=== PATIENT | male | born 1950 | race Caucasian/White ===

== ENCOUNTER 2016-08-22 01:52 | Inpatient (IN) | payer MEDICARE ==
[2016-08-22] VITALS (39 sets, daily range): BP systolic 96–175; BP diastolic 52–98; PULSE 79–114; RESP 5–27; TEMP 97.7–98.5; O2SAT 82–98
[~2016-08-22] VITALS: Ht 167.6 cm; Wt 109.7 kg
[2016-08-22] MEDS ORDERED: SODIUM CHLOR 0.9% 1000 ML INJ 1,000 ML IV SCH ×2 (02:53)
[2016-08-22 02:55] LABS: AUTOMATED NEUTROPHIL # 4.1 TH/MM3 (1.8-7.7); BASOPHIL # 0.1 TH/MM3 (0-0.2); BASOPHIL % 1.4 % (0.0-2.0); EOSINOPHIL # 0.1 TH/MM3 (0-0.4); EOSINOPHIL % 1.8 % (0.0-4.0); HEMATOCRIT 49.2 % (39.0-51.0); HEMO FLAGS DIFF FINAL; LYMPH % 16.8 % (9.0-44.0); MEAN CELL VOLUME 89.3 FL (80.0-100.0); MEAN CORPUSCULAR HEMOGLOBIN 28.6 PG (27.0-34.0); MONO % 9.4 % (0.0-8.0); NEUT % 70.6 % (16.0-70.0); PLATELET COUNT 128 TH/MM3 (150-450); RED BLOOD COUNT 5.51 MIL/MM3 (4.50-5.90); RED CELL DISTRIBUTION WIDTH 15.1 % (11.6-17.2); WHITE BLOOD COUNT 5.9 TH/MM3 (4.0-11.0)
[2016-08-22] MEDS ORDERED: VANCOMYCIN INJ 1,000 MG in SODIUM CHLOR 0.9% 250 ML INJ 250 ML IV ONE (03:00)
[2016-08-22] MEDS ORDERED: SODIUM CHLORIDE 0.9% FLUSH 5 ML FLUSH IVF PRN ×3 (03:00→10:15)
[2016-08-22] MEDS ORDERED: CEFEPIME INJ 2,000 MG in SODIUM CHLORIDE 0.9% INJ 100 ML IV ONE (03:00)
[2016-08-22] MEDS ORDERED: NALOXONE HCL 0.4 MG/ML AMP IV PUSH ONE (03:00)
[2016-08-22 03:16] LABS: BLOOD GAS CARBOXYHEMOGLOBIN 2.6 % (0-4); BLOOD GAS HCO3 36 mmol/L (22-26); BLOOD GAS METHEMOGLOBIN 1.1 % (0-2); BLOOD GAS O2 HGB SATURATION 90 % (90-100); BLOOD GAS OXYGEN CONTENT 19.9 Vol % (12.0-20.0); BLOOD GAS PCO2 90 mmHG (38-42); BLOOD GAS PO2 80 mmHG (61-120); BLOOD GAS TOTAL HGB 15.7 G/DL (12.0-16.0); TEMP CORR TO 98.6
[2016-08-22 03:17] LABS: CRITICAL VALUE YES; DRAW SITE LT RADIAL; LITER FLOW 3.5 L/M; NUMBER OF ARTERIAL PUNCTURES 1; OXYGEN DEVICE NASAL CANNULA; STAT YES; ULNAR PULSE Y
[2016-08-22 03:18] LABS: BLOOD, URINE NEG (NEG); KETONE, URINE NEG (NEG); NITRITE,URINE NEG (NEG)
[2016-08-22 03:35] LABS: GLUCOSE,URINE 1000 OR GREATER mg/dL (NEG)
[2016-08-22 03:36] LABS: AMPHETAMINE, URINE NEG (NEG)
--- NOTE | 2016-08-22 03:37 | RADHPO ---
EXAM DATE/TIME: 08/22/2016 03:27 [facility] COMPARISON: No previous studies available for comparison. INDICATIONS : Fever, Syncope MEDICAL HISTORY : Diabetes mellitus type II. SURGICAL HISTORY : Unknown ENCOUNTER: Initial ACUITY: 1 day PAIN SCORE: Non-responsive. LOCATION: Bilateral chest FINDINGS: A single view of the chest demonstrates the lungs to be symmetrically aerated without evidence of mas s, infiltrate or effusion. There appears to be some pulmonary venous congestion. The heart size is en larged. The bony structures are intact. There is an old fracture involving the left clavicle.. CONCLUSION: 1. Pulmonary venous congestion. 2. Compensated cardiomegaly. Graeme Pacheco MD on August 22, 2016 at 3:34 Board Certified Radiologist. This report was verified electronically.
[2016-08-22 03:38] LABS: BARBITURATES, URINE NEG (NEG)
[2016-08-22 03:41] LABS: COCAINE, URINE NEG (NEG)
[2016-08-22 03:41] LABS: CHLORIDE 101 MEQ/L (98-107); POTASSIUM 3.5 MEQ/L (3.5-5.1); SODIUM (NA) 141 MEQ/L (136-145)
[2016-08-22 03:44] LABS: ANION GAP 2 MEQ/L (5-15); BICARBONATE 37.8 MEQ/L (21.0-32.0)
[2016-08-22 03:45] LABS: BLOOD UREA NITROGEN 9 MG/DL (7-18)
[2016-08-22 03:47] LABS: ALT (GPT) 19 U/L (12-78); AST (GOT) 16 U/L (15-37)
[2016-08-22 03:48] LABS: METHOD OF COLLECTION CLEAN CATCH; URINE COLOR YELLOW (YELLW/STRAW)
[2016-08-22 03:48] LABS: GLOMERULAR FILTRATION RATE 126 ML/MIN (>89)
[2016-08-22 03:49] LABS: TOTAL BILIRUBIN ADULT 0.6 MG/DL (0.2-1.0)
[2016-08-22 03:50] LABS: SQUAMOUS EPITHELIAL CELL URINE 0-5 /hpf (0-5)
[2016-08-22 03:50] LABS: ALKALINE PHOSPHATASE 83 U/L (45-117)
[2016-08-22 03:51] LABS: COMMENT (UR) CULT NOT INDICATED; CULTURE IF INDICATED CULT NOT INDICATED
[2016-08-22] MEDS ORDERED: FUROSEMIDE 40 MG/4 ML VIAL IV PUSH ONE (04:00)
[2016-08-22] MEDS ORDERED: NITROGLYCERIN 2% OINT 1 GM PACKET TOPICAL ONE (04:00)
--- NOTE | 2016-08-22 04:06 | RADHPO ---
EXAM DATE/TIME: 08/22/2016 03:36 [facility] COMPARISON: No previous studies available for comparison. INDICATIONS : Altered mental status. RADIATION DOSE: 45.05 CTDIvol (mGy) MEDICAL HISTORY : None SURGICAL HISTORY : None. ENCOUNTER: Initial ACUITY: 1 day PAIN SCALE: 0/10 LOCATION: cranial TECHNIQUE: Multiple contiguous axial images were obtained of the head. Using automated exposure control and adj ustment of the mA and/or kV according to patient size, radiation dose was kept as low as reasonably a chievable to obtain optimal diagnostic quality images. FINDINGS: CEREBRUM: The ventricles are normal for age. No evidence of midline shift, mass lesion, hemorrhage or acute in farction. No extra-axial fluid collections are seen. POSTERIOR FOSSA: The cerebellum and brainstem are intact. The 4th ventricle is midline. The cerebellopontine angle i s unremarkable. EXTRACRANIAL: The visualized portion of the orbits is intact. SKULL: The calvaria is intact. No evidence of skull fracture. CONCLUSION: Normal examination for a patient of this age. Graeme Pacheco MD on August 22, 2016 at 4:04 Board Certified Radiologist. This report was verified electronically.
[2016-08-22 04:12] LABS: MAGNESIUM 1.4 MG/DL (1.5-2.5)
[2016-08-22] MEDS ORDERED: RESP: ALBUTEROL 2.5 MG/IPRATROPIUM 0.5 MG NEB (SCH) NEB ONE ×2 (04:15→06:45)
[2016-08-22 04:17] LABS: BETA-HYDROXYBUTYRATE 0.08 MMOL/L (0.00-0.39)
[2016-08-22] MEDS ORDERED: methylPREDNISolone SOD SUCC 125 MG/2 ML VIAL IVP ONE (05:15)
[2016-08-22] MEDS: RESP: ALBUTEROL 2.5 MG/IPRATROPIUM 0.5 MG NEB (SCH) INH ×4 (05:17→21:36)
[2016-08-22 05:50] LABS: CREATINE KINASE 54 U/L (39-308)
--- NOTE | 2016-08-22 06:02 | PD ---
HPI Chief Complaint: Altered Mental Status Time Seen by Provider: 02:53 Travel History International Travel<30 days: No Contact w/Intl Traveler<30days: No Traveled to known affect area: No History of Present Illness HPI 65-year-old male presents to the emergency department by EMS transport for evaluation of altered mental status. Patient is not able to relay his own history. According to boxer operator report patient was identified by police to have erratic and reckless driving and pulled the patient over. At that time he was noted to have altered mentation. EMS was notified and patient was transported to the emergency department. Patient was identified to have low O2 saturations of 87% on room air. Patient unable to relay any of his past medical history. Patient presents with photo ID been no medication list. Blood sugar was 137. Patient was afebrile. Patient denies pain. PFSH Past Medical History Narrative Medical Unknown Medical History: Unable to Obtain Diminished Hearing: No Tetanus Vaccination: Unknown Past Surgical History Surgical History: Unable to Obtain Social History Alcohol Use: Yes (OCCASIONAL ) Tobacco Use: No Substance Use: No Allergies-Medications (Allergen,Severity, Reaction): Coded Allergies: No Known Allergies (Unverified , 08/22/16) Reported Meds & Prescriptions Reported Meds & Active Scripts Active Reported Metformin (Metformin HCl) Unknown Strength Tab Unknown Dose PO BIDPC With meals Narrative Medication Unknown Review of Systems ROS Limitations: Clinical Condition, Altered Mental Status, Poor Historian Except as stated in HPI: all other systems reviewed are Neg Physical Exam Narrative GENERAL: Well-developed obese male lethargic; gcs 13 SKIN: Warm and dry. HEAD: Atraumatic. Normocephalic. EYES: Pupils equal and round. Extraocular muscles intact. No scleral icterus. No injection or drainage. ENT: No nasal bleeding or discharge. Mucous membranes pink and moist. Airway is patent. NECK: Trachea midline. No JVD. CARDIOVASCULAR: Increased Regular rate and rhythm. RESPIRATORY: No accessory muscle use. Clear to auscultation. Breath sounds equal bilaterally markedly diminished. GASTROINTESTINAL: Abdomen soft, non-tender, nondistended. Reducible umbilical hernia. Hepatic and splenic margins not palpable. MUSCULOSKELETAL: Extremities without clubbing, cyanosis, or edema. No obvious deformities. NEUROLOGICAL: Lethargic. No obvious cranial nerve deficits. Motor grossly within normal limits. Five out of 5 muscle strength in the arms and legs. Slurred speech. Data Data Last Documented VS Vital Signs Date Time Temp Pulse Resp B/P Pulse Ox O2 Delivery O2 Flow Rate FiO2 08/22/16 05:00 112 24 175/98 98 Nasal Cannula 3 08/22/16 04:00 98.3 Orders Complete Blood Count With Diff (08/22/16 02:25) Comprehensive Metabolic Panel (08/22/16 02:25) Urinalysis - C+S If Indicated (08/22/16 02:25) Lactic Acid Sepsis Protocol (08/22/16 02:25) Chest, Single Ap (08/22/16 02:25) Blood Culture (08/22/16 02:25) Iv Access Insert/Monitor (08/22/16 02:25) Oxygen Administration (08/22/16 02:25) Oximetry (08/22/16 02:25) Blood Glucose (08/22/16 02:25) Electrocardiogram (08/22/16 02:53) Ammonia (08/22/16 02:53) Drug Screen, Random Urine (08/22/16 02:53) Arterial Blood Gas (Abg) (08/22/16 02:53) Ct Brain W/O Iv Contrast(Rout) (08/22/16 02:53) Ecg Monitoring (08/22/16 02:53) Sodium Chloride 0.9% Flush (Ns Flush) (08/22/16 03:00) Sodium Chlor 0.9% 1000 Ml Inj (Ns 1000 M (08/22/16 02:53) Sodium Chlor 0.9% 1000 Ml Inj (Ns 1000 M (08/22/16 02:53) Cefepime Inj (Maxipime Inj) (08/22/16 03:00) Vancomycin Inj (Vancomycin Inj) (08/22/16 03:00) Naloxone Inj (Narcan Inj) (08/22/16 03:00) Alcohol (Ethanol) (08/22/16 02:48) Thyroid Stimulating Hormone (08/22/16 02:48) Furosemide Inj (Lasix Inj) (08/22/16 04:00) Act Partial Throm Time (Ptt) (08/22/16 03:50) Prothrombin Time / Inr (Pt) (08/22/16 03:50) D-Dimer (08/22/16 03:50) Nitroglycerin 2% Oint (Nitroglycerin 2% (08/22/16 04:00) Albuterol-Ipratropium Neb (Duoneb Neb) (08/22/16 04:15) Beta Hydroxybutyrate (Acetone) (08/22/16 03:15) Magnesium (Mg) (08/22/16 03:15) Salicylates (Aspirin) (08/22/16 04:57) Tylenol (Acetaminophen) (08/22/16 04:57) Ckmb (Isoenzyme) Profile (08/22/16 04:57) Troponin I (08/22/16 04:57) Methylprednisolone So Succ Inj (Solumedr (08/22/16 05:15) Albuterol-Ipratropium Neb (Duoneb Neb) (08/22/16 05:15) Arterial Blood Gas (Abg) (08/22/16 ) Admit Order (Ed Use Only) (08/22/16 ) ^ Saline Lock (08/22/16 06:38) Resp Oxygen Cornell C Titrat 1-4 L (08/22/16 ) ^ Notify Dr: Other (08/22/16 06:38) Sodium Chloride 0.9% Flush (Ns Flush) (08/22/16 09:00) Sodium Chloride 0.9% Flush (Ns Flush) (08/22/16 06:45) Labs Laboratory Tests Test 08/22/16 08/22/16 08/22/16 08/22/16 02:48 03:00 03:10 03:15 White Blood Count 5.9 TH/MM3 Red Blood Count 5.51 MIL/MM3 Hemoglobin 15.7 GM/DL Hematocrit 49.2 % Mean Corpuscular Volume 89.3 FL Mean Corpuscular Hemoglobin 28.6 PG Mean Corpuscular Hemoglobin 32.0 % Concent Red Cell Distribution Width 15.1 % Platelet Count 128 TH/MM3 Mean Platelet Volume 8.4 FL Neutrophils (%) (Auto) 70.6 % Lymphocytes (%) (Auto) 16.8 % Monocytes (%) (Auto) 9.4 % Eosinophils (%) (Auto) 1.8 % Basophils (%) (Auto) 1.4 % Neutrophils # (Auto) 4.1 TH/MM3 Lymphocytes # (Auto) 1.0 TH/MM3 Monocytes # (Auto) 0.6 TH/MM3 Eosinophils # (Auto) 0.1 TH/MM3 Basophils # (Auto) 0.1 TH/MM3 CBC Comment DIFF FINAL Differential Comment Urine Collection Type CLEAN CATCH Urine Color YELLOW Urine Turbidity CLEAR Urine pH 6.0 Urine Specific Elliott 1.019 Urine Protein NEG mg/dL Urine Glucose (UA) 1000 OR GREATER mg/dL Urine Ketones NEG mg/dL Urine Occult Blood NEG Urine Nitrite NEG Urine Bilirubin NEG Urine Leukocyte Esterase NEG Urine Squamous Epithelial 0-5 /hpf Cells Microscopic Urinalysis Comment CULT NOT INDICATED Lactic Acid Level 1.7 mmol/L Urine Opiates Screen NEG Urine Barbiturates Screen NEG Urine Amphetamines Screen NEG Urine Benzodiazepines Screen NEG Urine Cocaine Screen NEG Urine Cannabinoids Screen NEG Blood Gas Puncture Site LT RADIAL Blood Gas Patient Temperature 98.6 Blood Gas HCO3 36 mmol/L Blood Gas Base Excess 9.0 mmol/L Blood Gas Oxygen Saturation 90 % Arterial Blood pH 7.23 Arterial Blood Partial 90 mmHG Pressure CO2 Arterial Blood Partial 80 mmHG Pressure O2 Arterial Blood Oxygen Content 19.9 Vol % Arterial Blood 2.6 % Carboxyhemoglobin Arterial Blood Methemoglobin 1.1 % Blood Gas Hemoglobin 15.7 G/DL Oxygen Delivery Device NASAL CANNULA Blood Gas Liter Flow 3.5 L/M Sodium Level 141 MEQ/L Potassium Level 3.5 MEQ/L Chloride Level 101 MEQ/L Carbon Dioxide Level 37.8 MEQ/L Anion Gap 2 MEQ/L Blood Urea Nitrogen 9 MG/DL Creatinine 0.64 MG/DL Estimat Glomerular Filtration 126 ML/MIN Rate Random Glucose 264 MG/DL Calcium Level 8.6 MG/DL Magnesium Level 1.4 MG/DL Total Bilirubin 0.6 MG/DL Aspartate Amino Transf 16 U/L (AST/SGOT) Alanine Aminotransferase 19 U/L (ALT/SGPT) Alkaline Phosphatase 83 U/L Total Protein 7.0 GM/DL Albumin 3.2 GM/DL Thyroid Stimulating Hormone 1.980 uIU/ML 3rd Gen Ethyl Alcohol Level LESS THAN 3 MG/DL B-Hydroxybutyrate 0.08 MMOL/L Test 08/22/16 08/22/16 08/22/16 03:18 03:20 05:50 Total Creatine Kinase 54 U/L Troponin I LESS THAN 0.02 NG/ML Acetaminophen Level LESS THAN 2.0 MCG/ML Ammonia 54 MCMOL/L Salicylates Level LESS THAN 1.7 MG/DL MDM Medical Decision Making Medical Screen Exam Complete: Yes Emergency Medical Condition: Yes Medical Record Reviewed: Yes Interpretation(s) Laboratory Tests Test 08/22/16 08/22/16 08/22/16 08/22/16 02:48 03:00 03:10 03:15 White Blood Count 5.9 TH/MM3 Red Blood Count 5.51 MIL/MM3 Hemoglobin 15.7 GM/DL Hematocrit 49.2 % Mean Corpuscular Volume 89.3 FL Mean Corpuscular Hemoglobin 28.6 PG Mean Corpuscular Hemoglobin 32.0 % Concent Red Cell Distribution Width 15.1 % Platelet Count 128 TH/MM3 Mean Platelet Volume 8.4 FL Neutrophils (%) (Auto) 70.6 % Lymphocytes (%) (Auto) 16.8 % Monocytes (%) (Auto) 9.4 % Eosinophils (%) (Auto) 1.8 % Basophils (%) (Auto) 1.4 % Neutrophils # (Auto) 4.1 TH/MM3 Lymphocytes # (Auto) 1.0 TH/MM3 Monocytes # (Auto) 0.6 TH/MM3 Eosinophils # (Auto) 0.1 TH/MM3 Basophils # (Auto) 0.1 TH/MM3 CBC Comment DIFF FINAL Differential Comment Urine Collection Type CLEAN CATCH Urine Color YELLOW Urine Turbidity CLEAR Urine pH 6.0 Urine Specific Elliott 1.019 Urine Protein NEG mg/dL Urine Glucose (UA) 1000 OR GREATER mg/dL Urine Ketones NEG mg/dL Urine Occult Blood NEG Urine Nitrite NEG Urine Bilirubin NEG Urine Leukocyte Esterase NEG Urine Squamous Epithelial 0-5 /hpf Cells Microscopic Urinalysis Comment CULT NOT INDICATED Lactic Acid Level 1.7 mmol/L Urine Opiates Screen NEG Urine Barbiturates Screen NEG Urine Amphetamines Screen NEG Urine Benzodiazepines Screen NEG Urine Cocaine Screen NEG Urine Cannabinoids Screen NEG Blood Gas Puncture Site LT RADIAL Blood Gas Patient Temperature 98.6 Blood Gas HCO3 36 mmol/L Blood Gas Base Excess 9.0 mmol/L Blood Gas Oxygen Saturation 90 % Arterial Blood pH 7.23 Arterial Blood Partial 90 mmHG Pressure CO2 Arterial Blood Partial 80 mmHG Pressure O2 Arterial Blood Oxygen Content 19.9 Vol % Arterial Blood 2.6 % Carboxyhemoglobin Arterial Blood Methemoglobin 1.1 % Blood Gas Hemoglobin 15.7 G/DL Oxygen Delivery Device NASAL CANNULA Blood Gas Liter Flow 3.5 L/M Sodium Level 141 MEQ/L Potassium Level 3.5 MEQ/L Chloride Level 101 MEQ/L Carbon Dioxide Level 37.8 MEQ/L Anion Gap 2 MEQ/L Blood Urea Nitrogen 9 MG/DL Creatinine 0.64 MG/DL Estimat Glomerular Filtration 126 ML/MIN Rate Random Glucose 264 MG/DL Calcium Level 8.6 MG/DL Magnesium Level 1.4 MG/DL Total Bilirubin 0.6 MG/DL Aspartate Amino Transf 16 U/L (AST/SGOT) Alanine Aminotransferase 19 U/L (ALT/SGPT) Alkaline Phosphatase 83 U/L Total Protein 7.0 GM/DL Albumin 3.2 GM/DL Thyroid Stimulating Hormone 1.980 uIU/ML 3rd Gen Ethyl Alcohol Level LESS THAN 3 MG/DL B-Hydroxybutyrate 0.08 MMOL/L Test 08/22/16 08/22/16 08/22/16 03:18 03:20 05:50 Total Creatine Kinase 54 U/L Troponin I LESS THAN 0.02 NG/ML Acetaminophen Level LESS THAN 2.0 MCG/ML Ammonia 54 MCMOL/L Salicylates Level LESS THAN 1.7 MG/DL Last Impressions Head CT 08/22/16252 Signed Impressions: Service Date/Time: Monday, August 22, 2016 03:36 - CONCLUSION: Normal examination for a patient of this age. Graeme Pacheco MD Chest X-Ray 08/22/16224 Signed Impressions: Service Date/Time: Monday, August 22, 2016 03:27 - CONCLUSION: 1. Pulmonary venous congestion. 2. Compensated cardiomegaly. Graeme Pacheco MD Differential Diagnosis Altered mental status, respiratory distress with hypoxemia, PE, CHF, COPD, metabolic encephalopathy, toxic ingestants, sepsis, seizure, CVA Narrative Course Patient placed on monitor IV access obtained specimens collected and sent for resulting per protocol Patient identified to have persistent decreased O2 saturation on 2 L per minute nasal cannula placed on 4 L nasal cannula ABG obtained updraft treatments 2 administered; diminished breath sounds; Narcan administered Patient sent to CT for imaging Return from CT mentation has improved additional updraft treatment administered Blood cultures and lactic acid collected patient presumptively administered IV antibiotics cefapime and vancomycin Patient now much more awake is able to relay has history of diabetes COPD and hypertension as well as depression. Patient admits to being noncompliant with his medications. Patient is to not knowing what medications he takes except for metformin. Patient admits to taking too much of his antidepressant medication but states he cannot recall the name of this medication. Patient is made a Contreras act due to the fact that he intentionally took too much of his antidepressant repeatedly talks about being depressed and is at risk for harm to himself intentionally or unintentionally. Patient is being admitted to the ICU. Patient's case discussed with on-call chicken fancier in the emergency department and will be admitted to medicine service with consult as needed to chicken fancier this patient showing evidence of improvement of his sensorium and respiratory acidosis. Physician Communication Physician Communication @ [phone] Martinez--[facility] admit to ICU w as needed chicken fancier consult; discussed with Dr Bush admit to ICU aware case discussed with Dr Martinez Diagnosis Primary Impression: Altered mental status Qualified Code: R40.1 - Stupor Additional Impressions: CHF (congestive heart failure) Qualified Code: I50.9 - Congestive heart failure, unspecified congestive heart failure chronicity, unspecified congestive heart failure type COPD (chronic obstructive pulmonary disease) Qualified Code: J44.9 - Chronic obstructive pulmonary disease, unspecified COPD type Respiratory acidosis Hypoxemia Admitting Information Admitting Physician Requests: Admit Melissa Frye MD Aug 22, 2016 06:02
[2016-08-22 06:51] LABS: BLOOD GAS BASE EXCESS 10.1 mmol/L (-2-2); BLOOD GAS CARBOXYHEMOGLOBIN 2.7 % (0-4); BLOOD GAS HCO3 37 mmol/L (22-26); BLOOD GAS METHEMOGLOBIN 0.9 % (0-2); BLOOD GAS O2 HGB SATURATION 90 % (90-100); BLOOD GAS OXYGEN CONTENT 20.5 Vol % (12.0-20.0); BLOOD GAS PCO2 74 mmHG (38-42); BLOOD GAS PO2 72 mmHG (61-120); BLOOD GAS TOTAL HGB 16.2 G/DL (12.0-16.0); TEMP CORR TO 98.6
[2016-08-22 06:52] LABS: CRITICAL VALUE YES; DRAW SITE LT RADIAL; LITER FLOW 4 L/M; NUMBER OF ARTERIAL PUNCTURES 1; OXYGEN DEVICE NASAL CANNULA; STAT YES; ULNAR PULSE Y
[2016-08-22 07:07] LABS: ACETAMINOPHEN LESS THAN 2.0 MCG/ML (10.0-30.0)
--- NOTE | 2016-08-22 07:33 | HHI.PR ---
Subjective Remarks I was notified by Dr. Frye of a patient requiring ICU level close nursing care and monitoring. In brief, this is a 65yM who was pulled over by police for driving erratically. EMS was then called to bring the patient in for altered mental status. He was initially hypercarbic with significant resp acidosis. he became more alert and admitted to taking extra depression medication. repeat abg demonstrates improving respiratory acidosis. I very briefly evaluated the patient and he is awake, slightly confused, protecting his airway, GCS 14. not in any respiratory distress. normal hemodynamics. I have discussed the case with Dr. Frye, and she feels that he is safe for transfer to the ICU with hospitalist services following, and I agree with her assessment. The critical care team will be peripherally aware of the patient and will be happy to see the patient in formal consultation at the request of the medical team. Kirit Martinez MD Aug 22, 2016 07:33
[2016-08-22] MEDS ORDERED: METF500T PO (07:41)
[2016-08-22 08:01] LABS: APTT (PATIENT) 27.4 SEC (24.3-30.1); INTERNATIONAL NORMALIZED RATIO 1.1 RATIO; PROTHROMBIN TIME - PATIENT 11.8 SEC (9.8-11.6)
[2016-08-22] MEDS: SODIUM CHLORIDE 0.9% FLUSH 5 ML FLUSH IVF SCH ×2 (09:00→20:40)
[2016-08-22] MEDS ORDERED: SODIUM CHLORIDE 0.9% FLUSH 5 ML FLUSH FLUSH PRN (10:15)
[2016-08-22] MEDS ORDERED: LORazepam 2 MG/ML VIAL IV PUSH PRN (10:15)
[2016-08-22] MEDS ORDERED: NALOXONE HCL 0.4 MG/ML AMP IV PRN (10:15)
[2016-08-22] MEDS ORDERED: HALOPERIDOL LACTATE 5 MG/ML AMP IM PRN (10:15)
[2016-08-22] MEDS ORDERED: ACETAMINOPHEN 325 MG TAB PO PRN (10:15)
[2016-08-22] MEDS ORDERED: RESP: ALBUTEROL 2.5 MG/3 ML NEB (PRN) INH (10:15)
[2016-08-22] MEDS ORDERED: HALOPERIDOL LACTATE 5 MG/ML AMP IM ONE (10:30)
[2016-08-22] MEDS ORDERED: LORazepam 2 MG/ML VIAL IV PUSH ONE (10:30)
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
[2016-08-22] MEDS: ENOXAPARIN SODIUM 40 MG/0.4 ML SYRINGE SQ SCH (10:40)
[2016-08-22] MEDS: methylPREDNISolone SOD SUCC 125 MG/2 ML VIAL IVP SCH ×3 (10:41→23:53)
[2016-08-22] MEDS: SODIUM CHLOR 0.9% 1000 ML INJ 1,000 ML IV SCH ×2 (10:43→20:48)
[2016-08-22] MEDS ORDERED: AZITHROMYCIN INJ 500 MG in SODIUM CHLOR 0.9% 250 ML INJ 250 ML IV SCH (11:00)
[2016-08-22 15:38] LABS: BLOOD GAS CARBOXYHEMOGLOBIN 2.2 % (0-4); BLOOD GAS HCO3 38 mmol/L (22-26); BLOOD GAS METHEMOGLOBIN 0.7 % (0-2); BLOOD GAS O2 HGB SATURATION 92 % (90-100); BLOOD GAS OXYGEN CONTENT 19.8 Vol % (12.0-20.0); BLOOD GAS PCO2 90 mmHg (38-42); BLOOD GAS PO2 81 mmHg (61-120); BLOOD GAS TOTAL HGB 15.3 G/DL (12.0-16.0)
[2016-08-22 15:39] LABS: CRITICAL VALUE YES; DRAW SITE RT RADIAL; FIO2 35 %; NUMBER OF ARTERIAL PUNCTURES 1; OXYGEN DEVICE BIPAP; STAT NO; ULNAR PULSE PRESENT
[2016-08-22 15:40] LABS: VENT SETTINGS 15 IPAP 5 EPAP
--- NOTE | 2016-08-22 16:40 | EKG ---
Date Performed: 08/22/2016 Time Performed: 03:06:32 PTAGE: 65 years EKG: Sinus tachycardia with sinus arrhythmia with PVC(s) Right bundle branch block Possible ante rior infarct - age undetermined Abnormal ECG NO PREVIOUS TRACING DOCTOR: Priscilla Sánchez Interpretating Date/Time 08/22/2016 16:35:42
[2016-08-22 17:25] LABS: BLOOD GAS BASE EXCESS 10.7 mmol/L (-2-2); BLOOD GAS CARBOXYHEMOGLOBIN 2.3 % (0-4); BLOOD GAS HCO3 37 mmol/L (22-26); BLOOD GAS METHEMOGLOBIN 0.6 % (0-2); BLOOD GAS O2 HGB SATURATION 91 % (90-100); BLOOD GAS OXYGEN CONTENT 19.5 Vol % (12.0-20.0); BLOOD GAS PCO2 74 mmHg (38-42); BLOOD GAS PO2 69 mmHg (61-120); BLOOD GAS TOTAL HGB 15.3 G/DL (12.0-16.0)
[2016-08-22 17:26] LABS: CRITICAL VALUE YES; DRAW SITE RT RADIAL; FIO2 30 %; NUMBER OF ARTERIAL PUNCTURES 1; OXYGEN DEVICE BIPAP; STAT NO; ULNAR PULSE PRESENT; VENT SETTINGS 18/8
[2016-08-22] MEDS ORDERED: DEXTROSE 50% IN WATER 50 ML VIAL(D50) IV PUSH PRN (17:30)
[2016-08-22] MEDS ORDERED: GLUCAGON 1 MG/ML VIAL OTHER PRN (17:30)
[2016-08-22] MEDS ORDERED: CHLORHEXIDINE GLUCONATE 2 % 1 PACK (2 CLOTHS)(extra cloths) TOP PRN (18:30)
[2016-08-22] MEDS ORDERED: BP med (20:39)
[2016-08-22] MEDS ORDERED: POTA10CA PO (20:39)
[2016-08-22] MEDS ORDERED: FURO1TAB62 PO (20:39)
[2016-08-22] MEDS: INSULIN ASPART SUPPLEMENTAL SCALE SQ SCH (20:44)
[2016-08-22] MEDS ORDERED: SODIUM CHLORIDE 0.9% FLUSH 5 ML FLUSH FLUSH SCH (21:00)
[2016-08-22] MEDS ORDERED: SODIUM CHLORIDE 0.9% FLUSH 5 ML FLUSH IVF SCH (21:00)
[2016-08-23] VITALS (36 sets, daily range): BP systolic 110–155; BP diastolic 60–91; PULSE 76–108; RESP 9–34; TEMP 97.7–98.3; O2SAT 90–94
[2016-08-23] MEDS: CHLORHEXIDINE GLUCONATE 2 % 1 PACK (2 CLOTHS)(taper/protocol) TOP SCH (02:54)
[2016-08-23] MEDS: RESP: ALBUTEROL 2.5 MG/IPRATROPIUM 0.5 MG NEB (SCH) INH ×4 (04:20→20:12)
[2016-08-23 05:24] LABS: BLOOD GAS CARBOXYHEMOGLOBIN 2.5 % (0-4); BLOOD GAS HCO3 37 mmol/L (22-26); BLOOD GAS METHEMOGLOBIN 0.5 % (0-2); BLOOD GAS O2 HGB SATURATION 92 % (90-100); BLOOD GAS OXYGEN CONTENT 19.2 Vol % (12.0-20.0); BLOOD GAS PCO2 66 mmHg (38-42); BLOOD GAS PO2 69 mmHg (61-120); BLOOD GAS TOTAL HGB 14.9 G/DL (12.0-16.0); CRITICAL VALUE YES; DRAW SITE RT RADIAL; FIO2 30 %; NUMBER OF ARTERIAL PUNCTURES 1; OXYGEN DEVICE BIPAP; STAT NO; ULNAR PULSE PRESENT
[2016-08-23] MEDS: methylPREDNISolone SOD SUCC 125 MG/2 ML VIAL IVP SCH (05:33)
[2016-08-23 05:36] LABS: CHLORIDE 99 MEQ/L (98-107); POTASSIUM 3.4 MEQ/L (3.5-5.1); SODIUM (NA) 141 MEQ/L (136-145)
[2016-08-23 05:40] LABS: ANION GAP 3 MEQ/L (5-15); BICARBONATE 39.3 MEQ/L (21.0-32.0); BLOOD UREA NITROGEN 17 MG/DL (7-18); MAGNESIUM 1.5 MG/DL (1.5-2.5)
[2016-08-23 05:43] LABS: ALT (GPT) 17 U/L (12-78); AST (GOT) 12 U/L (15-37); GLOMERULAR FILTRATION RATE 144 ML/MIN (>89)
[2016-08-23 05:45] LABS: TOTAL BILIRUBIN ADULT 0.9 MG/DL (0.2-1.0)
[2016-08-23 05:46] LABS: ALKALINE PHOSPHATASE 76 U/L (45-117)
[2016-08-23] MEDS: INSULIN ASPART SUPPLEMENTAL SCALE SQ SCH ×4 (06:57→20:59)
[2016-08-23] MEDS ORDERED: INFLUENZA VIRUS VACCINE (QUADRIVALENT) 0.5 ML SYR IM ONE (10:00)
[2016-08-23] MEDS ORDERED: FUROSEMIDE 20 MG TAB PO SCH (10:00)
[2016-08-23] MEDS ORDERED: ZOLP12.5 PO (11:17)
[2016-08-23] MEDS: metFORMIN HCL 500 MG TAB PO SCH ×2 (11:25→17:36)
[2016-08-23] MEDS: RIFAXIMIN 550 MG TAB PO SCH ×2 (11:25→20:58)
[2016-08-23] MEDS: FUROSEMIDE 40 MG/4 ML VIAL IV PUSH SCH ×2 (11:26→17:35)
[2016-08-23] MEDS: SODIUM CHLORIDE 0.9% FLUSH 5 ML FLUSH IVF SCH ×2 (11:28→20:59)
[2016-08-23] MEDS: ENOXAPARIN SODIUM 40 MG/0.4 ML SYRINGE SQ SCH (11:29)
[2016-08-23] MEDS: POTASSIUM CHLORIDE 10 MEQ CAP PO SCH (12:34)
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
--- NOTE | 2016-08-23 17:10 | HHI.PR ---
Subjective Remarks Patient has been alert and oriented all day. States he took "3 little pink pills " OTC that the pharmacist recommended could help him sleep. Likely benadryl. Patient states he has not taken ambien recently. Denies drinking since april. He states he took his girlfriend to the airport Sunday and then went back to his hotel room to lay down. He states he staying in a hotel room because he is not getting along with his parents. He took the 3 little pain pills and that is the last thing he remembers. Objective Vitals Vital Signs Date Time Temp Pulse Resp B/P Pulse Ox O2 Delivery O2 Flow Rate FiO2 08/23/16 14:02 99 08/23/16 12:23 92 Nasal Cannula 2.00 08/23/16 12:23 86 08/23/16 12:00 98.3 96 17 125/62 92 08/23/16 11:04 108 23 131/60 91 08/23/16 11:00 108 30 151/68 91 08/23/16 10:23 86 08/23/16 10:00 96 26 128/79 93 08/23/16 09:00 86 26 137/76 91 08/23/16 08:28 86 08/23/16 08:05 93 Nasal Cannula 2.00 08/23/16 08:00 97.9 86 16 127/68 91 08/23/16 07:59 91 Nasal Cannula 2.00 08/23/16 07:00 88 21 134/85 92 08/23/16 06:00 82 08/23/16 06:00 80 16 123/76 91 08/23/16 05:00 80 15 120/68 91 08/23/16 04:13 91 30 08/23/16 04:00 80 08/23/16 04:00 97.7 78 17 120/63 92 08/23/16 04:00 91 Bi-Pap 30 08/23/16 03:00 76 18 116/66 92 08/23/16 02:35 91 Bi-Pap 30 08/23/16 02:30 87 Nasal Cannula 3.00 08/23/16 02:00 76 08/23/16 02:00 76 14 113/60 92 08/23/16 01:21 92 30 08/23/16 01:00 76 13 110/65 91 08/23/16 00:00 86 08/23/16 00:00 98.0 86 19 122/72 91 08/23/16 00:00 91 Bi-Pap 30 08/22/16 23:00 80 15 115/64 92 08/22/16 22:00 86 14 136/71 90 08/22/16 22:00 86 08/22/16 21:37 92 30 08/22/16 21:00 80 13 126/68 90 08/22/16 20:30 89 Bi-Pap 30 08/22/16 20:07 97.7 92 27 137/77 92 08/22/16 20:00 91 Nasal Cannula 3.00 08/22/16 20:00 79 08/22/16 19:38 94 30 08/22/16 19:37 82 14 119/76 93 08/22/16 19:07 82 14 100/57 92 08/22/16 19:00 92 Bi-Pap 30 08/22/16 18:37 82 6 96/58 93 08/22/16 18:26 82 08/22/16 18:07 84 6 100/56 93 08/22/16 18:07 84 6 100/56 93 08/22/16 17:42 93 30 08/22/16 17:37 88 11 111/63 95 08/22/16 17:07 98.3 84 26 106/63 93 I/O 08/22/16 08/22/16 08/22/16 08/23/16 08/23/16 08/23/16 07:00 15:00 23:00 07:00 15:00 23:00 Intake Total 1100 ml 250 ml 1630 ml 450 ml 2875 ml Output Total 1850 ml 1200 ml 500 ml 350 ml 2400 ml Balance -750 ml -950 ml 1130 ml 100 ml 475 ml Intake Oral 100 ml 2600 ml IV Total 1100 ml 250 ml 1530 ml 450 ml 275 ml Output Urine Total 1850 ml 1200 ml 500 ml 350 ml 2400 ml Stool Total 0 ml 0 ml Result Diagram: 08/22/16 0248 08/23/16 0515 Objective Remarks GENERAL: Well-nourished, well-developed obese male patient. SKIN: Warm and dry. HEAD: Normocephalic. EYES: No scleral icterus. No injection or drainage. NECK: Supple, trachea midline. No JVD or lymphadenopathy. CARDIOVASCULAR: Regular rate and rhythm without murmurs, gallops, or rubs. RESPIRATORY: Breath sounds equal bilaterally. No accessory muscle use. GASTROINTESTINAL: Abdomen soft, non-tender, nondistended. EXTREMITIES: No cyanosis, or edema. NEUROLOGICAL: Awake, alert, and oriented x 3. Non-focal. A/P Problem List: (1) Acute hypercapnic respiratory failure ICD Code: J96.02 Status: Acute (2) Carbon dioxide narcosis ICD Code: R06.89 Status: Acute (3) Toxic encephalopathy ICD Code: G92 Status: Acute (4) Hypoxemia ICD Code: R09.02 Status: Acute (5) At high risk for suicide ICD Code: Z91.89 Status: Acute (6) Anxiety and depression ICD Code: F41.9 Status: Acute Assessment and Plan -Acute hypercapnic and hypoxemic respiratory failure due to decreased mentation - likely brought about by overdose on Benadryl. Cannot rule out underlying sleep apnea although the patient has not been formally tested for it. He also had some pulmonary edema on chest x-ray. We'll continue with diuresis 40 mg Lasix IV twice a day. We'll continue with BiPAP tonight and repeat an ABG in the morning. I have ordered an echocardiogram as well to evaluate his ejection fraction. Overall he is greatly improved. -Depression and anxiety -apparently he accidentally overdosed on Benadryl. The patient denies any suicidality although he does admit to having a lot of anxiety and being depressed. Appreciate psychiatry input. Await decision on lifting Contreras act. -Diabetes type II. Sugars are running in the 300s. I will DC the Solu-Medrol start Levemir 10 units subcutaneous at bedtime. Resume metformin. -Questionable history of COPD. the patient did smoke for several years more than 30 years ago. No history of COPD. No wheezing on exam. DC Solu-Medrol. -Hypertension. His home medications will need to be reconciled. -DVT prophylaxis with Lovenox. Arleth Askew MD Aug 23, 2016 17:09
[2016-08-23] MEDS: ALPRAZolam 0.5 MG TAB PO SCH ×2 (17:35→21:52)
[2016-08-23] MEDS: MIRTAZAPINE 15 MG TAB PO SCH (20:58)
[2016-08-23] MEDS: NYSTATIN 100,000 UNIT/GM CREAM 15 GM TOPICAL SCH (20:59)
[2016-08-24] VITALS (28 sets, daily range): BP systolic 104–146; BP diastolic 59–78; PULSE 72–108; RESP 13–28; TEMP 96.7–97.9; O2SAT 89–94
[2016-08-24] MEDS: RESP: ALBUTEROL 2.5 MG/IPRATROPIUM 0.5 MG NEB (SCH) INH ×2 (04:54→10:23)
[2016-08-24] MEDS: CHLORHEXIDINE GLUCONATE 2 % 1 PACK (2 CLOTHS)(taper/protocol) TOP SCH ×2 (04:57→19:46)
[2016-08-24 05:20] LABS: POTASSIUM 3.2 MEQ/L (3.5-5.1)
[2016-08-24 05:33] LABS: BICARBONATE 42.1 MEQ/L (21.0-32.0)
[2016-08-24] MEDS: ALPRAZolam 0.5 MG TAB PO SCH (05:38)
[2016-08-24] MEDS: INSULIN ASPART SUPPLEMENTAL SCALE SQ SCH ×4 (05:39→19:56)
[2016-08-24 06:38] LABS: BLOOD GAS BASE EXCESS 17.2 mmol/L (-2-2); BLOOD GAS CARBOXYHEMOGLOBIN 2.1 % (0-4); BLOOD GAS HCO3 44 mmol/L (22-26); BLOOD GAS METHEMOGLOBIN 0.7 % (0-2); BLOOD GAS O2 HGB SATURATION 90 % (90-100); BLOOD GAS OXYGEN CONTENT 19.5 Vol % (12.0-20.0); BLOOD GAS PCO2 84 mmHg (38-42); BLOOD GAS PO2 69 mmHg (61-120); BLOOD GAS TOTAL HGB 15.4 G/DL (12.0-16.0); CRITICAL VALUE YES; DRAW SITE RT RADIAL; LITER FLOW 3 L/M; NUMBER OF ARTERIAL PUNCTURES 1; OXYGEN DEVICE NASAL CANNULA; ULNAR PULSE PRESENT
[2016-08-24 06:39] LABS: STAT NO
[2016-08-24] MEDS: FUROSEMIDE 40 MG/4 ML VIAL IV PUSH SCH ×2 (09:20→16:25)
[2016-08-24] MEDS: TAMSULOSIN HCL 0.4 MG CAP PO SCH (09:21)
[2016-08-24] MEDS: metFORMIN HCL 500 MG TAB PO SCH ×2 (09:21→16:24)
[2016-08-24] MEDS: POTASSIUM CHLORIDE 10 MEQ CAP PO SCH (09:21)
[2016-08-24] MEDS: ENOXAPARIN SODIUM 40 MG/0.4 ML SYRINGE SQ SCH (09:21)
[2016-08-24] MEDS: RIFAXIMIN 550 MG TAB PO SCH ×2 (09:21→19:56)
[2016-08-24] MEDS: SODIUM CHLORIDE 0.9% FLUSH 5 ML FLUSH IVF SCH ×2 (09:24→19:41)
[2016-08-24] MEDS: NYSTATIN 100,000 UNIT/GM CREAM 15 GM TOPICAL SCH ×2 (09:24→19:58)
--- NOTE | 2016-08-24 12:40 | HHI.PR ---
Subjective Remarks Patient seen and evaluated today in follow-up for anxiety and overdose. Contreras act has been lifted. Patient appears to have some hypoxemia related to Xanax. 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 Blood sugar still elevated. Care plan discussed with respiratory therapy Objective Vitals Vital Signs Date Time Temp Pulse Resp B/P Pulse Ox O2 Delivery O2 Flow Rate FiO2 08/24/16 11:57 97.5 08/24/16 10:04 86 08/24/16 09:01 90 13 139/78 93 08/24/16 08:41 93 Nasal Cannula 3.00 08/24/16 08:15 91 Nasal Cannula 3.00 08/24/16 08:01 82 23 111/68 93 08/24/16 08:00 90 08/24/16 07:24 97.6 08/24/16 07:01 88 15 131/72 93 08/24/16 06:01 90 13 114/68 90 08/24/16 06:00 90 08/24/16 05:01 88 22 94 08/24/16 04:01 97.0 86 14 109/64 92 08/24/16 04:00 94 Nasal Cannula 3.00 08/24/16 04:00 85 08/24/16 03:00 90 14 138/66 94 08/24/16 02:00 88 19 121/65 92 08/24/16 01:05 92 Nasal Cannula 3.00 08/24/16 01:00 78 20 104/60 93 08/24/16 00:00 93 Bi-Pap 30 08/24/16 00:00 96.7 75 18 106/60 93 08/24/16 00:00 72 08/23/16 23:10 94 30 08/23/16 22:00 89 08/23/16 21:00 96 21 153/66 92 08/23/16 20:08 92 Nasal Cannula 3.00 08/23/16 20:02 97.9 98 28 138/69 91 08/23/16 20:00 89 Nasal Cannula 2.00 08/23/16 20:00 100 08/23/16 18:18 90 08/23/16 18:04 102 28 149/75 90 08/23/16 18:00 100 31 155/91 92 08/23/16 17:00 96 20 142/66 92 08/23/16 16:15 93 Nasal Cannula 2.00 08/23/16 16:15 90 08/23/16 16:00 97.9 98 31 135/88 90 08/23/16 15:00 98 34 129/71 93 08/23/16 14:02 99 08/23/16 14:00 104 33 131/64 90 08/23/16 13:00 98 9 116/61 91 I/O 08/23/16 08/23/16 08/23/16 08/24/16 08/24/16 08/24/16 07:00 15:00 23:00 07:00 15:00 23:00 Intake Total 450 ml 2875 ml 890 ml 120 ml Output Total 350 ml 2400 ml 2725 ml 500 ml Balance 100 ml 475 ml -1835 ml -380 ml Intake Oral 2600 ml 890 ml 120 ml IV Total 450 ml 275 ml Output Urine Total 350 ml 2400 ml 2725 ml 500 ml Stool Total 0 ml # Bowel Movements 0 0 Result Diagram: 08/22/16 0248 08/24/16 0500 Imaging Last Impressions Head CT 08/22/16 0253 Signed Impressions: Service Date/Time: Monday, August 22, 2016 03:36 - CONCLUSION: Normal examination for a patient of this age. Graeme Pacheco MD Chest X-Ray 08/22/16 022 Signed Impressions: Service Date/Time: Monday, August 22, 2016 03:27 - CONCLUSION: 1. Pulmonary venous congestion. 2. Compensated cardiomegaly. Graeme Pacheco MD Objective Remarks GENERAL: This is a well-nourished, well-developed patient, in no apparent distress. CARDIOVASCULAR: Sinus tachycardia without murmurs, gallops, or rubs. RESPIRATORY: Clear to auscultation. Breath sounds equal bilaterally. No wheezes , rales, or rhonchi. GASTROINTESTINAL: Abdomen soft, non-tender, nondistended. Normal active bowel sounds MUSCULOSKELETAL: Extremities without clubbing, cyanosis, or edema. NEURO: Alert & Oriented x4 to person, place, time, situation. Moves all ext x4 A/P Problem List: (1) Acute hypercapnic respiratory failure ICD Code: J96.02 Status: Acute Plan: Respiratory failure, etiology unclear. Patient with possible copd. Patient nonadherent with BiPAP at night. Plan of care discussed with respiratory therapy We'll repeat his blood gas and follow with pulmonary team Repeat chest x-ray pending? Pulmonary edema, will follow echo (Enlarged heart on my review with vascular congestion) (2) Anxiety and depression ICD Code: F41.9 Status: Acute Plan: Will add Xanax as needed due to respiratory issues. Continue to follow Psychiatric consultation appreciated (3) DM2 (diabetes mellitus, type 2) ICD Code: E11.9 Status: Acute Plan: Patient nonadherent with home metformin, will add Levemir and follow Diabetic diet with sliding scale Assessment and Plan Plan of care to be determined by Hospital course in no improvement patient may need to be intubated Shelley Merlos MD Aug 24, 2016 12:40
--- NOTE | 2016-08-24 14:09 | RADHPO ---
EXAM DATE/TIME: 08/24/2016 13:37 [facility] COMPARISON: CHEST SINGLE AP, August 22, 2016, 3:27. INDICATIONS : Short of breath. MEDICAL HISTORY : Diabetes mellitus type II. SURGICAL HISTORY : None. ENCOUNTER: Subsequent ACUITY: 3 days PAIN SCORE: 0/10 LOCATION: Bilateral chest FINDINGS: PA and lateral views of the chest demonstrate moderate cardiomegaly. The lungs are hypoinflated but g rossly clear. There is mild cephalization of pulmonary vasculature. Osseous structures are unremarkab le. CONCLUSION: Radiographic findings suggestive of congestive heart failure. This appearance is unchanged from prior exam.. Sadie Rodríguez MD on August 24, 2016 at 14:06 Board Certified Radiologist. This report was verified electronically.
[2016-08-24] MEDS: RESP: ALBUTEROL 2.5 MG/IPRATROPIUM 0.5 MG NEB (SCH) NEB ×2 (14:12→20:46)
[2016-08-24 14:19] LABS: BLOOD GAS BASE EXCESS 17.1 mmol/L (-2-2); BLOOD GAS CARBOXYHEMOGLOBIN 2.2 % (0-4); BLOOD GAS HCO3 43 mmol/L (22-26); BLOOD GAS METHEMOGLOBIN 0.8 % (0-2); BLOOD GAS O2 HGB SATURATION 89 % (90-100); BLOOD GAS OXYGEN CONTENT 19.5 Vol % (12.0-20.0); BLOOD GAS PCO2 64 mmHg (38-42); BLOOD GAS PO2 61 mmHg (61-120); BLOOD GAS TOTAL HGB 15.7 G/DL (12.0-16.0)
[2016-08-24 14:20] LABS: CRITICAL VALUE YES; DRAW SITE LT RADIAL; LITER FLOW 3 L/M; NUMBER OF ARTERIAL PUNCTURES 1; OXYGEN DEVICE NASAL CANNULA; STAT NO; ULNAR PULSE PRESENT
[2016-08-24] MEDS: methylPREDNISolone SOD SUCC 40 MG/1 ML VIAL IV PUSH SCH ×2 (15:02→19:58)
[2016-08-24 16:43] LABS: HEMOGLOBIN A1a 1.2 %; HEMOGLOBIN A1b 1.2 %; HEMOGLOBIN Ao 77.6 %; HEMOGLOBIN F 1.6 %; HEMOGLOBIN LA1C 3.1 %; HEMOGLOBIN P3 4.4 %
[2016-08-24] MEDS: ALPRAZolam 0.5 MG TAB PO PRN (19:56)
[2016-08-24] MEDS: INSULIN DETEMIR 100 UNITS/ML VIAL SQ SCH (19:56)
[2016-08-24] MEDS: MIRTAZAPINE 15 MG TAB PO SCH (19:58)
[2016-08-25] VITALS (9 sets, daily range): BP systolic 118–176; BP diastolic 60–94; PULSE 90–113; RESP 14–26; TEMP 97.5–98.4; O2SAT 90–94
[2016-08-25] MEDS: INSULIN ASPART SUPPLEMENTAL SCALE SQ SCH ×4 (05:21→20:22)
[2016-08-25] MEDS: methylPREDNISolone SOD SUCC 40 MG/1 ML VIAL IV PUSH SCH ×3 (05:21→20:21)
[2016-08-25] MEDS: RESP: ALBUTEROL 2.5 MG/IPRATROPIUM 0.5 MG NEB (SCH) NEB ×3 (07:36→19:29)
--- NOTE | 2016-08-25 08:39 | HHI.PR ---
Addendum to Inpatient Note Additional Information Pt of Dr Bautista, will transfer to [facility] dw Carlos Cavazos MD Aug 25, 2016 08:39
[2016-08-25] MEDS: POTASSIUM CHLORIDE 10 MEQ CAP PO SCH (09:00)
[2016-08-25] MEDS: NYSTATIN 100,000 UNIT/GM CREAM 15 GM TOPICAL SCH ×2 (09:00→20:27)
[2016-08-25] MEDS: metFORMIN HCL 500 MG TAB PO SCH ×2 (09:34→17:11)
[2016-08-25] MEDS: ALPRAZolam 0.5 MG TAB PO PRN ×2 (09:34→20:21)
[2016-08-25] MEDS: RIFAXIMIN 550 MG TAB PO SCH ×2 (09:34→20:21)
[2016-08-25] MEDS: TAMSULOSIN HCL 0.4 MG CAP PO SCH (09:34)
[2016-08-25] MEDS: FUROSEMIDE 40 MG/4 ML VIAL IV PUSH SCH ×2 (09:35→17:11)
[2016-08-25] MEDS: SODIUM CHLORIDE 0.9% FLUSH 5 ML FLUSH IVF SCH ×2 (09:35→20:22)
[2016-08-25] MEDS: ENOXAPARIN SODIUM 40 MG/0.4 ML SYRINGE SQ SCH (09:35)
[2016-08-25] MEDS: MAGNESIUM HYDROXIDE SUSP 30 ML CUP PO PRN (10:11)
[2016-08-25] MEDS ORDERED: BISACODYL 10 MG SUPP RECTAL ONE (10:30)
[2016-08-25] MEDS ORDERED: POTASSIUM CL 40 MEQ/30 ML LIQ UDC PO ONE (12:30)
--- NOTE | 2016-08-25 12:39 | HHI.PR ---
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 skin warm, dry Objective Objective Results - Vital Signs Date Time Temp Pulse Resp B/P Pulse Ox O2 Delivery O2 Flow Rate FiO2 08/25/16 08:00 97.6 112 26 176/94 93 08/25/16 08:00 92 Nasal Cannula 4.00 08/25/16 07:36 94 Nasal Cannula 4.00 08/25/16 04:00 97.5 111 21 157/80 90 08/25/16 04:00 90 Nasal Cannula 4.00 08/25/16 00:00 90 Nasal Cannula 4.00 08/25/16 00:00 97.9 109 21 149/83 90 08/24/16 20:47 94 Nasal Cannula 4.00 08/24/16 20:00 97.9 103 21 137/69 90 08/24/16 20:00 90 Nasal Cannula 4.00 08/24/16 16:30 90 Nasal Cannula 3.00 08/24/16 16:26 104 27 117/64 90 08/24/16 16:15 105 08/24/16 15:37 97.5 08/24/16 13:01 108 20 146/73 89 I/O 08/24/16 08/24/16 08/24/16 08/25/16 08/25/16 08/25/16 07:00 15:00 23:00 07:00 15:00 23:00 Intake Total 120 ml 1410 ml 1820 ml 250 ml Output Total 500 ml 1400 ml 3875 ml 1375 ml Balance -380 ml 10 ml -2055 ml -1125 ml Intake Oral 120 ml 1410 ml 1820 ml 250 ml Output Urine Total 500 ml 1400 ml 3875 ml 1375 ml # Bowel Movements 0 1 1 Result Diagram: 08/22/16 0248 08/24/16 0500 Other Results Last Impressions Chest X-Ray 08/24/16 0000 Signed Impressions: Service Date/Time: July 13:37 - CONCLUSION: Radiographic findings suggestive of congestive heart failure. This appearance is unchanged from prior exam.. Sadie Rodríguez MD Head CT 08/22/16 0253 Signed Impressions: Service Date/Time: Monday, August 22, 2016 03:36 - CONCLUSION: Normal examination for a patient of this age. Graeme Pacheco MD Medications and IVs Active Medications Alprazolam (Xanax) 0.5 mg Q8HR PRN PO Last administered on 08/25/16 09:34; Admin Dose 0.5 MG; Start 08/24/16 at 12:30 Bisacodyl (Dulcolax Supp) 10 mg ONCE ONCE RECTAL Last administered on 11:07; Admin Dose 10 MG; Start 08/25/16 at 10:30; Stop 08/25/16 at 10:31; Status DC Insulin Detemir (Levemir Inj) 10 units HS SQ Last administered on 08/24/16 19: 56; Admin Dose 10 UNITS; Start 08/24/16 at 21:00 Methylprednisolone Sodium Succinate (SoluMEDROL INJ) 40 mg Q8HR IV PUSH Last administered on 08/25/16 05:21; Admin Dose 40 MG; Start 08/24/16 at 14:00 Physical Exam Physical Exam PHYSICAL EXAMINATION GENERAL: This is a well-developed, well-nourished male who appears to be in no acute distress. He is alert and awake, []. HEAD: Normocephalic without any lesion or mass noted. Facial features appear symmetric. OROPHARYNGEAL: Oropharynx without erythema or edema. NECK: Supple. No nuchal rigidity or lymphadenopathy. Trachea midline without deviation. CARDIAC: Regular rhythm, regular rate, S1 and S2 are heard. Murmur []; no gallops or rubs. LUNGS: Clear to auscultation bilaterally. [] wheeze, [] rhonchi or [] rale. No use of accessory muscles on inspiration or expiration. ABDOMEN: Soft, nontender, no organomegaly or masses. Bowel sounds are heard in all four quadrants. No rebound. No guarding. EXTREMITIES: [] edema. Pulses equal bilateral. [] cyanosis. NEUROLOGICAL: Patient mood and affect appropriate. No focal deficit SKIN:Warm and moist Objective Remarks A/P Assessment and Plan Possible OD, unknown source (patient denies) Major depression disorder Anxiety CHF Respiratory Acidosis Altered mental status Hypokalemia COPD exacerbation ETOH abuse, history Tachycardia Patient denies any drugs usage that day. Took antihistamines earlier in the day. Patient states off Cont[place]ras Act today. Medications per psy for his depressive disorder Encouraged patient to talk about his problems to friends, family, medical folks to help with his anxiety. Supportive care. Decreased breath sounds. Initial xray showed CHF. Will reeval needs and meds. Recieving IV lasix, active diuresis. Baker in. Will keep baker until diuresis complete. O2 at 2L. Resolving acidosis AMS resolved. patient alert, good history, making sense now. Monitor labs Extra dose 40meq potassium given X 1 BMP , CBC in am for monitoring any acute changes. O2 per NC. 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 Exertional dyspnea with up to BSC. Back to normal after complete. Up in chair. NO SOB noted now. Maintain 02 at 2L for now. No ETOH since April, 3 beers. States he quit drinking last year. Did take some Ambien a few weeks to help him sleep, but none now. HR > 100, average now 110-111. Start Cardizem 30 mg po q6hr. Looks like sinus tach on monitor. Continue to monitor. Labs in am. Possible transfer out of unit tomorrow if HR controlled. Discharge Planning Psy after medical stablization Discussed With: Nurse, Family (patient ), Other (Dr. Huerta. Patient seen on his behalf.) Catherine Saini Aug 25, 2016 12:39
--- NOTE | 2016-08-25 12:49 | RADRPT ---
EXAM DATE/TIME: 08/25/2016 10:30 [facility] COMPARISON: CHEST PA & LAT, August 24, 2016, 13:37. INDICATIONS : Abdomen distention and pain. MEDICAL HISTORY : Diabetes mellitus type II. SURGICAL HISTORY : None. ENCOUNTER: Subsequent ACUITY: 3 days PAIN SCORE: 5/10 LOCATION: Abdomen. FINDINGS: Patchy density is noted in the left lung base suggesting infiltrate or atelectasis. There is a previo us centimeter somewhat square peripheral calcified abnormality in the right upper quadrant questionab le gallstone and there is a tear in small bowel loops disproportionate relative to colon. Small bowel obstruction cannot be excluded however the possibly of a gallstone ileus is not excludable additiona lly. CONCLUSION: Abnormality of a 3 cm peripheral somewhat square calcification right upper quadrant which may represe nt gallstone. Abnormal bowel gas pattern suggesting possibly minimal early small bowel obstruction al though ileus particularly gallstone ileus cannot be excluded. CT scan of the abdomen recommend Chandu Martinez MD on August 25, 2016 at 12:45 Board Certified Radiologist. This report was verified electronically.
[2016-08-25] MEDS ORDERED: DILTIAZEM HCL 30 MG TAB PO SCH (13:00)
--- NOTE | 2016-08-25 14:48 | EC ---
Study Study Date:08/25/2016 STUDY CONCLUSIONS SUMMARY LEFT VENTRICLE: The cavity size was normal. Wall thickness was increased in a pattern of mild LVH. Systolic function was normal. The estimated ejection fraction was 55%. Wall motion was normal; there were no regional wall motion abnormalities. If LV function is below 40, please consider prescribing an ACEI or ARB or document rationale for non-use. PROCEDURE DATA STUDY STATUS: Elective. Procedure: Transthoracic echocardiography. Image quality was good. Scanning was performed from the parasternal, apical, and subcostal acoustic windows. Study completion: The patient tolerated the procedure well. Transthoracic echocardiography. M-mode, complete 2D, complete spectral Doppler, and color Doppler. Patient status: Inpatient. CARDIAC ANATOMY LEFT VENTRICLE: The cavity size was normal. Wall thickness was increased in a pattern of mild LVH. Systolic function was normal. The estimated ejection fraction was 55%. Wall motion was normal; there were no regional wall motion abnormalities. AORTIC VALVE: Trileaflet; normal thickness leaflets. Doppler: Transvalvular velocity was within the normal range. There was no stenosis. No regurgitation. AORTA: Aortic root: The aortic root was normal in size. MITRAL VALVE: Structurally normal valve. Doppler: Transvalvular velocity was within the normal range. There was no evidence for stenosis. No regurgitation. Peak gradient: 2mm Hg (D). LEFT ATRIUM: The atrium was normal in size. RIGHT VENTRICLE: The cavity size was normal. Wall thickness was normal. PULMONIC VALVE: Doppler: Transvalvular velocity was within the normal range. There was no evidence for stenosis. No regurgitation. TRICUSPID VALVE: Structurally normal valve. Doppler: Transvalvular velocity was within the normal range. Trace regurgitation. PULMONARY ARTERY: The main pulmonary artery was normal-sized. Systolic pressure was within the normal range. RIGHT ATRIUM: The atrium was normal in size. PERICARDIUM: There was no pericardial effusion. SYSTEMIC VEINS: Inferior vena cava: The vessel was normal in size. BASIC MEASUREMENTS ADULT Normal Left ventricle LV internal dimension, ED, chordal level, 45.3 mm 43-52 PLAX LV posterior wall thickness, ED 8.09 mm IVS/LVPW ratio, ED *1.52 <1.3 Ventricular septum Septal thickness, ED 12.3 mm Aortic valve Leaflet separation 19 mm 15-26 Left atrium Anterior-posterior dimension 34 mm Right ventricle RV internal dimension, ED, PLAX 24.9 mm 19-38 BASIC MEASUREMENTS ADULT Normal Aortic valve Leaflet separation 19 mm 15-26 Aorta Root diameter, ED 37 mm 20-37 DOPPLER MEASUREMENTS ADULT Normal Main pulmonary artery Pressure, S 14 mm Hg =30 Mitral valve Peak E-wave velocity 77.1 cm/s Peak A-wave velocity 108 cm/s Peak gradient, D 2 mm Hg Peak E/A ratio 0.7 Tricuspid valve Regurgitant peak velocity 95 cm/s Peak RV-RA gradient, S 4 mm Hg Maximal regurgitant velocity 95 cm/s Systemic veins Estimated CVP 10 mm Hg Right ventricle RV pressure, S 14 mm Hg <30 LEGEND: Mean values are shown as u=mean value. Asterisk (*) wilson values outside specified normal range. Prepared and signed by Andree Salazar [id number]
[2016-08-25] MEDS: DILTIAZEM HCL 60 MG TAB PO SCH (17:11)
[2016-08-25] MEDS: MIRTAZAPINE 15 MG TAB PO SCH (20:21)
[2016-08-25] MEDS: INSULIN DETEMIR 100 UNITS/ML VIAL SQ SCH (20:22)
[2016-08-26] VITALS (14 sets, daily range): BP systolic 116–162; BP diastolic 65–82; PULSE 69–98; RESP 10–31; TEMP 97–97.6; O2SAT 88–96
[2016-08-26] MEDS: DILTIAZEM HCL 60 MG TAB PO SCH ×4 (00:37→17:44)
[2016-08-26] MEDS: CHLORHEXIDINE GLUCONATE 2 % 1 PACK (2 CLOTHS)(taper/protocol) TOP SCH (03:38)
[2016-08-26] MEDS: ALPRAZolam 0.5 MG TAB PO PRN ×2 (04:10→12:49)
[2016-08-26] MEDS: methylPREDNISolone SOD SUCC 40 MG/1 ML VIAL IV PUSH SCH ×2 (04:59→20:30)
[2016-08-26] MEDS: INSULIN ASPART SUPPLEMENTAL SCALE SQ SCH ×4 (05:05→20:29)
[2016-08-26 06:56] LABS: HEMATOCRIT 47.8 % (39.0-51.0); MEAN CELL VOLUME 87.9 FL (80.0-100.0); MEAN CORPUSCULAR HEMOGLOBIN 29.2 PG (27.0-34.0); MEAN CORPUSCULAR HGB CONC 33.3 % (32.0-36.0); PLATELET COUNT 221 TH/MM3 (150-450); RED BLOOD COUNT 5.44 MIL/MM3 (4.50-5.90); RED CELL DISTRIBUTION WIDTH 15.1 % (11.6-17.2); REVIEW FLAG FINAL; WHITE BLOOD COUNT 10.1 TH/MM3 (4.0-11.0)
[2016-08-26 07:18] LABS: BICARBONATE 43.4 MEQ/L (21.0-32.0); POTASSIUM 3.3 MEQ/L (3.5-5.1)
[2016-08-26] MEDS: RESP: ALBUTEROL 2.5 MG/IPRATROPIUM 0.5 MG NEB (SCH) NEB ×3 (07:47→19:38)
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
[2016-08-26] MEDS: POTASSIUM CHLORIDE 20 MEQ CONTROLLED RELEASE TAB PO SCH ×2 (09:14→20:29)
[2016-08-26] MEDS: TAMSULOSIN HCL 0.4 MG CAP PO SCH (09:14)
[2016-08-26] MEDS: FUROSEMIDE 40 MG/4 ML VIAL IV PUSH SCH (09:15)
[2016-08-26] MEDS: metFORMIN HCL 500 MG TAB PO SCH ×2 (09:15→17:44)
[2016-08-26] MEDS: NYSTATIN 100,000 UNIT/GM CREAM 15 GM TOPICAL SCH ×2 (09:15→20:30)
[2016-08-26] MEDS: SODIUM CHLORIDE 0.9% FLUSH 5 ML FLUSH IVF SCH ×2 (09:15→20:29)
[2016-08-26] MEDS: RIFAXIMIN 550 MG TAB PO SCH ×2 (09:15→20:29)
--- NOTE | 2016-08-26 09:21 | HHI.PR ---
Subjective Subjective Remarks Patient somnolent, awakes to voice, falls asleep during conversation Knows he is in the hospital, not sure of name, year 2017, provides president's name when asked what brought him to hospital, states "I had a panic attack" no cp no sob no acute changes overnight oxygen at 5L/NC, sats 90% Review of Systems Constitutional Constitutional Remarks 12 point review of systems difficult to complete Vitals/Results Intake & Output 08/25/16 08/25/16 08/26/16 15:00 23:00 07:00 Intake Total 320 ml 480 ml 480 ml Output Total 2500 ml 200 ml 1000 ml Balance -2180 ml 280 ml -520 ml Intake Oral 320 ml 480 ml 480 ml Output Urine Total 2500 ml 200 ml 1000 ml # Bowel Movements 1 0 Vital Signs Vital Signs Date Time Temp Pulse Resp B/P Pulse Ox O2 Delivery O2 Flow Rate FiO2 08/26/16 08:00 97.5 81 20 131/68 95 08/26/16 08:00 80 08/26/16 07:47 92 Nasal Cannula 5.00 08/26/16 07:00 96 Nasal Cannula 5.00 08/26/16 06:00 83 08/26/16 04:00 97.6 96 12 145/82 90 08/26/16 04:00 96 08/26/16 02:00 98 08/26/16 00:00 97.0 89 10 123/66 92 08/26/16 00:00 89 08/25/16 23:00 92 Nasal Cannula 5.00 08/25/16 22:00 96 08/25/16 20:00 90 08/25/16 20:00 97.5 92 26 118/60 92 08/25/16 19:30 93 Nasal Cannula 4.00 08/25/16 16:00 98.4 113 14 141/74 92 08/25/16 15:00 90 Nasal Cannula 4.00 08/25/16 12:00 97.6 110 23 144/72 93 CBC/BMP: 08/26/16 0552 08/26/16 0552 Lab Results Laboratory Tests Test 08/26/16 05:52 White Blood Count 10.1 TH/MM3 Red Blood Count 5.44 MIL/MM3 Hemoglobin 15.9 GM/DL Hematocrit 47.8 % Mean Corpuscular Volume 87.9 FL Mean Corpuscular Hemoglobin 29.2 PG Mean Corpuscular Hemoglobin 33.3 % Concent Red Cell Distribution Width 15.1 % Platelet Count 221 TH/MM3 Mean Platelet Volume 8.6 FL Sodium Level 136 MEQ/L Potassium Level 3.3 MEQ/L Chloride Level 85 MEQ/L Carbon Dioxide Level 43.4 MEQ/L Anion Gap 8 MEQ/L Blood Urea Nitrogen 19 MG/DL Creatinine 0.65 MG/DL Estimat Glomerular Filtration 124 ML/MIN Rate Random Glucose 353 MG/DL Calcium Level 9.3 MG/DL Physical Exam General General Appearance: Well Developed, Sleeping, Obese Eyes Eye Exam: Pupils Equal, Pupils Reactive Ears & Nose Ears & Nose Exam: Nasal Mucosa [place] Throat Throat Exam: Oral Mucosa [place] & Moist Neck Neck Exam: Neck Supple, Trachea Midline Pulmonary Resp Exam: Decreased Bases Cardiology CV Exam: Regular Gastrointestinal/Abdomen GI Exam: Distended, Bowel Sounds Hypoactive GI Remarks Protuberant Genitourinary Exam: Clear Urine Musculoskeletal MS Exam: Joints Intact Integumentary Skin Exam: Warm, Dry Extremeties Extremities Exam: Pedal Pulses Palpable, Trace Edema Extremeties Remarks Left ankle deformity from previous fracture Neurologic Neuro Exam: Speech Clear, Moving All Extremities, No Focal Deficits Neuro Remarks Awakes to voice, somnolent VTE Prophylaxis VTE Prophylaxis Meds: Lovenox Assessment/Plan Problem List: (1) Acute hypercapnic respiratory failure (2) Anxiety and depression (3) DM2 (diabetes mellitus, type 2) (4) Altered mental status (5) Toxic encephalopathy (6) Respiratory acidosis (7) COPD (chronic obstructive pulmonary disease) (8) Tachycardia (9) Depression (10) Overdose Plan: pt. denies Assessment/Plan Respiratory acidosis, now resolving -continue with oxygen to keep sats greater than 92 -Continue with IV steroids Continue with [facility] consultation with Dr. Charlton, his input is appreciated AMS, Possible OD -mental status improving slowly -on Xanax, keep PRN only for anxiety, d/w RN -Patient denies any drugs usage that day. Took antihistamines earlier in the day. -[place] Act lifted -Evaluated per psych Depression -appreciate psyche input -Supportive care. Possible CHF, per initial CXR, received Lasix -baker DCd, voiding okay -Off diuretics -Echo done, EF 55% Prior ETOH abuse-No ETOH since April, 3 beers. States he quit drinking last year. -stable, no withdrawal symptoms Tachycardia -improving, continue Cardizem DM II -Continue with Accu-Cheks before meals and at bedtime -Hemoglobin A1c 10.8, poorly controlled diabetes PT for evaluation and treatment Replace K Somnolent, on Xanax when necessary, discussed with RN and instructed to use only if anxiety present Possible transfer out of ICU this afternoon D/W RN D/W Dr. Pena D/W pt. This patient was seen by myself and Dr. Pena, this note is written on his behalf Problem Qualifiers (1) Altered mental status: Qualified Code: R40.1 - Stupor (2) COPD (chronic obstructive pulmonary disease): Qualified Code: J44.9 - Chronic obstructive pulmonary disease, unspecified COPD type (3) Depression: Qualified Code: F33.41 - Recurrent major depressive disorder, in partial remission (4) Overdose: Qualified Code: T50.904A - Overdose, undetermined intent, initial encounter Erna Maurer Aug 26, 2016 09:21
[2016-08-26] MEDS: ENOXAPARIN SODIUM 40 MG/0.4 ML SYRINGE SQ SCH (11:03)
[2016-08-26] MEDS: ALPRAZolam 0.25 MG TAB PO PRN (20:29)
[2016-08-26] MEDS: INSULIN DETEMIR 100 UNITS/ML VIAL SQ SCH (20:29)
[2016-08-26] MEDS: MIRTAZAPINE 15 MG TAB PO SCH (20:29)
[2016-08-27] VITALS (12 sets, daily range): BP systolic 126–143; BP diastolic 61–76; PULSE 76–96; RESP 10–22; TEMP 97–98; O2SAT 90–94
[2016-08-27] MEDS: DILTIAZEM HCL 60 MG TAB PO SCH ×5 (00:18→23:33)
[2016-08-27] MEDS: CHLORHEXIDINE GLUCONATE 2 % 1 PACK (2 CLOTHS)(taper/protocol) TOP SCH (04:00)
[2016-08-27] MEDS: ALPRAZolam 0.25 MG TAB PO PRN ×3 (05:34→20:49)
[2016-08-27 06:28] LABS: BLOOD GAS BASE EXCESS 16.4 mmol/L (-2-2); BLOOD GAS CARBOXYHEMOGLOBIN 2.2 % (0-4); BLOOD GAS HCO3 43 mmol/L (22-26); BLOOD GAS O2 HGB SATURATION 91 % (90-100); BLOOD GAS PCO2 84 mmHg (38-42); BLOOD GAS PO2 76 mmHg (61-120); BLOOD GAS TOTAL HGB 16.4 G/DL (12.0-16.0); TEMP CORR TO 98.6
[2016-08-27 06:29] LABS: CRITICAL VALUE YES; LITER FLOW 5 L/M; OXYGEN DEVICE NASAL CANNULA
[2016-08-27 06:30] LABS: DRAW SITE RT RADIAL; FIO2 40 %; NUMBER OF ARTERIAL PUNCTURES 1; STAT NO; ULNAR PULSE PRESENT
[2016-08-27] MEDS: INSULIN ASPART SUPPLEMENTAL SCALE SQ SCH ×4 (06:40→20:51)
[2016-08-27 07:11] LABS: HEMATOCRIT 47.1 % (39.0-51.0); MEAN CELL VOLUME 87.9 FL (80.0-100.0); MEAN CORPUSCULAR HEMOGLOBIN 29.4 PG (27.0-34.0); MEAN CORPUSCULAR HGB CONC 33.4 % (32.0-36.0); PLATELET COUNT 210 TH/MM3 (150-450); RED BLOOD COUNT 5.36 MIL/MM3 (4.50-5.90); RED CELL DISTRIBUTION WIDTH 14.5 % (11.6-17.2); REVIEW FLAG FINAL; WHITE BLOOD COUNT 8.8 TH/MM3 (4.0-11.0)
[2016-08-27 07:30] LABS: BICARBONATE 41.5 MEQ/L (21.0-32.0); POTASSIUM 4.9 MEQ/L (3.5-5.1)
[2016-08-27] MEDS: RESP: ALBUTEROL 2.5 MG/IPRATROPIUM 0.5 MG NEB (SCH) NEB ×3 (07:58→20:09)
[2016-08-27] MEDS: TAMSULOSIN HCL 0.4 MG CAP PO SCH (08:44)
[2016-08-27] MEDS: metFORMIN HCL 500 MG TAB PO SCH ×2 (08:44→18:01)
[2016-08-27] MEDS: RIFAXIMIN 550 MG TAB PO SCH ×2 (08:44→20:49)
[2016-08-27] MEDS: NYSTATIN 100,000 UNIT/GM CREAM 15 GM TOPICAL SCH ×2 (08:45→23:08)
[2016-08-27] MEDS: SODIUM CHLORIDE 0.9% FLUSH 5 ML FLUSH IVF SCH ×2 (08:45→20:50)
[2016-08-27] MEDS: methylPREDNISolone SOD SUCC 40 MG/1 ML VIAL IV PUSH SCH (08:45)
[2016-08-27] MEDS: POTASSIUM CHLORIDE 20 MEQ CONTROLLED RELEASE TAB PO SCH ×2 (08:45→20:49)
--- NOTE | 2016-08-27 09:59 | HHI.PR ---
Subjective Subjective Remarks more awake, wants to go home oriented x 3 sats 90-91, on oxygen at 5L/NC abd. distended, had BM yesterday no fever no cp wants to eat, asking RN if he can order pizza want to be discharged today Review of Systems Constitutional Constitutional Remarks 12 point review of systems completed, unreliable Vitals/Results Intake & Output 08/26/16 08/26/16 08/27/16 15:00 23:00 07:00 Intake Total 480 ml 480 ml 240 ml Output Total 1250 ml 1800 ml 900 ml Balance -770 ml -1320 ml -660 ml Intake Oral 480 ml 480 ml 240 ml IV Total 0 ml 0 ml 0 ml Output Urine Total 1250 ml 1800 ml 900 ml # Bowel Movements 0 0 0 Vital Signs Vital Signs Date Time Temp Pulse Resp B/P Pulse Ox O2 Delivery O2 Flow Rate FiO2 08/27/16 08:00 83 08/27/16 08:00 97.0 82 20 126/62 93 08/27/16 07:58 92 Nasal Cannula 5.00 08/27/16 07:00 95 Nasal Cannula 5.00 08/27/16 06:00 83 08/27/16 04:00 76 08/27/16 04:00 97.8 76 10 128/61 92 08/27/16 02:00 77 08/27/16 00:00 82 08/27/16 00:00 98.0 82 19 134/76 90 08/26/16 23:00 93 Nasal Cannula 5.00 08/26/16 22:00 80 08/26/16 20:00 87 08/26/16 20:00 97.3 87 31 123/65 88 08/26/16 19:40 95 Nasal Cannula 5.00 08/26/16 18:00 89 08/26/16 16:00 77 08/26/16 16:00 97.6 79 20 116/73 96 08/26/16 15:00 92 Nasal Cannula 5.00 08/26/16 14:00 79 08/26/16 12:00 92 08/26/16 12:00 97.5 89 18 162/73 95 08/26/16 10:00 69 CBC/BMP: 08/27/16 0531 08/27/16 0531 Lab Results Laboratory Tests Test 08/26/16 08/27/16 08/27/16 10:38 05:31 06:17 Ammonia 20 MCMOL/L White Blood Count 8.8 TH/MM3 Red Blood Count 5.36 MIL/MM3 Hemoglobin 15.7 GM/DL Hematocrit 47.1 % Mean Corpuscular Volume 87.9 FL Mean Corpuscular Hemoglobin 29.4 PG Mean Corpuscular Hemoglobin 33.4 % Concent Red Cell Distribution Width 14.5 % Platelet Count 210 TH/MM3 Mean Platelet Volume 8.7 FL Sodium Level 133 MEQ/L Potassium Level 4.9 MEQ/L Chloride Level 87 MEQ/L Carbon Dioxide Level 41.5 MEQ/L Anion Gap 5 MEQ/L Blood Urea Nitrogen 23 MG/DL Creatinine 0.60 MG/DL Estimat Glomerular Filtration 136 ML/MIN Rate Random Glucose 346 MG/DL Calcium Level 9.5 MG/DL Blood Gas Puncture Site RT RADIAL Blood Gas Patient Temperature 98.6 Blood Gas HCO3 43 mmol/L Blood Gas Base Excess 16.4 mmol/L Blood Gas Oxygen Saturation 91 % Arterial Blood pH 7.33 Arterial Blood Partial 84 mmHg Pressure CO2 Arterial Blood Partial 76 mmHg Pressure O2 Arterial Blood Oxygen Content 21.0 Vol % Arterial Blood 2.2 % Carboxyhemoglobin Arterial Blood Methemoglobin 1.0 % Blood Gas Hemoglobin 16.4 G/DL Oxygen Delivery Device NASAL CANNULA Blood Gas Liter Flow 5 L/M Blood Gas Inspired Oxygen 40 % Physical Exam General General Appearance: Well Developed, No Acute Distress, Obese Eyes Eye Exam: Pupils Equal, Pupils Reactive Ears & Nose Ears & Nose Exam: Nasal Mucosa [place] Throat Throat Exam: Oral Mucosa [place] & Moist Neck Neck Exam: Neck Supple, Trachea Midline Pulmonary Resp Exam: Crackles, Decreased Bases Cardiology CV Exam: Regular Gastrointestinal/Abdomen GI Exam: Bowel Sounds Present, Distended, Bowel Sounds Hypoactive GI Remarks Protuberant Musculoskeletal MS Exam: Joints Intact Integumentary Skin Exam: Warm, Dry Extremeties Extremities Exam: Pedal Pulses Palpable, Trace Edema Extremeties Remarks Left ankle deformity from previous fracture Neurologic Neuro Exam: Alert, Awake, Oriented, Speech Clear, Moving All Extremities, No Focal Deficits Neuro Remarks less somnolent Psychiatric Psych Exam: Appropriate Responses VTE Prophylaxis VTE Prophylaxis Meds: Lovenox Assessment/Plan Problem List: (1) Acute hypercapnic respiratory failure (2) Anxiety and depression (3) DM2 (diabetes mellitus, type 2) (4) Altered mental status (5) Toxic encephalopathy (6) Respiratory acidosis (7) COPD (chronic obstructive pulmonary disease) (8) Tachycardia (9) Depression (10) Overdose Plan: pt. denies Assessment/Plan Respiratory acidosis, compensated. -continue with oxygen to keep sats greater than 92 -wean off IV steroids to PO Continue with [facility] consultation with Dr. Charlton, his input is appreciated -ABGs elevated PCO2 82, ? med induced. AMS, Possible OD-improving -mental status improving slowly -on Xanax, keep PRN only for anxiety, d/w RN -Patient denies any drugs usage that day. Took antihistamines earlier in the day. -Contreras Act lifted -Evaluated per psych Depression -appreciate psyche input -Supportive care. Possible CHF, per initial CXR, received Lasix -baker DCd, voiding okay -Echo done, EF 55% -noted with rales, will give Lasix 20 mg IV x 1, continue with Lasix 20 mg po daily. Prior ETOH abuse-No ETOH since April, 3 beers. States he quit drinking last year. -stable, no withdrawal symptoms Tachycardia-resolved. -continue Cardizem DM II -Continue with Accu-Cheks before meals and at bedtime -Hemoglobin A1c 10.8, poorly controlled diabetes Abd. distended, feels constipated. -Lactulose now PT for evaluation and treatment Ok for tx out of ICU Labs in am Pt. not ready for discharge, poss. tomorrow D/W RN D/W Dr. Pena D/W pt. This patient was seen by myself and Dr. Pena, this note is written on his behalf Problem Qualifiers (1) Altered mental status: Qualified Code: R40.1 - Stupor (2) COPD (chronic obstructive pulmonary disease): Qualified Code: J44.9 - Chronic obstructive pulmonary disease, unspecified COPD type (3) Depression: Qualified Code: F33.41 - Recurrent major depressive disorder, in partial remission (4) Overdose: Qualified Code: T50.904A - Overdose, undetermined intent, initial encounter Erna Maurer Aug 27, 2016 09:59
[2016-08-27] MEDS ORDERED: FUROSEMIDE 20 MG/2 ML VIAL IV PUSH ONE (11:00)
[2016-08-27] MEDS: ENOXAPARIN SODIUM 40 MG/0.4 ML SYRINGE SQ SCH (11:21)
[2016-08-27] MEDS ORDERED: INSULIN HUMAN REGULAR 1,000 UNITS/10 ML VIAL IVP ONE (11:45)
[2016-08-27] MEDS: INSULIN DETEMIR 100 UNITS/ML VIAL SQ SCH ×3 (12:12→20:50)
[2016-08-27] MEDS: LACTULOSE SYRUP 20 GM/30 ML CUP PO PRN (15:21)
[2016-08-27] MEDS: THIAMINE HCL 100 MG TAB PO SCH (20:51)
[2016-08-27] MEDS ORDERED: DIATRIZOATE MEGLUM/DIATRIZOATE SOD 9 ML CUP PO ONE (21:00)
[2016-08-27] MEDS ORDERED: IOHEXOL 350 MG/ML 10 ML VIAL (for RAD DIAG) IV ONE (22:45)
[2016-08-27] MEDS: METFORMIN HOLD POST IV CONTRAST XX SCH (22:50)
[2016-08-27] MEDS: MIRTAZAPINE 15 MG TAB PO SCH (23:05)
[2016-08-27] MEDS: MAGNESIUM HYDROXIDE SUSP 30 ML CUP PO PRN (23:05)
--- NOTE | 2016-08-27 23:10 | RADRPT ---
EXAM DATE/TIME: 08/27/2016 22:41 [facility] COMPARISON: ABDOMEN KUB ONLY, August 25, 2016, 10:30. INDICATIONS : Distention, ileus, and gallstones. IV CONTRAST: 95 cc Omnipaque 350 (iohexol) IV ORAL CONTRAST: No oral contrast ingested. RADIATION DOSE: 23.48 CTDIvol (mGy) MEDICAL HISTORY : Diabetes mellitus type 2. Hernia, umbilical. Chronic obstructive pulmonary disease. SURGICAL HISTORY : None. ENCOUNTER: Initial ACUITY: 1 day PAIN SCALE: 2/10 LOCATION: Bilateral abdomen. TECHNIQUE: Volumetric scanning of the abdomen and pelvis was performed. Using automated exposure control and ad justment of the mA and/or kV according to patient size, radiation dose was kept as low as reasonably achievable to obtain optimal diagnostic quality images. FINDINGS: LOWER LUNGS: Subsegmental consolidative infiltrate left base with air bronchograms. LIVER: There is a faint area of decreased attenuation within the quadrate lobe measuring 2.7 cm.. There is no dilation of the biliary tree. There is a irregular rim calcification which appears to be related to the gallbladder wall involving the fundus the remainder of the gallbladder wall is not calcified.. SPLEEN: Normal size without lesion. PANCREAS: Within normal limits. KIDNEYS: Normal in size and shape. There is no mass, stone or hydronephrosis. There is a exophytic cystlike lesion with smooth non-discernible margins measuring 3.1 cm protruding from the posterior left kidney with mean CT density of 36,000 units suggesting a complicated cyst. ADRENAL GLANDS: Within normal limits. VASCULAR: There is no aortic aneurysm. BOWEL/MESENTERY: Oral contrast passes through proximal one half of the small bowel. There are few distal loops of sma ll bowel which are mildly prominent measuring up to 3.4 cm and is very prominent amount of stool in t he right colon and the transverse colon is markedly distended with gas, measuring up to 8.1 cm. Flui d is seen within the lumen of the left colon. Loops of small and large bowel protrude into a protube rant panniculus; no definite ventral hernia into the panniculus. There is a moderate size fat contai [place]go umbilical hernia containing fat. ABDOMINAL WALL: Within normal limits. RETROPERITONEUM: There is no lymphadenopathy. BLADDER: No wall thickening or mass. REPRODUCTIVE: Within normal limits. INGUINAL: There is no lymphadenopathy or hernia. MUSCULOSKELETAL: Within normal limits for patient age. CONCLUSION: 1. Left lower lobe consolidation. 2. Distention of the colon without definite point of obstruction. There is kinking of the sigmoid co denilson and a protuberant panniculus which could be causing a partial obstruction. 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 The common bile duct is dilated at 12 mm but no calcifi ed stones seen within the common duct. Given these findings, may consider performing hepatic biliary tract scan to evaluate biliary dynamics and for possible obstruction. 4. Focal low density area in the quadrate lobe of the liver cannot be further characterized. Differe ntial considerations include focal fatty change and a poorly defined mass. 5. Exophytic intermediate density smooth margin lesion arising from the posterior left kidney measure s in excess of 3 cm. Differential considerations include a complicated cyst and solid mass. minate 6. Fat-containing protuberant umbilical hernia. Ryan Smith MD on August 27, 2016 at 22:56 Board Certified Radiologist. This report was verified electronically.
[2016-08-28] VITALS (10 sets, daily range): BP systolic 133–154; BP diastolic 64–84; PULSE 84–97; RESP 17–18; TEMP 95.9–97.9; O2SAT 81–98
[2016-08-28] MEDS: LACTULOSE SYRUP 20 GM/30 ML CUP PO PRN ×2 (02:10→11:30)
[2016-08-28] MEDS: DILTIAZEM HCL 60 MG TAB PO SCH ×3 (06:53→16:20)
[2016-08-28] MEDS: INSULIN ASPART SUPPLEMENTAL SCALE SQ SCH ×4 (06:54→21:46)
[2016-08-28] MEDS: RESP: ALBUTEROL 2.5 MG/IPRATROPIUM 0.5 MG NEB (SCH) NEB ×3 (08:03→20:00)
[2016-08-28] MEDS: INSULIN DETEMIR 100 UNITS/ML VIAL SQ SCH ×2 (08:11→21:45)
[2016-08-28] MEDS: SODIUM CHLORIDE 0.9% FLUSH 5 ML FLUSH IVF SCH ×2 (08:12→21:51)
[2016-08-28] MEDS: TAMSULOSIN HCL 0.4 MG CAP PO SCH (08:12)
[2016-08-28] MEDS: RIFAXIMIN 550 MG TAB PO SCH ×2 (08:12→21:44)
[2016-08-28] MEDS: POTASSIUM CHLORIDE 20 MEQ CONTROLLED RELEASE TAB PO SCH ×2 (08:12→21:45)
[2016-08-28] MEDS: THIAMINE HCL 100 MG TAB PO SCH (08:13)
[2016-08-28] MEDS: ALPRAZolam 0.25 MG TAB PO PRN ×2 (08:13→16:20)
[2016-08-28] MEDS: FUROSEMIDE 20 MG TAB PO SCH (08:13)
[2016-08-28] MEDS: NYSTATIN 100,000 UNIT/GM CREAM 15 GM TOPICAL SCH ×2 (08:13→21:52)
[2016-08-28] MEDS ORDERED: predniSONE 20 MG TAB PO SCH (09:00)
[2016-08-28] MEDS: ENOXAPARIN SODIUM 40 MG/0.4 ML SYRINGE SQ SCH (11:29)
--- NOTE | 2016-08-28 11:33 | HHI.PR ---
Subjective Subjective Remarks sitting up in bed mildly sob no cp abd. distended, had soft bm yesterday, small no fever no N/V Review of Systems Constitutional Constitutional Remarks 12 point review of systems completed, neg. except as noted above Vitals/Results Intake & Output 08/27/16 08/27/16 08/28/16 15:00 23:00 07:00 Intake Total 480 ml 240 ml Output Total 2350 ml 1500 ml Balance -1870 ml -1260 ml Intake Oral 480 ml 240 ml IV Total 0 ml 0 ml Output Urine Total 2350 ml 1500 ml # Bowel Movements 0 0 Vital Signs Vital Signs Date Time Temp Pulse Resp B/P Pulse Ox O2 Delivery O2 Flow Rate FiO2 08/28/16 08:10 84 08/28/16 08:10 Nasal Cannula 3.00 Humidified 08/28/16 08:04 96 Nasal Cannula 3.00 08/28/16 08:00 97.3 85 18 154/80 93 08/28/16 07:30 Nasal Cannula 3.00 Humidified 08/28/16 04:00 97.5 84 17 153/80 94 08/28/16 00:00 Nasal Cannula 3.00 Humidified 08/28/16 00:00 97.9 92 18 133/84 94 08/27/16 20:10 94 Nasal Cannula 2.00 08/27/16 20:00 Nasal Cannula 3.00 Humidified 08/27/16 20:00 97.3 93 17 143/72 92 08/27/16 20:00 96 08/27/16 18:00 Nasal Cannula 3.00 08/27/16 16:00 90 08/27/16 16:00 97.7 92 22 131/64 94 08/27/16 15:00 Nasal Cannula 5.00 08/27/16 14:00 92 08/27/16 12:00 97.6 90 22 134/68 94 08/27/16 12:00 90 CBC/BMP: 08/27/16 0531 08/27/16 0531 Physical Exam General General Appearance: Well Developed, No Acute Distress, Obese Eyes Eye Exam: Pupils Equal, Pupils Reactive Ears & Nose Ears & Nose Exam: Nasal Mucosa [place] Throat Throat Exam: Oral Mucosa [place] & Moist Neck Neck Exam: Neck Supple, Trachea Midline Pulmonary Resp Exam: Crackles, Decreased Bases Cardiology CV Exam: Regular Gastrointestinal/Abdomen GI Exam: Bowel Sounds Present, Distended, Bowel Sounds Hypoactive GI Remarks Protuberant Musculoskeletal MS Exam: Joints Intact Integumentary Skin Exam: Warm, Dry Extremeties Extremities Exam: Pedal Pulses Palpable, Trace Edema Extremeties Remarks Left ankle deformity from previous fracture Neurologic Neuro Exam: Alert, Awake, Oriented, Speech Clear, Moving All Extremities, No Focal Deficits Psychiatric Psych Exam: Appropriate Responses VTE Prophylaxis VTE Prophylaxis Meds: Lovenox Assessment/Plan Problem List: (1) Acute hypercapnic respiratory failure (2) Anxiety and depression (3) DM2 (diabetes mellitus, type 2) (4) Altered mental status (5) Toxic encephalopathy (6) Respiratory acidosis (7) COPD (chronic obstructive pulmonary disease) (8) Tachycardia (9) Depression (10) Overdose Plan: pt. denies (11) Abdominal distension Assessment/Plan Respiratory acidosis, compensated. -continue with oxygen to keep sats greater than 92 -continue steroids to PO Continue with [facility] consultation with Dr. Charlton, his input is appreciated -ABGs elevated PCO2 82, ? med induced. AMS, Possible OD-improving -mental status improving slowly -on Xanax, keep PRN only for anxiety, d/w RN -Patient denies any drugs usage that day. Took antihistamines earlier in the day. -Contreras Act lifted -Evaluated per psych Depression -appreciate psyche input -Supportive care. Possible CHF, per initial CXR, received Lasix -baker DCd, voiding okay -Echo done, EF 55% -continue with Lasix 20 mg po daily. Prior ETOH abuse-No ETOH since April, 3 beers. States he quit drinking last year. -stable, no withdrawal symptoms Tachycardia-resolved. -continue Cardizem DM II -Continue with Accu-Cheks before meals and at bedtime -Hemoglobin A1c 10.8, poorly controlled diabetes -Blood glucose elevated, change to medium dose scale. Weaning off steroids also Abd. distended, CT abd done 08/27 poss. obstruction, ileus, stool right colon, exophytic mass left kidney, CBD dilatation, porcelain gallbladder. -continue with bowel regimen -may need HIDA scan, urology, GI input, will d/w attending -Lactulose now -Change to clear liquid diet PT for evaluation and treatment Labs reviewed, elevated CO2 Continue with above tx, not ready for discharge D/W RN D/W Dr. Pena D/W pt. This patient was seen by myself and Dr. Pena, this note is written on his behalf Problem Qualifiers (1) Altered mental status: Qualified Code: R40.1 - Stupor (2) COPD (chronic obstructive pulmonary disease): Qualified Code: J44.9 - Chronic obstructive pulmonary disease, unspecified COPD type (3) Depression: Qualified Code: F33.41 - Recurrent major depressive disorder, in partial remission (4) Overdose: Qualified Code: T50.904A - Overdose, undetermined intent, initial encounter Erna Maurer Aug 28, 2016 11:33
--- NOTE | 2016-08-28 13:33 | HHI.FF ---
Face to Face Verification Diagnosis: (1) Toxic encephalopathy (2) CHF (congestive heart failure) (3) Hypoxemia (4) Carbon dioxide narcosis Physical Therapy Order: Evaluate and Treat Home Health Nursing Order: Medical education Signs/symptoms of disease process Diabetic education Oxygen administration education Nursing assessment with vital signs Instructions: will be on insulin, needs monitoring at home [employer] Order: To Evaluate: Support services Order: To Provide: Community services I have seen patient Pablo Robb on 08/28/16. My clinical findings support the need for the requested home health care services because: Patient has SOB Deconditioned w/ increased weakness I certify that my clinical findings support that this patient is homebound because: Hx COPD- exertion dyspnea/weakness Erna Mauerr Aug 28, 2016 13:33
[2016-08-28] MEDS: MAGNESIUM HYDROXIDE SUSP 30 ML CUP PO PRN (16:20)
--- NOTE | 2016-08-28 19:26 | PD.CONS ---
HPI History of Present Illness This is a 65 year old male who presents with complaints of abdominal bloating and constipation he fact had a bowel movement yesterday but the one prior to that was 3 days ago and it seems that his normal bowel habits are such that he usually has a bowel movement every day with this change has occurred over the past few days he denies any nausea or vomiting he has abdominal discomfort but no pain he has passed some stool and he has passed some gas but it looks like the period of today he's gradually gotten worse and his abdomen is significantly more distended he denies any prior history of such event he does have an umbilical hernia that he's had for such a long time and its never given him any trouble he had a CAT scan of the abdomen that shows liver lesion and poor sleeping gallbladder a renal lesion and a mildly dilated bile duct PFSH Past Medical History As per history of present illness: Type 2 diabetes Hypertension Alcoholism Depression and anxiety Past Surgical History Patient denies history of surgeries Coded Allergies: No Known Allergies (Unverified , 08/22/16) Medications Current Medications IV Flush 2 ml 2 ml UNSCH PRN IVF FLUSH AFTER USING IV ACCESS; Start 08/22/16 at 03:00; Stop 08/22/16 at 06:42; Status DC Sodium Chloride 1,000 ml @ 125 mls/hr Q8H IV Last administered on 08/22/16 03 :52; Start 08/22/16 at 02:53; Stop 08/22/16 at 10:52; Status DC Sodium Chloride 1,000 ml @ 1,000 mls/hr Q1H IV Last administered on 08/22/16 03:52; Start 08/22/16 at 02:53; Stop 08/22/16 at 03:52; Status DC Cefepime HCl 2000 mg/Sodium Chloride 100 ml @ 200 mls/hr ONCE ONCE IV Last administered on 08/22/16 04:04; Start 08/22/16 at 03:00; Stop 08/22/16 at 03:29 ; Status DC Vancomycin HCl/ Sodium Chloride (Vancomycin Inj/ NS 250 ml Inj) 250 ml @ 250 mls/hr ONCE ONCE IV Last administered on 08/22/16 06:21; Start 08/22/16 at 03 :00; Stop 08/22/16 at 03:59; Status DC Naloxone HCl (Narcan Inj) 0.4 mg ONCE ONCE IV PUSH Last administered on 04:09; Start 08/22/16 at 03:00; Stop 08/22/16 at 03:01; Status DC Furosemide (Lasix Inj) 40 mg ONCE ONCE IV PUSH Last administered on 08/22/16 04:15; Start 08/22/16 at 04:00; Stop 08/22/16 at 04:01; Status DC Nitroglycerin (Nitroglycerin 2% Oint) 1 inch ONCE ONCE TOPICAL Last administered on 08/22/16 04:15; Start 08/22/16 at 04:00; Stop 08/22/16 at 04:01 ; Status DC Albuterol/ Ipratropium (Duoneb Neb) 1 ampule ONCE ONCE NEB Last administered on 08/22/16 04:15; Start 08/22/16 at 04:15; Stop 08/22/16 at 04:16; Status DC Methylprednisolone Sodium Succinate (SoluMEDROL INJ) 125 mg ONCE ONCE IVP Last administered on 08/22/16 06:21; Start 08/22/16 at 05:15; Stop 08/22/16 at 05:16; Status DC Albuterol/ Ipratropium (Duoneb Neb) 1 ampule Q15M INH Last administered on 08/22 05:17; Start 08/22/16 at 05:15; Stop 08/22/16 at 05:31; Status DC IV Flush (NS Flush) 2 ml BID IVF Last administered on 08/28/16 08:12; Start at 09:00 IV Flush (NS Flush) 2 ml UNSCH PRN IVF FLUSH AFTER USING IV ACCESS Last administered on 08/22/16 23:53; Start 08/22/16 at 06:45 Albuterol/ Ipratropium (Duoneb Neb) 1 ampule ONCE ONCE NEB Last administered on 08/22/16 07:09; Start 08/22/16 at 06:45; Stop 08/22/16 at 06:46; Status DC Lorazepam (Ativan Inj) 1 mg Q2H PRN IV PUSH severe agitation Last administered on 08/22/16 10:21; Start 08/22/16 at 10:15; Stop 08/22/16 at 19:10; Status DC Haloperidol Lactate (Haldol Inj) 2 mg Q4H PRN IM psychosis; Start 08/22/16 at 10:15 IV Flush (NS Flush) 2 ml BID IVF ; Start 08/22/16 at 21:00; Stop 08/22/16 at 21: 00; Status DC IV Flush (NS Flush) 2 ml UNSCH PRN IVF FLUSH AFTER USING IV ACCESS; Start 08/22 at 10:15; Stop 08/22/16 at 10:59; Status DC Albuterol/ Ipratropium (Duoneb Neb) 1 ampule Q6HR NEB INH Last administered on 08/24/16 10:23; Start 08/22/16 at 16:00; Stop 08/24/16 at 13:11; Status DC Albuterol Sulfate (Albuterol Neb) 2.5 mg Q2HR NEB PRN INH SHORTNESS OF BREATH Last administered on 08/28/16 11:42; Start 08/22/16 at 10:15 Methylprednisolone Sodium Succinate 60 mg 60 mg Q6H IVP Last administered on 05:33; Start 08/22/16 at 11:00; Stop 08/23/16 at 09:30; Status DC Azithromycin 500 mg/Sodium Chloride 250 ml @ 250 mls/hr Q24H IV Last administered on 08/22/16 10:43; Start 08/22/16 at 11:00; Stop 08/23/16 at 09:30 ; Status DC Sodium Chloride (NS 1000 ml Inj) 1,000 ml @ 60 mls/hr [id number] IV Last administered on 08/22/16 20:48; Start 08/22/16 at 10:04; Stop 08/23/16 at 09:31 ; Status DC IV Flush (NS Flush) 2 ml UNSCH PRN FLUSH FLUSH AFTER USING IV ACCESS; Start at 10:15; Stop 08/22/16 at 10:59; Status DC IV Flush (NS Flush) 2 ml BID FLUSH ; Start 08/22/16 at 21:00; Stop 08/22/16 at 21:00; Status DC Acetaminophen (Tylenol) 650 mg Q4H PRN PO TEMP > 100.4; Start 08/22/16 at 10:15 Magnesium Hydroxide (Milk Of Magnesia Liq) 30 ml Q12H PRN PO CONSTIPATION Last administered on 08/28/16 16:20; Start 08/22/16 at 10:15 Enoxaparin Sodium (Lovenox Inj) 40 mg Q24H SQ Last administered on 08/28/16 11 :29; Start 08/22/16 at 11:00 Naloxone HCl (Narcan Inj) 0.4 mg UNSCH PRN IV SEE LABEL COMMENTS; Start at 10:15 Haloperidol Lactate (Haldol Inj) 5 mg ONCE ONCE IM Last administered on 11:08; Start 08/22/16 at 10:30; Stop 08/22/16 at 10:31; Status DC Lorazepam (Ativan Inj) 1 mg ONCE ONCE IV PUSH Last administered on 08/22/16 10:22; Start 08/22/16 at 10:30; Stop 08/22/16 at 10:31; Status DC Dextrose (D50w (Vial) Inj) 25 ml UNSCH PRN IV PUSH HYPOGLYCEMIA-SEE COMMENTS; Start 08/22/16 at 17:30 Glucagon (Glucagon Inj) 1 mg UNSCH PRN OTHER HYPOGLYCEMIA-SEE COMMENTS; Start 08/22/16 at 17:30 Insulin Aspart (NovoLOG SUPPLEMENTAL SCALE) 1 ACHS SLIDING SCALE SQ Last administered on 08/28/16 11:30; Start 08/22/16 at 21:00; Stop 08/28/16 at 11:35 ; Status DC Miscellaneous Information Patient in critical care unit? Ass... [id number] Last administered on 08/22/16 18:15; Start 08/22/16 at 18:15 Chlorhexidine Gluconate (Chlorhexidine 2% Cloth) 3 pack DAILY@04 TOP Last administered on 08/27/16 04:00; Start 08/23/16 at 04:00; Stop 08/27/16 at 04:01 ; Status DC Chlorhexidine Gluconate (Chlorhexidine 2% Cloth) 3 pack UNSCH PRN TOP HYGIENIC CARE; Start 08/22/16 at 18:30; Stop 08/27/16 at 18:15; Status DC Influenza Virus Vaccine (Flu (Quadrivalent) Vaccine Inj) 0.5 ml ONCE ONCE IM Last administered on 08/23/16 11:27; Start 08/23/16 at 10:00; Stop 08/23/16 at 10:01; Status DC Rifaximin (Xifaxan) 550 mg BID PO Last administered on 08/28/16 08:12; Start 08/23/16 at 10:00 Furosemide (Lasix) 20 mg DAILY PO ; Start 08/23/16 at 10:00; Stop 08/23/16 at 10 :00; Status DC Potassium Chloride (KCl) 10 meq DAILY PO Last administered on 08/24/16 09:21; Start 08/23/16 at 11:00; Stop 08/26/16 at 08:07; Status DC Metformin HCl (Glucophage) 500 mg BIDPC PO Last administered on 08/27/16 18:01 ; Start 08/23/16 at 10:00; Status Hold Furosemide (Lasix Inj) 40 mg BID@,18 IV PUSH Last administered on 08/26/16 09:15; Start 08/23/16 at 10:00; Stop 08/26/16 at 09:18; Status DC Mirtazapine (Remeron) 15 mg HS PO Last administered on 08/27/16 23:05; Start 08/23/16 at 21:00 Alprazolam (Xanax) 0.5 mg Q8HR PO Last administered on 08/24/16 05:38; Start 08/23/16 at 16:45; Stop 08/24/16 at 12:26; Status DC Nystatin (Mycostatin Cream) 1 applic Q12HR TOPICAL Last administered on 08:13; Start 08/23/16 at 21:00 Tamsulosin HCl (Flomax) 0.4 mg DAILY PO Last administered on 08/28/16 08:12; Start 08/24/16 at 09:00 Alprazolam (Xanax) 0.5 mg Q8HR PRN PO agitation/anxiety Last administered on 12:49; Start 08/24/16 at 12:30; Stop 08/26/16 at 18:50; Status DC Albuterol/ Ipratropium (Duoneb Neb) 1 ampule Q6HR WHILE AWAKE NEB NEB Last administered on 08/28/16 08:03; Start 08/24/16 at 14:00 Methylprednisolone Sodium Succinate (SoluMEDROL INJ) 40 mg Q8HR IV PUSH Last administered on 08/26/16 04:59; Start 08/24/16 at 14:00; Stop 08/26/16 at 09:18 ; Status DC Insulin Detemir (Levemir Inj) 10 units HS SQ Last administered on 08/27/16 20: 50; Start 08/24/16 at 21:00; Stop 08/28/16 at 17:04; Status DC Bisacodyl (Dulcolax Supp) 10 mg ONCE ONCE RECTAL Last administered on 11:07; Start 08/25/16 at 10:30; Stop 08/25/16 at 10:31; Status DC Potassium Chloride (KCl 40 Meq/30 ml Liq) 40 meq ONCE ONCE PO Last administered on 08/25/16 13:23; Start 08/25/16 at 12:30; Stop 08/25/16 at 12:31 ; Status DC Diltiazem HCl (Cardizem) 30 mg Q6HR PO Last administered on 08/25/16 13:23; Start 08/25/16 at 13:00; Stop 08/25/16 at 16:59; Status DC Diltiazem HCl (Cardizem) 60 mg Q6HR PO Last administered on 08/28/16 16:20; Start 08/25/16 at 18:00 Potassium Chloride (KCl) 40 meq BID PO Last administered on 08/28/16 08:12; Start 08/26/16 at 09:00 Methylprednisolone Sodium Succinate (SoluMEDROL INJ) 40 mg BID IV PUSH Last administered on 08/27/16 08:45; Start 08/26/16 at 21:00; Stop 08/27/16 at 09:57 ; Status DC Alprazolam (Xanax) 0.25 mg Q8HR PRN PO agitation/anxiety Last administered on 16:20; Start 08/26/16 at 19:00 Prednisone (Deltasone) 20 mg DAILY PO Last administered on 08/28/16 08:12; Start 08/28/16 at 09:00; Stop 08/28/16 at 12:56; Status DC Furosemide (Lasix Inj) 20 mg ONCE ONCE IV PUSH Last administered on 08/27/16 11:21; Start 08/27/16 at 11:00; Stop 08/27/16 at 11:01; Status DC Furosemide (Lasix) 20 mg DAILY PO Last administered on 08/28/16 08:13; Start 08/28/16 at 09:00 Lactulose (Lactulose Liq) 30 ml DAILY PRN PO CONSTIPATION Last administered on 08/28/16 11:30; Start 08/27/16 at 11:00 Insulin Human Regular (NovoLIN R INJ) 15 units ONCE ONCE IVP Last administered on 08/27/16 11:45; Start 08/27/16 at 11:45; Stop 08/27/16 at 11:50 ; Status DC Insulin Detemir (Levemir Inj) 10 units BID SQ Last administered on 08/28/16 08 :11; Start 08/27/16 at 11:45 Thiamine HCl (Vitamin B1) 200 mg DAILY PO Last administered on 08/28/16 08:13 ; Start 08/27/16 at 19:30 Diatrizoate Meglum/ Diatrizoate Sod ( Gastroview Liq) 18 ml ONCE ONCE PO Last administered on 08/27/16 20:48; Start 08/27/16 at 21:00; Stop 08/27/16 at 21:01; Status DC Iohexol (Omnipaque 350 Inj) 95 ml STK-MED ONCE IV Last administered on 22:45; Start 08/27/16 at 22:45; Stop 08/27/16 at 22:46; Status DC Miscellaneous Information HOLD METFORMIN FOR... Q24H XX Last administered on 22:50; Start 08/27/16 at 22:50; Stop 08/29/16 at 22:50 Insulin Aspart (NovoLOG SUPPLEMENTAL SCALE) 1 ACHS SLIDING SCALE SQ Last administered on 08/28/16 16:19; Start 08/28/16 at 16:00 Prednisone (Deltasone) 10 mg DAILY PO ; Start 08/29/16 at 09:00 Family History Noncontributory Social History None Review of Systems ROS Review of systems Patient denies any headache dizziness blurry vision, denies any chest pain shortness of breath cough fever chills, Denies any palpitations or fatigue denies any polyuria dysuria hematuria, denies any numbness tingling or weakness, denies any skin rash pruritus or jaundice, denies any easy bruising or bleeding tendency, denies any recent change in mood GI Exam Vitals I&O Vital Signs Date Time Temp Pulse Resp B/P Pulse Ox O2 Delivery O2 Flow Rate FiO2 08/28/16 12:07 95.9 95 18 142/65 92 08/28/16 11:43 81 21 08/28/16 08:10 84 08/28/16 08:10 Nasal Cannula 3.00 Humidified 08/28/16 08:04 96 Nasal Cannula 3.00 08/28/16 08:00 97.3 85 18 154/80 93 08/28/16 07:30 Nasal Cannula 3.00 Humidified 08/28/16 04:00 97.5 84 17 153/80 94 08/28/16 00:00 Nasal Cannula 3.00 Humidified 08/28/16 00:00 97.9 92 18 133/84 94 08/27/16 20:10 94 Nasal Cannula 2.00 08/27/16 20:00 Nasal Cannula 3.00 Humidified 08/27/16 20:00 97.3 93 17 143/72 92 08/27/16 20:00 96 I/O 08/27/16 08/27/16 08/27/16 08/28/16 08/28/16 08/28/16 06:59 14:59 22:59 06:59 14:59 22:59 Intake Total 240 ml 480 ml 240 ml Output Total 900 ml 2350 ml 1500 ml 400 ml Balance -660 ml -1870 ml -1260 ml -400 ml Intake Oral 240 ml 480 ml 240 ml IV Total 0 ml 0 ml 0 ml Output Urine Total 900 ml 2350 ml 1500 ml 400 ml # Bowel Movements 0 0 0 Imaging Last Impressions Abdomen/Pelvis CT 08/27/16 0000 Signed Impressions: Service Date/Time: Saturday, August 27, 2016 22:41 - CONCLUSION: 1. Left lower lobe consolidation. 2. Distention of the colon without definite point of obstruction. There is kinking of the sigmoid colon and a protuberant panniculus which could be causing a partial obstruction. 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 The common bile duct is dilated at 12 mm but no calcified stones seen within the common duct. Given these findings, may consider performing hepatic biliary tract scan to evaluate biliary dynamics and for possible obstruction. 4. Focal low density area in the quadrate lobe of the liver cannot be further characterized. Differential considerations include focal fatty change and a poorly defined mass. 5. Exophytic intermediate density smooth margin lesion arising from the posterior left kidney measures in excess of 3 cm. Differential considerations include a complicated cyst and solid mass. minate 6. Fat-containing protuberant umbilical hernia. Ryan Smith MD Abdomen X-Ray 08/25/16 0000 Signed Impressions: Service Date/Time: Thursday, August 25, 2016 10:30 - CONCLUSION: Abnormality of a 3 cm peripheral somewhat square calcification right upper quadrant which may represent gallstone. Abnormal bowel gas pattern suggesting possibly minimal early small bowel obstruction although ileus particularly gallstone ileus cannot be excluded. CT scan of the abdomen recommend Chandu Martinez MD Chest X-Ray 08/24/16 0000 Signed Impressions: Service Date/Time: July 13:37 - CONCLUSION: Radiographic findings suggestive of congestive heart failure. This appearance is unchanged from prior exam.. Sadie Rodríguez MD Head CT 08/22/16 0253 Signed Impressions: Service Date/Time: Monday, August 22, 2016 03:36 - CONCLUSION: Normal examination for a patient of this age. Graeme Pacheco MD Laboratory Laboratory Tests Test 08/27/16 08/27/16 05:31 06:17 White Blood Count 8.8 TH/MM3 Red Blood Count 5.36 MIL/MM3 Hemoglobin 15.7 GM/DL Hematocrit 47.1 % Mean Corpuscular Volume 87.9 FL Mean Corpuscular Hemoglobin 29.4 PG Mean Corpuscular Hemoglobin 33.4 % Concent Red Cell Distribution Width 14.5 % Platelet Count 210 TH/MM3 Mean Platelet Volume 8.7 FL Sodium Level 133 MEQ/L Potassium Level 4.9 MEQ/L Chloride Level 87 MEQ/L Carbon Dioxide Level 41.5 MEQ/L Anion Gap 5 MEQ/L Blood Urea Nitrogen 23 MG/DL Creatinine 0.60 MG/DL Estimat Glomerular Filtration 136 ML/MIN Rate Random Glucose 346 MG/DL Calcium Level 9.5 MG/DL Blood Gas Puncture Site RT RADIAL Blood Gas Patient Temperature 98.6 Blood Gas HCO3 43 mmol/L Blood Gas Base Excess 16.4 mmol/L Blood Gas Oxygen Saturation 91 % Arterial Blood pH 7.33 Arterial Blood Partial 84 mmHg Pressure CO2 Arterial Blood Partial 76 mmHg Pressure O2 Arterial Blood Oxygen Content 21.0 Vol % Arterial Blood 2.2 % Carboxyhemoglobin Arterial Blood Methemoglobin 1.0 % Blood Gas Hemoglobin 16.4 G/DL Oxygen Delivery Device NASAL CANNULA Blood Gas Liter Flow 5 L/M Blood Gas Inspired Oxygen 40 % Physical Examination HEENT: Pupils round and reactive to light; normocephalic; atraumatic; no jaundice. Throat is clear. NECK: Neck is supple, no JVD, no lymphadenopathy. CHEST: Chest is clear to auscultation and percussion. CARDIAC: Regular rate and rhythm with no murmur gallop or rubs. ABDOMEN: Soft, significantly distended and tympanic slightly tender; no hepatosplenomegaly; bowel sounds hypoactive. EXTREMITIES: No clubbing, cyanosis, or edema. SKIN: Normal; no rash; no jaundice. PARLIAMENTARY COUNSEL: No focal deficits; alert and oriented times three. Assessment and Plan Plan Abdominal distention and constipation Abnormal CT showing liver lesion ports laying gallbladder and dilated bile duct and kidney lesion Case discussed with radiology our best approach to most of the abnormalities noted on CT would be to pursue an a contrasted MRI study I will perform a flexible sigmoidoscopy for possibility of sigmoid volvulus to decompress this will be done now We'll monitor labs and vital signs Further recommendations shall depend on the findings Burke Quick MD Aug 28, 2016 19:26
--- NOTE | 2016-08-28 19:28 | PD.PROCEDR ---
GI Procedure REFERRING PHYSICIAN Linda PROCEDURE PERFORMED Flexible sigmoidoscopy INDICATION FOR PROCEDURE Abdominal distention possible volvulus PROCEDURE: The procedure, risks and benefits were discussed with Mr. Robb and informed consent was obtained. Anesthesia sedated him with Diprivan. He was placed in the left lateral decubitus position. Flexible Sigmoidoscopy: The Pentax videoscope was introduced through the rectum and advanced to the descending colon. Retroflexion was performed in the rectum. Colonic prep was poor FINDINGS: Poor examination due to poor prep but no significantly dilated colon this was suctioned and the abdomen remained significantly distended indicating that this most likely is small bowel rather than large bowel ESTIMATED BLOOD LOSS: None SPECIMENS REMOVED: None COMPLICATIONS: None IMPRESSION: Probable small bowel obstruction PLAN: NG tube placed and this is difficult to low intermittent suction Surgical consult Dr. Sandoval notified Burke Quick MD Aug 28, 2016 19:28
--- NOTE | 2016-08-28 21:09 | PD.CONS ---
[facility] Service General surgery Consult Requested By Dr. Quick Reason for Consult Bowel obstruction Primary Care Physician No Primary Care Physician History of Present Illness This is a 65-year-old male admitted to the hospital on August 22 with confusion and noted to have significant hypercapnia on blood gas. A couple of days ago he began to develop abdominal distention. A CT scan done of the abdomen and pelvis was performed yesterday revealing significant distention of the colon with no obvious cause of obstruction and a fat-containing umbilical hernia. He also had a porcelain gallbladder, questionable mass in the liver, exophytic kidney mass, dilated common bile duct. The patient states that he has had an umbilical hernia for a long time. He does not have pain or discomfort from that. Due to findings on CT scan the patient underwent partial colonoscopy today by Dr. Figueroa in. There was no volvulus in the colon was not significantly distended. Dr. Quick called regarding the consult and notified me of the findings. An NG tube was placed however the patient removed it. A rectal tube was attempted but did not give any improvement and was removed. The patient has never had any abdominal operations. He currently feels distended but denies abdominal pain. He has not had prolonged constipation. The patient takes care of his elderly parents and relates significant stress secondarily. Review of Systems Constitutional: DENIES: Fever, Chills Eyes: DENIES: Eye inflammation, Eye pain Respiratory: DENIES: Cough, Shortness of breath Cardiovascular: DENIES: Chest pain, Palpitations Musculoskeletal: DENIES: Muscle aches, Stiffness Integumentary: DENIES: Pruritus, Rash Past Family Social History Past Medical History Hypertension Diabetes History of alcohol abusehe quit drinking about one year ago Depression and anxiety Umbilical hernia Past Surgical History None Reported Medications Reported Meds & Active Scripts Active Reported Zolpidem ER (Zolpidem Tartrate) 12.5 Mg Tab 12.5 Mg PO HS PRN [BP med] Lasix (Furosemide) 20 Mg Tab 20 Mg PO DAILY Potassium Chloride ER (Potassium Chloride) 10 Meq Cap 10 Meq PO DAILY Metformin (Metformin HCl) Unknown Strength Tab Unknown Dose PO BIDPC With meals Allergies: Coded Allergies: No Known Allergies (Unverified , 08/22/16) Active Ordered Medications Current Medications Medications (Trade) Dose Ordered Sig/Omega Route Start Time Stop Time Status Last Admin (NS Flush) 2 ml BID IVF 08/22/16 09:00 08/28/16 08:12 (NS Flush) 2 ml UNSCH PRN IVF 08/22/16 06:45 08/22/16 23:53 (Haldol Inj) 2 mg Q4H PRN IM 08/22/16 10:15 (Tylenol) 650 mg Q4H PRN PO 08/22/16 10:15 (Milk Of Magnesia Liq) 30 ml Q12H PRN PO 08/22/16 10:15 08/28/16 16:20 (Lovenox Inj) 40 mg Q24H SQ 08/22/16 11:00 08/28/16 11:29 (Narcan Inj) 0.4 mg UNSCH PRN IV 08/22/16 10:15 (D50w (Vial) Inj) 25 ml UNSCH PRN IV PUSH 08/22/16 17:30 (Glucagon Inj) 1 mg UNSCH PRN OTHER 08/22/16 17:30 Miscellaneous Information Patient in critical care unit? Ass... Q361D XX 08/22/16 18:15 08/22/16 18:15 (Xifaxan) 550 mg BID PO 08/23/16 10:00 08/28/16 08:12 (Glucophage) 500 mg BIDPC PO 08/23/16 10:00 Hold 08/27/16 18:01 (Remeron) 15 mg HS PO 08/23/16 21:00 08/27/16 23:05 (Mycostatin Cream) 1 applic Q12HR TOPICAL 08/23/16 21:00 08/28/16 08:13 (Flomax) 0.4 mg DAILY PO 08/24/16 09:00 08/28/16 08:12 (Cardizem) 60 mg Q6HR PO 08/25/16 18:00 08/28/16 16:20 (KCl) 40 meq BID PO 08/26/16 09:00 08/28/16 08:12 (Xanax) 0.25 mg Q8HR PRN PO 08/26/16 19:00 08/28/16 16:20 (Lasix) 20 mg DAILY PO 08/28/16 09:00 08/28/16 08:13 (Lactulose Liq) 30 ml DAILY PRN PO 08/27/16 11:00 08/28/16 11:30 (Levemir Inj) 10 units BID SQ 08/27/16 11:45 08/28/16 08:11 (Vitamin B1) 200 mg DAILY PO 08/27/16 19:30 08/28/16 08:13 Miscellaneous Information HOLD METFORMIN FOR... Q24H XX 08/27/16 22:50 08/29/16 22:50 08/27/16 22:50 (Deltasone) 10 mg DAILY PO 08/29/16 09:00 Family History Noncontributory Social History I don't think he smokes. History of alcohol abuse but he says he hasn't drank in about one year except for a Halloween. He has significant emotional stress at home with taking care of 2 elderly parents. He does not sleep much. He was seen by psychiatry during this admission. Physical Exam Vital Signs Vital Signs Date Time Temp Pulse Resp B/P Pulse Ox O2 Delivery O2 Flow Rate FiO2 08/28/16 16:08 96.2 97 18 144/80 90 08/28/16 12:07 95.9 95 18 142/65 92 08/28/16 11:43 81 21 08/28/16 08:10 84 08/28/16 08:10 Nasal Cannula 3.00 Humidified 08/28/16 08:04 96 Nasal Cannula 3.00 08/28/16 08:00 97.3 85 18 154/80 93 08/28/16 07:30 Nasal Cannula 3.00 Humidified 08/28/16 04:00 97.5 84 17 153/80 94 08/28/16 00:00 Nasal Cannula 3.00 Humidified 08/28/16 00:00 97.9 92 18 133/84 94 Physical Exam GENERAL: Awake and alert. No acute distress. Cooperative. HEAD: Normocephalic. Atraumatic. EYES: Pupils equal round and reactive to light bilaterally. No scleral icterus. ENT: Moist oral mucosa. CHEST: Lungs clear to auscultation bilaterally with no wheezing or rhonchi. No respiratory distress. CARDIOVASCULAR: Regular rate and rhythm. ABDOMEN: Round. Distended with some tympany in the upper abdomen. Nontender and soft. Umbilical hernia with skin thinning and an approximately 3 cm fascial defect. It is mostly reducible. Result Diagram: 08/27/1631 08/27/1631 Imaging Last Impressions Abdomen/Pelvis CT 08/27/16 0000 Signed Impressions: Service Date/Time: Saturday, August 27, 2016 22:41 - CONCLUSION: 1. Left lower lobe consolidation. 2. Distention of the colon without definite point of obstruction. There is kinking of the sigmoid colon and a protuberant panniculus which could be causing a partial obstruction. 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 The common bile duct is dilated at 12 mm but no calcified stones seen within the common duct. Given these findings, may consider performing hepatic biliary tract scan to evaluate biliary dynamics and for possible obstruction. 4. Focal low density area in the quadrate lobe of the liver cannot be further characterized. Differential considerations include focal fatty change and a poorly defined mass. 5. Exophytic intermediate density smooth margin lesion arising from the posterior left kidney measures in excess of 3 cm. Differential considerations include a complicated cyst and solid mass. minate 6. Fat-containing protuberant umbilical hernia. Ryan Smith MD Abdomen X-Ray 08/25/16 0000 Signed Impressions: Service Date/Time: Thursday, August 25, 2016 10:30 - CONCLUSION: Abnormality of a 3 cm peripheral somewhat square calcification right upper quadrant which may represent gallstone. Abnormal bowel gas pattern suggesting possibly minimal early small bowel obstruction although ileus particularly gallstone ileus cannot be excluded. CT scan of the abdomen recommend Chandu Martinez MD Chest X-Ray 08/24/16 0000 Signed Impressions: Service Date/Time: July 13:37 - CONCLUSION: Radiographic findings suggestive of congestive heart failure. This appearance is unchanged from prior exam.. Sadie Rodríguez MD Head CT 08/22/16 0253 Signed Impressions: Service Date/Time: Monday, August 22, 2016 03:36 - CONCLUSION: Normal examination for a patient of this age. Graeme Pacheco MD Assessment and Plan Assessment and Plan 65-year-old male with small or large bowel obstruction versus pseudoobstruction , umbilical hernia. He also has multiple findings on CT abdomen and pelvis including porcelain gallbladder, questionable liver abnormality, exophytic kidney mass, dilated common bile duct. The patient was evaluated by partial colonoscopy and did not have a distal colonic obstruction or volvulus. However, on CT his small bowel did not appear to be significantly dilated. I would recommend continued conservative management. I'll repeat abdominal films in the morning. Depending on the results I may strongly recommend he try the NG tube again. The patient may require an operation if he does not have improvement with nonoperative measures. I agree that he would benefit from an MRI when this acute problem resolves to evaluate the liver and biliary system as well as the kidney. Discussed Condition With Sharan Grimes MD Aug 28, 2016 21:09
[2016-08-28] MEDS: MIRTAZAPINE 15 MG TAB PO SCH (21:45)
[2016-08-28] MEDS: METFORMIN HOLD POST IV CONTRAST XX SCH (22:50)
[2016-08-29] VITALS (10 sets, daily range): BP systolic 102–131; BP diastolic 50–74; PULSE 75–97; RESP 18–20; TEMP 97–98.4; O2SAT 85–95
[2016-08-29] MEDS: ALPRAZolam 0.25 MG TAB PO PRN ×3 (00:53→16:28)
[2016-08-29] MEDS: DILTIAZEM HCL 60 MG TAB PO SCH ×4 (00:53→16:28)
[2016-08-29] MEDS: INSULIN ASPART SUPPLEMENTAL SCALE SQ SCH ×4 (06:38→20:57)
[2016-08-29 07:01] LABS: AUTOMATED NEUTROPHIL # 8.1 TH/MM3 (1.8-7.7); BASOPHIL % 0.1 % (0.0-2.0); EOSINOPHIL # 0.2 TH/MM3 (0-0.4); EOSINOPHIL % 1.4 % (0.0-4.0); HEMATOCRIT 50.5 % (39.0-51.0); HEMO FLAGS DIFF FINAL; LYMPH % 13.8 % (9.0-44.0); LYMPHOCYTE # 1.5 TH/MM3 (1.0-4.8); MEAN CELL VOLUME 87.7 FL (80.0-100.0); MEAN CORPUSCULAR HGB CONC 33.1 % (32.0-36.0); MONO % 9.1 % (0.0-8.0); NEUT % 75.6 % (16.0-70.0); PLATELET COUNT 243 TH/MM3 (150-450); RED BLOOD COUNT 5.76 MIL/MM3 (4.50-5.90); RED CELL DISTRIBUTION WIDTH 14.8 % (11.6-17.2); WHITE BLOOD COUNT 10.7 TH/MM3 (4.0-11.0)
[2016-08-29 07:30] LABS: BICARBONATE 43.7 MEQ/L (21.0-32.0); POTASSIUM 3.4 MEQ/L (3.5-5.1)
[2016-08-29] MEDS: RESP: ALBUTEROL 2.5 MG/IPRATROPIUM 0.5 MG NEB (SCH) NEB ×3 (07:50→19:25)
[2016-08-29] MEDS: RIFAXIMIN 550 MG TAB PO SCH ×2 (08:19→20:57)
[2016-08-29] MEDS: predniSONE 10 MG TAB PO SCH (08:19)
[2016-08-29] MEDS: THIAMINE HCL 100 MG TAB PO SCH (08:19)
[2016-08-29] MEDS: POTASSIUM CHLORIDE 20 MEQ CONTROLLED RELEASE TAB PO SCH ×2 (08:19→20:58)
[2016-08-29] MEDS: SODIUM CHLORIDE 0.9% FLUSH 5 ML FLUSH IVF SCH ×2 (08:20→20:56)
[2016-08-29] MEDS: TAMSULOSIN HCL 0.4 MG CAP PO SCH (08:20)
[2016-08-29] MEDS: NYSTATIN 100,000 UNIT/GM CREAM 15 GM TOPICAL SCH ×2 (08:20→20:58)
[2016-08-29] MEDS: FUROSEMIDE 20 MG TAB PO SCH (08:29)
[2016-08-29] MEDS: INSULIN DETEMIR 100 UNITS/ML VIAL SQ SCH ×2 (08:30→20:57)
[2016-08-29 09:27] LABS: BLOOD GAS BASE EXCESS 16.2 mmol/L (-2-2); BLOOD GAS CARBOXYHEMOGLOBIN 2.2 % (0-4); BLOOD GAS HCO3 43 mmol/L (22-26); BLOOD GAS METHEMOGLOBIN 0.8 % (0-2); BLOOD GAS O2 HGB SATURATION 89 % (90-100); BLOOD GAS OXYGEN CONTENT 21.4 Vol % (12.0-20.0); BLOOD GAS PCO2 87 mmHg (38-42); BLOOD GAS PO2 70 mmHg (61-120); BLOOD GAS TOTAL HGB 17.1 G/DL (12.0-16.0); TEMP CORR TO 98.6
[2016-08-29 09:28] LABS: CRITICAL VALUE YES; DRAW SITE LT RADIAL; LITER FLOW 2 L/M; NUMBER OF ARTERIAL PUNCTURES 1; OXYGEN DEVICE NASAL CANNULA; STAT NO; ULNAR PULSE PRESENT
--- NOTE | 2016-08-29 10:06 | RADRPT ---
EXAM DATE/TIME: 08/29/2016 09:44 [facility] COMPARISON: ABDOMEN KUB ONLY, August 25, 2016, 10:30. INDICATIONS : Ileus. MEDICAL HISTORY : Diabetes mellitus type 2. Hernia, umbilical. Chronic obstructive pulmonary disease. SURGICAL HISTORY : None. ENCOUNTER: Subsequent ACUITY: 1 week PAIN SCORE: 5/10 LOCATION: All Quadrants. FINDINGS: Supine view of the abdomen was performed. The abdominal bowel gas pattern is normal. No abnormal ma sses, calcifications, or organomegaly is seen. The osseous structures are unremarkable. CONCLUSION: Normal examination. Continued diffuse distention of the colon with air. Yrn Vora MD on August 29, 2016 at 10:04 Board Certified Radiologist. This report was verified electronically.
[2016-08-29] MEDS: ENOXAPARIN SODIUM 40 MG/0.4 ML SYRINGE SQ SCH (11:34)
--- NOTE | 2016-08-29 12:15 | HHI.PR ---
Subjective Subjective Notes He is impatient to eat. He denies pain. He feels that all he needed was an enema. However, KUB this am shows significant colonic dilation. Objective Vitals/I&O Vital Signs Date Time Temp Pulse Resp B/P Pulse Ox O2 Delivery O2 Flow Rate FiO2 08/29/16 08:00 97.5 77 20 131/61 92 08/29/16 08:00 Nasal Cannula 4.00 Humidified 08/28/16 11:43 21 Labs Laboratory Tests Test 08/29/16 08/29/16 06:11 09:20 White Blood Count 10.7 Red Blood Count 5.76 Hemoglobin 16.7 Hematocrit 50.5 Mean Corpuscular Volume 87.7 Mean Corpuscular Hemoglobin 29.0 Mean Corpuscular Hemoglobin 33.1 Concent Red Cell Distribution Width 14.8 Platelet Count 243 Mean Platelet Volume 8.1 Neutrophils (%) (Auto) 75.6 Lymphocytes (%) (Auto) 13.8 Monocytes (%) (Auto) 9.1 Eosinophils (%) (Auto) 1.4 Basophils (%) (Auto) 0.1 Neutrophils # (Auto) 8.1 Lymphocytes # (Auto) 1.5 Monocytes # (Auto) 1.0 Eosinophils # (Auto) 0.2 Basophils # (Auto) 0.0 CBC Comment DIFF FINAL Differential Comment Sodium Level 137 Potassium Level 3.4 Chloride Level 89 Carbon Dioxide Level 43.7 Anion Gap 4 Blood Urea Nitrogen 16 Creatinine 0.60 Estimat Glomerular Filtration 136 Rate Random Glucose 213 Calcium Level 8.6 Blood Gas Puncture Site LT RADIAL Blood Gas Patient Temperature 98.6 Blood Gas HCO3 43 Blood Gas Base Excess 16.2 Blood Gas Oxygen Saturation 89 Arterial Blood pH 7.31 Arterial Blood Partial 87 Pressure CO2 Arterial Blood Partial 70 Pressure O2 Arterial Blood Oxygen Content 21.4 Arterial Blood 2.2 Carboxyhemoglobin Arterial Blood Methemoglobin 0.8 Blood Gas Hemoglobin 17.1 Oxygen Delivery Device NASAL CANNULA Blood Gas Liter Flow 2 Radiology Last Impressions Abdomen/Pelvis CT 08/27/16 0000 Signed Impressions: Service Date/Time: Saturday, August 27, 2016 22:41 - CONCLUSION: 1. Left lower lobe consolidation. 2. Distention of the colon without definite point of obstruction. There is kinking of the sigmoid colon and a protuberant panniculus which could be causing a partial obstruction. 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 The common bile duct is dilated at 12 mm but no calcified stones seen within the common duct. Given these findings, may consider performing hepatic biliary tract scan to evaluate biliary dynamics and for possible obstruction. 4. Focal low density area in the quadrate lobe of the liver cannot be further characterized. Differential considerations include focal fatty change and a poorly defined mass. 5. Exophytic intermediate density smooth margin lesion arising from the posterior left kidney measures in excess of 3 cm. Differential considerations include a complicated cyst and solid mass. minate 6. Fat-containing protuberant umbilical hernia. Ryan Smith MD Abdomen X-Ray 08/25/16 0000 Signed Impressions: Service Date/Time: Thursday, August 25, 2016 10:30 - CONCLUSION: Abnormality of a 3 cm peripheral somewhat square calcification right upper quadrant which may represent gallstone. Abnormal bowel gas pattern suggesting possibly minimal early small bowel obstruction although ileus particularly gallstone ileus cannot be excluded. CT scan of the abdomen recommend Chandu Martinez MD Chest X-Ray 08/24/16 0000 Signed Impressions: Service Date/Time: July 13:37 - CONCLUSION: Radiographic findings suggestive of congestive heart failure. This appearance is unchanged from prior exam.. Sadie Rodríguez MD Head CT 08/22/16 0253 Signed Impressions: Service Date/Time: Monday, August 22, 2016 03:36 - CONCLUSION: Normal examination for a patient of this age. Graeme Pacheco MD Narrative Exam NAD, sitting in bed with clothes on Abd: round, distended, soft, nontender. A/P Assessment and Plan 65 yo M with colonic obstruction v pseudoobstruction. I do not recommend operative intervention at this time. I spoke with Dr. Quick who will order a GG enema and depending on results plan decompressive colonoscopy with rectal tube placement. I tried to emphasize to the patient the seriousness of this situation as his colon is severely dilated and even at risk of ischemia without proper treatment. Sharan Sandoval MD Aug 29, 2016 12:15
[2016-08-29] MEDS ORDERED: DIATRIZOATE MEGLUM/DIATRIZOATE SOD 120 ML BTL (for RAD DIAG) RECTAL ONE (14:43)
--- NOTE | 2016-08-29 14:48 | RADRPT ---
EXAM DATE/TIME: 08/29/2016 13:32 [facility] COMPARISON: No previous studies available for comparison. INDICATIONS : Abdominal distention, constipation x2 days FLUORO TIME: 3.5 minutes IMAGE COUNT: 15 CONTRAST: 1. Gastroview MEDICAL HISTORY : None. SURGICAL HISTORY : None. ENCOUNTER: Initial ACUITY: 1 week PAIN SCORE: 0/10 LOCATION: Bilateral abdomen FINDINGS: Preliminary film is unremarkable. Under fluoroscopic guidance a Gastrografin enema was performed with free flow of contrast to the ceca l tip. The sigmoid colon and descending colon are normal in caliber. The transverse colon is dilated as is t he ascending colon. There was some residual stool in the right colon CONCLUSION: Unremarkable Gastrografin enema extensive air in the descending and transverse colons. Small amount o f air throughout the small bowel without dilation. Yrn Vora MD on August 29, 2016 at 14:46 Board Certified Radiologist. This report was verified electronically.
--- NOTE | 2016-08-29 14:52 | HHI.PR ---
Subjective History of Present Illness Up in chair Hungry Wants to eat and is not willing to wait too much longer No headache No chest pain Mild exertional dyspnea Hospital Day: 7 Review of Systems Constitutional Constitutional: Weakness Constitutional Remarks 10 point ROS done. Positives include weakness, distended abdomen, hypoactive bowel sounds, tympanic abdomen, exertional dyspnea. Other systems unremarkable or negative Pulmonary Respiratory: Shortness of Breath Pulmonary Remarks Exertional GI/Abdomen GI/Abdomen Remarks Tympany, hypoactive bowel sounds, distention Psychiatric Psychiatric: Agitation (mild over current condition) Vitals/Results Intake & Output 08/28/16 08/28/16 08/29/16 15:00 23:00 07:00 Intake Total 480 ml 120 ml 720 ml Output Total 1100 ml 300 ml 950 ml Balance -620 ml -180 ml -230 ml Intake Oral 480 ml 120 ml 720 ml Output Urine Total 1100 ml 300 ml 950 ml # Bowel Movements 2 1 1 Vital Signs Vital Signs Date Time Temp Pulse Resp B/P Pulse Ox O2 Delivery O2 Flow Rate FiO2 08/29/16 12:30 85 21 08/29/16 12:00 97.0 89 18 103/50 94 08/29/16 08:00 75 08/29/16 08:00 97.5 77 20 131/61 92 08/29/16 08:00 Nasal Cannula 4.00 Humidified 08/29/16 07:52 93 Nasal Cannula 4.00 08/29/16 04:38 98.4 77 18 123/56 93 08/29/16 00:25 97.6 85 18 131/69 94 08/28/16 22:00 92 08/28/16 20:07 97.1 91 18 147/64 98 08/28/16 20:00 Nasal Cannula 3.00 Humidified 08/28/16 16:08 96.2 97 18 144/80 90 CBC/BMP: 08/29/16 0611 08/29/16 0611 Lab Results Laboratory Tests Test 08/29/16 08/29/16 06:11 09:20 White Blood Count 10.7 TH/MM3 Red Blood Count 5.76 MIL/MM3 Hemoglobin 16.7 GM/DL Hematocrit 50.5 % Mean Corpuscular Volume 87.7 FL Mean Corpuscular Hemoglobin 29.0 PG Mean Corpuscular Hemoglobin 33.1 % Concent Red Cell Distribution Width 14.8 % Platelet Count 243 TH/MM3 Mean Platelet Volume 8.1 FL Neutrophils (%) (Auto) 75.6 % Lymphocytes (%) (Auto) 13.8 % Monocytes (%) (Auto) 9.1 % Eosinophils (%) (Auto) 1.4 % Basophils (%) (Auto) 0.1 % Neutrophils # (Auto) 8.1 TH/MM3 Lymphocytes # (Auto) 1.5 TH/MM3 Monocytes # (Auto) 1.0 TH/MM3 Eosinophils # (Auto) 0.2 TH/MM3 Basophils # (Auto) 0.0 TH/MM3 CBC Comment DIFF FINAL Differential Comment Sodium Level 137 MEQ/L Potassium Level 3.4 MEQ/L Chloride Level 89 MEQ/L Carbon Dioxide Level 43.7 MEQ/L Anion Gap 4 MEQ/L Blood Urea Nitrogen 16 MG/DL Creatinine 0.60 MG/DL Estimat Glomerular Filtration 136 ML/MIN Rate Random Glucose 213 MG/DL Calcium Level 8.6 MG/DL Blood Gas Puncture Site LT RADIAL Blood Gas Patient Temperature 98.6 Blood Gas HCO3 43 mmol/L Blood Gas Base Excess 16.2 mmol/L Blood Gas Oxygen Saturation 89 % Arterial Blood pH 7.31 Arterial Blood Partial 87 mmHg Pressure CO2 Arterial Blood Partial 70 mmHg Pressure O2 Arterial Blood Oxygen Content 21.4 Vol % Arterial Blood 2.2 % Carboxyhemoglobin Arterial Blood Methemoglobin 0.8 % Blood Gas Hemoglobin 17.1 G/DL Oxygen Delivery Device NASAL CANNULA Blood Gas Liter Flow 2 L/M Imaging Remarks Last Impressions Abdomen X-Ray 08/29/16 0600 Signed Impressions: Service Date/Time: Monday, August 29, 2016 09:44 - CONCLUSION: Normal examination. Continued diffuse distention of the colon with air. Yrn Vora MD Abdomen/Pelvis CT 08/27/16 0000 Signed Impressions: Service Date/Time: Saturday, August 27, 2016 22:41 - CONCLUSION: 1. Left lower lobe consolidation. 2. Distention of the colon without definite point of obstruction. There is kinking of the sigmoid colon and a protuberant panniculus which could be causing a partial obstruction. 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 The common bile duct is dilated at 12 mm but no calcified stones seen within the common duct. Given these findings, may consider performing hepatic biliary tract scan to evaluate biliary dynamics and for possible obstruction. 4. Focal low density area in the quadrate lobe of the liver cannot be further characterized. Differential considerations include focal fatty change and a poorly defined mass. 5. Exophytic intermediate density smooth margin lesion arising from the posterior left kidney measures in excess of 3 cm. Differential considerations include a complicated cyst and solid mass. minate 6. Fat-containing protuberant umbilical hernia. Ryan Smith MD Chest X-Ray 08/24/16 0000 Signed Impressions: Service Date/Time: July 13:37 - CONCLUSION: Radiographic findings suggestive of congestive heart failure. This appearance is unchanged from prior exam.. Sadie Rodríguez MD Head CT 08/22/16 0253 Signed Impressions: Service Date/Time: Monday, August 22, 2016 03:36 - CONCLUSION: Normal examination for a patient of this age. Graeme Pacheco MD Current Medications Active Medications Diatrizoate Meglum/ Diatrizoate Sod ( Gastroview Liq) 120 ml STK-MED ONCE RECTAL; Start 08/29/16 at 14:43; Stop 08/29/16 at 14:44; Status DC Prednisone (Deltasone) 10 mg DAILY PO Last administered on 08/29/16t 08:19; Admin Dose 10 MG; Start 08/29/16 at 09:00 Physical Exam General General Appearance: Well Developed, No Acute Distress, Obese Eyes Eye Exam: Pupils Equal, Pupils Reactive Ears & Nose Ears & Nose Exam: Nasal Mucosa Clemmons Throat Throat Exam: Oral Mucosa [place] & Moist Neck Neck Exam: Neck Supple, Trachea Midline Pulmonary Resp Exam: Crackles, Decreased Bases Cardiology CV Exam: Regular Gastrointestinal/Abdomen GI Exam: Bowel Sounds Present, Distended, Bowel Sounds Hypoactive Musculoskeletal MS Exam: Joints Intact Integumentary Skin Exam: Warm, Dry Extremeties Extremities Exam: Pedal Pulses Palpable, Trace Edema Neurologic Neuro Exam: Alert, Awake, Oriented, Speech Clear, Moving All Extremities, No Focal Deficits Psychiatric Psych Exam: Appropriate Responses VTE Prophylaxis VTE Prophylaxis Meds: Lovenox Assessment/Plan Problem List: (1) Acute hypercapnic respiratory failure (2) Anxiety and depression (3) DM2 (diabetes mellitus, type 2) (4) Altered mental status (5) Toxic encephalopathy (6) Respiratory acidosis (7) COPD (chronic obstructive pulmonary disease) (8) Tachycardia (9) Depression (10) Overdose Plan: pt. denies (11) Abdominal distension Assessment/Plan Respiratory acidosis, compensated. -continue with oxygen to keep sats greater than 92 -continue steroids to PO Continue with DuoNeb's as needed Pulmonary consultation with Dr. Charlton, his input is appreciated AMS, Possible OD-improving -mental status improving slowly -on Xanax, keep PRN only for anxiety, d/w RN -Patient denies any drugs usage that day. Took antihistamines earlier in the day. -[place] Act lifted -Evaluated per psych Depression -appreciate psyche input -Supportive care. Reiterated to patient he is medical needs. Possible CHF, per initial CXR, received Lasix -Echo done, EF 55% -continue with Lasix 20 mg po daily. With medical management Prior ETOH abuse-No ETOH since April, 3 beers. States he quit drinking last year. -stable, no withdrawal symptoms Tachycardia-resolved. -continue Cardizem DM II -Continue with Accu-Cheks before meals and at bedtime -Hemoglobin A1c 10.8, poorly controlled diabetes -Blood glucose elevated, change to medium dose scale. Weaning off steroids also Abd. distended, CT abd done 08/27 poss. obstruction, ileus, stool right colon, exophytic mass left kidney, CBD dilatation, porcelain gallbladder. -continue with bowel regimen Nothing by mouth for now Surgical consult noted and appreciate. No surgery planned at this time. May need colonoscopy with rectal tube placement for decompression of abdomen/ stomach. Explained to patient the need for this to be resolved. PT for evaluation and treatment Labs reviewed Continue with above tx, not ready for discharge yet. Explained to patient Encouraged incentive spirometry, for his low air volumes. D/W Dr. Pena D/W pt. This patient was seen by myself and Dr. Pena, this note is written on his behalf Problem Qualifiers (1) Altered mental status: Qualified Code: R40.1 - Stupor (2) COPD (chronic obstructive pulmonary disease): Qualified Code: J44.9 - Chronic obstructive pulmonary disease, unspecified COPD type (3) Depression: Qualified Code: F33.41 - Recurrent major depressive disorder, in partial remission (4) Overdose: Qualified Code: T50.904A - Overdose, undetermined intent, initial encounter Catherine Saini Aug 29, 2016 14:52
--- NOTE | 2016-08-29 15:08 | HHI.GIFU ---
Subjective Remarks Up in chair. States he is not having any nausea/vomiting/abdominal pain and is starving and wants something to eat as soon as possible. + MISHA (Teetee Pemberton) Objective Vitals I&O Vital Signs Date Time Temp Pulse Resp B/P Pulse Ox O2 Delivery O2 Flow Rate FiO2 08/29/16 12:30 85 21 08/29/16 12:00 97.0 89 18 103/50 94 08/29/16 08:00 75 08/29/16 08:00 97.5 77 20 131/61 92 08/29/16 08:00 Nasal Cannula 4.00 Humidified 08/29/16 07:52 93 Nasal Cannula 4.00 08/29/16 04:38 98.4 77 18 123/56 93 08/29/16 00:25 97.6 85 18 131/69 94 08/28/16 22:00 92 08/28/16 20:07 97.1 91 18 147/64 98 08/28/16 20:00 Nasal Cannula 3.00 Humidified 08/28/16 16:08 96.2 97 18 144/80 90 I/O 08/28/16 08/28/16 08/28/16 08/29/16 08/29/16 08/29/16 07:00 15:00 23:00 07:00 15:00 23:00 Intake Total 480 ml 120 ml 720 ml Output Total 1100 ml 300 ml 950 ml Balance -620 ml -180 ml -230 ml Intake Oral 480 ml 120 ml 720 ml Output Urine Total 1100 ml 300 ml 950 ml # Bowel Movements 2 1 1 Laboratory Laboratory Tests Test 08/29/16 08/29/16 06:11 09:20 White Blood Count 10.7 Red Blood Count 5.76 Hemoglobin 16.7 Hematocrit 50.5 Mean Corpuscular Volume 87.7 Mean Corpuscular Hemoglobin 29.0 Mean Corpuscular Hemoglobin 33.1 Concent Red Cell Distribution Width 14.8 Platelet Count 243 Mean Platelet Volume 8.1 Neutrophils (%) (Auto) 75.6 Lymphocytes (%) (Auto) 13.8 Monocytes (%) (Auto) 9.1 Eosinophils (%) (Auto) 1.4 Basophils (%) (Auto) 0.1 Neutrophils # (Auto) 8.1 Lymphocytes # (Auto) 1.5 Monocytes # (Auto) 1.0 Eosinophils # (Auto) 0.2 Basophils # (Auto) 0.0 CBC Comment DIFF FINAL Differential Comment Sodium Level 137 Potassium Level 3.4 Chloride Level 89 Carbon Dioxide Level 43.7 Anion Gap 4 Blood Urea Nitrogen 16 Creatinine 0.60 Estimat Glomerular Filtration 136 Rate Random Glucose 213 Calcium Level 8.6 Blood Gas Puncture Site LT RADIAL Blood Gas Patient Temperature 98.6 Blood Gas HCO3 43 Blood Gas Base Excess 16.2 Blood Gas Oxygen Saturation 89 Arterial Blood pH 7.31 Arterial Blood Partial 87 Pressure CO2 Arterial Blood Partial 70 Pressure O2 Arterial Blood Oxygen Content 21.4 Arterial Blood 2.2 Carboxyhemoglobin Arterial Blood Methemoglobin 0.8 Blood Gas Hemoglobin 17.1 Oxygen Delivery Device NASAL CANNULA Blood Gas Liter Flow 2 Imaging Last Impressions Abdomen X-Ray 08/29/16 0600 Signed Impressions: Service Date/Time: Monday, August 29, 2016 09:44 - CONCLUSION: Normal examination. Continued diffuse distention of the colon with air. Yrn Vora MD Enema w/Water Soluble 08/29/16 0000 Signed Impressions: Service Date/Time: Monday, August 29, 2016 13:32 - CONCLUSION: Unremarkable Gastrografin enema extensive air in the descending and transverse colons. Small amount of air throughout the small bowel without dilation. Yrn Vora MD Abdomen/Pelvis CT 08/27/16 0000 Signed Impressions: Service Date/Time: Saturday, August 27, 2016 22:41 - CONCLUSION: 1. Left lower lobe consolidation. 2. Distention of the colon without definite point of obstruction. There is kinking of the sigmoid colon and a protuberant panniculus which could be causing a partial obstruction. 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 The common bile duct is dilated at 12 mm but no calcified stones seen within the common duct. Given these findings, may consider performing hepatic biliary tract scan to evaluate biliary dynamics and for possible obstruction. 4. Focal low density area in the quadrate lobe of the liver cannot be further characterized. Differential considerations include focal fatty change and a poorly defined mass. 5. Exophytic intermediate density smooth margin lesion arising from the posterior left kidney measures in excess of 3 cm. Differential considerations include a complicated cyst and solid mass. minate 6. Fat-containing protuberant umbilical hernia. Ryan Smith MD Chest X-Ray 08/24/16 0000 Signed Impressions: Service Date/Time: July 13:37 - CONCLUSION: Radiographic findings suggestive of congestive heart failure. This appearance is unchanged from prior exam.. Sadie Rodríguez MD Head CT 08/22/16 0253 Signed Impressions: Service Date/Time: Monday, August 22, 2016 03:36 - CONCLUSION: Normal examination for a patient of this age. Graeme Pacheco MD Physical Exam HEENT: Normocephalic; atraumatic; no jaundice. CHEST: CTA CARDIAC: RRR ABDOMEN: Semifirm, distended, nontender; bowel sounds are present in all four quadrants. EXTREMITIES: BLE edema. SKIN: Normal; no rash; no jaundice. 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 (Teetee Pemberton) Assessment and Plan Plan ASSESSMENT: - Abdominal distention and constipation. Abdomen/Pelvis CT (08/27/16)----> 1. Left lower lobe consolidation. 2. Distention of the colon without definite point of obstruction. There is kinking of the sigmoid colon and a protuberant panniculus which could be causing a partial obstruction. 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 The common bile duct is dilated at 12 mm but no calcified stones seen within the common duct. Given these findings, may consider performing hepatic biliary tract scan to evaluate biliary dynamics and for possible obstruction. 4. Focal low density area in the quadrate lobe of the liver cannot be further characterized. Differential considerations include focal fatty change and a poorly defined mass. 5. Exophytic intermediate density smooth margin lesion arising from the posterior left kidney measures in excess of 3 cm. Differential considerations include a complicated cyst and solid mass. minate 6. Fat-containing protuberant umbilical hernia. S/P Flexilbe Sigmoidoscopy (08/29/16)---> Poor examination due to poor prep but no significantly dilated colon this was suctioned and the abdomen remained significantly distended indicating that this most likely is small bowel rather than large bowel. GS consulted. S/P Abdomen X-Ray (08/29/16)----> Normal examination. Continued diffuse distention of the colon with air. S/P Gastrografin enema (08/29/16)-- --> Unremarkable Gastrografin enema extensive air in the descending and transverse colons. Small amount of air throughout the small bowel without dilation. GS following, Pt is quite distended although not having n/v/pain and is very impatient to eat and demanding his diet be ordered as soon as possible. Will keep npo until d/w Dr. Quick PLAN: - NPO - Monitor labs - Further recommendations to follow after seen and evaluated by Dr. Quick ( Teetee Pemberton) Physician Comments Patient seen and examined Agree with above Continue with current supportive care Monitor labs Case discussed with Dr. Pena We'll recommend placing flexiseal and start clear liquid diet We'll obtain a KUB in the morning if he continues to be distended we'll pursue a sigmoidoscopy with possible decompression tube placement (Burke Quick MD) Teetee Pemberton Aug 29, 2016 15:07 Burke Quick MD Aug 29, 2016 22:43
--- NOTE | 2016-08-29 16:31 | PD.CONS ---
HPI Service Urology Consult Requested By Primary Care Physician No Primary Care Physician Diagnosis: (1) Acute hypercapnic respiratory failure ICD Code: J96.02 (2) Anxiety and depression ICD Code: F41.9 (3) DM2 (diabetes mellitus, type 2) ICD Code: E11.9 (4) Altered mental status ICD Code: R41.82 (5) Toxic encephalopathy ICD Code: G92 (6) Respiratory acidosis ICD Code: E87.2 (7) COPD (chronic obstructive pulmonary disease) ICD Code: J44.9 (8) Tachycardia ICD Code: R00.0 (9) Depression ICD Code: F32.9 (10) Overdose ICD Code: T50.901A (11) Abdominal distension ICD Code: R14.0 Past Family Social History Allergies: Coded Allergies: No Known Allergies (Unverified , 08/22/16) Physical Exam Vital Signs Vital Signs Date Time Temp Pulse Resp B/P Pulse Ox O2 Delivery O2 Flow Rate FiO2 08/29/16 12:30 85 21 08/29/16 12:00 97.0 89 18 103/50 94 08/29/16 08:00 75 08/29/16 08:00 97.5 77 20 131/61 92 08/29/16 08:00 Nasal Cannula 4.00 Humidified 08/29/16 07:52 93 Nasal Cannula 4.00 08/29/16 04:38 98.4 77 18 123/56 93 08/29/16 00:25 97.6 85 18 131/69 94 08/28/16 22:00 92 08/28/16 20:07 97.1 91 18 147/64 98 08/28/16 20:00 Nasal Cannula 3.00 Humidified Physical Exam GENERAL: This is a well-nourished, well-developed patient, in no apparent distress. SKIN: No rashes, ecchymoses or lesions. Cool and dry. HEAD: Atraumatic. Normocephalic. No temporal or scalp tenderness. EYES: Pupils equal round and reactive. Extraocular motions intact. No scleral icterus. No injection or drainage. ENT: Nose without bleeding, purulent drainage or septal hematoma. Throat without erythema, tonsillar hypertrophy or exudate. Uvula midline. Airway patent. NECK: Trachea midline. No JVD or lymphadenopathy. Supple, nontender, no meningeal signs. CARDIOVASCULAR: Regular rate and rhythm without murmurs, gallops, or rubs. RESPIRATORY: Clear to auscultation. Breath sounds equal bilaterally. No wheezes , rales, or rhonchi. GASTROINTESTINAL: Abdomen soft, non-tender, nondistended. No hepato-splenomegaly , or palpable masses. No guarding. MUSCULOSKELETAL: Extremities without clubbing, cyanosis, or edema. No joint tenderness, effusion, or edema noted. No calf tenderness. Negative Homans sign bilaterally. NEUROLOGICAL: Awake and alert. Cranial nerves II through XII intact. Motor and sensory grossly within normal limits. Five out of 5 muscle strength in all muscle groups. Normal speech. Laboratory Laboratory Tests Test 08/29/16 08/29/16 06:11 09:20 White Blood Count 10.7 Red Blood Count 5.76 Hemoglobin 16.7 Hematocrit 50.5 Mean Corpuscular Volume 87.7 Mean Corpuscular Hemoglobin 29.0 Mean Corpuscular Hemoglobin 33.1 Concent Red Cell Distribution Width 14.8 Platelet Count 243 Mean Platelet Volume 8.1 Neutrophils (%) (Auto) 75.6 Lymphocytes (%) (Auto) 13.8 Monocytes (%) (Auto) 9.1 Eosinophils (%) (Auto) 1.4 Basophils (%) (Auto) 0.1 Neutrophils # (Auto) 8.1 Lymphocytes # (Auto) 1.5 Monocytes # (Auto) 1.0 Eosinophils # (Auto) 0.2 Basophils # (Auto) 0.0 CBC Comment DIFF FINAL Differential Comment Sodium Level 137 Potassium Level 3.4 Chloride Level 89 Carbon Dioxide Level 43.7 Anion Gap 4 Blood Urea Nitrogen 16 Creatinine 0.60 Estimat Glomerular Filtration 136 Rate Random Glucose 213 Calcium Level 8.6 Blood Gas Puncture Site LT RADIAL Blood Gas Patient Temperature 98.6 Blood Gas HCO3 43 Blood Gas Base Excess 16.2 Blood Gas Oxygen Saturation 89 Arterial Blood pH 7.31 Arterial Blood Partial 87 Pressure CO2 Arterial Blood Partial 70 Pressure O2 Arterial Blood Oxygen Content 21.4 Arterial Blood 2.2 Carboxyhemoglobin Arterial Blood Methemoglobin 0.8 Blood Gas Hemoglobin 17.1 Oxygen Delivery Device NASAL CANNULA Blood Gas Liter Flow 2 Result Diagram: 08/29/1661008/29/16610 Assessment and Plan Assessment and Plan Renal U/S to further evaluate left renal mass Problem Qualifiers (1) Altered mental status: Qualified Code: R40.1 - Stupor (2) COPD (chronic obstructive pulmonary disease): Qualified Code: J44.9 - Chronic obstructive pulmonary disease, unspecified COPD type (3) Depression: Qualified Code: F33.41 - Recurrent major depressive disorder, in partial remission (4) Overdose: Qualified Code: T50.904A - Overdose, undetermined intent, initial encounter Jarad Montana MD Aug 29, 2016 16:19
--- NOTE | 2016-08-29 17:13 | MB ---
cc: JARAD TATE MD DATE OF CONSULTATION: 08/29/2016 REASON FOR CONSULTATION: A 3 cm left renal mass. HISTORY OF PRESENT ILLNESS: The patient is a 65-year-old male with history of diabetes who was admitted to the hospital on August 22, with altered mental status and confusion as he was pulled over by the theater set production designer for driving erratically. Several days ago he began to develop severe abdominal distension and nausea. CT scan of the abdomen and pelvis was then performed which due to the abdominal distension, he was found to have an incidental 3 cm left, possibly solid exophytic renal mass. Urology was consulted for this finding. The patient denies any problems urinating in the past. He denies any hematuria, dysuria, and has gained some weight recently. Denies any history of kidney stones or any family history of prostate cancer. Denies fever, chills, nausea or vomiting. He states he is passing flatus at this time. PAST MEDICAL HISTORY: Significant for: 1. Hypertension. 2. Diabetes. 3. History of alcohol abuse. 4. Umbilical hernia. 5. Depression. 6. Anxiety. 7. Left renal mass. PAST SURGICAL HISTORY: 1. Circumcision. HOME MEDICATIONS: 1. Lasix 20 milligrams p.o. daily 2. Potassium 10 milliequivalents p.o. daily 3. Metformin 500 milligrams p.o. b.i.d. ALLERGIES: NO KNOWN DRUG ALLERGIES. SOCIAL HISTORY: Denies tobacco, history of alcohol abuse. Denies illicit drug use. He lives at home taking care of his two elderly parents. FAMILY HISTORY: Negative for ureterolithiasis. Negative for genitourinary malignancies. PHYSICAL EXAMINATION: Vital signs: His temperature 97, pulse 89, respiratory rate 18, blood pressure 103/57, 94% on room air. GENERAL: Alert, oriented x3, in no apparent distress. Pleasant and cooperative gentleman who appears his stated age. Head is normocephalic, atraumatic. Eyes: No scleral icterus. Extraocular muscles intact. Neck is supple. Trachea is midline. No JVD. Lungs: Clear to auscultation bilaterally, no rales, rhonchi or wheezing. Heart: Regular rate and rhythm. No murmurs or gallops. Abdomen: Soft, distended, tympanic, nontender. No peritoneal signs. He has no CVA tenderness bilaterally. Genitalia: Penis is circumcised. Testes are bilaterally, normal size and consistency. Rectal: Not indicated at this time. Extremities: Nontender, no clubbing, cyanosis or edema. Psych: He appears agitated. Musculoskeletal: Full range of motion, all four extremities. Skin: No ulcers or rashes. LABORATORY DATA: White count 10.71, hemoglobin 16.7, hematocrit 50.5, platelet count 243. Chemistry 137, potassium 3.4, chloride 89, bicarb 43, creatinine 0.6, BUN 16, glucose 213. His urine just had significant glucose. IMAGING STUDIES: CT of the abdomen and pelvis without contrast, images were reviewed. On radiologist's report he has a 3 cm posterior exophytic mass of the left kidney, possible complex in nature versus solid mass. ASSESSMENT: The patient is a 65 year-old male admitted with altered mental status and confusion, with total abdominal distension, who then subsequently was found to have a 3 cm solid renal mass. PLAN: Will go ahead and obtain a renal ultrasound to further characterize that mass. Depending on the results he may require percutaneous biopsy and if amenable, possibly cryoablation. Will follow up the results of the renal ultrasound. Thank you for the consultation. Please call if any questions. Jarad Tate MD EMF/CLAUDY /4:35 PM /4:46 PM
--- NOTE | 2016-08-29 20:17 | RADRPT ---
EXAM DATE/TIME: 08/29/2016 17:39 [facility] COMPARISON: CT ABDOMEN & PELVIS W CONTRAST, August 27, 2016, 22:41. INDICATIONS : Renal mass seen on CT scan. MEDICAL HISTORY : Chronic obstructive pulmonary disease. Hernia, umbilical. Diabetes. Depression. Anxiety. Measles. D ysuria. SURGICAL HISTORY : Left ankle surgery. ENCOUNTER: Initial ACUITY: 3 days PAIN SCORE: 0/10 LOCATION: Bilateral flank MEASUREMENTS: RIGHT KIDNEY: 13.2 x 6.3 x 6.9 cm LEFT KIDNEY: 13.2 x 5.8 x 5.9 cm FINDINGS: RIGHT KIDNEY: Renal cortex is normal in thickness and echotexture. No hydronephrosis, stone, or mass. LEFT KIDNEY: Renal cortex is normal in thickness and echotexture. No hydronephrosis, stone, or solid mass. There is a 2.7 cm exophytic cyst at the upper pole. BLADDER: Within normal limits given the degree of distension. OTHER: The liver is echogenic. CONCLUSION: 1. Left renal cyst. 2. Fatty infiltration of the liver. Abhinav Chambers MD on August 29, 2016 at 20:13 Board Certified Radiologist. This report was verified electronically.
[2016-08-29] MEDS: MIRTAZAPINE 15 MG TAB PO SCH (20:57)
[2016-08-30] VITALS (9 sets, daily range): BP systolic 107–127; BP diastolic 56–92; PULSE 75–88; RESP 16–26; TEMP 96.8–97.9; O2SAT 90–98
[2016-08-30] MEDS: ALPRAZolam 0.25 MG TAB PO PRN ×3 (00:46→17:32)
[2016-08-30] MEDS: DILTIAZEM HCL 60 MG TAB PO SCH ×4 (00:46→16:21)
[2016-08-30] MEDS: INSULIN ASPART SUPPLEMENTAL SCALE SQ SCH ×4 (06:05→21:55)
[2016-08-30] MEDS: RESP: ALBUTEROL 2.5 MG/IPRATROPIUM 0.5 MG NEB (SCH) NEB ×2 (08:13→12:02)
[2016-08-30] MEDS: RIFAXIMIN 550 MG TAB PO SCH ×2 (09:32→22:21)
[2016-08-30] MEDS: POTASSIUM CHLORIDE 20 MEQ CONTROLLED RELEASE TAB PO SCH ×4 (09:33→22:22)
[2016-08-30] MEDS: TAMSULOSIN HCL 0.4 MG CAP PO SCH (09:33)
[2016-08-30] MEDS: THIAMINE HCL 100 MG TAB PO SCH (09:33)
[2016-08-30] MEDS: predniSONE 10 MG TAB PO SCH (09:33)
[2016-08-30] MEDS: FUROSEMIDE 20 MG TAB PO SCH (09:33)
[2016-08-30] MEDS: metFORMIN HCL 500 MG TAB PO SCH ×2 (09:33→16:21)
--- NOTE | 2016-08-30 09:33 | RADRPT ---
EXAM DATE/TIME: 08/30/2016 08:58 [facility] COMPARISON: ABDOMEN KUB ONLY, August 29, 2016, 9:44. INDICATIONS : Abdominal distention. MEDICAL HISTORY : None. SURGICAL HISTORY : None. ENCOUNTER: Subsequent ACUITY: 4 - 6 days PAIN SCORE: 7/10 LOCATION: Bilateral abdomen FINDINGS: There is some residual contrast in the colon related to Gastrografin enema performed yesterday. There is continued distention of large bowel with colon measuring up to about 12 cm in diameter in the tra nsverse colon. There is also some gaseous distention of small bowel. No free air identified. CONCLUSION: 1. Ileus persists, similar in appearance to August 29. There is residual contrast in large bowel fro m recent Gastrografin enema. Chuckie Altamirano MD on August 30, 2016 at 9:26 Board Certified Radiologist. This report was verified electronically.
[2016-08-30] MEDS: NYSTATIN 100,000 UNIT/GM CREAM 15 GM TOPICAL SCH ×2 (09:34→22:24)
[2016-08-30] MEDS: INSULIN DETEMIR 100 UNITS/ML VIAL SQ SCH ×2 (09:34→22:22)
[2016-08-30] MEDS: SODIUM CHLORIDE 0.9% FLUSH 5 ML FLUSH IVF SCH ×2 (09:34→21:55)
[2016-08-30] MEDS ORDERED: IOHEXOL 350 MG/ML 10 ML VIAL (for RAD DIAG) IV ONE (10:33)
--- NOTE | 2016-08-30 10:56 | RADRPT ---
EXAM DATE/TIME: 08/30/2016 10:19 [facility] COMPARISON: CT ABDOMEN & PELVIS W CONTRAST, August 27, 2016, 22:41. INDICATIONS : Dyspnea and hypoxemia IV CONTRAST: 65 cc Omnipaque 350 (iohexol) IV RADIATION DOSE: 9.42 CTDIvol (mGy) MEDICAL HISTORY : Diabetes mellitus type 1. SURGICAL HISTORY : None. ENCOUNTER: Initial ACUITY: 1 day PAIN SCALE: 0/10 LOCATION: chest TECHNIQUE: Volumetric scanning of the chest was performed. Using automated exposure control and adjustment of t he mA and/or kV according to patient size, radiation dose was kept as low as reasonably achievable to obtain optimal diagnostic quality images. FINDINGS: There is a small left-sided pleural effusion. There is bibasilar atelectasis, left greater than right . There are no significant pulmonary fibrotic changes or emphysematous changes identified on CT. Hear t size is enlarged. There is no pericardial effusion. No adenopathy. Moderate coronary calcifications . No acute findings in the upper abdomen. Fatty liver. Exophytic lesion left kidney unchanged from rece nt CT. CONCLUSION: 1. Basilar atelectasis and small left effusion similar to recent abdomen CT findings. No significant fibrotic or emphysematous changes. 2. Cardiomegaly. Moderate coronary calcifications. Chuckie Altamirano MD on August 30, 2016 at 10:37 Board Certified Radiologist. This report was verified electronically.
[2016-08-30] MEDS: ENOXAPARIN SODIUM 40 MG/0.4 ML SYRINGE SQ SCH (11:22)
--- NOTE | 2016-08-30 11:28 | HHI.PR ---
Subjective History of Present Illness Up in chair Hungry Wants to eat and is not willing to wait too much longer No headache No chest pain Mild exertional dyspnea Hospital Day: 7 Review of Systems Constitutional Constitutional: Weakness Constitutional Remarks 10 point ROS done. Positives include weakness, distended abdomen, hypoactive bowel sounds, tympanic abdomen, exertional dyspnea. Other systems unremarkable or negative Pulmonary Respiratory: Shortness of Breath Pulmonary Remarks Exertional GI/Abdomen GI/Abdomen Remarks Tympany, hypoactive bowel sounds, distention Psychiatric Psychiatric: Agitation (mild over current condition) Vitals/Results Intake & Output 08/29/16 08/29/16 08/30/16 15:00 23:00 07:00 Intake Total 1050 ml 480 ml Output Total 600 ml 350 ml 350 ml Balance -600 ml 700 ml 130 ml Intake Oral 1050 ml 480 ml Output Urine Total 600 ml 350 ml 350 ml # Bowel Movements 1 8 0 Vital Signs Vital Signs Date Time Temp Pulse Resp B/P Pulse Ox O2 Delivery O2 Flow Rate FiO2 08/30/16 08:15 92 Nasal Cannula 4.00 08/30/16 08:00 96.8 80 16 124/92 98 08/30/16 04:40 97.6 80 18 115/63 91 08/30/16 04:01 75 08/29/16 23:49 97.2 79 18 102/58 91 08/29/16 21:22 98.2 86 18 118/60 95 08/29/16 19:30 Nasal Cannula 4.00 Humidified 08/29/16 19:25 92 Nasal Cannula 4.00 08/29/16 16:00 97.3 97 18 116/74 92 08/29/16 12:30 85 21 08/29/16 12:00 97.0 89 18 103/50 94 CBC/BMP: 08/29/16 0611 08/29/16 2252 Lab Results Laboratory Tests Test 08/29/16 22:52 Creatinine 0.68 MG/DL Estimat Glomerular Filtration 117 ML/MIN Rate Physical Exam General General Appearance: Well Developed, No Acute Distress, Obese Eyes Eye Exam: Pupils Equal, Pupils Reactive Ears & Nose Ears & Nose Exam: Nasal Mucosa [place] Throat Throat Exam: Oral Mucosa [place] & Moist Neck Neck Exam: Neck Supple, Trachea Midline Pulmonary Resp Exam: Crackles, Decreased Bases Cardiology CV Exam: Regular Gastrointestinal/Abdomen GI Exam: Bowel Sounds Present, Distended, Bowel Sounds Hypoactive Musculoskeletal MS Exam: Joints Intact Integumentary Skin Exam: Warm, Dry Extremeties Extremities Exam: Pedal Pulses Palpable, Trace Edema Neurologic Neuro Exam: Alert, Awake, Oriented, Speech Clear, Moving All Extremities, No Focal Deficits Psychiatric Psych Exam: Appropriate Responses VTE Prophylaxis VTE Prophylaxis Meds: Lovenox Assessment/Plan Problem List: (1) Acute hypercapnic respiratory failure (2) Anxiety and depression (3) DM2 (diabetes mellitus, type 2) (4) Altered mental status (5) Toxic encephalopathy (6) Respiratory acidosis (7) COPD (chronic obstructive pulmonary disease) (8) Tachycardia (9) Depression (10) Overdose Plan: pt. denies (11) Abdominal distension Assessment/Plan Respiratory acidosis, compensated. -continue with oxygen to keep sats greater than 92 -continue steroids to PO Continue with DuoNeb's as needed Pulmonary consultation with Dr. Charlton, his input is appreciated AMS, Possible OD-improving -mental status improving slowly -on Xanax, keep PRN only for anxiety, d/w RN -Patient denies any drugs usage that day. Took antihistamines earlier in the day. -[place] Act lifted -Evaluated per psych Depression -appreciate psyche input -Supportive care. Reiterated to patient he is medical needs. Possible CHF, per initial CXR, received Lasix -Echo done, EF 55% -continue with Lasix 20 mg po daily. With medical management Prior ETOH abuse-No ETOH since April, 3 beers. States he quit drinking last year. -stable, no withdrawal symptoms Tachycardia-resolved. -continue Cardizem DM II -Continue with Accu-Cheks before meals and at bedtime -Hemoglobin A1c 10.8, poorly controlled diabetes -Blood glucose elevated, change to medium dose scale. Weaning off steroids also Abd. distended, CT abd done 08/27 poss. obstruction, ileus, stool right colon, exophytic mass left kidney, CBD dilatation, porcelain gallbladder. -continue with bowel regimen Nothing by mouth for now Surgical consult noted and appreciate. No surgery planned at this time. May need colonoscopy with rectal tube placement for decompression of abdomen/ stomach. Explained to patient the need for this to be resolved. CT scan today. We'll eval when he returns PT for evaluation and treatment Labs reviewed Continue with above tx, not ready for discharge yet. Explained to patient Encouraged incentive spirometry, for his low air volumes. D/W Dr. Pena D/W pt. This patient was seen by myself and Dr. Pena, this note is written on his behalf Problem Qualifiers (1) Altered mental status: Qualified Code: R40.1 - Stupor (2) COPD (chronic obstructive pulmonary disease): Qualified Code: J44.9 - Chronic obstructive pulmonary disease, unspecified COPD type (3) Depression: Qualified Code: F33.41 - Recurrent major depressive disorder, in partial remission (4) Overdose: Qualified Code: T50.904A - Overdose, undetermined intent, initial encounter Catherine Saini Aug 30, 2016 11:28
[2016-08-30] MEDS ORDERED: RESP: ALBUTEROL 2.5 MG/3 ML NEB (PRN) INH (16:00)
--- NOTE | 2016-08-30 17:27 | MB ---
cc: MARGE BIRD MD DATE OF CONSULTATION: 08/30/2016 REASON FOR CONSULTATION: Hypercarbic respiratory failure, obstructive or central sleep apnea, suspect HISTORY OF PRESENT ILLNESS Mr. Robb is a 65-year-old male who was admitted with altered mental status, severe hypercarbia, requiring intubation, mechanical ventilation. The patient has been weaned off ventilatory support, is actually alert, however, his PCO2 remains in the 80s, is partially compensated. The patient does not know if he snores or not. He is tired during the daytime, however, his home schedule is quite erratic where he takes care of his two elderly parents. No known history of thyroid disease. He denies history of drop attacks, hallucinations or sleep paralysis. He does not remember history to suggest an underlying parasomnia. PAST MEDICAL HISTORY: 1. Hypertension. 2. Diabetes mellitus. 3. Mood disorder, namely anxiety and depression. MEDICATIONS: At present include: 1. Metformin. 2. Lasix. 3. Potassium. PAST SURGICAL HISTORY: No previous surgeries. ALLERGIES: None known to medication. SOCIAL HISTORY: He does not smoke. He used to drink in the past, not at present. He does not use drugs. He lives with the parents whom he takes care of. FAMILY HISTORY: Noncontributory. REVIEW OF SYSTEMS: 12-point review of systems as per HPI and past history otherwise negative. ALLERGIES None known to medication. PHYSICAL EXAMINATION: The patient is alert, sitting in bed with a temperature of 97, pulse 80, respiratory rate 16, blood pressure 124/90. Oxygen saturation is 92% on 3 to 4 liters oxygen, nasal cannula. HEENT: Exam unremarkable. Eyes without icterus. Neck: Without adenopathy. Thyroid enlargement. Central trachea. Chest: Without dullness to percussion, clear to auscultation. Cardiac: PMI distant. S1-S2 audible. No murmur or rub. Abdomen: Lax bowel, audible bowel sounds. Extremities: No clubbing, cyanosis or edema. LABORATORY DATA CT scan of the chest on August 30, with atelectatic change and small left effusion, no identifiable emphysematous change noted. Moderate coronary artery calcification noted. Sodium on August 29 is 137, potassium 3.4, BUN 4, creatinine 0.6. BUN 16, creatinine 0.6, white count 10,000, hemoglobin 16, hematocrit 50. Platelets 243,000. ABG upon presentation pH 736, pCO2 66, pO2 of 69, last ABG August 29, pH 7.31, pCO2 87, pO2 of 70 on 2 liters oxygen nasal cannula. IMPRESSION Respiratory failure essentially hypercarbic, partially compensated. Sleep disorder, obstructive or central sleep apnea, suspect. Diabetes mellitus. Hypertension. PLAN: The patient has well compensated respiratory acidosis, central sleep apnea, namely obesity, hypoventilation to be suspect. Obstructive sleep apnea may be present as well. He will need polysomnographic evaluation to confirm same. He is quite alert with his significant hypercarbia. It is indeed chronic in nature which is seen upon presentation. His pulmonary function was undertaken without evidence of airway obstruction. Will attempt to obtain BiPAP machine to give the patient upon discharge until documentation is available. Although he tells me he does not live in one place and he moves around right now, and it will be very difficult for him to get any sizeable equipment. Will ask Resource Conservation Manager to help out and see what we can do for this gentleman. Thyroid function will be checked as well. I do thank you for asking me to partake in Mr. Robb' care. Marge Bird MD WWW/CLAUDY /4:25 PM /5:06 PM
--- NOTE | 2016-08-30 18:42 | HHI.PR ---
Subjective Subjective Notes Denies pain. Has been having liquid BMs after GG enema yesterday. He reportedly threatened to leave AMA so was placed on regular diet. Objective Vitals/I&O Vital Signs Date Time Temp Pulse Resp B/P Pulse Ox O2 Delivery O2 Flow Rate FiO2 08/30/16 16:35 97.6 88 22 127/85 08/30/16 09:40 Simple Mask 3.00 08/30/16 08:15 92 08/29/16 12:30 21 Labs Laboratory Tests Test 08/29/16 22:52 Creatinine 0.68 Estimat Glomerular Filtration 117 Rate Radiology Last Impressions Abdomen/Pelvis CT 08/27/16 0000 Signed Impressions: Service Date/Time: Saturday, August 27, 2016 22:41 - CONCLUSION: 1. Left lower lobe consolidation. 2. Distention of the colon without definite point of obstruction. There is kinking of the sigmoid colon and a protuberant panniculus which could be causing a partial obstruction. 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 The common bile duct is dilated at 12 mm but no calcified stones seen within the common duct. Given these findings, may consider performing hepatic biliary tract scan to evaluate biliary dynamics and for possible obstruction. 4. Focal low density area in the quadrate lobe of the liver cannot be further characterized. Differential considerations include focal fatty change and a poorly defined mass. 5. Exophytic intermediate density smooth margin lesion arising from the posterior left kidney measures in excess of 3 cm. Differential considerations include a complicated cyst and solid mass. minate 6. Fat-containing protuberant umbilical hernia. Ryan Smith MD Abdomen X-Ray 08/25/16 0000 Signed Impressions: Service Date/Time: Thursday, August 25, 2016 10:30 - CONCLUSION: Abnormality of a 3 cm peripheral somewhat square calcification right upper quadrant which may represent gallstone. Abnormal bowel gas pattern suggesting possibly minimal early small bowel obstruction although ileus particularly gallstone ileus cannot be excluded. CT scan of the abdomen recommend Chandu Martinez MD Chest X-Ray 08/24/16 0000 Signed Impressions: Service Date/Time: July 13:37 - CONCLUSION: Radiographic findings suggestive of congestive heart failure. This appearance is unchanged from prior exam.. Sadie Rodríguez MD Head CT 08/22/16 0253 Signed Impressions: Service Date/Time: Monday, August 22, 2016 03:36 - CONCLUSION: Normal examination for a patient of this age. Graeme Pacheco MD Narrative Exam NAD, sitting in bed with clothes on Abd: round, distended, soft, nontender. Umbilical hernia partially reducible A/P Assessment and Plan 65 yo M with colonic obstruction v pseudoobstruction. GG enema and KUB show persistent colonic dilatation, unknown etiology. He is nontender and with no other worrisome signs. Continue medical treatment, possible scope per Dr. Quick. Sharan Sandoval MD Aug 30, 2016 18:42
--- NOTE | 2016-08-30 22:18 | HHI.GIFU ---
Subjective Remarks Patient feeling much better now that he is able to eat he states that he is always been this big and this tense he is passing gas and has had diarrhea Objective Vitals I&O Vital Signs Date Time Temp Pulse Resp B/P Pulse Ox O2 Delivery O2 Flow Rate FiO2 08/30/16 20:24 97.9 88 26 126/65 90 08/30/16 20:00 97.9 88 26 126/65 90 08/30/16 16:35 97.6 88 22 127/85 93 08/30/16 12:00 97.9 85 20 107/56 95 08/30/16 09:40 Simple Mask 3.00 08/30/16 08:15 92 Nasal Cannula 4.00 08/30/16 08:00 96.8 80 16 124/92 98 08/30/16 04:40 97.6 80 18 115/63 91 08/30/16 04:01 75 08/29/16 23:49 97.2 79 18 102/58 91 I/O 08/29/16 08/29/16 08/29/16 08/30/16 08/30/16 08/30/16 07:00 15:00 23:00 07:00 15:00 23:00 Intake Total 720 ml 1050 ml 480 ml 1260 ml Output Total 950 ml 600 ml 350 ml 350 ml 325 ml Balance -230 ml -600 ml 700 ml 130 ml 935 ml Intake Oral 720 ml 1050 ml 480 ml 1260 ml Output Urine Total 950 ml 600 ml 350 ml 350 ml 325 ml # Voids 5 # Bowel Movements 1 1 8 0 6 Laboratory Laboratory Tests Test 08/29/16 22:52 Creatinine 0.68 Estimat Glomerular Filtration 117 Rate Imaging Last Impressions Abdomen X-Ray 08/30/16 0600 Signed Impressions: Service Date/Time: Tuesday, August 30, 2016 08:58 - CONCLUSION: 1. Ileus persists, similar in appearance to August 29. There is residual contrast in large bowel from recent Gastrografin enema. Chuckie Altamirano MD Chest CT 08/30/16 0000 Signed Impressions: Service Date/Time: Tuesday, August 30, 2016 10:19 - CONCLUSION: 1. Basilar atelectasis and small left effusion similar to recent abdomen CT findings. No significant fibrotic or emphysematous changes. 2. Cardiomegaly. Moderate coronary calcifications. Chuckie Altamirano MD Renal Ultrasound 08/29/16 0000 Signed Impressions: Service Date/Time: Monday, August 29, 2016 17:39 - CONCLUSION: 1. Left renal cyst. 2. Fatty infiltration of the liver. Abhinav Chambers MD Enema w/Water Soluble 08/29/16 0000 Signed Impressions: Service Date/Time: Monday, August 29, 2016 13:32 - CONCLUSION: Unremarkable Gastrografin enema extensive air in the descending and transverse colons. Small amount of air throughout the small bowel without dilation. Yrn Vora MD Abdomen/Pelvis CT 08/27/16 0000 Signed Impressions: Service Date/Time: Saturday, August 27, 2016 22:41 - CONCLUSION: 1. Left lower lobe consolidation. 2. Distention of the colon without definite point of obstruction. There is kinking of the sigmoid colon and a protuberant panniculus which could be causing a partial obstruction. 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 The common bile duct is dilated at 12 mm but no calcified stones seen within the common duct. Given these findings, may consider performing hepatic biliary tract scan to evaluate biliary dynamics and for possible obstruction. 4. Focal low density area in the quadrate lobe of the liver cannot be further characterized. Differential considerations include focal fatty change and a poorly defined mass. 5. Exophytic intermediate density smooth margin lesion arising from the posterior left kidney measures in excess of 3 cm. Differential considerations include a complicated cyst and solid mass. minate 6. Fat-containing protuberant umbilical hernia. Ryan Smith MD Chest X-Ray 08/24/16 0000 Signed Impressions: Service Date/Time: July 13:37 - CONCLUSION: Radiographic findings suggestive of congestive heart failure. This appearance is unchanged from prior exam.. Sadie Rodríguez MD Head CT 08/22/16 0253 Signed Impressions: Service Date/Time: Monday, August 22, 2016 03:36 - CONCLUSION: Normal examination for a patient of this age. Graeme Pacheco MD Physical Exam HEENT: Normocephalic; atraumatic; no jaundice. CHEST: CTA CARDIAC: RRR ABDOMEN: Semifirm, distended, nontender; bowel sounds are present in all four quadrants. EXTREMITIES: BLE edema. SKIN: Normal; no rash; no jaundice. SUPERVISOR PAPER TESTING: No focal deficits; alert and oriented times three. Assessment and Plan Plan ASSESSMENT: - Abdominal distention and constipation. Abdomen/Pelvis CT (08/27/16)----> 1. Left lower lobe consolidation. 2. Distention of the colon without definite point of obstruction. There is kinking of the sigmoid colon and a protuberant panniculus which could be causing a partial obstruction. 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 The common bile duct is dilated at 12 mm but no calcified stones seen within the common duct. Given these findings, may consider performing hepatic biliary tract scan to evaluate biliary dynamics and for possible obstruction. 4. Focal low density area in the quadrate lobe of the liver cannot be further characterized. Differential considerations include focal fatty change and a poorly defined mass. 5. Exophytic intermediate density smooth margin lesion arising from the posterior left kidney measures in excess of 3 cm. Differential considerations include a complicated cyst and solid mass. minate 6. Fat-containing protuberant umbilical hernia. S/P Flexilbe Sigmoidoscopy (08/29/16)---> Poor examination due to poor prep but no significantly dilated colon this was suctioned and the abdomen remained significantly distended indicating that this most likely is small bowel rather than large bowel. GS consulted. S/P Abdomen X-Ray (08/29/16)----> Normal examination. Continued diffuse distention of the colon with air. S/P Gastrografin enema (08/29/16)-- --> Unremarkable Gastrografin enema extensive air in the descending and transverse colons. Small amount of air throughout the small bowel without dilation. GS following, Pt is quite distended although not having n/v/pain and is very impatient to eat and demanding his diet be ordered as soon as possible. Will keep npo until d/w Dr. Quick PLAN: -Apparently this is the patient's baseline and no further actions from a GI perspective -Advance diet -We will sign off Burke Quick MD Aug 30, 2016 22:18
[2016-08-30] MEDS: MIRTAZAPINE 15 MG TAB PO SCH (22:22)
[2016-08-31] VITALS (9 sets, daily range): BP systolic 119–138; BP diastolic 58–68; PULSE 86–100; RESP 20–22; TEMP 97–98.1; O2SAT 90–96
[2016-08-31] MEDS: DILTIAZEM HCL 60 MG TAB PO SCH ×4 (01:13→16:38)
[2016-08-31] MEDS: INSULIN ASPART SUPPLEMENTAL SCALE SQ SCH ×4 (06:29→20:25)
[2016-08-31 07:11] LABS: BICARBONATE 39.3 MEQ/L (21.0-32.0); POTASSIUM 3.8 MEQ/L (3.5-5.1)
[2016-08-31] MEDS: metFORMIN HCL 500 MG TAB PO SCH ×2 (08:43→16:38)
[2016-08-31] MEDS: TAMSULOSIN HCL 0.4 MG CAP PO SCH (08:43)
[2016-08-31] MEDS: NYSTATIN 100,000 UNIT/GM CREAM 15 GM TOPICAL SCH ×2 (08:43→20:25)
[2016-08-31] MEDS: POTASSIUM CHLORIDE 20 MEQ CONTROLLED RELEASE TAB PO SCH ×4 (08:43→20:25)
[2016-08-31] MEDS: FUROSEMIDE 20 MG TAB PO SCH (08:43)
[2016-08-31] MEDS: RIFAXIMIN 550 MG TAB PO SCH ×2 (08:43→20:24)
[2016-08-31] MEDS: THIAMINE HCL 100 MG TAB PO SCH (08:43)
[2016-08-31] MEDS: SODIUM CHLORIDE 0.9% FLUSH 5 ML FLUSH IVF SCH ×2 (08:44→20:26)
[2016-08-31] MEDS: INSULIN DETEMIR 100 UNITS/ML VIAL SQ SCH ×2 (08:44→20:25)
--- NOTE | 2016-08-31 09:28 | RSPPFT ---
DATE OF PROCEDURE COMMENTS: VOLUMES DYNAMIC: IMPRESSION:
--- NOTE | 2016-08-31 11:15 | HHI.PR ---
Subjective Hospital Day: 7 Subjective Remarks Sitting up in chair Shortness of breath improved On oxygen at 3 L nasal cannula Was on oxygen at one point, requesting a portable tank Indicates he's had a large amount of bowel movement Minimal abdominal discomfort, left upper quadrant Indicates abdomen has always been this distended Anxious to go home No fever Review of Systems Constitutional Constitutional: Weakness Constitutional Remarks 12 point review of systems completed, neg. except as noted above Pulmonary Respiratory: Shortness of Breath Psychiatric Psychiatric: Agitation (mild over current condition) Vitals/Results Intake & Output 08/30/16 08/30/16 08/31/16 15:00 23:00 07:00 Intake Total 1260 ml 480 ml 480 ml Output Total 325 ml 900 ml 600 ml Balance 935 ml -420 ml -120 ml Intake Oral 1260 ml 480 ml 480 ml Output Urine Total 325 ml 900 ml 600 ml # Voids 5 # Bowel Movements 6 3 0 Vital Signs Vital Signs Date Time Temp Pulse Resp B/P Pulse Ox O2 Delivery O2 Flow Rate FiO2 08/31/16 08:00 98.1 87 20 124/58 95 08/31/16 04:00 97.5 86 20 131/67 95 08/31/16 00:00 97.6 100 22 130/68 94 08/30/16 20:29 92 Nasal Cannula 4.00 08/30/16 20:24 97.9 88 26 126/65 90 08/30/16 20:00 Nasal Cannula 3.00 Humidified 08/30/16 20:00 97.9 88 26 126/65 90 08/30/16 20:00 88 08/30/16 16:35 97.6 88 22 127/85 93 08/30/16 12:00 97.9 85 20 107/56 95 CBC/BMP: 08/29/16 0611 08/31/16 0559 Lab Results Laboratory Tests Test 08/31/16 05:59 Sodium Level 136 MEQ/L Potassium Level 3.8 MEQ/L Chloride Level 92 MEQ/L Carbon Dioxide Level 39.3 MEQ/L Anion Gap 5 MEQ/L Blood Urea Nitrogen 11 MG/DL Creatinine 0.79 MG/DL Estimat Glomerular Filtration 99 ML/MIN Rate Random Glucose 360 MG/DL Calcium Level 8.7 MG/DL Physical Exam General General Appearance: Well Developed, No Acute Distress, Obese Eyes Eye Exam: Pupils Equal, Pupils Reactive Ears & Nose Ears & Nose Exam: Nasal Mucosa Hughson Throat Throat Exam: Oral Mucosa Hughson & Moist Neck Neck Exam: Neck Supple, Trachea Midline Pulmonary Resp Exam: Crackles, Decreased Bases Resp Remarks Faint bibasilar Rales Cardiology CV Exam: Regular Gastrointestinal/Abdomen GI Exam: Bowel Sounds Present, Distended, Bowel Sounds Hypoactive GI Remarks Protuberant Musculoskeletal MS Exam: Joints Intact Integumentary Skin Exam: Warm, Dry Extremeties Extremities Exam: Pedal Pulses Palpable, Trace Edema Extremeties Remarks Left ankle deformity from previous fracture Neurologic Neuro Exam: Alert, Awake, Oriented, Speech Clear, Moving All Extremities, No Focal Deficits Psychiatric Psych Exam: Appropriate Responses VTE Prophylaxis VTE Prophylaxis Meds: Lovenox Assessment/Plan Problem List: (1) Acute hypercapnic respiratory failure (2) Anxiety and depression (3) DM2 (diabetes mellitus, type 2) (4) Altered mental status (5) Toxic encephalopathy (6) Respiratory acidosis (7) COPD (chronic obstructive pulmonary disease) (8) Tachycardia (9) Depression (10) Overdose Plan: pt. denies (11) Abdominal distension Assessment/Plan Respiratory acidosis, compensated. -continue with oxygen to keep sats greater than 92 -continue steroids to PO Continue with DuoNeb's as needed Pulmonary consultation with Dr. Charlton, his input is appreciated -CPAP at night -Remains on oxygen at 3 L, will consult case management for home oxygen Walk test ordered AMS, Possible OD-improving -mental status improving slowly -on Xanax, keep PRN only for anxiety, d/w RN -Patient denies any drugs usage that day. Took antihistamines earlier in the day. -[place] Act lifted -Evaluated per psych Depression -appreciate psyche input -Supportive care. Reiterated to patient he is medical needs. Possible CHF, per initial CXR, received Lasix-improving -Echo done, EF 55% -continue with Lasix 20 mg po daily. Prior ETOH abuse-No ETOH since April, 3 beers. States he quit drinking last year. -stable, no withdrawal symptoms Tachycardia-resolved. -continue Cardizem DM II -Continue with Accu-Cheks before meals and at bedtime -Hemoglobin A1c 10.8, poorly controlled diabetes -Blood glucose elevated, change to medium dose scale. Off steroids -inc. Levemir Abd. distended, CT abd done 08/27 poss. obstruction, ileus, stool right colon, exophytic mass left kidney, CBD dilatation, porcelain gallbladder. -continue with bowel regimen -Continue with diet -Surgical consult noted and appreciate. No surgery planned at this time -Appreciate GI input, adv. diet, signed off. No further recommendations -S/P Flexilbe Sigmoidoscopy (08/29/16)---> Poor examination due to poor prep but no significantly dilated colon this was suctioned and the abdomen remained significantly distended indicating that this most likely is small bowel rather than large bowel. -S/P Gastrografin enema (08/29/16)----> Unremarkable Gastrografin enema extensive air in the descending and transverse colons. Small amount of air throughout the small bowel without dilation. Left renal mass per CT -Appreciate urology input, renal ultrasound ordered Renal ultrasound results noted, left renal cyst noted -No further workup, recommended to follow-up with urology as outpatient PT for evaluation and treatment Case management consult, will need home health care with PT and oxygen Possible discharge tomorrow when arrangements made Patient anxious to go home, discussed need to make appropriate arrangements and obtain clearance from pulmonology Patient may need CPAP at night for home D/W Dr. Pena D/W pt. D/W RN This patient was seen by myself and Dr. ePna, this note is written on his behalf Problem Qualifiers (1) Altered mental status: Qualified Code: R40.1 - Stupor (2) COPD (chronic obstructive pulmonary disease): Qualified Code: J44.9 - Chronic obstructive pulmonary disease, unspecified COPD type (3) Depression: Qualified Code: F33.41 - Recurrent major depressive disorder, in partial remission (4) Overdose: Qualified Code: T50.904A - Overdose, undetermined intent, initial encounter Erna Maurer Aug 31, 2016 11:15
[2016-08-31] MEDS ORDERED: FURO20TA PO (11:26)
[2016-08-31] MEDS ORDERED: TAMS5CAP PO (11:26)
[2016-08-31] MEDS ORDERED: NOVORP2 SQ (11:26)
[2016-08-31] MEDS ORDERED: CARD120C4 PO (11:26)
--- NOTE | 2016-08-31 11:26 | HHI.DCPOC ---
Discharge Care Plan Diagnosis: (1) Toxic encephalopathy (2) Hypoxemia (3) Carbon dioxide narcosis (4) Anxiety and depression (5) At high risk for suicide (6) Acute hypercapnic respiratory failure (7) Major depression in partial remission (8) DM2 (diabetes mellitus, type 2) (9) COPD (chronic obstructive pulmonary disease) (10) Respiratory acidosis (11) Depression (12) Tachycardia (13) Altered mental status (14) Overdose (15) CHF (congestive heart failure) (16) Abdominal distension Your Health Problems Are: Anxiety Chest Pain Shortness of Breath Goals to Promote Your Health * To prevent worsening of your condition and complications * To maintain your health at the optimal level Directions to Meet Your Goals Take your medications as prescribed Follow your dietary instruction Follow activity as directed Keep your appointments as scheduled Take your immunizations and boosters as scheduled If your symptoms worsen call your PCP, if no PCP go to Urgent Care Center or Emergency Room Smoking is Dangerous to Your Health. Avoid second hand smoke Call the 24-hour hour crisis hotline for domestic abuse at Erna Maurer Aug 31, 2016 11:26
[2016-08-31] MEDS: ENOXAPARIN SODIUM 40 MG/0.4 ML SYRINGE SQ SCH (11:37)
[2016-08-31] MEDS ORDERED: OXYGENTANK NAS.CANULA (13:32)
[2016-08-31] MEDS: ALPRAZolam 0.25 MG TAB PO PRN ×2 (14:03→21:59)
[2016-08-31] MEDS: MIRTAZAPINE 15 MG TAB PO SCH (20:25)
[2016-09-01] VITALS (8 sets, daily range): BP systolic 116–138; BP diastolic 57–74; PULSE 77–96; RESP 18–24; TEMP 97.2–97.8; O2SAT 92–96
[2016-09-01] MEDS: DILTIAZEM HCL 60 MG TAB PO SCH ×5 (00:15→23:38)
[2016-09-01] MEDS: INSULIN ASPART SUPPLEMENTAL SCALE SQ SCH ×4 (06:01→22:24)
[2016-09-01] MEDS: ALPRAZolam 0.25 MG TAB PO PRN ×3 (06:01→22:20)
[2016-09-01 07:22] LABS: BICARBONATE 40.5 MEQ/L (21.0-32.0)
[2016-09-01 07:25] LABS: POTASSIUM 4.6 MEQ/L (3.5-5.1)
[2016-09-01] MEDS: RIFAXIMIN 550 MG TAB PO SCH ×2 (07:57→22:21)
[2016-09-01] MEDS: POTASSIUM CHLORIDE 20 MEQ CONTROLLED RELEASE TAB PO SCH (07:57)
[2016-09-01] MEDS: metFORMIN HCL 500 MG TAB PO SCH ×2 (07:57→17:49)
[2016-09-01] MEDS: TAMSULOSIN HCL 0.4 MG CAP PO SCH (07:57)
[2016-09-01] MEDS: THIAMINE HCL 100 MG TAB PO SCH (07:58)
[2016-09-01] MEDS: INSULIN DETEMIR 100 UNITS/ML VIAL SQ SCH ×2 (07:58→21:00)
[2016-09-01] MEDS: FUROSEMIDE 20 MG TAB PO SCH (07:58)
[2016-09-01] MEDS: NYSTATIN 100,000 UNIT/GM CREAM 15 GM TOPICAL SCH ×2 (08:00→21:00)
[2016-09-01] MEDS: SODIUM CHLORIDE 0.9% FLUSH 5 ML FLUSH IVF SCH ×2 (08:02→21:00)
--- NOTE | 2016-09-01 10:43 | HHI.PR ---
Subjective Hospital Day: 7 Subjective Remarks Sitting up in chair Shortness of breath improved On oxygen at 3 L nasal cannula refusing CPAP at home eating okay noted with increase left leg swelling, more edematous Review of Systems Constitutional Constitutional: Weakness Constitutional Remarks 12 point review of systems completed, neg. except as noted above Pulmonary Respiratory: Shortness of Breath Psychiatric Psychiatric: Agitation (mild over current condition) Vitals/Results Intake & Output 08/31/16 08/31/16 09/01/16 15:00 23:00 07:00 Intake Total 840 ml 650 ml 240 ml Output Total 2375 ml 350 ml 1400 ml Balance -1535 ml 300 ml -1160 ml Intake Oral 840 ml 650 ml 240 ml Output Urine Total 2375 ml 350 ml 1400 ml # Bowel Movements 0 1 0 Vital Signs Vital Signs Date Time Temp Pulse Resp B/P Pulse Ox O2 Delivery O2 Flow Rate FiO2 09/01/16 08:00 97.8 77 24 123/57 96 09/01/16 04:00 97.2 92 20 138/74 92 09/01/16 00:00 97.2 87 18 131/63 96 08/31/16 20:53 96 3.00 08/31/16 20:03 Nasal Cannula 3.00 08/31/16 19:59 90 08/31/16 19:42 97.0 92 22 138/63 95 08/31/16 16:00 97.5 93 20 119/67 90 08/31/16 12:52 3.00 08/31/16 12:00 97.3 94 20 130/63 94 08/31/16 11:41 94 Nasal Cannula 4.00 CBC/BMP: 08/29/16 0611 09/01/16 0557 Lab Results Laboratory Tests Test 09/01/16 05:57 Sodium Level 136 MEQ/L Potassium Level 4.6 MEQ/L Chloride Level 93 MEQ/L Carbon Dioxide Level 40.5 MEQ/L Anion Gap 3 MEQ/L Blood Urea Nitrogen 11 MG/DL Creatinine 0.70 MG/DL Estimat Glomerular Filtration 114 ML/MIN Rate Random Glucose 293 MG/DL Calcium Level 8.9 MG/DL Physical Exam General General Appearance: Well Developed, No Acute Distress, Obese Eyes Eye Exam: Pupils Equal, Pupils Reactive Ears & Nose Ears & Nose Exam: Nasal Mucosa [place] Throat Throat Exam: Oral Mucosa [place] & Moist Neck Neck Exam: Neck Supple, Trachea Midline Pulmonary Resp Exam: Decreased Bases, Diminished Breath Sounds Cardiology CV Exam: Regular Gastrointestinal/Abdomen GI Exam: Bowel Sounds Present, Distended, Bowel Sounds Hypoactive GI Remarks Protuberant Musculoskeletal MS Exam: Joints Intact Integumentary Skin Exam: Warm, Dry Extremeties Extremities Exam: Pedal Pulses Palpable, Moderate Edema Extremeties Remarks Left ankle deformity from previous fracture increase left leg edema, erythematous mid calk, non tender Neurologic Neuro Exam: Alert, Awake, Oriented, Speech Clear, Moving All Extremities, No Focal Deficits Psychiatric Psych Exam: Appropriate Responses VTE Prophylaxis VTE Prophylaxis Meds: Lovenox Assessment/Plan Problem List: (1) Acute hypercapnic respiratory failure (2) Anxiety and depression (3) DM2 (diabetes mellitus, type 2) (4) Altered mental status (5) Toxic encephalopathy (6) Respiratory acidosis (7) COPD (chronic obstructive pulmonary disease) (8) Tachycardia (9) Depression (10) Overdose Plan: pt. denies (11) Abdominal distension Assessment/Plan Respiratory acidosis, compensated. -continue with oxygen to keep sats greater than 92 -continue steroids to PO Continue with DuoNeb's as needed Pulmonary consultation with Dr. Charlton, his input is appreciated -CPAP at night -Remains on oxygen at 3 L, will consult case management for home oxygen Walk test results noted, needs oxygen AMS, Possible OD-improving -mental status improving slowly -on Xanax, keep PRN only for anxiety, d/w RN -Patient denies any drugs usage that day. Took antihistamines earlier in the day. -[place] Act lifted -Evaluated per psych Depression -appreciate psyche input -Supportive care. Reiterated to patient he is medical needs. Possible CHF, per initial CXR, received Lasix-improving -Echo done, EF 55% -continue with Lasix 20 mg po daily. Prior ETOH abuse-No ETOH since April, 3 beers. States he quit drinking last year. -stable, no withdrawal symptoms Tachycardia-resolved. -continue Cardizem DM II -Continue with Accu-Cheks before meals and at bedtime -Hemoglobin A1c 10.8, poorly controlled diabetes -Blood glucose elevated, change to medium dose scale. Off steroids -continue Levemir Abd. distended, CT abd done 08/27 poss. obstruction, ileus, stool right colon, exophytic mass left kidney, CBD dilatation, porcelain gallbladder. -continue with bowel regimen -Continue with diet -Surgical consult noted and appreciate. No surgery planned at this time -Appreciate GI input, adv. diet, signed off. No further recommendations -S/P Flexilbe Sigmoidoscopy (08/29/16)---> Poor examination due to poor prep but no significantly dilated colon this was suctioned and the abdomen remained significantly distended indicating that this most likely is small bowel rather than large bowel. -S/P Gastrografin enema (08/29/16)----> Unremarkable Gastrografin enema extensive air in the descending and transverse colons. Small amount of air throughout the small bowel without dilation. Left renal mass per CT -Appreciate urology input, renal ultrasound ordered Renal ultrasound results noted, left renal cyst noted -No further workup, recommended to follow-up with urology as outpatient LLE swelling R/O DVT -Bilat leg US PT for evaluation and treatment Case management consult, will need home health care with PT and oxygen-pt. has not chosen [facility] inter com installer consulted, input appreciated Pharmacy also discussed with pt. insulin Patient anxious to go home, discussed need to make appropriate arrangements and obtain clearance from pulmonology will f/u US legs poss. dc later today or tomorrow D/W Dr. Pena D/W pt. D/W RN This patient was seen by myself and Dr. Pena, this note is written on his behalf Problem Qualifiers (1) Altered mental status: Qualified Code: R40.1 - Stupor (2) COPD (chronic obstructive pulmonary disease): Qualified Code: J44.9 - Chronic obstructive pulmonary disease, unspecified COPD type (3) Depression: Qualified Code: F33.41 - Recurrent major depressive disorder, in partial remission (4) Overdose: Qualified Code: T50.904A - Overdose, undetermined intent, initial encounter Erna Maurer Sep 01, 2016 10:43
[2016-09-01] MEDS: ENOXAPARIN SODIUM 40 MG/0.4 ML SYRINGE SQ SCH (11:50)
[2016-09-01] MEDS ORDERED: INSU1MIS (12:28)
[2016-09-01] MEDS ORDERED: ALCO1PAD (12:28)
[2016-09-01] MEDS ORDERED: BLOOD GLUCOSE T1 TES (12:28)
[2016-09-01] MEDS ORDERED: BLOOD GLUCOSE M1 KIT (12:28)
[2016-09-01] MEDS ORDERED: LANCETS1 MI1 (12:28)
--- NOTE | 2016-09-01 19:27 | RADRPT ---
EXAM DATE/TIME: 09/01/2016 18:15 [place] COMPARISON: No previous studies available for comparison. INDICATIONS : Embolism. MEDICAL HISTORY : Chronic obstructive pulmonary disease. Sleep apnea. Umbilical hernia. Diabetes. SURGICAL HISTORY : Left ankle surgery. ENCOUNTER: Initial ACUITY: 1 day PAIN SCORE: 0/10 LOCATION: Bilateral legs. TECHNIQUE: Venous ultrasound of the left and right leg was performed from the inguinal ligament to the proximal calf. Real-time, color Doppler and spectral tracing, compression and augmentation techniques were us ed. FINDINGS: RIGHT LEG: There is normal compressibility of the deep venous system from the inguinal region to the proximal ca lf. No echogenic clot is seen in the lumen of the common femoral, femoral, popliteal, and posterior tibial veins. There is a normal response of the venous system to proximal and distal augmentation an d respiration. LEFT LEG: There is normal compressibility of the deep venous system from the inguinal region to the proximal ca lf. No echogenic clot is seen in the lumen of the common femoral, femoral, popliteal, and posterior tibial veins. There is a normal response of the venous system to proximal and distal augmentation an d respiration. CONCLUSION: Normal examination. Rosaline Mcgregor MD on September 01, 2016 at 19:26 Board Certified Radiologist. This report was verified electronically.
[2016-09-01] MEDS: MIRTAZAPINE 15 MG TAB PO SCH (22:21)
[2016-09-02] VITALS (8 sets, daily range): BP systolic 109–129; BP diastolic 58–67; PULSE 86–104; RESP 20–22; TEMP 97.4–98.2; O2SAT 90–96
[2016-09-02] MEDS: INSULIN ASPART SUPPLEMENTAL SCALE SQ SCH ×4 (06:21→21:30)
[2016-09-02] MEDS: DILTIAZEM HCL 60 MG TAB PO SCH ×4 (06:21→23:29)
[2016-09-02 07:53] LABS: BICARBONATE 37.9 MEQ/L (21.0-32.0)
[2016-09-02 08:10] LABS: POTASSIUM 4.5 MEQ/L (3.5-5.1)
[2016-09-02] MEDS: SODIUM CHLORIDE 0.9% FLUSH 5 ML FLUSH IVF SCH ×2 (08:18→21:00)
[2016-09-02] MEDS: INSULIN DETEMIR 100 UNITS/ML VIAL SQ SCH ×2 (08:18→21:30)
[2016-09-02] MEDS: THIAMINE HCL 100 MG TAB PO SCH (08:19)
[2016-09-02] MEDS: metFORMIN HCL 500 MG TAB PO SCH ×2 (08:19→17:16)
[2016-09-02] MEDS: RIFAXIMIN 550 MG TAB PO SCH ×2 (08:19→21:30)
[2016-09-02] MEDS: TAMSULOSIN HCL 0.4 MG CAP PO SCH (08:19)
[2016-09-02] MEDS: FUROSEMIDE 20 MG TAB PO SCH (08:19)
[2016-09-02] MEDS: POTASSIUM CHLORIDE 20 MEQ CONTROLLED RELEASE TAB PO SCH (08:19)
[2016-09-02] MEDS: NYSTATIN 100,000 UNIT/GM CREAM 15 GM TOPICAL SCH ×2 (09:00→21:00)
--- NOTE | 2016-09-02 11:17 | HHI.PR ---
Subjective History of Present Illness Up in chair Hungry and eating every meal. No headache No chest pain Mild exertional dyspnea Abdomen large taut, no acute changes Hospital Day: 11 Review of Systems Constitutional Constitutional: Weakness Constitutional Remarks 10 point ROS done. Positives include weakness improving, distended abdomen, hypoactive bowel sounds, tympanic abdomen, exertional dyspnea. Other systems unremarkable or negative Pulmonary Respiratory: Shortness of Breath (only with exertion.) Pulmonary Remarks Exertional GI/Abdomen GI/Abdomen Remarks Tympany, hypoactive bowel sounds, distention Psychiatric Psychiatric: Agitation (mild over current condition, resolving now the patient gets to eat) Vitals/Results Intake & Output 09/01/16 09/01/16 09/02/16 15:00 23:00 07:00 Intake Total 840 ml 240 ml 591 ml Output Total 600 ml 1900 ml Balance 840 ml -360 ml -1309 ml Intake Oral 840 ml 240 ml 591 ml Output Urine Total 600 ml 1900 ml # Voids 10 # Bowel Movements 2 1 0 Vital Signs Vital Signs Date Time Temp Pulse Resp B/P Pulse Ox O2 Delivery O2 Flow Rate FiO2 09/02/16 08:33 Nasal Cannula 3.00 Simple Mask 09/02/16 08:02 98.2 91 22 128/60 94 09/02/16 07:19 94 09/02/16 04:00 98.1 86 22 118/58 96 09/02/16 00:00 97.8 101 20 120/67 92 09/01/16 20:34 Nasal Cannula 3.00 09/01/16 20:00 97.8 96 18 126/65 92 09/01/16 16:00 97.6 96 20 116/67 96 09/01/16 12:00 97.6 90 20 133/68 95 CBC/BMP: 08/29/16 0611 09/02/16 0651 Lab Results Laboratory Tests Test 09/02/16 06:51 Sodium Level 135 MEQ/L Potassium Level 4.5 MEQ/L Chloride Level 94 MEQ/L Carbon Dioxide Level 37.9 MEQ/L Anion Gap 3 MEQ/L Blood Urea Nitrogen 10 MG/DL Creatinine 0.64 MG/DL Estimat Glomerular Filtration 126 ML/MIN Rate Random Glucose 280 MG/DL Calcium Level 9.0 MG/DL Imaging Remarks Last Impressions Lower Extremity Ultrasound 09/01/16 0000 Signed Impressions: Service Date/Time: Thursday, September 01, 2016 18:15 - CONCLUSION: Normal examination. K. Johnathan Mcgregor MD Abdomen X-Ray 08/30/16 0600 Signed Impressions: Service Date/Time: Tuesday, August 30, 2016 08:58 - CONCLUSION: 1. Ileus persists, similar in appearance to August 29. There is residual contrast in large bowel from recent Gastrografin enema. Chuckie Altamirano MD Chest CT 08/30/16 0000 Signed Impressions: Service Date/Time: Tuesday, August 30, 2016 10:19 - CONCLUSION: 1. Basilar atelectasis and small left effusion similar to recent abdomen CT findings. No significant fibrotic or emphysematous changes. 2. Cardiomegaly. Moderate coronary calcifications. Chuckie Altamirano MD Renal Ultrasound 08/29/16 0000 Signed Impressions: Service Date/Time: Monday, August 29, 2016 17:39 - CONCLUSION: 1. Left renal cyst. 2. Fatty infiltration of the liver. Abhinav Chambers MD Enema w/Water Soluble 08/29/16 0000 Signed Impressions: Service Date/Time: Monday, August 29, 2016 13:32 - CONCLUSION: Unremarkable Gastrografin enema extensive air in the descending and transverse colons. Small amount of air throughout the small bowel without dilation. Yrn Vora MD Abdomen/Pelvis CT 08/27/16 0000 Signed Impressions: Service Date/Time: Saturday, August 27, 2016 22:41 - CONCLUSION: 1. Left lower lobe consolidation. 2. Distention of the colon without definite point of obstruction. There is kinking of the sigmoid colon and a protuberant panniculus which could be causing a partial obstruction. 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 The common bile duct is dilated at 12 mm but no calcified stones seen within the common duct. Given these findings, may consider performing hepatic biliary tract scan to evaluate biliary dynamics and for possible obstruction. 4. Focal low density area in the quadrate lobe of the liver cannot be further characterized. Differential considerations include focal fatty change and a poorly defined mass. 5. Exophytic intermediate density smooth margin lesion arising from the posterior left kidney measures in excess of 3 cm. Differential considerations include a complicated cyst and solid mass. minate 6. Fat-containing protuberant umbilical hernia. Ryan Smith MD Chest X-Ray 08/24/16 0000 Signed Impressions: Service Date/Time: July 13:37 - CONCLUSION: Radiographic findings suggestive of congestive heart failure. This appearance is unchanged from prior exam.. Sadie Rodríguez MD Head CT 08/22/16 0253 Signed Impressions: Service Date/Time: Monday, August 22, 2016 03:36 - CONCLUSION: Normal examination for a patient of this age. Graeme Pacheco MD Current Medications Active Medications Potassium Chloride (KCl) 20 meq DAILY PO Last administered on 09/02/16t 08:19; Admin Dose 20 MEQ; Start 09/02/16 at 09:00 Physical Exam General General Appearance: Well Developed, No Acute Distress, Obese Eyes Eye Exam: Pupils Equal, Pupils Reactive Ears & Nose Ears & Nose Exam: Nasal Mucosa [place] Throat Throat Exam: Oral Mucosa [place] & Moist Neck Neck Exam: Neck Supple, Trachea Midline Pulmonary Resp Exam: Decreased Bases, Diminished Breath Sounds, Poor Inspiratory Effort Resp Remarks Low volumes Cardiology CV Exam: Regular Gastrointestinal/Abdomen GI Exam: Bowel Sounds Present, Distended, Bowel Sounds Hypoactive Musculoskeletal MS Exam: Joints Intact Integumentary Skin Exam: Warm, Dry Extremeties Extremities Exam: Pedal Pulses Palpable, Moderate Edema Extremeties Remarks Left lower extremity 3+ edema, right lower extremity 2+ edema, chronic unchanged Neurologic Neuro Exam: Alert, Awake, Oriented, Speech Clear, Moving All Extremities, No Focal Deficits Psychiatric Psych Exam: Appropriate Responses VTE Prophylaxis VTE Prophylaxis Meds: Lovenox Assessment/Plan Problem List: (1) Acute hypercapnic respiratory failure (2) Anxiety and depression (3) DM2 (diabetes mellitus, type 2) (4) Altered mental status (5) Toxic encephalopathy (6) Respiratory acidosis (7) COPD (chronic obstructive pulmonary disease) (8) Tachycardia (9) Depression (10) Overdose Plan: pt. denies (11) Abdominal distension Assessment/Plan Respiratory acidosis, compensated. -continue with oxygen to keep sats greater than 92, wants to see if he qualifies for CPAP or BiPAP at home -continue steroids to PO Continue with DuoNeb's as needed Pulmonary consultation with Dr. Charlton, his input is appreciated -CPAP at night -Remains on oxygen at 3 L, will consult case management for home oxygen Walk test results noted, needs oxygen , possible CPAP at home AMS, resolved -on Xanax, keep PRN only for anxiety, d/w RN Depression -appreciate psyche input -Supportive care. Reiterated to patient he is medical needs. Possible CHF, per initial CXR, received Lasix-improving -Echo done, EF 55% -continue with Lasix 20 mg po daily. Prior ETOH abuse-No ETOH since April, 3 beers. States he quit drinking last year. -stable, no withdrawal symptoms Tachycardia-resolved. -continue Cardizem DM II -Continue with Accu-Cheks before meals and at bedtime -Hemoglobin A1c 10.8, poorly controlled diabetes -Blood glucose elevated, change to medium dose scale. Off steroids -continue Levemir , working with diabetic team so he can take sliding scale insulin at home. Tolerating well and seems motivated Abd. distended, CT abd done 08/27 poss. obstruction, ileus, stool right colon, exophytic mass left kidney, CBD dilatation, porcelain gallbladder. -continue with bowel regimen -Continue with diet, attempting to eat slow, no nausea no vomiting. Tolerating food well -Surgical consult noted and appreciate. No surgery planned at this time -Appreciate GI input, adv. diet, signed off. No further recommendations -S/P Flexilbe Sigmoidoscopy (08/29/16)---> Poor examination due to poor prep but no significantly dilated colon this was suctioned and the abdomen remained significantly distended indicating that this most likely is small bowel rather than large bowel. -S/P Gastrografin enema (08/29/16)----> Unremarkable Gastrografin enema extensive air in the descending and transverse colons. Small amount of air throughout the small bowel without dilation. Left renal mass per CT -Appreciate urology input, renal ultrasound ordered Renal ultrasound results noted, left renal cyst noted -No further workup, recommended to follow-up with urology as outpatient LLE swelling R/O DVT -Bilat leg US, negative for DVT PT for evaluation and treatment Case management consult, will need home health care with PT and oxygen-pt. has not chosen [facility] software educator consulted, input appreciated Pharmacy also discussed with pt. insulin Patient anxious to go home, discussed need to make appropriate arrangements and obtain clearance from pulmonology will f/u US legs, negative poss. dc later today or tomorrow . We will discuss with Dr. Pena. We'll also need to establish with PCP. Looking at Dr. Debra Harris for follow-up after discharge. D/W Dr. Pena D/W pt. D/W RN This patient was seen by myself and Dr. Pena, this note is written on his behalf Problem Qualifiers (1) Altered mental status: Qualified Code: R40.1 - Stupor (2) COPD (chronic obstructive pulmonary disease): Qualified Code: J44.9 - Chronic obstructive pulmonary disease, unspecified COPD type (3) Depression: Qualified Code: F33.41 - Recurrent major depressive disorder, in partial remission (4) Overdose: Qualified Code: T50.904A - Overdose, undetermined intent, initial encounter Catherine Saini Sep 02, 2016 11:17
[2016-09-02] MEDS: ENOXAPARIN SODIUM 40 MG/0.4 ML SYRINGE SQ SCH (11:46)
[2016-09-02] MEDS: ALPRAZolam 0.25 MG TAB PO PRN ×2 (14:10→22:09)
[2016-09-02] MEDS: MIRTAZAPINE 15 MG TAB PO SCH (21:30)
[2016-09-03 01:01] VITALS: BP 119/58; PULSE 91; RESP 20; TEMP 97.8; O2SAT 95
[2016-09-03 04:47] VITALS: BP 114/55; PULSE 90; RESP 20; TEMP 98.6; O2SAT 92
[2016-09-03] MEDS: DILTIAZEM HCL 60 MG TAB PO SCH ×4 (06:00→23:35)
[2016-09-03] MEDS: ALPRAZolam 0.25 MG TAB PO PRN ×3 (06:01→21:08)
[2016-09-03] MEDS: INSULIN ASPART SUPPLEMENTAL SCALE SQ SCH ×4 (06:01→21:09)
[2016-09-03] MEDS: FUROSEMIDE 20 MG TAB PO SCH (07:52)
[2016-09-03] MEDS: TAMSULOSIN HCL 0.4 MG CAP PO SCH (07:52)
[2016-09-03] MEDS: INSULIN DETEMIR 100 UNITS/ML VIAL SQ SCH ×2 (07:52→21:09)
[2016-09-03] MEDS: metFORMIN HCL 500 MG TAB PO SCH ×2 (07:52→17:19)
[2016-09-03] MEDS: SODIUM CHLORIDE 0.9% FLUSH 5 ML FLUSH IVF SCH ×2 (07:53→21:00)
[2016-09-03] MEDS: POTASSIUM CHLORIDE 20 MEQ CONTROLLED RELEASE TAB PO SCH (07:53)
[2016-09-03] MEDS: RIFAXIMIN 550 MG TAB PO SCH ×2 (07:53→21:08)
[2016-09-03] MEDS: THIAMINE HCL 100 MG TAB PO SCH (07:53)
[2016-09-03 08:00] VITALS: BP 121/58; PULSE 94; RESP 36; TEMP 97.9; O2SAT 95
[2016-09-03] MEDS: NYSTATIN 100,000 UNIT/GM CREAM 15 GM TOPICAL SCH ×2 (08:03→21:00)
--- NOTE | 2016-09-03 11:36 | HHI.PR ---
Subjective History of Present Illness Up in chair Hungry and eating every meal. No headache No chest pain Mild exertional dyspnea Abdomen large taut, tympanic ,no acute changes Alert oriented Hospital Day: 12 Review of Systems Constitutional Constitutional: Weakness Constitutional Remarks 10 point ROS done. Positives include weakness improving, distended abdomen, hypoactive bowel sounds, tympanic abdomen, exertional dyspnea. Other systems unremarkable or negative Pulmonary Respiratory: Shortness of Breath (only with exertion.) Pulmonary Remarks Exertional GI/Abdomen GI/Abdomen Remarks Tympany, hypoactive bowel sounds, distention Musculoskeletal MS Remarks 2+ lower leg edema. After greater than right Psychiatric Psychiatric: Agitation (mild over current condition, resolving now the patient gets to eat) Vitals/Results Intake & Output 09/02/16 09/02/16 09/03/16 15:00 23:00 07:00 Intake Total 840 ml 900 ml 800 ml Output Total 1400 ml 1200 ml 2000 ml Balance -560 ml -300 ml -1200 ml Intake Oral 840 ml 900 ml 800 ml Output Urine Total 1400 ml 1200 ml 2000 ml # Bowel Movements 1 2 1 Vital Signs Vital Signs Date Time Temp Pulse Resp B/P Pulse Ox O2 Delivery O2 Flow Rate FiO2 09/03/16 08:00 97.9 94 36 121/58 95 09/03/16 08:00 Nasal Cannula 3.00 Humidified 09/03/16 04:47 98.6 90 20 114/55 92 09/03/16 01:01 97.8 91 20 119/58 95 09/02/16 21:00 Nasal Cannula 3.00 09/02/16 20:00 97.7 93 20 119/61 94 09/02/16 19:54 Nasal Cannula 3.00 09/02/16 16:02 97.4 102 20 129/66 93 09/02/16 12:04 88 09/02/16 12:02 97.8 104 22 109/60 90 CBC/BMP: 09/02/16 0651 Imaging Remarks Last Impressions Lower Extremity Ultrasound 09/01/16 0000 Signed Impressions: Service Date/Time: Thursday, September 01, 2016 18:15 - CONCLUSION: Normal examination. Rosaline Mcgregor MD Abdomen X-Ray 08/30/16 0600 Signed Impressions: Service Date/Time: Tuesday, August 30, 2016 08:58 - CONCLUSION: 1. Ileus persists, similar in appearance to August 29. There is residual contrast in large bowel from recent Gastrografin enema. Chuckie Altamirano MD Chest CT 08/30/16 Signed Impressions: Service Date/Time: Tuesday, August 30, 2016 10:19 - CONCLUSION: 1. Basilar atelectasis and small left effusion similar to recent abdomen CT findings. No significant fibrotic or emphysematous changes. 2. Cardiomegaly. Moderate coronary calcifications. Chuckie Altamirano MD Renal Ultrasound 08/29/16 Signed Impressions: Service Date/Time: Monday, August 29, 2016 17:39 - CONCLUSION: 1. Left renal cyst. 2. Fatty infiltration of the liver. Abhinav Chambers MD Enema w/Water Soluble 08/29/16 Signed Impressions: Service Date/Time: Monday, August 29, 2016 13:32 - CONCLUSION: Unremarkable Gastrografin enema extensive air in the descending and transverse colons. Small amount of air throughout the small bowel without dilation. Yrn Vora MD Abdomen/Pelvis CT 08/27/16 Signed Impressions: Service Date/Time: Saturday, August 27, 2016 22:41 - CONCLUSION: 1. Left lower lobe consolidation. 2. Distention of the colon without definite point of obstruction. There is kinking of the sigmoid colon and a protuberant panniculus which could be causing a partial obstruction. 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 The common bile duct is dilated at 12 mm but no calcified stones seen within the common duct. Given these findings, may consider performing hepatic biliary tract scan to evaluate biliary dynamics and for possible obstruction. 4. Focal low density area in the quadrate lobe of the liver cannot be further characterized. Differential considerations include focal fatty change and a poorly defined mass. 5. Exophytic intermediate density smooth margin lesion arising from the posterior left kidney measures in excess of 3 cm. Differential considerations include a complicated cyst and solid mass. minate 6. Fat-containing protuberant umbilical hernia. Ryan Smith MD Chest X-Ray 08/24/16 Signed Impressions: Service Date/Time: July 13:37 - CONCLUSION: Radiographic findings suggestive of congestive heart failure. This appearance is unchanged from prior exam.. Sadie Rodríguez MD Head CT 08/22/16 0253 Signed Impressions: Service Date/Time: Monday, August 22, 2016 03:36 - CONCLUSION: Normal examination for a patient of this age. Graeme Pacheco MD Physical Exam General General Appearance: Well Developed, No Acute Distress, Obese Eyes Eye Exam: Pupils Equal, Pupils Reactive Ears & Nose Ears & Nose Exam: Nasal Mucosa [place] Throat Throat Exam: Oral Mucosa [place] & Moist Neck Neck Exam: Neck Supple, Trachea Midline Pulmonary Resp Exam: Decreased Bases, Diminished Breath Sounds, Poor Inspiratory Effort Resp Remarks Low volumes, right decreased more than left Cardiology CV Exam: Regular CV Remarks Sinus rhythm in the 90s Gastrointestinal/Abdomen GI Exam: Bowel Sounds Present, Distended, Bowel Sounds Hypoactive GI Remarks Abdomen tympanic taut, no acute changes. Able to eat solid food. Without nausea and vomiting Musculoskeletal MS Exam: Joints Intact Integumentary Skin Exam: Warm, Dry Extremeties Extremities Exam: Pedal Pulses Palpable, Moderate Edema Extremeties Remarks Left lower extremity 3+ edema, right lower extremity 2+ edema, chronic unchanged Neurologic Neuro Exam: Alert, Awake, Oriented, Speech Clear, Moving All Extremities, No Focal Deficits Psychiatric Psych Exam: Appropriate Responses VTE Prophylaxis VTE Prophylaxis Meds: Lovenox Assessment/Plan Problem List: (1) Acute hypercapnic respiratory failure (2) Anxiety and depression (3) DM2 (diabetes mellitus, type 2) (4) Altered mental status (5) Toxic encephalopathy (6) Respiratory acidosis (7) COPD (chronic obstructive pulmonary disease) (8) Tachycardia (9) Depression (10) Overdose Plan: pt. denies (11) Abdominal distension Assessment/Plan Continue with DuoNeb's as needed Pulmonary consultation with Dr. Charlton, his input is appreciated -CPAP at night. Cannot home set up. AMS, resolved -on Xanax, keep PRN only for anxiety, d/w film sound coordinator rate in the 90s sinus rhythm -continue Cardizem DM II, will go home with insulin for sliding scales, dictation on counting carbs done -Continue with diet, attempting to eat slow, no nausea no vomiting. Tolerating food well -Surgical consult noted and appreciate. No surgery planned at this time. Abd. distended, unchanged. Patient states chronic, able to eat solid food. Monitor any nausea or vomiting -Appreciate GI input, adv. diet, signed off. No further recommendation. Left renal mass per CT -Appreciate urology input, renal ultrasound ordered Renal ultrasound results noted, left renal cyst noted -No further workup, recommended to follow-up with urology as outpatient Encouraged to elevate lower legs as much as possible especially while sitting Discharge planning, home when CPAP set up, oxygen Needs to establish with PCP. Looking at Dr. Debra Harris for follow-up after discharge. Acute problem list resolving or resolved. We'll do some follow-up as outpatient D/W Dr. Pena D/W pt. D/W RN This patient was seen by myself and Dr. Pena, this note is written on his behalf Problem Qualifiers (1) Altered mental status: Qualified Code: R40.1 - Stupor (2) COPD (chronic obstructive pulmonary disease): Qualified Code: J44.9 - Chronic obstructive pulmonary disease, unspecified COPD type (3) Depression: Qualified Code: F33.41 - Recurrent major depressive disorder, in partial remission (4) Overdose: Qualified Code: T50.904A - Overdose, undetermined intent, initial encounter Catherine Saini Sep 03, 2016 11:36
[2016-09-03 12:00] VITALS: BP 131/60; PULSE 101; RESP 36; TEMP 97.7; O2SAT 95
[2016-09-03] MEDS: ENOXAPARIN SODIUM 40 MG/0.4 ML SYRINGE SQ SCH (13:03)
[2016-09-03 16:00] VITALS: BP 129/58; PULSE 97; RESP 20; TEMP 97.7; O2SAT 94
[2016-09-03 20:16] VITALS: BP 129/62; PULSE 93; RESP 20; TEMP 97.4; O2SAT 95
[2016-09-03] MEDS: MIRTAZAPINE 15 MG TAB PO SCH (21:09)
[2016-09-04] VITALS (8 sets, daily range): BP systolic 129–155; BP diastolic 62–72; PULSE 83–96; RESP 20–30; TEMP 97.2–97.9; O2SAT 93–97
[2016-09-04] MEDS: DILTIAZEM HCL 60 MG TAB PO SCH ×3 (05:15→18:16)
[2016-09-04] MEDS: ALPRAZolam 0.25 MG TAB PO PRN ×3 (05:15→21:29)
[2016-09-04] MEDS: INSULIN ASPART SUPPLEMENTAL SCALE SQ SCH ×4 (06:17→21:29)
[2016-09-04] MEDS: INSULIN DETEMIR 100 UNITS/ML VIAL SQ SCH ×2 (09:00→21:30)
[2016-09-04] MEDS: NYSTATIN 100,000 UNIT/GM CREAM 15 GM TOPICAL SCH ×2 (09:00→21:32)
[2016-09-04] MEDS: POTASSIUM CHLORIDE 20 MEQ CONTROLLED RELEASE TAB PO SCH (09:34)
[2016-09-04] MEDS: FUROSEMIDE 20 MG TAB PO SCH (09:34)
[2016-09-04] MEDS: RIFAXIMIN 550 MG TAB PO SCH ×2 (09:34→21:29)
[2016-09-04] MEDS: TAMSULOSIN HCL 0.4 MG CAP PO SCH (09:34)
[2016-09-04] MEDS: THIAMINE HCL 100 MG TAB PO SCH (09:34)
[2016-09-04] MEDS: metFORMIN HCL 500 MG TAB PO SCH ×2 (09:34→18:16)
[2016-09-04] MEDS: SODIUM CHLORIDE 0.9% FLUSH 5 ML FLUSH IVF SCH ×2 (09:36→21:30)
--- NOTE | 2016-09-04 10:58 | HHI.PR ---
Subjective Hospital Day: 12 Subjective Remarks Sitting up in chair Shortness of breath improved On oxygen at 3 L nasal cannula refusing CPAP at home eating okay noted with increase left leg swelling, more edematous Review of Systems Constitutional Constitutional: Weakness Constitutional Remarks 12 point review of systems completed, neg. except as noted above Pulmonary Respiratory: Shortness of Breath (only with exertion.) Psychiatric Psychiatric: Agitation (mild over current condition, resolving now the patient gets to eat) Vitals/Results Intake & Output 09/03/16 09/03/16 09/04/16 15:00 23:00 07:00 Intake Total 720 ml 600 ml Output Total 1450 ml 500 ml 1100 ml Balance -730 ml 100 ml -1100 ml Intake Oral 720 ml 600 ml Output Urine Total 1450 ml 500 ml 1100 ml # Bowel Movements 0 Vital Signs Vital Signs Date Time Temp Pulse Resp B/P Pulse Ox O2 Delivery O2 Flow Rate FiO2 09/04/16 08:00 97.3 90 24 134/63 95 09/04/16 06:26 94 Nasal Cannula 4.00 09/04/16 04:43 97.3 96 20 131/62 93 09/04/16 00:13 97.6 96 20 155/72 93 09/03/16 21:00 Nasal Cannula 3.00 21 Humidified 09/03/16 20:16 97.4 93 20 129/62 95 09/03/16 16:00 97.7 97 20 129/58 94 09/03/16 12:00 97.7 101 36 131/60 95 CBC/BMP: 09/02/16 0651 Physical Exam General General Appearance: Well Developed, No Acute Distress, Obese Eyes Eye Exam: Pupils Equal, Pupils Reactive Ears & Nose Ears & Nose Exam: Nasal Mucosa [place] Throat Throat Exam: Oral Mucosa [place] & Moist Neck Neck Exam: Neck Supple, Trachea Midline Pulmonary Resp Exam: Decreased Bases, Diminished Breath Sounds, Poor Inspiratory Effort Cardiology CV Exam: Regular Gastrointestinal/Abdomen GI Exam: Bowel Sounds Present, Distended, Bowel Sounds Hypoactive GI Remarks Protuberant Musculoskeletal MS Exam: Joints Intact Integumentary Skin Exam: Warm, Dry Extremeties Extremities Exam: Pedal Pulses Palpable, Moderate Edema Extremeties Remarks Left ankle deformity from previous fracture increase left leg edema, erythematous mid calk, non tender Neurologic Neuro Exam: Alert, Awake, Oriented, Speech Clear, Moving All Extremities, No Focal Deficits Psychiatric Psych Exam: Appropriate Responses VTE Prophylaxis VTE Prophylaxis Meds: Lovenox Assessment/Plan Problem List: (1) Acute hypercapnic respiratory failure (2) Anxiety and depression (3) DM2 (diabetes mellitus, type 2) (4) Altered mental status (5) Toxic encephalopathy (6) Respiratory acidosis (7) COPD (chronic obstructive pulmonary disease) (8) Tachycardia (9) Depression (10) Overdose Plan: pt. denies (11) Abdominal distension Assessment/Plan Respiratory acidosis, compensated. -continue with oxygen to keep sats greater than 92 -continue steroids to PO Continue with DuoNeb's as needed Pulmonary consultation with Dr. Charlton, his input is appreciated -CPAP at night Walk test results noted, needs oxygen -Remains on oxygen at 3 L, cm to arrange oxygen AMS, Possible OD-improving -mental status improving slowly -on Xanax, keep PRN only for anxiety, d/w RN -Patient denies any drugs usage that day. Took antihistamines earlier in the day. -[place] Act lifted -Evaluated per psych Depression -appreciate psyche input -Supportive care. Reiterated to patient he is medical needs. Possible CHF, per initial CXR, received Lasix-improving -Echo done, EF 55% -continue with Lasix 20 mg po daily. Prior ETOH abuse-No ETOH since April, 3 beers. States he quit drinking last year. -stable, no withdrawal symptoms Tachycardia-resolved. -continue Cardizem DM II -Continue with Accu-Cheks before meals and at bedtime -Hemoglobin A1c 10.8, poorly controlled diabetes -Blood glucose elevated, change to medium dose scale. Off steroids -continue Levemir Abd. distended, CT abd done 08/27 poss. obstruction, ileus, stool right colon, exophytic mass left kidney, CBD dilatation, porcelain gallbladder. -continue with bowel regimen -Continue with diet -Surgical consult noted and appreciate. No surgery planned at this time -Appreciate GI input, adv. diet, signed off. No further recommendations -S/P Flexilbe Sigmoidoscopy (08/29/16)---> Poor examination due to poor prep but no significantly dilated colon this was suctioned and the abdomen remained significantly distended indicating that this most likely is small bowel rather than large bowel. -S/P Gastrografin enema (08/29/16)----> Unremarkable Gastrografin enema extensive air in the descending and transverse colons. Small amount of air throughout the small bowel without dilation. Left renal mass per CT -Appreciate urology input, renal ultrasound ordered Renal ultrasound results noted, left renal cyst noted -No further workup, recommended to follow-up with urology as outpatient LLE swelling R/O DVT -Bilat leg US negative -elevate legs -continue Lasix -TEDS to be applied today PT for evaluation and treatment CM to see today and set up HHC, oxygen, PT assistant health educator consulted, input appreciated Pharmacy also discussed with pt. insulin Hopefully dc today with HHC if arrangements are made Needs to f/u pulmonology, PCP D/W Dr. Larkin D/W pt. D/W RN D/W CM This patient was seen by myself and Dr. Larkin, this note is written on his behalf Problem Qualifiers (1) Altered mental status: Qualified Code: R40.1 - Stupor (2) COPD (chronic obstructive pulmonary disease): Qualified Code: J44.9 - Chronic obstructive pulmonary disease, unspecified COPD type (3) Depression: Qualified Code: F33.41 - Recurrent major depressive disorder, in partial remission (4) Overdose: Qualified Code: T50.904A - Overdose, undetermined intent, initial encounter Erna Maurer Sep 04, 2016 10:58
[2016-09-04] MEDS: ENOXAPARIN SODIUM 40 MG/0.4 ML SYRINGE SQ SCH (12:46)
[2016-09-04] MEDS: MIRTAZAPINE 15 MG TAB PO SCH (21:29)
[2016-09-05] VITALS (8 sets, daily range): BP systolic 111–139; BP diastolic 58–64; PULSE 79–96; RESP 18–36; TEMP 97.6–97.9; O2SAT 70–96
[2016-09-05] MEDS: DILTIAZEM HCL 60 MG TAB PO SCH ×3 (02:35→13:41)
[2016-09-05] MEDS: INSULIN ASPART SUPPLEMENTAL SCALE SQ SCH ×2 (05:38→13:41)
[2016-09-05] MEDS: ALPRAZolam 0.25 MG TAB PO PRN ×2 (05:39→13:41)
[2016-09-05] MEDS: INSULIN DETEMIR 100 UNITS/ML VIAL SQ SCH (09:00)
[2016-09-05] MEDS: NYSTATIN 100,000 UNIT/GM CREAM 15 GM TOPICAL SCH (09:00)
[2016-09-05] MEDS: THIAMINE HCL 100 MG TAB PO SCH (09:42)
[2016-09-05] MEDS: SODIUM CHLORIDE 0.9% FLUSH 5 ML FLUSH IVF SCH (09:42)
[2016-09-05] MEDS: TAMSULOSIN HCL 0.4 MG CAP PO SCH (09:43)
[2016-09-05] MEDS: POTASSIUM CHLORIDE 20 MEQ CONTROLLED RELEASE TAB PO SCH (09:43)
[2016-09-05] MEDS: RIFAXIMIN 550 MG TAB PO SCH (09:43)
[2016-09-05] MEDS: metFORMIN HCL 500 MG TAB PO SCH (09:43)
[2016-09-05] MEDS: FUROSEMIDE 20 MG TAB PO SCH (09:43)
--- NOTE | 2016-09-05 11:04 | HHI.PR ---
Subjective Hospital Day: 12 Subjective Remarks Sitting up in chair Shortness of breath improved On oxygen at 3 L nasal cannula refusing CPAP at night eating okay leg swelling present, did not have TEDS placed pt. anxious to go home (Erna Maurer) Review of Systems Constitutional Constitutional: Weakness Constitutional Remarks 12 point review of systems completed, neg. except as noted above (Erna Maurer) Pulmonary Respiratory: Shortness of Breath (only with exertion.) (Erna Maurer) Psychiatric Psychiatric: Agitation (mild over current condition, resolving now the patient gets to eat) (Erna Maurre) Vitals/Results Intake & Output 09/04/16 09/04/16 09/05/16 15:00 23:00 07:00 Intake Total 720 ml 0 ml 1982 ml Output Total 350 ml Balance 720 ml 0 ml 1632 ml Intake Oral 720 ml 1982 ml IV Total 0 ml 0 ml Output Urine Total 350 ml # Bowel Movements 2 2 Vital Signs Vital Signs Date Time Temp Pulse Resp B/P Pulse Ox O2 Delivery O2 Flow Rate FiO2 09/05/16 08:00 97.6 79 18 129/63 94 09/05/16 04:00 97.9 95 36 135/64 70 09/05/16 00:30 28 09/05/16 00:00 97.7 87 32 111/58 95 09/04/16 20:00 97.9 91 28 132/68 95 09/04/16 20:00 Nasal Cannula 3.00 Humidified 09/04/16 16:00 97.2 92 20 129/68 96 09/04/16 16:00 Nasal Cannula 3.00 21 09/04/16 12:54 97 Nasal Cannula 4.00 09/04/16 12:00 97.9 94 30 133/65 96 (Erna Maurer) CBC/BMP: 09/02/16 0651 Physical Exam General General Appearance: Well Developed, No Acute Distress, Obese (Erna Maurer) Eyes Eye Exam: Pupils Equal, Pupils Reactive (Erna Maurer) Ears & Nose Ears & Nose Exam: Nasal Mucosa [place] (Erna Maurer) Throat Throat Exam: Oral Mucosa [place] & Moist (Erna Maurer) Neck Neck Exam: Neck Supple, Trachea Midline (Erna Maurer G. HABITAT BIOLOGIST) Pulmonary Resp Exam: Decreased Bases, Diminished Breath Sounds, Poor Inspiratory Effort ( Erna Maurer G. HABITAT BIOLOGIST) Cardiology CV Exam: Regular (Erna Maurer G. HABITAT BIOLOGIST) Gastrointestinal/Abdomen GI Exam: Bowel Sounds Present, Distended, Bowel Sounds Hypoactive GI Remarks Protuberant umbilical hernia (Erna Maurer G. HABITAT BIOLOGIST) Musculoskeletal MS Exam: Joints Intact (Erna Maurer. HABITAT BIOLOGIST) Integumentary Skin Exam: Warm, Dry (Erna Maurer G. HABITAT BIOLOGIST) Extremeties Extremities Exam: Pedal Pulses Palpable, Moderate Edema Extremeties Remarks Left ankle deformity from previous fracture increase left leg edema, erythematous mid calk, non tender (Erna Maurer G. HABITAT BIOLOGIST) Neurologic Neuro Exam: Alert, Awake, Oriented, Speech Clear, Moving All Extremities, No Focal Deficits (ErastoErna G. HABITAT BIOLOGIST) Psychiatric Psych Exam: Appropriate Responses (ErastoErna G. HABITAT BIOLOGIST) VTE Prophylaxis VTE Prophylaxis Meds: Lovenox (ErastoErna G. HABITAT BIOLOGIST) Assessment/Plan Problem List: (1) Acute hypercapnic respiratory failure (2) Anxiety and depression (3) DM2 (diabetes mellitus, type 2) (4) Altered mental status (5) Toxic encephalopathy (6) Respiratory acidosis (7) COPD (chronic obstructive pulmonary disease) (8) Tachycardia (9) Depression (10) Overdose Plan: pt. denies (11) Abdominal distension Assessment/Plan Respiratory acidosis, compensated. -continue with oxygen to keep sats greater than 92 -off steroids now Continue with DuoNeb's as needed Pulmonary consultation with Dr. Charlton, his input is appreciated -CPAP at night-pt. refused to use Walk test done, needs oxygen -Home health care are arranging oxygen -Discussed with patient the need to follow-up with Dr. charlton as outpatient, needs a sleep study for CPAP. Recommended that he lose weight as well. AMS, Possible OD-improving -mental status improving slowly -on Xanax, keep PRN only for anxiety -Patient denies any drugs usage that day. Took antihistamines earlier in the day. -[place] Act lifted -Evaluated per psych Depression -appreciate psyche input -Supportive care. Possible CHF, per initial CXR, received Lasix-improving -Echo done, EF 55% -continue with Lasix 20 mg po daily. Prior ETOH abuse-No ETOH since April, 3 beers. States he quit drinking last year. -stable, no withdrawal symptoms Tachycardia-resolved. -continue Cardizem DM II -Continue with Accu-Cheks before meals and at bedtime -Hemoglobin A1c 10.8, poorly controlled diabetes -Blood glucose elevated, change to medium dose scale. Off steroids -continue Levemir -Needs to lose weight and control blood glucose. cathode washer gave education. Abd. distended, CT abd done 08/27 poss. obstruction, ileus, stool right colon, exophytic mass left kidney, CBD dilatation, porcelain gallbladder. -continue with bowel regimen -Continue with diet -Surgical consult noted and appreciate. No surgery planned at this time -Appreciate GI input, adv. diet, signed off. No further recommendations -S/P Flexilbe Sigmoidoscopy (08/29/16)---> Poor examination due to poor prep but no significantly dilated colon this was suctioned and the abdomen remained significantly distended indicating that this most likely is small bowel rather than large bowel. -S/P Gastrografin enema (08/29/16)----> Unremarkable Gastrografin enema extensive air in the descending and transverse colons. Small amount of air throughout the small bowel without dilation. Left renal mass per CT -Appreciate urology input, renal ultrasound ordered Renal ultrasound results noted, left renal cyst noted -No further workup, recommended to follow-up with urology as outpatient LLE swelling R/O DVT -Bilat leg US negative -elevate legs -continue Lasix -TEDS to be applied today, d/w RN PT CM working on [facility], oxygen authorization pending Plan to discharge today F/U PCP, Dr. Charlton in 10 days Discussed need for compliance, avoid sedative agents Diet-diabetic Activity-as tolerated D/W Dr. Larkin D/W pt. D/W RN D/W CM This patient was seen by myself and Dr. Larkin, this note is written on his behalf (Erna Maurer) Assessment/Plan Patient seen and examined as above [id number] time spent with patient Labs and medications reviewed Plan of care discussed with HABITAT BIOLOGIST Discussed with patient Plan for discharge today if arrangements made (Rica Larkin MD) Problem Qualifiers (1) DM2 (diabetes mellitus, type 2): (2) Altered mental status: Qualified Code: R40.1 - Stupor (3) COPD (chronic obstructive pulmonary disease): Qualified Code: J44.9 - Chronic obstructive pulmonary disease, unspecified COPD type (4) Depression: Qualified Code: F33.41 - Recurrent major depressive disorder, in partial remission (5) Overdose: Qualified Code: T50.904A - Overdose, undetermined intent, initial encounter Erna Maurer Sep 05, 2016 11:04 Rica Larkin MD Sep 05, 2016 13:27
[2016-09-05] MEDS ORDERED: ALPR.25 PO (13:29)
[2016-09-05] MEDS: ENOXAPARIN SODIUM 40 MG/0.4 ML SYRINGE SQ SCH (13:41)
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
[2016-10-23] MEDS ORDERED: HUMALOG SQ (19:36)
[2016-10-23] MEDS ORDERED: DOCU100C PO (20:12)
[2016-10-23] MEDS ORDERED: BUDE0.5S NEB (20:12)
[2016-10-23] MEDS ORDERED: DILT60TA PO (20:12)
[2016-10-23] MEDS ORDERED: ACET250T3 PO (20:12)
[2016-10-23] MEDS ORDERED: LEXA10TA PO (20:25)
[2016-10-23] MEDS ORDERED: FLUO20CA4 PO (20:25)
[2016-10-23] MEDS ORDERED: FAMO20TA2 PO (20:25)
[2016-10-23] MEDS ORDERED: IPRASOL INH (20:25)
[2016-10-23] MEDS ORDERED: POTA-245 PO (20:28)
[2016-10-23] MEDS ORDERED: LANTUS2P SQ (20:55)
[2016-10-23] MEDS ORDERED: LIDO5DIS35 TOPICAL (21:01)
[2016-10-23] MEDS ORDERED: MIRA33504 PO (21:01)
[2016-10-23] MEDS ORDERED: PRED10PA PO (21:04)
[2016-10-23] MEDS ORDERED: MUCI600T PO (21:04)
[2016-10-23] MEDS ORDERED: SENN1TAB17 PO (21:07)
[2016-10-23] MEDS ORDERED: TAMS0.4C4 PO (21:11)
[2016-10-23] MEDS ORDERED: THIA100T PO (21:14)
[2016-10-23] MEDS ORDERED: THERM PO (21:14)
[2016-10-23] MEDS ORDERED: TRAZ50TA12 PO (21:16)
--- NOTE | 2016-11-01 08:21 | RSPPFT ---
DATE OF PROCEDURE: 08/31/16 COMMENTS: VOLUMES DYNAMIC: FVC and FEV1 severely reduced. FLOWS: FEV1% mildly reduced; FEF 25-75 severely reduced. IMPRESSION: This may represent a severe combined obstructive and restrictive ventilatory defect but clearly there is a very significant decreased in dynamic lung volumes at 20% to 25%. There is no improvement post-bronchodilator. Full lung functions would be necessary to further evaluate. Clinical correlation is required.
[2016-11-06] MEDS ORDERED: TERA1CAP3 PO (09:52)
[2016-11-06] MEDS ORDERED: IPRASOL INH (09:52)
[2016-11-06] MEDS ORDERED: BUDE0.5S NEB (09:52)
[2016-11-06] MEDS ORDERED: LEVEMIR SQ ×2 (09:52)
[2016-11-06] MEDS ORDERED: THERM PO (09:52)
[2016-11-06] MEDS ORDERED: POTA-245 PO (09:52)
[2016-11-06] MEDS ORDERED: FAMO20TA2 PO (09:52)
[2016-11-06] MEDS ORDERED: DOCU100C PO (09:52)
[2016-11-06] MEDS ORDERED: TAMS5CAP PO (09:52)
[2016-11-06] MEDS ORDERED: Artificial Tears Opth Soln EACH EYE (09:52)
[2016-11-06] MEDS ORDERED: MIRA33504 PO (09:52)
[2016-11-06] MEDS ORDERED: PRED5TAB PO (09:52)
[2016-11-06] MEDS ORDERED: DILT60TA PO (09:52)
[2016-11-06] MEDS ORDERED: BENZ1LOZ5 BUCCAL (09:52)
[2016-11-06] MEDS ORDERED: FLUO20CA4 PO (09:52)
[2016-11-06] MEDS ORDERED: TRAZ50TA12 PO (09:52)
[2016-11-06] MEDS ORDERED: THIA100T PO (09:52)
[2016-11-06] MEDS ORDERED: ACET250T3 PO (09:52)
[2016-11-06] MEDS ORDERED: AMBI10TA PO (09:52)
[2016-11-06] MEDS ORDERED: LEXA10TA PO (09:52)
== END 2016-09-05 17:46 | disposition home health service (06) | DRG 917 ==
LOC: PHEFT 01:52 → PHEDA 06:40 → PHICU 14:05 → HIME 08-24 19:25 → N04B 08-27 15:37
PROVIDERS: ADMIT Specialist; ATTEND Specialist
PROC: 5A09457 Assistance with Respiratory Ventilation, 24-96 Consecutive Hours, Continuous Positive Airway Pressure (ICD-10-PCS; principal; 2016-08-22)
PROC: 0DJD8ZZ Inspection of Lower Intestinal Tract, Via Natural or Artificial Opening Endoscopic (ICD-10-PCS; 2016-08-28)
DX: T45.0X1A Poisoning by antiallergic and antiemetic drugs, accidental (unintentional), initial encounter (principal); G92 Toxic encephalopathy; J96.21 Acute and chronic respiratory failure with hypoxia; K56.60 Unspecified intestinal obstruction; J96.22 Acute and chronic respiratory failure with hypercapnia; E87.2 Acidosis; E66.2 Morbid (severe) obesity with alveolar hypoventilation; T50.904A Poisoning by unspecified drugs, medicaments and biological substances, undetermined, initial encounter; I10 Essential (primary) hypertension; K42.9 Umbilical hernia without obstruction or gangrene; F32.4 Major depressive disorder, single episode, in partial remission; K76.9 Liver disease, unspecified; N28.89 Other specified disorders of kidney and ureter; K82.8 Other specified diseases of gallbladder; E11.65 Type 2 diabetes mellitus with hyperglycemia; I50.9 Heart failure, unspecified; F10.21 Alcohol dependence, in remission; J44.9 Chronic obstructive pulmonary disease, unspecified; E87.6 Hypokalemia; M79.89 Other specified soft tissue disorders; R00.0 Tachycardia, unspecified; Z68.39 Body mass index [BMI] 39.0-39.9, adult; Z23 Encounter for immunization; Z91.14 Patient's other noncompliance with medication regimen; Z79.84 Long term (current) use of oral hypoglycemic drugs
CPT/HCPCS: 36600; 51702; 70450; 71010; 71020; 71260; 74000; 74177; 74270; 76775; 80048; 80053; 80307; 80320; 80329; 81001; 82010; 82140; 82550; 82565; 82805; 82948; 83036; 83605; 83735; 83880; 84443; 84484; 85025; 85027; 85379; 85610; 85730; 87040; 87641; 90471; 90686; 93005; 93306; 93970; 94002; 94003; 94060; 94150; 94620; 94640; 94664; 96361; 96365; 96367; 96375; G0008; G0480; G0481; J0456; J0692; J1630; J1650; J1815; J1940; J2060; J2310; J2920; J2930; J3370; J7030; J7050; J7512; J7613; Q2038; Q9963; Q9967

== ENCOUNTER 2016-09-11 16:14 | Inpatient (IN) | payer MEDICARE ==
[2016-09-11] VITALS (8 sets, daily range): BP systolic 120–160; BP diastolic 68–91; PULSE 79–102; RESP 14–28; TEMP 97.7; O2SAT 82–97
[~2016-09-11] VITALS: Ht 167.6 cm; Wt 99.0 kg
[~2016-09-11 16:14] MED LIST: ALCO1PAD; ALPR.25 PO; BLOOD GLUCOSE M1 KIT; BLOOD GLUCOSE T1 TES; CARD120C4 PO; FURO20TA PO; INSU1MIS; LANCETS1 MI1; METF500T PO; NOVORP2 SQ; OXYGENTANK NAS.CANULA; POTA10CA PO; TAMS5CAP PO
[2016-09-11] MEDS ORDERED: VANCOMYCIN INJ 1,000 MG in SODIUM CHLOR 0.9% 250 ML INJ 250 ML IV STA (16:50)
[2016-09-11] MEDS ORDERED: PIPERACIL-TAZO 4.5 GM PREMIX 100 ML IV STA (16:50)
[2016-09-11] MEDS ORDERED: methylPREDNISolone SOD SUCC 125 MG/2 ML VIAL IVP ONE (17:00)
[2016-09-11] MEDS ORDERED: SODIUM CHLORIDE 0.9% FLUSH 5 ML FLUSH IVF PRN (17:00)
[2016-09-11] MEDS: RESP: ALBUTEROL 2.5 MG/IPRATROPIUM 0.5 MG NEB (SCH) INH ×3 (17:32→21:49)
--- NOTE | 2016-09-11 17:41 | RADRPT ---
EXAM DATE/TIME: 09/11/2016 17:04 [place] COMPARISON: No previous studies available for comparison. INDICATIONS : Thrombosis MEDICAL HISTORY : Chronic obstructive pulmonary disease. Dyspnea. Umbilical hernia. Diabetes. Depression. Anxiety. Glasses. SURGICAL HISTORY : Left greater saphenous vein taken out to repair ankle. ENCOUNTER: Initial ACUITY: 3 weeks PAIN SCORE: 5/10 LOCATION: Left leg TECHNIQUE: Venous ultrasound of the leg was performed from the inguinal ligament to the proximal calf. Real-leny e, color Doppler and spectral tracing, compression and augmentation techniques were used. FINDINGS: Study was suboptimal due to the patient's body habitus and mild motion artifact. There is normal compressibility of the deep venous system from the inguinal region to the proximal ca lf. No echogenic clot is seen in the lumen of the common femoral, femoral, popliteal, and posterior tibial veins. There is a normal response of the venous system to proximal and distal augmentation an d respiration. CONCLUSION: No evidence of deep venous thrombosis. Konstantin Bridges MD on September 11, 2016 at 17:38 Board Certified Radiologist. This report was verified electronically.
[2016-09-11 17:52] LABS: BLOOD, URINE NEG (NEG); COMMENT (UR) CATH-CULT NOT IND; CULTURE IF INDICATED CATH CULTURE NOT IND; GLUCOSE,URINE 1000 mg/dL (NEG); KETONE, URINE 80 mg/dL (NEG); NITRITE,URINE NEG (NEG); PH, URINE 5.5 (5.0-8.5); URINE COLOR LIGHT-YELLOW (YELLW/STRAW)
--- NOTE | 2016-09-11 17:58 | PD ---
HPI Chief Complaint: Respiratory Distress Time Seen by Provider: 16:46 Travel History International Travel<30 days: No Contact w/Intl Traveler<30days: No Traveled to known affect area: No History of Present Illness HPI Patient is a morbidly obese 65-year-old male with history of COPD, CHF, venous stasis who presents the emergency department with complaint of shortness of breath and leg swelling. Patient is a poor historian. He's had several weeks of progressive dyspnea, lower extremity edema left greater than right. Associated left lower extremity redness, swelling, warmth. Patient has chronic left lower 70 swelling from a previous orthopedic injury. He notes that it has been more swollen than his baseline. He denies any known history of DVT, PE. The redness has now began to extend up into the thigh. He denies any known fevers or chills. His shortness of breath is worse with exertion, no chest pain. Slight nonproductive cough. He does not weigh himself regularly and therefore does not know whether he's gained any weight. He however has not been taking his diuretics. PFSH Past Medical History Anxiety: Yes (panic attacks) Depression: Yes Cancer: No Cardiovascular Problems: Yes COPD: Yes Diabetes: Yes Patient Takes Glucophage: Yes Diminished Hearing: No Gastrointestinal Disorders: Yes (umbilical hernia) Genitourinary: Yes (was going to have his prostate checked) Musculoskeletal: Yes Neurologic: No Psychiatric: Yes Reproductive: No Respiratory: Yes Sleep Apnea: Yes Tetanus Vaccination: > 5 Years Influenza Vaccination: Yes Past Surgical History Other Surgery: Yes Social History Alcohol Use: No (PT STATES QUIET LAST YEAR) Tobacco Use: No Substance Use: Yes ("pot, but not in a long time") Allergies-Medications (Allergen,Severity, Reaction): Coded Allergies: No Known Allergies (Unverified , 09/11/16) Reported Meds & Prescriptions Reported Meds & Active Scripts Active Xanax (Alprazolam) 0.25 Mg Tab 0.25 Mg PO Q8HR PRN Novolin R Inj (Insulin Human Regular) 1,000 Unit/10 Ml Vial 1-9 Units SQ ACHS Max dose at bedtime:( )units; sugars less than 70,(0) units; sugars 150-199,(1)unit; sugars 200-249,(3)units; sugars 250-299,(5) units; sugars 300-349,(7)units; sugars greater than 349,(9)units Cardizem CD 24 HR (Diltiazem CD 24 HR) 120 Mg Caper 120 Mg PO DAILY Furosemide 20 Mg Tab 20 Mg PO DAILY Flomax (Tamsulosin HCl) 0.4 Mg Cap 0.4 Mg PO DAILY Reported Potassium Chloride ER (Potassium Chloride) 10 Meq Cap 10 Meq PO DAILY Metformin (Metformin HCl) Unknown Strength Tab Unknown Dose PO BIDPC With meals Review of Systems ROS Limitations: Poor Historian Except as stated in HPI: all other systems reviewed are Neg Physical Exam Exam Limitations: Poor Historian Narrative GENERAL: Obese male in moderate respiratory distress SKIN: Warm and dry. HEAD: Normocephalic. EYES: No scleral icterus. No injection or drainage. ENT: Mucous membranes pink and moist. NECK: Supple CARDIOVASCULAR: Regular rate and rhythm. No murmur appreciated. RESPIRATORY: Moderate respiratory distress with tachypnea and hypoxia. Decreased throughout GASTROINTESTINAL: Abdomen soft, non-tender, nondistended. Obese. Easily reducible. No hernia MUSCULOSKELETAL: Bilateral lower extremities with edema, left greater than right. Left 3+, right 2+. Chronic venous stasis changes. Left lower extremity is erythematous and extends up into the thigh. Minimal induration, warmth. No open lesions. Distal sensation, pulses intact. NEUROLOGICAL: Awake and alert. Normal speech. PSYCHIATRIC: Appropriate mood and affect; insight and judgment normal. Data Data Last Documented VS Vital Signs Date Time Temp Pulse Resp B/P Pulse Ox O2 Delivery O2 Flow Rate FiO2 09/11/16 18:30 93 45 09/11/16 17:00 Nasal Cannula 6.00 09/11/16 16:50 86 28 09/11/16 16:44 97.7 138/71 Orders Complete Blood Count With Diff (09/11/16 16:50) Basic Metabolic Panel (Bmp) (09/11/16 16:50) B-Type Natriuretic Peptide (09/11/16 16:50) Act Partial Throm Time (Ptt) (09/11/16 16:50) Prothrombin Time / Inr (Pt) (09/11/16 16:50) Troponin I (09/11/16 16:50) Arterial Blood Gas (Abg) (09/11/16 16:50) Iv Access Insert/Monitor (09/11/16 16:50) Electrocardiogram (09/11/16 16:50) Ecg Monitoring (09/11/16 16:50) Oximetry (09/11/16 16:50) Oxygen Administration (09/11/16 16:50) Chest, Single Ap (09/11/16 16:50) Sodium Chloride 0.9% Flush (Ns Flush) (09/11/16 17:00) Methylprednisolone So Succ Inj (Solumedr (09/11/16 17:00) Albuterol-Ipratropium Neb (Duoneb Neb) (09/11/16 17:00) Beta Hydroxybutyrate (Acetone) (09/11/16 16:50) Lactic Acid Sepsis Protocol (09/11/16 16:50) Urinalysis - C+S If Indicated (09/11/16 16:50) Blood Culture (09/11/16 16:50) Piperacil-Tazo 4.5 Gm Premix (Zosyn 4.5 (09/11/16 16:50) Vancomycin Inj (Vancomycin Inj) (09/11/16 16:50) Us Leg Venous Doppler (09/11/16 ) Resp Bipap / Cpap Non Invas Vt (09/11/16 17:58) Labs Laboratory Tests Test 09/11/16 09/11/16 09/11/16 17:04 17:05 17:38 Urine Color LIGHT-YELLOW Urine Turbidity CLEAR Urine pH 5.5 Urine Specific [place] 1.035 Urine Protein NEG mg/dL Urine Glucose (UA) 1000 mg/dL Urine Ketones 80 mg/dL Urine Occult Blood NEG Urine Nitrite NEG Urine Bilirubin NEG Urine Urobilinogen LESS THAN 2.0 MG/DL Urine Leukocyte Esterase NEG Urine RBC LESS THAN 1 /hpf Urine WBC 1 /hpf Microscopic Urinalysis Comment CATH-CULT NOT IND White Blood Count 10.2 TH/MM3 Red Blood Count 4.84 MIL/MM3 Hemoglobin 14.1 GM/DL Hematocrit 42.4 % Mean Corpuscular Volume 87.6 FL Mean Corpuscular Hemoglobin 29.2 PG Mean Corpuscular Hemoglobin 33.3 % Concent Red Cell Distribution Width 15.1 % Platelet Count 183 TH/MM3 Mean Platelet Volume 8.3 FL Neutrophils (%) (Auto) 85.0 % Lymphocytes (%) (Auto) 8.9 % Monocytes (%) (Auto) 4.7 % Eosinophils (%) (Auto) 1.2 % Basophils (%) (Auto) 0.2 % Neutrophils # (Auto) 8.7 TH/MM3 Lymphocytes # (Auto) 0.9 TH/MM3 Monocytes # (Auto) 0.5 TH/MM3 Eosinophils # (Auto) 0.1 TH/MM3 Basophils # (Auto) 0.0 TH/MM3 CBC Comment DIFF FINAL Differential Comment Prothrombin Time 11.0 SEC Prothromb Time International 1.0 RATIO Ratio Activated Partial 25.5 SEC Thromboplast Time Sodium Level 136 MEQ/L Potassium Level 4.3 MEQ/L Chloride Level 91 MEQ/L Carbon Dioxide Level 40.9 MEQ/L Anion Gap 4 MEQ/L Blood Urea Nitrogen 8 MG/DL Creatinine 0.62 MG/DL Estimat Glomerular Filtration 131 ML/MIN Rate Random Glucose 359 MG/DL Lactic Acid Level 1.1 mmol/L Calcium Level 8.8 MG/DL Troponin I LESS THAN 0.02 NG/ML B-Hydroxybutyrate 0.90 MMOL/L Blood Gas Puncture Site RT RADIAL Blood Gas Patient Temperature 98.6 Blood Gas HCO3 40 mmol/L Blood Gas Base Excess 11.6 mmol/L Blood Gas Oxygen Saturation 83 % Arterial Blood pH 7.21 Arterial Blood Partial 102 mmHg Pressure CO2 Arterial Blood Partial 62 mmHG Pressure O2 Arterial Blood Oxygen Content 17.1 Vol % Arterial Blood 2.9 % Carboxyhemoglobin Arterial Blood Methemoglobin 2.2 % Blood Gas Hemoglobin 14.7 G/DL Oxygen Delivery Device NASAL CANNULA Blood Gas Liter Flow 6 L/M [facility] Medical Decision Making Medical Screen Exam Complete: Yes Emergency Medical Condition: Yes Medical Record Reviewed: Yes Differential Diagnosis 65-year-old male with history of COPD, CHF, venous stasis here with 2 weeks of increasing shortness of breath, dyspnea on exertion, slight cough and several days of increasing left lower extremity redness, swelling, warmth. Differential includes COPD exacerbation, bronchitis, pneumonia, CHF exacerbation , volume overload, hypoxic versus hypercapnic respiratory failure, venous stasis , DVT, cellulitis. Narrative Course Patient placed on monitor, IV established and blood obtained. He was placed on supplemental oxygen for hypoxia. Twelve-lead EKG shows sinus rhythm, right bundle branch block. No notable ST abnormalities. Patient was given 125 mg Solu-Medrol, DuoNeb 3 in empirically covered with vancomycin and Zosyn. Duplex ultrasound of the left lower extremity was obtained and negative for DVT. Portable chest x-ray was obtained that by my read shows significant cardiomegaly, left adis-diaphragmatic elevation but no acute abnormalities. CBC , BMP, BNP, coags, troponin, ABG, beta hydroxybutyrate, lactic acid, urinalysis , blood cultures obtained and notable for hypercapnic respiratory failure with pH 7.214, PCO2 100, PO2 61.9, bicarbonate 39.5 consistent with respiratory acidosis. Patient was placed on BiPAP therapy. Glucose 359, beta hydroxybutyrate 0.90. Given his hypercapnia, CO2 narcosis Will admit to flatcar whacker for potential for intubation. Critical Care Narrative Aggregate critical care time was 55 minutes. Time to perform other separately billable procedures was not included in the critical care time. My time did not include minutes spent treating any other patients simultaneously or on activities that did not directly contribute to the patient's treatment. The services I provided to this patient were to treat and/or prevent clinically significant deterioration that could result in: Cardiopulmonary decompensation, , disability I provided critical care services requiring my management, as noted below: Chart data review, documentation time, medication orders and management, vital sign assessments/reviewing monitor data, ordering and reviewing lab tests, ordering and interpreting/reviewing x-rays and diagnostic studies, care of the patient and discussion of the patient with the admitting physicians. Diagnosis Primary Impression: Acute hypercapnic respiratory failure Additional Impressions: Respiratory distress Hypoxemia Obesity hypoventilation syndrome Cellulitis of left lower extremity Hyperglycemia Carbon dioxide narcosis Admitting Information Admitting Physician Requests: it Ayde Bagley MD Sep 11, 2016 17:58
[2016-09-11 18:00] LABS: AUTOMATED NEUTROPHIL # 8.7 TH/MM3 (1.8-7.7); BASOPHIL % 0.2 % (0.0-2.0); EOSINOPHIL # 0.1 TH/MM3 (0-0.4); EOSINOPHIL % 1.2 % (0.0-4.0); HEMATOCRIT 42.4 % (39.0-51.0); HEMO FLAGS DIFF FINAL; LYMPH % 8.9 % (9.0-44.0); LYMPHOCYTE # 0.9 TH/MM3 (1.0-4.8); MEAN CELL VOLUME 87.6 FL (80.0-100.0); MEAN CORPUSCULAR HEMOGLOBIN 29.2 PG (27.0-34.0); MEAN CORPUSCULAR HGB CONC 33.3 % (32.0-36.0); MONO % 4.7 % (0.0-8.0); PLATELET COUNT 183 TH/MM3 (150-450); RED BLOOD COUNT 4.84 MIL/MM3 (4.50-5.90); RED CELL DISTRIBUTION WIDTH 15.1 % (11.6-17.2); WHITE BLOOD COUNT 10.2 TH/MM3 (4.0-11.0)
[2016-09-11 18:02] LABS: BLOOD GAS BASE EXCESS 11.6 mmol/L (-2-2); BLOOD GAS CARBOXYHEMOGLOBIN 2.9 % (0-4); BLOOD GAS HCO3 40 mmol/L (22-26); BLOOD GAS METHEMOGLOBIN 2.2 % (0-2); BLOOD GAS O2 HGB SATURATION 83 % (90-100); BLOOD GAS OXYGEN CONTENT 17.1 Vol % (12.0-20.0); BLOOD GAS PCO2 102 mmHg (38-42); BLOOD GAS PO2 62 mmHG (61-120); BLOOD GAS TOTAL HGB 14.7 G/DL (12.0-16.0); CRITICAL VALUE YES; TEMP CORR TO 98.6
[2016-09-11 18:03] LABS: DRAW SITE RT RADIAL; LITER FLOW 6 L/M; NUMBER OF ARTERIAL PUNCTURES 1; OXYGEN DEVICE NASAL CANNULA; STAT YES; ULNAR PULSE PRESENT
--- NOTE | 2016-09-11 18:03 | RADRPT ---
EXAM DATE/TIME: 09/11/2016 17:39 [place] COMPARISON: CT THORAX W CONTRAST, August 30, 2016, 10:19. CHEST SINGLE AP, August 22, 2016, 3:27. INDICATIONS : Shortness of breath. MEDICAL HISTORY : None. SURGICAL HISTORY : None. ENCOUNTER: Initial ACUITY: 1 day PAIN SCORE: Non-responsive. LOCATION: Bilateral chest FINDINGS: A single AP erect portable view of the chest was obtained and again demonstrates mild blunting of the left lateral costophrenic angle. The heart size remains mildly prominent with no perihilar edema. Pa tchy opacity remains at the left lung base. The bony thorax is intact. There are overlying electrocar diogram leads and oxygen tubing. CONCLUSION: Patchy opacity remains in the left lung base with blunting of the costophrenic angle. Konstantin Bridges MD on September 11, 2016 at 17:54 Board Certified Radiologist. This report was verified electronically. \ ? C of 1 RADIOLOGY CONSULTATION REPORT Ordering MD: LEROY VIRK M.D. MR#: [id number] : 52 Copy To: Loc: [facility] Age: 65 Bed: HANGJACK September 11, 2016 17:39 XR CHEST, SINGLE AP [facility] DEPARTMENT OF RADIOLOGY [address] [place] * [address] [place] [address] * RADIOLOGY CONSULTATION REPORT Ordering MD: LEROY VIRK M.D. MR#: [id number] : 52 Copy To: Loc: [facility] Age: 65 Bed: MAURICIOJACK FOSTER September 11, 2016 17:39 XR CHEST, SINGLE AP
[2016-09-11 18:09] LABS: APTT (PATIENT) 25.5 SEC (24.3-30.1)
[2016-09-11 18:23] LABS: ANION GAP 4 MEQ/L (5-15); BICARBONATE 40.9 MEQ/L (21.0-32.0); BLOOD UREA NITROGEN 8 MG/DL (7-18); CHLORIDE 91 MEQ/L (98-107); GLOMERULAR FILTRATION RATE 131 ML/MIN (>89); POTASSIUM 4.3 MEQ/L (3.5-5.1); SODIUM (NA) 136 MEQ/L (136-145)
[2016-09-11] MEDS ORDERED: Vancomycin Consult Pharmacy 1 EA OTHER SCH (20:00)
[2016-09-11] MEDS ORDERED: MAGNESIUM OXIDE 400 MG TAB PO PRN (20:00)
[2016-09-11] MEDS ORDERED: MISCELLANEOUS NURSING INFORMATION XX SCH (20:00)
[2016-09-11] MEDS ORDERED: ONDANSETRON HCL 4 MG/2 ML VIAL IV PRN (20:00)
[2016-09-11] MEDS ORDERED: MAGNESIUM SULFATE INJ 4 GM in SODIUM CHLORIDE 0.9% INJ 92 ML IV PRN (20:00)
[2016-09-11] MEDS ORDERED: SODIUM CHLOR 0.9% 1000 ML INJ 1,000 ML IV SCH (20:00)
[2016-09-11] MEDS ORDERED: ACETAMINOPHEN 325 MG TAB PO PRN (20:00)
[2016-09-11] MEDS ORDERED: CHLORHEXIDINE GLUCONATE 2 % 1 PACK (2 CLOTHS) TOP PRN (20:00)
[2016-09-11] MEDS ORDERED: MAGNESIUM SULFATE INJ 2 GM in SODIUM CHLORIDE 0.9% INJ 96 ML IV PRN (20:00)
[2016-09-11] MEDS ORDERED: DEXTROSE 50% IN WATER 50 ML VIAL(D50) IV PUSH PRN (20:00)
[2016-09-11] MEDS ORDERED: POTASSIUM PHOSPHATE MONOBASIC 500 MG TAB PO/TUBE PRN (20:00)
[2016-09-11] MEDS ORDERED: POTASSIUM CHLOR 40 MEQ PREMIX 100 ML IV PRN ×2 (20:00)
[2016-09-11] MEDS ORDERED: SODIUM PHOSPHATE INJ 30 MMOL in SODIUM CHLOR 0.9% 250 ML INJ 240 ML IV PRN (20:00)
[2016-09-11] MEDS ORDERED: POTASSIUM PHOSPHATE MONOBASIC 500 MG TAB PO PRN (20:00)
[2016-09-11] MEDS ORDERED: POTASSIUM CL 40 MEQ/30 ML LIQ UDC PO/TUBE PRN (20:00)
--- NOTE | 2016-09-11 20:10 | HHI.HP ---
[facility] Service Critical Care Medicine Primary Care Physician Non-Staff Admission Diagnosis co2 narcosis, acute hypercanpenic resp failure Diagnosis: Chief Complaint: shortness of breath Travel History International Travel<30 Days: No Contact w/Intl Traveler <30 Da: No Traveled to Known Affected Are: No History of Present Illness This is a morbidly obese 61-year-old male with a history of obesity hypoventilation syndrome, COPD, CHF, severe venous stasis, and recent lower extremity cellulitis who presented with worsening shortness of breath. He was recently admitted to the [facility] emergency department and then ICU with similar symptoms for which she was placed on BiPAP for a few days. In this emergency department he was noted to have a PCO2 of 102. He was placed on BiPAP initially, although his mentation continued to worsen and despite BiPAP his PCO2 increased to 112. The patient is a very poor historian on top of the fact that he is very somnolent and unable to provide additional information. Critical-care medicine is consulted to evaluate and manage his acute hypercarbic and hypoxic respiratory failure. On my evaluation, the patient cannot participate in a history at all. He is unarousable. Review of Systems ROS Limitations: Clinical Condition, Altered Mental Status Past Family Social History Allergies: Coded Allergies: No Known Allergies (Unverified , 09/11/16) Past Medical History Unobtainable secondary to patient's clinical condition. Per chart review: Anxiety Panic attacks Depression COPD Diabetes Umbilical hernia Sleep apnea Past Surgical History Unobtainable secondary to patient's clinical condition. Reported Medications Unobtainable secondary to the patient's clinical condition. Per chart review: Xanax (Alprazolam) 0.25 Mg Tab 0.25 Mg PO Q8HR PRN Novolin R Inj (Insulin Human Regular) 1,000 Unit/10 Ml Vial 1-9 Units SQ ACHS Max dose at bedtime:( )units; sugars less than 70,(0) units; sugars 150-199,(1)unit; sugars 200-249,(3)units; sugars 250-299,(5) units; sugars 300-349,(7)units; sugars greater than 349,(9)units Cardizem CD 24 HR (Diltiazem CD 24 HR) 120 Mg Caper 120 Mg PO DAILY Furosemide 20 Mg Tab 20 Mg PO DAILY Flomax (Tamsulosin HCl) 0.4 Mg Cap 0.4 Mg PO DAILY Potassium Chloride ER (Potassium Chloride) 10 Meq Cap 10 Meq PO DAILY Metformin (Metformin HCl) Unknown Strength Tab Unknown Dose PO BIDPC Active Ordered Medications See MAR Family History Unobtainable secondary to patient's clinical condition. Is unlikely that this is contributory to his acute illness Social History Unobtainable secondary to patient's clinical condition. Per chart review: Quit drinking alcohol year ago, denies tobacco, remote history of marijuana use. Physical Exam Vital Signs Vital Signs Date Time Temp Pulse Resp B/P Pulse Ox O2 Delivery O2 Flow Rate FiO2 09/11/16 19:30 80 14 142/75 95 BiPAP 60 09/11/16 18:30 93 45 09/11/16 17:00 94 Nasal Cannula 6.00 09/11/16 16:50 96 Non-Rebreather 09/11/16 16:50 86 28 96 Non-Rebreather 09/11/16 16:50 28 96 Non-Rebreather 09/11/16 16:44 97.7 89 28 138/71 82 Physical Exam GENERAL: Morbidly obese male, lying in bed, critically ill, BiPAP place HEENT: Normocephalic. Atraumatic. Pupils equal, round, reactive, conjugate. Mucous membranes are dry. NECK: Obese neck. Trachea is midline. BiPAP in place. Unable to assess JVD secondary to obesity CHEST: Equal chest rise. Markedly decreased bilateral breath sounds with almost no air entry bilaterally. CARDIOVASCULAR: Normal rate, regular rhythm. No appreciable murmurs. ABDOMEN: Obese, soft, nontender, nondistended. No guarding. MUSCULOSKELETAL: Bilateral lower extremity with significant venous stasis changes. 3+ lower extremity pitting edema. Right lower extremity with evidence of prior graft. NEUROLOGICAL: RASS -3. Obtunded. Will arouse to sternal rub. Does not follow commands. Laboratory Laboratory Tests Test 09/11/16 09/11/16 09/11/16 17:04 17:05 17:38 Urine Color LIGHT-YELLOW Urine Turbidity CLEAR Urine pH 5.5 Urine Specific [place] 1.035 Urine Protein NEG Urine Glucose (UA) 1000 Urine Ketones 80 Urine Occult Blood NEG Urine Nitrite NEG Urine Bilirubin NEG Urine Urobilinogen LESS THAN 2.0 Urine Leukocyte Esterase NEG Urine RBC LESS THAN 1 Urine WBC 1 Microscopic Urinalysis Comment CATH-CULT NOT IND White Blood Count 10.2 Red Blood Count 4.84 Hemoglobin 14.1 Hematocrit 42.4 Mean Corpuscular Volume 87.6 Mean Corpuscular Hemoglobin 29.2 Mean Corpuscular Hemoglobin 33.3 Concent Red Cell Distribution Width 15.1 Platelet Count 183 Mean Platelet Volume 8.3 Neutrophils (%) (Auto) 85.0 Lymphocytes (%) (Auto) 8.9 Monocytes (%) (Auto) 4.7 Eosinophils (%) (Auto) 1.2 Basophils (%) (Auto) 0.2 Neutrophils # (Auto) 8.7 Lymphocytes # (Auto) 0.9 Monocytes # (Auto) 0.5 Eosinophils # (Auto) 0.1 Basophils # (Auto) 0.0 CBC Comment DIFF FINAL Differential Comment Prothrombin Time 11.0 Prothromb Time International 1.0 Ratio Activated Partial 25.5 Thromboplast Time Sodium Level 136 Potassium Level 4.3 Chloride Level 91 Carbon Dioxide Level 40.9 Anion Gap 4 Blood Urea Nitrogen 8 Creatinine 0.62 Estimat Glomerular Filtration 131 Rate Random Glucose 359 Lactic Acid Level 1.1 Calcium Level 8.8 Troponin I LESS THAN 0.02 B-Type Natriuretic Peptide 61 B-Hydroxybutyrate 0.90 Blood Gas Puncture Site RT RADIAL Blood Gas Patient Temperature 98.6 Blood Gas HCO3 40 Blood Gas Base Excess 11.6 Blood Gas Oxygen Saturation 83 Arterial Blood pH 7.21 Arterial Blood Partial 102 Pressure CO2 Arterial Blood Partial 62 Pressure O2 Arterial Blood Oxygen Content 17.1 Arterial Blood 2.9 Carboxyhemoglobin Arterial Blood Methemoglobin 2.2 Blood Gas Hemoglobin 14.7 Oxygen Delivery Device NASAL CANNULA Blood Gas Liter Flow 6 Date/Time Procedure Status Source Growth 09/11/16 17:10 Aerobic Blood Culture Received Blood Peripheral Pending 09/11/16 17:10 Anaerobic Blood Culture Received Blood Peripheral Pending Result Diagram: 09/11/16 1705 09/11/16 1705 Assessment and Plan Assessment and Plan Assessment: This is a 65-year-old male with history of obesity hypoventilation syndrome and COPD with recent admission for hypercarbic respiratory failure who presents again with hypercarbic respiratory failure as well as lower extremity cellulitis. He is clearly failed noninvasive ventilation as his PCO2 has again risen despite BiPAP. We will proceed with intubation and mechanical ventilation. We will cover him empirically with antibiotics for his cellulitis. He remains very critically ill this time. Plan by systems: Neurologic: Metabolic encephalopathy Likely secondary to hypercapnia Propofol as needed for RASS goal -2 Respiratory: Acute hypoxic and hypercarbic respiratory failure Obesity hypoventilation syndrome COPD exacerbation Proceed with intubation. Please see procedure note for details Low tidal volume Ventilation targeting 6 cc/kg ideal body weight Increased expiratory time to allow for adequate expiration Wean FiO2 for goal SPO2 greater than 88% Does not meet SBT criteria due to hypoxia and hypercarbia Methylprednisolone 60 mrem IV every 12 DuoNeb's every 4 every 2 when necessary Vent bundle Head of bed at 30 Cardiovascular: Continue telemetry Renal: Payne placed for accurate I's and O's in this critically ill patient -- Strict I/Os FEN/GI: Morbid obesity Nothing by mouth Place orogastric tube ICU electrolyte protocol Daily BMP Bowel regimen with senna and Colace Heme/ID: Lower extremity cellulitis Does not be transfusion triggers at this time Vancomycin with pharmacy dosing Zosyn Follow-up blood, sputum, urine cultures Daily CBC Endocrine: Hyperglycemia of critical illness -- SSI, medium scale, every 6 hours Prophylaxis: GI Prophylaxis Protonix 40 mg IV every 12 hours DVT Prophylaxis -- SCDs Lovenox 40 mg subcutaneous every 24 Lines: Peripheral IVs Payne May require central venous access. We'll reevaluate Dispo: Admit to the ICU. He remains critically ill This patient remains critically ill with one or more organ systems which are or may become a threat to life. I have spent in excess of 85 minutes discontinuously in the care and management of this patient. This time is exclusive of procedures, and includes, but is not limited to, evaluation of the patient, review of the medical record, discussions with family, consultants, nursing staff, or respiratory therapy, and documentation in the medical record. Code Status Full Code Kirit Martinez MD Sep 11, 2016 20:10
[2016-09-11] MEDS ORDERED: ETOMIDATE 20 MG/10 ML VIAL ONE (20:21)
[2016-09-11] MEDS ORDERED: PROPOFOL 1000 MG/100 ML INJ 100 ML ONE (20:21)
[2016-09-11] MEDS ORDERED: SUCCINYLCHOLINE CHLORIDE 200 MG/10 ML VIAL ONE (20:26)
[2016-09-11] MEDS: SODIUM CHLORIDE 0.9% FLUSH 5 ML FLUSH IV FLUSH SCH (21:00)
[2016-09-11] MEDS: DOCUSATE SODIUM 50 MG/SENNA 8.6 MG TAB PO SCH (21:00)
[2016-09-11] MEDS: methylPREDNISolone SOD SUCC 125 MG/2 ML VIAL IV PUSH SCH (22:02)
[2016-09-11] MEDS: INSULIN NovoLIN REGULAR SUPPLEMENTAL SCALE SQ SCH (22:02)
[2016-09-11] MEDS: ENOXAPARIN SODIUM 40 MG/0.4 ML SYRINGE SQ SCH (22:03)
--- NOTE | 2016-09-11 22:14 | RADRPT ---
EXAM DATE/TIME: 09/11/2016 21:39 [place] COMPARISON: CHEST SINGLE AP, September 11, 2016, 17:39. INDICATIONS : Post procedure. MEDICAL HISTORY : None. SURGICAL HISTORY : None. ENCOUNTER: Initial ACUITY: 1 day PAIN SCORE: Non-responsive. LOCATION: Bilateral chest FINDINGS: The patient is intubated with the tip of the ET tube 3 cm from the daniel. An NG tube is in place with the tip directed into the stomach. The heart size is enlarged. There is some minim al increased density identified at the bases. The mid and upper lungs are relatively clear. CONCLUSION: 1. ET tube and NG tube in good position. 2. Minimal areas of increased density identified at the bases likely representing areas of atelectasi s or consolidation. These are unchanged from the prior exam. Abhinav Chambers MD on September 11, 2016 at 22:05 Board Certified Radiologist. This report was verified electronically.
[2016-09-11 22:18] LABS: BLOOD GAS BASE EXCESS 10.8 mmol/L (-2-2); BLOOD GAS CARBOXYHEMOGLOBIN 2.7 % (0-4); BLOOD GAS HCO3 39 mmol/L (22-26); BLOOD GAS METHEMOGLOBIN 2.1 % (0-2); BLOOD GAS O2 HGB SATURATION 88 % (90-100); BLOOD GAS PCO2 112 mmHg (38-42); BLOOD GAS PO2 77 mmHG (61-120); BLOOD GAS TOTAL HGB 15.3 G/DL (12.0-16.0); CRITICAL VALUE YES; DRAW SITE LT RADIAL; NUMBER OF ARTERIAL PUNCTURES 1; OXYGEN DEVICE BIPAP; STAT YES; TEMP CORR TO 98.6; ULNAR PULSE PRESENT; VENT SETTINGS IPAP=16 EPAP=5
[2016-09-11] MEDS: PIPERACIL-TAZO 4.5 GM PREMIX 100 ML IV SCH (22:43)
[2016-09-11 23:13] LABS: BLOOD GAS BASE EXCESS 10.2 mmol/L (-2-2); BLOOD GAS CARBOXYHEMOGLOBIN 2.9 % (0-4); BLOOD GAS HCO3 35 mmol/L (22-26); BLOOD GAS METHEMOGLOBIN 2.1 % (0-2); BLOOD GAS O2 HGB SATURATION 90 % (90-100); BLOOD GAS OXYGEN CONTENT 18.2 Vol % (12.0-20.0); BLOOD GAS PCO2 60 mmHg (38-42); BLOOD GAS PO2 69 mmHG (61-120); BLOOD GAS TOTAL HGB 14.4 G/DL (12.0-16.0); TEMP CORR TO 98.6
[2016-09-11 23:14] LABS: CRITICAL VALUE YES; FIO2 60 %; OXYGEN DEVICE VENTILATOR
[2016-09-11 23:15] LABS: DRAW SITE LT RADIAL; NUMBER OF ARTERIAL PUNCTURES 1; STAT NO; ULNAR PULSE PRESENT
[2016-09-12] VITALS (21 sets, daily range): BP systolic 106–157; BP diastolic 56–84; PULSE 62–84; RESP 16–25; TEMP 97–98.7; O2SAT 90–100
[2016-09-12] MEDS: INSULIN NovoLIN REGULAR SUPPLEMENTAL SCALE SQ SCH ×6 (00:01→20:00)
[2016-09-12] MEDS: VANCOMYCIN INJ 1,150 MG in SODIUM CHLOR 0.9% 250 ML INJ 250 ML IV SCH ×2 (00:24→07:50)
[2016-09-12] MEDS: RESP: ALBUTEROL 2.5 MG/IPRATROPIUM 0.5 MG NEB (SCH) INH ×7 (00:27→23:21)
--- NOTE | 2016-09-12 00:59 | PD.PROCEDR ---
Procedure Note Procedure I performed this procedure on 09/11/2016 Endotracheal Intubation Diagnosis: COPD exacerbation Indications: Acute hypercarbic and hypoxic respiratory failure, failing noninvasive ventilation Consent: Consent is deemed emergent or medically necessary Anesthesia:, Etomidate 10 mg IV, succinylcholine 160 mg IV Description of the Procedure: The patient was positioned in the sniffing position. Pre-oxygenation was performed using a 100% BiPAP 18/8. Anesthesia was induced via rapid sequence. A Sofi #4 was used for laryngoscopy and a Grade II B view was obtained with BURP maneuver. A 8.0 cuffed endotracheal tube was inserted atraumatically through the vocal cords. Confirmation of correct endotracheal tube placement was made by equal and bilateral breath sounds and colorimetric CO2 detection. The endotracheal tube was secured at 24 cm at the teeth. There were no immediate complications noted. The patient remained hemodynamically stable throughout the procedure. A chest x-ray has been ordered. I personally performed the procedure. Kirit Martinez MD Sep 12, 2016 00:59
[2016-09-12] MEDS ORDERED: SUCCINYLCHOLINE CHLORIDE 200 MG/10 ML VIAL IV PUSH ONE (01:00)
[2016-09-12] MEDS: PROPOFOL 1000 MG/100 ML INJ 100 ML IV SCH ×6 (01:00→21:48)
[2016-09-12] MEDS ORDERED: ETOMIDATE 20 MG/10 ML VIAL IV PUSH ONE (01:00)
[2016-09-12] MEDS: CHLORHEXIDINE GLUCONATE 2 % 1 PACK (2 CLOTHS) TOP SCH (04:00)
[2016-09-12 04:49] LABS: HEMATOCRIT 40.3 % (39.0-51.0); MEAN CELL VOLUME 85.9 FL (80.0-100.0); MEAN CORPUSCULAR HEMOGLOBIN 29.4 PG (27.0-34.0); MEAN CORPUSCULAR HGB CONC 34.2 % (32.0-36.0); PLATELET COUNT 189 TH/MM3 (150-450); RED BLOOD COUNT 4.69 MIL/MM3 (4.50-5.90); REVIEW FLAG FINAL; WHITE BLOOD COUNT 9.2 TH/MM3 (4.0-11.0)
--- NOTE | 2016-09-12 05:19 | RADRPT ---
EXAM DATE/TIME: 09/12/2016 03:55 [place] COMPARISON: CHEST SINGLE AP, September 11, 2016, 21:39. INDICATIONS : Shortness of breath. MEDICAL HISTORY : None. SURGICAL HISTORY : None. ENCOUNTER: Subsequent ACUITY: 2 days PAIN SCORE: Non-responsive. LOCATION: Bilateral chest FINDINGS: There are findings of congestive heart failure with interstitial and alveolar opacity bilaterally. Mo derate size bilateral pleural effusions are identified. There is left lower lobe atelectasis versus p neumonia. CONCLUSION: 1. Cardiomegaly and findings of congestive heart failure. The findings have worsened when compared wi th the prior examination. Chace Akins MD on September 12, 2016 at 5:17 Board Certified Radiologist. This report was verified electronically.
[2016-09-12 05:25] LABS: BICARBONATE 36.4 MEQ/L (21.0-32.0); POTASSIUM 3.4 MEQ/L (3.5-5.1)
[2016-09-12 05:49] LABS: BLOOD GAS BASE EXCESS 10.7 mmol/L (-2-2); BLOOD GAS CARBOXYHEMOGLOBIN 2.2 % (0-4); BLOOD GAS HCO3 34 mmol/L (22-26); BLOOD GAS METHEMOGLOBIN 1.2 % (0-2); BLOOD GAS O2 HGB SATURATION 91 % (90-100); BLOOD GAS OXYGEN CONTENT 17.8 Vol % (12.0-20.0); BLOOD GAS PCO2 41 mmHg (38-42); BLOOD GAS PO2 61 mmHg (61-120); BLOOD GAS TOTAL HGB 13.9 G/DL (12.0-16.0); TEMP CORR TO 98.6
[2016-09-12] MEDS: PIPERACIL-TAZO 4.5 GM PREMIX 100 ML IV SCH ×4 (05:49→21:48)
[2016-09-12 05:50] LABS: CRITICAL VALUE YES; DRAW SITE RT RADIAL; FIO2 60 %; NUMBER OF ARTERIAL PUNCTURES 1; OXYGEN DEVICE VENTILATOR; STAT YES; ULNAR PULSE PRESENT
[2016-09-12] MEDS: PANTOPRAZOLE SODIUM 40 MG VIAL IV SCH (07:50)
[2016-09-12] MEDS: CHLORHEXIDINE 0.12% (ORAL KIT) 15 ML CUP MT SCH ×2 (07:50→21:50)
[2016-09-12] MEDS: methylPREDNISolone SOD SUCC 125 MG/2 ML VIAL IV PUSH SCH (07:50)
[2016-09-12] MEDS: SODIUM CHLORIDE 0.9% FLUSH 5 ML FLUSH IV FLUSH SCH ×2 (07:51→21:50)
[2016-09-12] MEDS: POTASSIUM CL 40 MEQ/30 ML LIQ UDC PO/TUBE PRN (08:06)
[2016-09-12] MEDS: DOCUSATE SODIUM 50 MG/SENNA 8.6 MG TAB PO SCH ×2 (08:06→21:48)
--- NOTE | 2016-09-12 08:26 | HHI.CCPN ---
Subjective Remarks/Hospital Course This is a morbidly obese 61-year-old male with a history of obesity hypoventilation syndrome, COPD, CHF, severe venous stasis, and recent lower extremity cellulitis who presented with worsening shortness of breath. He was recently admitted to the [facility] emergency department and then ICU with similar symptoms for which she was placed on BiPAP for a few days. In this emergency department he was noted to have a PCO2 of 102. He was placed on BiPAP initially, although his mentation continued to worsen and despite BiPAP his PCO2 increased to 112. The patient is a very poor historian on top of the fact that he is very somnolent and unable to provide additional information. Critical-care medicine is consulted to evaluate and manage his acute hypercarbic and hypoxic respiratory failure. On my evaluation, the patient cannot participate in a history at all. He is unarousable. 09/12 Patient is sedated with Diprivan and intubated. Afebrile. On PRVC/AC RR 14 , TV 450, PEEP:8, IT:0.9, FIO2 60%. Objective Vital Signs Date Time Temp Pulse Resp B/P Pulse Ox O2 Delivery O2 Flow Rate FiO2 09/12/16 07:29 93 60 09/12/16 07:29 Ventilator 09/12/16 06:00 62 09/12/16 04:00 97.3 25 157/84 09/11/16 17:00 6.00 Intake and Output 09/11/16 09/11/16 09/12/16 08:00 16:00 00:00 Output Total 1500 ml Balance -1500 ml Result Diagram: 09/12/16 0442 09/12/16 0442 Other Results Laboratory Tests Test 09/11/16 09/11/16 09/11/16 09/11/16 17:04 17:05 17:38 20:10 Urine Color LIGHT-YELLOW Urine Turbidity CLEAR Urine pH 5.5 Urine Specific [place] 1.035 Urine Protein NEG mg/dL Urine Glucose (UA) 1000 mg/dL Urine Ketones 80 mg/dL Urine Occult Blood NEG Urine Nitrite NEG Urine Bilirubin NEG Urine Urobilinogen LESS THAN 2.0 MG/DL Urine Leukocyte Esterase NEG Urine RBC LESS THAN 1 /hpf Urine WBC 1 /hpf Microscopic Urinalysis Comment CATH-CULT NOT IND White Blood Count 10.2 TH/MM3 Red Blood Count 4.84 MIL/MM3 Hemoglobin 14.1 GM/DL Hematocrit 42.4 % Mean Corpuscular Volume 87.6 FL Mean Corpuscular Hemoglobin 29.2 PG Mean Corpuscular Hemoglobin 33.3 % Concent Red Cell Distribution Width 15.1 % Platelet Count 183 TH/MM3 Mean Platelet Volume 8.3 FL Neutrophils (%) (Auto) 85.0 % Lymphocytes (%) (Auto) 8.9 % Monocytes (%) (Auto) 4.7 % Eosinophils (%) (Auto) 1.2 % Basophils (%) (Auto) 0.2 % Neutrophils # (Auto) 8.7 TH/MM3 Lymphocytes # (Auto) 0.9 TH/MM3 Monocytes # (Auto) 0.5 TH/MM3 Eosinophils # (Auto) 0.1 TH/MM3 Basophils # (Auto) 0.0 TH/MM3 CBC Comment DIFF FINAL Differential Comment Prothrombin Time 11.0 SEC Prothromb Time International 1.0 RATIO Ratio Activated Partial 25.5 SEC Thromboplast Time Sodium Level 136 MEQ/L Potassium Level 4.3 MEQ/L Chloride Level 91 MEQ/L Carbon Dioxide Level 40.9 MEQ/L Anion Gap 4 MEQ/L Blood Urea Nitrogen 8 MG/DL Creatinine 0.62 MG/DL Estimat Glomerular Filtration 131 ML/MIN Rate Random Glucose 359 MG/DL Lactic Acid Level 1.1 mmol/L Calcium Level 8.8 MG/DL Troponin I LESS THAN 0.02 NG/ML B-Type Natriuretic Peptide 61 PG/ML B-Hydroxybutyrate 0.90 MMOL/L Blood Gas Puncture Site RT RADIAL LT RADIAL Blood Gas Patient Temperature 98.6 98.6 Blood Gas HCO3 40 mmol/L 39 mmol/L Blood Gas Base Excess 11.6 mmol/L 10.8 mmol/L Blood Gas Oxygen Saturation 83 % 88 % Arterial Blood pH 7.21 7.17 Arterial Blood Partial 102 mmHg 112 mmHg Pressure CO2 Arterial Blood Partial 62 mmHG 77 mmHG Pressure O2 Arterial Blood Oxygen Content 17.1 Vol % 19.0 Vol % Arterial Blood 2.9 % 2.7 % Carboxyhemoglobin Arterial Blood Methemoglobin 2.2 % 2.1 % Blood Gas Hemoglobin 14.7 G/DL 15.3 G/DL Oxygen Delivery Device NASAL CANNULA BIPAP Blood Gas Liter Flow 6 L/M Blood Gas Ventilator Setting IPAP=16 EPAP=5 Test 09/11/16 09/12/16 09/12/16 09/12/16 22:50 01:45 04:42 05:37 Blood Gas Puncture Site LT RADIAL RT RADIAL Blood Gas Patient Temperature 98.6 98.6 Blood Gas HCO3 35 mmol/L 34 mmol/L Blood Gas Base Excess 10.2 mmol/L 10.7 mmol/L Blood Gas Oxygen Saturation 90 % 91 % Arterial Blood pH 7.39 7.54 Arterial Blood Partial 60 mmHg 41 mmHg Pressure CO2 Arterial Blood Partial 69 mmHG 61 mmHg Pressure O2 Arterial Blood Oxygen Content 18.2 Vol % 17.8 Vol % Arterial Blood 2.9 % 2.2 % Carboxyhemoglobin Arterial Blood Methemoglobin 2.1 % 1.2 % Blood Gas Hemoglobin 14.4 G/DL 13.9 G/DL Oxygen Delivery Device VENTILATOR VENTILATOR Blood Gas Ventilator Setting SEE COMMENT Blood Gas Inspired Oxygen 60 % 60 % Nasal Screen MRSA (PCR) NEGATIVE White Blood Count 9.2 TH/MM3 Red Blood Count 4.69 MIL/MM3 Hemoglobin 13.8 GM/DL Hematocrit 40.3 % Mean Corpuscular Volume 85.9 FL Mean Corpuscular Hemoglobin 29.4 PG Mean Corpuscular Hemoglobin 34.2 % Concent Red Cell Distribution Width 15.0 % Platelet Count 189 TH/MM3 Mean Platelet Volume 8.3 FL Sodium Level 138 MEQ/L Potassium Level 3.4 MEQ/L Chloride Level 93 MEQ/L Carbon Dioxide Level 36.4 MEQ/L Anion Gap 9 MEQ/L Blood Urea Nitrogen 11 MG/DL Creatinine 0.67 MG/DL Estimat Glomerular Filtration 119 ML/MIN Rate Random Glucose 329 MG/DL Calcium Level 9.0 MG/DL Imaging Last Impressions Chest X-Ray 09/12/16 0600 Signed Impressions: Service Date/Time: Monday, September 12, 2016 03:55 - CONCLUSION: 1. Cardiomegaly and findings of congestive heart failure. The findings have worsened when compared with the prior examination. Chace Akins MD Lower Extremity Ultrasound 09/11/16 0000 Signed Impressions: Service Date/Time: Sunday, September 11, 2016 17:04 - CONCLUSION: No evidence of deep venous thrombosis. Konstantin Bridges MD Objective Remarks GENERAL: 65yo critically ill sedated and intubated SKIN: Warm and dry. HEAD: Normocephalic. EYES: No scleral icterus. No injection or drainage. NECK: Supple, trachea midline. No JVD or lymphadenopathy. CARDIOVASCULAR: Regular rate and rhythm without murmurs, gallops, or rubs. RESPIRATORY: Breath sounds equal bilaterally. No accessory muscle use. GASTROINTESTINAL: Abdomen soft, non-tender, nondistended. MUSCULOSKELETAL: Bilateral lower extremity with significant venous stasis changes. 3+ lower extremity pitting edema. Right lower extremity with evidence of prior graft. Neuro: Sedated and intubated A/P Assessment and Plan 1)Acute hypercapneic and hypoxic resp failure 2)Metabolic encephalopathy 3)Obesity hypoventilation syndrome 4)COPD exacerbation 5)Morbid obesity 6)Lower extremity cellulitis 7)Hyperglycemia of critical illness 8)HTN Neuro: On Diprivan infusion for sedation. Daily sedation vacation when appropriate, Pulm: On PRVC/AC RR 14, TV 450< IT:0.9, PEEP:8, FIO2 60% Continue with vent support keep sat >92% Bronchodilators, ICU vent bundle. Decrease Solumederol 40mg Q12 CV: Place on Cardizem 60mg QID, monitor HR and BP keep MAP>65mmHg Echo from 08/25 showed EF 55%, no RWMA : Monitor renal function, I/O's, electrolytes replacement per protocol. Diurese with Bumex 1mg x1, d/c IVF GI: Start TF-Glucerna 1.5 with goal rate 45 ml/hr ID: Continue with abx ( Vanco, Zosyn) montiro for signs of infections ( Fever, WBC) follow up on cxs Heme: Monitor CBC Endo SSI (High scale )add Levemir 7 U Q12 for glycemic control Prophylaxis: GI Prophylaxis Protonix 40 mg IV daily DVT Prophylaxis -- SCDs Lovenox 40 mg subcutaneous daily -Doppler US LE negative for DVT CCT 30 mins Arcelia Joyner MD Sep 12, 2016 08:26
[2016-09-12] MEDS ORDERED: BUMETANIDE INJ 1 MG/4 ML VIAL IV PUSH ONE (08:30)
--- NOTE | 2016-09-12 09:20 | EKG ---
Date Performed: 09/11/2016 Time Performed: 17:29:34 PTAGE: 65 years EKG: Sinus rhythm BORDERLINE LEFT AXIS DEVIATION RIGHT BUNDLE BRANCH BLOCK ABNORMAL ECG PREVIOUS TRACING : 08/22/2016 03.06 Compared to prior tracing no significant change DOCTOR: Jaycob Carrasco Interpretating Date/Time 09/12/2016 09:18:54
[2016-09-12] MEDS: DILTIAZEM HCL 60 MG TAB PO SCH ×4 (09:43→21:00)
[2016-09-12] MEDS: INSULIN DETEMIR 100 UNITS/ML VIAL SQ SCH ×2 (12:32→21:53)
[2016-09-12] MEDS: POTASSIUM CHLOR 20 MEQ PREMIX 100 ML IV PRN ×2 (15:46→18:06)
[2016-09-12] MEDS: VANCOMYCIN INJ 1,750 MG in SODIUM CHLORID 0.9% 500 ML INJ 500 ML IV SCH (17:17)
[2016-09-12] MEDS: methylPREDNISolone SOD SUCC 40 MG/1 ML VIAL IV PUSH SCH (21:49)
[2016-09-12] MEDS: ENOXAPARIN SODIUM 40 MG/0.4 ML SYRINGE SQ SCH (21:49)
[2016-09-13] VITALS (19 sets, daily range): BP systolic 105–141; BP diastolic 59–76; PULSE 58–76; RESP 20–24; TEMP 97.9–98.9; O2SAT 90–98
[2016-09-13] MEDS: PROPOFOL 1000 MG/100 ML INJ 100 ML IV SCH ×8 (00:54→23:34)
[2016-09-13] MEDS: RESP: ALBUTEROL 2.5 MG/IPRATROPIUM 0.5 MG NEB (SCH) INH ×5 (03:43→19:59)
[2016-09-13] MEDS: CHLORHEXIDINE GLUCONATE 2 % 1 PACK (2 CLOTHS) TOP SCH ×2 (04:00→20:11)
[2016-09-13] MEDS: INSULIN NovoLIN REGULAR SUPPLEMENTAL SCALE SQ SCH ×5 (04:00→16:00)
[2016-09-13] MEDS: PIPERACIL-TAZO 4.5 GM PREMIX 100 ML IV SCH ×4 (04:30→21:03)
[2016-09-13] MEDS ORDERED: PHARMACY ORDERED LAB XX ONE (05:45)
[2016-09-13] MEDS: VANCOMYCIN INJ 1,750 MG in SODIUM CHLORID 0.9% 500 ML INJ 500 ML IV SCH (05:47)
[2016-09-13 06:11] LABS: AUTOMATED NEUTROPHIL # 11.3 TH/MM3 (1.8-7.7); BASOPHIL % 0.1 % (0.0-2.0); HEMATOCRIT 39.4 % (39.0-51.0); HEMO FLAGS DIFF FINAL; LYMPH % 7.2 % (9.0-44.0); LYMPHOCYTE # 0.9 TH/MM3 (1.0-4.8); MEAN CELL VOLUME 87.9 FL (80.0-100.0); MEAN CORPUSCULAR HEMOGLOBIN 28.8 PG (27.0-34.0); MEAN CORPUSCULAR HGB CONC 32.8 % (32.0-36.0); MONO % 4.9 % (0.0-8.0); NEUT % 87.8 % (16.0-70.0); PLATELET COUNT 176 TH/MM3 (150-450); RED BLOOD COUNT 4.48 MIL/MM3 (4.50-5.90); RED CELL DISTRIBUTION WIDTH 15.2 % (11.6-17.2); WHITE BLOOD COUNT 12.8 TH/MM3 (4.0-11.0)
[2016-09-13 06:34] LABS: BICARBONATE 34.3 MEQ/L (21.0-32.0); POTASSIUM 3.4 MEQ/L (3.5-5.1)
[2016-09-13] MEDS: methylPREDNISolone SOD SUCC 40 MG/1 ML VIAL IV PUSH SCH (08:22)
[2016-09-13] MEDS: CHLORHEXIDINE 0.12% (ORAL KIT) 15 ML CUP MT SCH ×2 (08:22→20:00)
[2016-09-13] MEDS: SODIUM CHLORIDE 0.9% FLUSH 5 ML FLUSH IV FLUSH SCH ×2 (08:23→20:04)
[2016-09-13] MEDS: INSULIN DETEMIR 100 UNITS/ML VIAL SQ SCH (08:23)
[2016-09-13] MEDS: PANTOPRAZOLE SODIUM 40 MG VIAL IV SCH (08:23)
[2016-09-13] MEDS: DILTIAZEM HCL 60 MG TAB PO SCH ×4 (08:23→20:04)
[2016-09-13] MEDS: DOCUSATE SODIUM 50 MG/SENNA 8.6 MG TAB PO SCH ×2 (08:23→20:03)
[2016-09-13] MEDS: POTASSIUM CL 40 MEQ/30 ML LIQ UDC PO/TUBE PRN (08:24)
--- NOTE | 2016-09-13 09:15 | HHI.CCPN ---
Subjective Remarks/Hospital Course This is a morbidly obese 61-year-old male with a history of obesity hypoventilation syndrome, COPD, CHF, severe venous stasis, and recent lower extremity cellulitis who presented with worsening shortness of breath. He was recently admitted to the [facility] emergency department and then ICU with similar symptoms for which she was placed on BiPAP for a few days. In this emergency department he was noted to have a PCO2 of 102. He was placed on BiPAP initially, although his mentation continued to worsen and despite BiPAP his PCO2 increased to 112. The patient is a very poor historian on top of the fact that he is very somnolent and unable to provide additional information. Critical-care medicine is consulted to evaluate and manage his acute hypercarbic and hypoxic respiratory failure. On my evaluation, the patient cannot participate in a history at all. He is unarousable. 09/12 Patient is sedated with Diprivan and intubated. Afebrile. On PRVC/AC RR 14 , TV 450, PEEP:8, IT:0.9, FIO2 60%. 09/13 Patient remains sedated and intubated, On PRVC/AC RR 14, TV 450, IT:0.9, PEEP:10, FIO2 70%, Afebrile. Objective Vital Signs Date Time Temp Pulse Resp B/P Pulse Ox O2 Delivery O2 Flow Rate FiO2 09/13/16 08:00 70 09/13/16 08:00 98.4 61 20 108/59 91 09/12/16 07:29 Ventilator 09/11/16 17:00 6.00 Intake and Output 09/12/16 09/12/16 09/13/16 08:00 16:00 00:00 Intake Total 446 ml 774 ml 1402 ml Output Total 1300 ml 850 ml 450.0 ml Balance -854 ml -76 ml 952.0 ml Result Diagram: 09/13/16 0524 09/13/1624 Other Results Laboratory Tests Test 09/12/16 09/13/16 14:31 05:24 Potassium Level 3.2 MEQ/L 3.4 MEQ/L White Blood Count 12.8 TH/MM3 Red Blood Count 4.48 MIL/MM3 Hemoglobin 12.9 GM/DL Hematocrit 39.4 % Mean Corpuscular Volume 87.9 FL Mean Corpuscular Hemoglobin 28.8 PG Mean Corpuscular Hemoglobin 32.8 % Concent Red Cell Distribution Width 15.2 % Platelet Count 176 TH/MM3 Mean Platelet Volume 8.6 FL Neutrophils (%) (Auto) 87.8 % Lymphocytes (%) (Auto) 7.2 % Monocytes (%) (Auto) 4.9 % Eosinophils (%) (Auto) 0.0 % Basophils (%) (Auto) 0.1 % Neutrophils # (Auto) 11.3 TH/MM3 Lymphocytes # (Auto) 0.9 TH/MM3 Monocytes # (Auto) 0.6 TH/MM3 Eosinophils # (Auto) 0.0 TH/MM3 Basophils # (Auto) 0.0 TH/MM3 CBC Comment DIFF FINAL Differential Comment Sodium Level 137 MEQ/L Chloride Level 95 MEQ/L Carbon Dioxide Level 34.3 MEQ/L Anion Gap 8 MEQ/L Blood Urea Nitrogen 18 MG/DL Creatinine 0.75 MG/DL Estimat Glomerular Filtration 105 ML/MIN Rate Random Glucose 312 MG/DL Calcium Level 8.9 MG/DL Imaging Last Impressions Chest X-Ray 09/12/16 0600 Signed Impressions: Service Date/Time: Monday, September 12, 2016 03:55 - CONCLUSION: 1. Cardiomegaly and findings of congestive heart failure. The findings have worsened when compared with the prior examination. Chace Akins MD Lower Extremity Ultrasound 09/11/16 0000 Signed Impressions: Service Date/Time: Sunday, September 11, 2016 17:04 - CONCLUSION: No evidence of deep venous thrombosis. Konstantin Bridges MD Objective Remarks GENERAL: 65yo critically ill sedated and intubated SKIN: Warm and dry. HEAD: Normocephalic. EYES: No scleral icterus. No injection or drainage. NECK: Supple, trachea midline. No JVD or lymphadenopathy. CARDIOVASCULAR: Regular rate and rhythm without murmurs, gallops, or rubs. RESPIRATORY: Breath sounds equal bilaterally. No accessory muscle use. GASTROINTESTINAL: Abdomen soft, non-tender, nondistended. MUSCULOSKELETAL: Bilateral lower extremity with significant venous stasis changes. 3+ lower extremity pitting edema. Right lower extremity with evidence of prior graft. Neuro: Sedated and intubated A/P Assessment and Plan 1)Acute hypercapneic and hypoxic resp failure 2)Metabolic encephalopathy 3)Obesity hypoventilation syndrome 4)COPD exacerbation 5)Morbid obesity 6)Lower extremity cellulitis 7)Hyperglycemia of critical illness 8)HTN Neuro: On Diprivan infusion for sedation. Daily sedation vacation when appropriate, Pulm: On PRVC/AC RR 14, TV 450< IT:0.9, PEEP:10, FIO2 70%, Decrease FIO2 60% Continue with vent support keep sat >92% Bronchodilators, ICU vent bundle. Decrease Solumederol 40mg daily CV: On Cardizem 60mg QID, monitor HR and BP keep MAP>65mmHg Echo from 08/25 showed EF 55%, no RWMA : Monitor renal function, I/O's, electrolytes replacement per protocol. Diurese with Bumex 1mg x1, will need K replacement today GI:On TF-Glucerna 1.5@ 45 ml/hr, Protonix 40mg daily for GI prophylaxis ID: Continue with abx ( Vanco, Zosyn) monitor for signs of infections ( Fever, WBC) 09/11 BC: NGTD. Check sputum cx, strep pneumonia and Legionella urinary Ag Heme: Monitor CBC Endo SSI (High scale ) increase Levemir 10U Q12 for glycemic control Prophylaxis: GI Prophylaxis Protonix 40 mg IV daily DVT Prophylaxis -- SCDs Lovenox 40 mg subcutaneous daily -Doppler US LE negative for DVT CCT 30 mins Arcelia Joyner MD Sep 13, 2016 09:15
[2016-09-13 09:51] LABS: VANCOMYCIN TROUGH 9.5 MCG/ML (5.0-10.0)
--- NOTE | 2016-09-13 09:54 | RADRPT ---
EXAM DATE/TIME: 09/13/2016 09:22 [facility] COMPARISON: CHEST SINGLE AP, September 12, 2016, 3:55. INDICATIONS : Short of breath. MEDICAL HISTORY : None. SURGICAL HISTORY : None. ENCOUNTER: Subsequent ACUITY: 3 days PAIN SCORE: Non-responsive. LOCATION: Bilateral chest FINDINGS: A single AP erect view of the chest was obtained and again demonstrates the endotracheal tube in plac e with the tip approximately 3 cm above the daniel. The nasogastric tube remains in place and is seen coursing into the stomach. Heart size remains enlarged. Abnormal opacity remains at both lung bases with obscuration of the hemidiaphragms and blunting of the costophrenic angles left greater than righ t. Overlying electrocardiogram leads and oxygen tubing remain. CONCLUSION: Stable appearance with findings most characteristic of congestive heart failure. Konstantin Bridges MD on September 13, 2016 at 9:51 Board Certified Radiologist. This report was verified electronically.
[2016-09-13] MEDS ORDERED: BUMETANIDE INJ 1 MG/4 ML VIAL IV PUSH ONE (10:00)
[2016-09-13] MEDS ORDERED: IOHEXOL 350 MG/ML 10 ML VIAL (for RAD DIAG) IV ONE (12:41)
--- NOTE | 2016-09-13 12:55 | RADRPT ---
EXAM DATE/TIME: 09/13/2016 12:25 [facility] COMPARISON: CT THORAX W CONTRAST, August 30, 2016, 10:19. INDICATIONS : Worsening short of breath. Evaluate for pulmonary embolism. IV CONTRAST: 85 cc Omnipaque 350 (iohexol) IV RADIATION DOSE: 23.16 CTDIvol (mGy) MEDICAL HISTORY : Cardiovascular disease. Congestive heart failure. Diabetes mellitus type 2. SURGICAL HISTORY : None. ENCOUNTER: Initial ACUITY: 1 day PAIN SCALE: Non-responsive LOCATION: chest TECHNIQUE: Volumetric scanning of the chest was performed using a pulmonary embolism protocol MIP images were re constructed. Using automated exposure control and adjustment of the mA and/or kV according to patien t size, radiation dose was kept as low as reasonably achievable to obtain optimal diagnostic quality images. FINDINGS: PULMONARY ARTERIES: No filling defects are seen in the pulmonary arteries through the segmental level. LUNGS: There is no pneumothorax . Bibasilar consolidation is noted with air bronchograms. No concerning pulm onary nodule is visualized. PLEURAE: There are small bilateral pleural effusions. MEDIASTINUM: There is good visualization of the great vessels of the middle mediastinum. No evidence of mediastin al or hilar adenopathy/mass. The heart size is moderately enlarged with no pericardial effusion. Aramis nary artery calcifications are present. MUSCULOSKELETAL: Within normal limits for patient age. MISCELLANEOUS: The visualized upper abdominal organs demonstrate no acute abnormality. An endotracheal tube and naso gastric tube are present. CONCLUSION: 1. No evidence of pulmonary embolism. 2. Bilateral pleural effusions and consolidation in both lung bases. 3. Moderate cardiomegaly. Konstantin Bridges MD on September 13, 2016 at 12:51 Board Certified Radiologist. This report was verified electronically.
[2016-09-13] MEDS: VANCOMYCIN INJ 2,000 MG in SODIUM CHLORID 0.9% 500 ML INJ 500 ML IV SCH (16:20)
[2016-09-13] MEDS ORDERED: DEXTROSE 50% IN WATER 50 ML VIAL(D50) IV PUSH PRN (17:30)
[2016-09-13] MEDS ORDERED: MISC INFORMATION XX ONE (17:30)
[2016-09-13] MEDS ORDERED: INSULIN REGULAR (IV INFUSION) 100 UNITS in SODIUM CHLORIDE 0.9% INJ 99 ML IV SCH (18:00)
[2016-09-13] MEDS: ENOXAPARIN SODIUM 40 MG/0.4 ML SYRINGE SQ SCH (20:03)
[2016-09-13] MEDS ORDERED: INSULIN DETEMIR 100 UNITS/ML VIAL SQ SCH (21:00)
[2016-09-14] VITALS (22 sets, daily range): BP systolic 101–128; BP diastolic 55–74; PULSE 57–75; RESP 19–25; TEMP 97.5–98.8; O2SAT 92–99
[2016-09-14] MEDS: RESP: ALBUTEROL 2.5 MG/IPRATROPIUM 0.5 MG NEB (SCH) INH ×7 (00:38→23:59)
[2016-09-14] MEDS: PROPOFOL 1000 MG/100 ML INJ 100 ML IV SCH ×8 (01:28→21:18)
[2016-09-14] MEDS: PIPERACIL-TAZO 4.5 GM PREMIX 100 ML IV SCH ×4 (03:00→21:22)
[2016-09-14] MEDS: VANCOMYCIN INJ 2,000 MG in SODIUM CHLORID 0.9% 500 ML INJ 500 ML IV SCH ×2 (03:01→17:53)
--- NOTE | 2016-09-14 04:44 | RADRPT ---
EXAM DATE/TIME: 09/14/2016 03:14 [facility] COMPARISON: CHEST SINGLE AP, September 13, 2016, 9:22. INDICATIONS : Shortness of breath MEDICAL HISTORY : None. SURGICAL HISTORY : None. ENCOUNTER: Subsequent ACUITY: 4 - 6 days PAIN SCORE: Non-responsive. LOCATION: Bilateral chest FINDINGS: The cardiac silhouette is enlarged in transverse diameter. There is bilateral lower lobe atelectasis versus pneumonia left greater than right. Small bilateral pleural effusions are identified. Support lines and tubes are in satisfactory position. CONCLUSION: 1. Cardiomegaly 2. Bilateral lower lobe atelectasis versus pneumonia. Bilateral effusions There has been no significa nt change when compared to the prior exam. Chace Akins MD on September 14, 2016 at 4:41 Board Certified Radiologist. This report was verified electronically.
[2016-09-14 05:03] LABS: MEAN CELL VOLUME 89.1 FL (80.0-100.0); MEAN CORPUSCULAR HEMOGLOBIN 29.5 PG (27.0-34.0); MEAN CORPUSCULAR HGB CONC 33.1 % (32.0-36.0); PLATELET COUNT 164 TH/MM3 (150-450); RED BLOOD COUNT 4.49 MIL/MM3 (4.50-5.90); RED CELL DISTRIBUTION WIDTH 15.4 % (11.6-17.2); REVIEW FLAG FINAL; WHITE BLOOD COUNT 10.5 TH/MM3 (4.0-11.0)
[2016-09-14 05:40] LABS: BICARBONATE 35.4 MEQ/L (21.0-32.0); POTASSIUM 3.8 MEQ/L (3.5-5.1)
[2016-09-14] MEDS: DILTIAZEM HCL 60 MG TAB PO SCH ×4 (08:16→21:19)
[2016-09-14] MEDS: SODIUM CHLORIDE 0.9% FLUSH 5 ML FLUSH IV FLUSH SCH ×2 (08:16→21:22)
[2016-09-14] MEDS: DOCUSATE SODIUM 50 MG/SENNA 8.6 MG TAB PO SCH ×2 (08:16→21:19)
[2016-09-14] MEDS: CHLORHEXIDINE 0.12% (ORAL KIT) 15 ML CUP MT SCH ×2 (08:16→21:22)
[2016-09-14] MEDS: PANTOPRAZOLE SODIUM 40 MG VIAL IV SCH (08:16)
[2016-09-14] MEDS ORDERED: methylPREDNISolone SOD SUCC 40 MG/1 ML VIAL IV PUSH SCH (09:00)
[2016-09-14] MEDS: MIDAZOLAM 100 MG/NS 100 ML DRIP Premix IV SCH ×2 (09:25→21:19)
[2016-09-14] MEDS ORDERED: BUMETANIDE INJ 1 MG/4 ML VIAL IV PUSH ONE (09:30)
--- NOTE | 2016-09-14 09:36 | HHI.CCPN ---
Subjective Remarks/Hospital Course This is a morbidly obese 61-year-old male with a history of obesity hypoventilation syndrome, COPD, CHF, severe venous stasis, and recent lower extremity cellulitis who presented with worsening shortness of breath. He was recently admitted to the [facility] emergency department and then ICU with similar symptoms for which she was placed on BiPAP for a few days. In this emergency department he was noted to have a PCO2 of 102. He was placed on BiPAP initially, although his mentation continued to worsen and despite BiPAP his PCO2 increased to 112. The patient is a very poor historian on top of the fact that he is very somnolent and unable to provide additional information. Critical-care medicine is consulted to evaluate and manage his acute hypercarbic and hypoxic respiratory failure. Dr. Martinez intubated and placed on mechanical ventilation 09/12 Patient is sedated with Diprivan and intubated. Afebrile. On PRVC/AC RR 14 , TV 450, PEEP:8, IT:0.9, FIO2 60%. 09/13 Patient remains sedated and intubated, On PRVC/AC RR 14, TV 450, IT:0.9, PEEP:10, FIO2 70%, Afebrile. 09/14: Patient is wide awake on propofol. FiO2 at 80%, PEEP at 10. I have changed to PSV mode for patient comfort. Start Bumex infusion for CHF/fluid overload. Increase Solu-Medrol to 40 every 8 Objective Vital Signs Date Time Temp Pulse Resp B/P Pulse Ox O2 Delivery O2 Flow Rate FiO2 09/14/16 06:00 62 09/14/16 04:22 99 80 09/14/16 04:00 97.7 21 128/74 09/12/16 07:29 Ventilator 09/11/16 17:00 6.00 Intake and Output 09/13/16 09/13/16 09/14/16 08:00 16:00 00:00 Intake Total 650 ml 1623 ml 1210 ml Output Total 350.0 ml 1875 ml 500 ml Balance 300.0 ml -252 ml 710 ml Result Diagram: 09/14/16 0438 09/14/16 0438 Other Results Microbiology Date/Time Procedure Status Source Growth 09/13/16 10:20 Legionella Antigen - Final Complete Urine Catheterized Urine PRESUMPTIVE NEGATIVE FOR LEGIONELLA P... 2/15/17 10:20 Streptococcus pneumoniae Antigen (M - Final Complete Urine Catheterized Urine PRESUMPTIVE NEGATIVE FOR STREPTOCOCCU... Imaging Last Impressions Chest X-Ray 09/12/16 0600 Signed Impressions: Service Date/Time: Monday, September 12, 2016 03:55 - CONCLUSION: 1. Cardiomegaly and findings of congestive heart failure. The findings have worsened when compared with the prior examination. Chace Akins MD Lower Extremity Ultrasound 09/11/16 0000 Signed Impressions: Service Date/Time: Sunday, September 11, 2016 17:04 - CONCLUSION: No evidence of deep venous thrombosis. Konstantin Bridges MD Objective Remarks GENERAL: 65yo critically ill sedated and intubated. Next obesity follows commands SKIN: Warm and dry. HEAD: Normocephalic. EYES: No scleral icterus. No injection or drainage. NECK: Supple, trachea midline. No JVD or lymphadenopathy. CARDIOVASCULAR: Regular rate and rhythm without murmurs, gallops, or rubs. RESPIRATORY: Breath sounds equal bilaterally. PRVC mode. At entry diminished at the bases GASTROINTESTINAL: Abdomen soft obese, non-tender, nondistended. MUSCULOSKELETAL: Bilateral lower extremity with significant venous stasis changes. 2+ lower extremity pitting edema. Right lower extremity with evidence of prior graft. Neuro: Sedated and intubated. Wakes up easily follows commands. No focal deficits A/P Assessment and Plan ASSESSMENT Acute hypercapnic and hypoxic respiratory failure CHF exacerbation/fluid overload COPD exacerbation Probable bibasilar pneumonia Metabolic encephalopathy Obesity hypoventilation syndrome Morbid obesity Lower extremity cellulitis Hyperglycemia of critical illness HTN Neuro: On Diprivan infusion for sedation, add versed. Daily sedation vacation when appropriate, Pulm: On PRVC/AC RR 14, TV 450< IT:0.9, PEEP:10, FIO2 80%, Decrease FIO2 60% Change to PSV 13/07 for patient comfort. Start spontaneous breathing trials once FiO2 less than 50% Continue with vent support keep sat >90% Bronchodilators, ICU vent bundle. Solumederol 40mg q8 CV: On Cardizem 60mg QID, monitor HR and BP keep MAP>65mmHg Echo from 08/25 showed EF 55%, no RWMA Bumex 2 mg IVP x 1 and 0.5 mg per hour : Monitor renal function, I/O's, electrolytes replacement per protocol. Bumex 2 mg IVP x 1 and 0.5 mg per hour GI:On TF-Glucerna 1.5@ 45 ml/hr, Protonix 40mg daily for GI prophylaxis ID: Continue with abx ( Vanco, Zosyn) monitor for signs of infections ( Fever, WBC). DC Vanc if negative for gram positives in 24 hours 09/11 BC: NGTD. s/u Sputum cx, strep pneumonia and Legionella urinary Ag Heme: Monitor CBC Endo SSI (High scale ) Levemir 10U Q12 for glycemic control Prophylaxis: GI Prophylaxis Protonix 40 mg IV daily DVT Prophylaxis -- SCDs Lovenox 40 mg subcutaneous daily - Doppler US LE negative for DVT CCT 40 mins Sharon La MD Sep 14, 2016 09:36
[2016-09-14] MEDS: POTASSIUM CL 40 MEQ/30 ML LIQ UDC PO SCH (09:56)
[2016-09-14] MEDS ORDERED: chlordiazePOXIDE 25 MG CAP PO ONE (10:00)
--- NOTE | 2016-09-14 10:24 | RADRPT ---
EXAM DATE/TIME: 09/14/2016 09:39 [facility] COMPARISON: CHEST SINGLE AP, September 14, 2016, 3:14. INDICATIONS : Respiratory distress. MEDICAL HISTORY : Cardiovascular disease. Congestive heart failure. Diabetes mellitus type 2. SURGICAL HISTORY : None. ENCOUNTER: Subsequent ACUITY: 3 days PAIN SCORE: Non-responsive. LOCATION: Bilateral chest FINDINGS: A single view of the chest demonstrates endotracheal tube in satisfactory position. Nasogastric tube enters stomach. Bilateral mostly basilar pleural effusions present no basilar lung consolidation. No pneumothorax. CONCLUSION: 1. Endotracheal tube and nasogastric tube in satisfactory position. Basilar airspace disease and pleu ral effusions not significantly changed since September 14. Chuckie Altamirano MD on September 14, 2016 at 10:14 Board Certified Radiologist. This report was verified electronically.
[2016-09-14] MEDS ORDERED: BUMETANIDE INJ 100 ML IV SCH (11:30)
[2016-09-14] MEDS ORDERED: DEXTROSE 50% IN WATER 50 ML VIAL(D50) IV PUSH PRN (11:45)
[2016-09-14] MEDS ORDERED: MISC INFORMATION XX ONE (11:45)
[2016-09-14 11:56] LABS: BLOOD GAS BASE EXCESS 11.3 mmol/L (-2-2); BLOOD GAS CARBOXYHEMOGLOBIN 1.5 % (0-4); BLOOD GAS HCO3 36 mmol/L (22-26); BLOOD GAS METHEMOGLOBIN 1.1 % (0-2); BLOOD GAS O2 HGB SATURATION 92 % (90-100); BLOOD GAS OXYGEN CONTENT 17.7 Vol % (12.0-20.0); BLOOD GAS PCO2 54 mmHg (38-42); BLOOD GAS PO2 76 mmHg (61-120); BLOOD GAS TOTAL HGB 13.7 G/DL (12.0-16.0); CRITICAL VALUE YES; OXYGEN DEVICE VENTILATOR; TEMP CORR TO 98.6
[2016-09-14 11:57] LABS: DRAW SITE RT RADIAL; FIO2 90 %; NUMBER OF ARTERIAL PUNCTURES 1; STAT NO; VENT SETTINGS SEE COMMENTS
[2016-09-14] MEDS: INSULIN REGULAR 100 UNITS/100 ML NS ALGORITHM 2 IV SCH ×2 (15:47)
[2016-09-14] MEDS: methylPREDNISolone SOD SUCC 40 MG/1 ML VIAL IV PUSH SCH (16:33)
[2016-09-14] MEDS: ENOXAPARIN SODIUM 40 MG/0.4 ML SYRINGE SQ SCH (21:22)
[2016-09-15] VITALS (18 sets, daily range): BP systolic 105–134; BP diastolic 61–77; PULSE 51–72; RESP 13–23; TEMP 97.4–98.4; O2SAT 89–96
[2016-09-15] MEDS: PROPOFOL 1000 MG/100 ML INJ 100 ML IV SCH ×10 (00:20→23:41)
[2016-09-15] MEDS: INSULIN REGULAR 100 UNITS/100 ML NS ALGORITHM 2 IV SCH ×4 (02:11→17:56)
[2016-09-15] MEDS: methylPREDNISolone SOD SUCC 40 MG/1 ML VIAL IV PUSH SCH ×3 (02:12→17:48)
[2016-09-15] MEDS: RESP: ALBUTEROL 2.5 MG/IPRATROPIUM 0.5 MG NEB (SCH) INH ×6 (03:21→23:33)
[2016-09-15] MEDS: CHLORHEXIDINE GLUCONATE 2 % 1 PACK (2 CLOTHS) TOP SCH (04:00)
[2016-09-15] MEDS: PIPERACIL-TAZO 4.5 GM PREMIX 100 ML IV SCH ×4 (04:25→23:00)
[2016-09-15] MEDS ORDERED: PHARMACY ORDERED LAB XX ONE (04:45)
[2016-09-15] MEDS: VANCOMYCIN INJ 2,000 MG in SODIUM CHLORID 0.9% 500 ML INJ 500 ML IV SCH ×2 (06:07→17:47)
[2016-09-15 07:22] LABS: AUTOMATED NEUTROPHIL # 8.3 TH/MM3 (1.8-7.7); BASOPHIL % 0.2 % (0.0-2.0); EOSINOPHIL % 0.1 % (0.0-4.0); HEMATOCRIT 42.9 % (39.0-51.0); HEMO FLAGS DIFF FINAL; LYMPH % 6.4 % (9.0-44.0); LYMPHOCYTE # 0.6 TH/MM3 (1.0-4.8); MEAN CELL VOLUME 88.4 FL (80.0-100.0); MEAN CORPUSCULAR HEMOGLOBIN 29.2 PG (27.0-34.0); MONO % 6.9 % (0.0-8.0); NEUT % 86.4 % (16.0-70.0); PLATELET COUNT 163 TH/MM3 (150-450); RED BLOOD COUNT 4.85 MIL/MM3 (4.50-5.90); RED CELL DISTRIBUTION WIDTH 15.1 % (11.6-17.2); WHITE BLOOD COUNT 9.6 TH/MM3 (4.0-11.0)
[2016-09-15] MEDS: PANTOPRAZOLE SODIUM 40 MG VIAL IV SCH (07:55)
[2016-09-15] MEDS: DOCUSATE SODIUM 50 MG/SENNA 8.6 MG TAB PO SCH ×2 (07:55→20:46)
[2016-09-15] MEDS: DILTIAZEM HCL 60 MG TAB PO SCH ×4 (07:56→20:46)
[2016-09-15] MEDS: POTASSIUM CL 40 MEQ/30 ML LIQ UDC PO SCH (07:56)
[2016-09-15 07:59] LABS: ALKALINE PHOSPHATASE 81 U/L (45-117); ALT (GPT) 15 U/L (12-78); ANION GAP 10 MEQ/L (5-15); AST (GOT) 5 U/L (15-37); BICARBONATE 40.9 MEQ/L (21.0-32.0); BLOOD UREA NITROGEN 18 MG/DL (7-18); CHLORIDE 86 MEQ/L (98-107); GLOMERULAR FILTRATION RATE 88 ML/MIN (>89); MAGNESIUM 2.1 MG/DL (1.5-2.5); SODIUM (NA) 137 MEQ/L (136-145); TOTAL BILIRUBIN ADULT 0.7 MG/DL (0.2-1.0)
[2016-09-15 08:08] LABS: POTASSIUM 2.8 MEQ/L (3.5-5.1)
[2016-09-15] MEDS: POTASSIUM CHLOR 20 MEQ PREMIX 100 ML IV PRN ×4 (08:10→20:46)
[2016-09-15] MEDS: CHLORHEXIDINE 0.12% (ORAL KIT) 15 ML CUP MT SCH ×2 (08:13→20:45)
[2016-09-15] MEDS: SODIUM CHLORIDE 0.9% FLUSH 5 ML FLUSH IV FLUSH SCH ×2 (08:39→20:46)
[2016-09-15] MEDS: POTASSIUM CHLOR 20 MEQ PREMIX 100 ML IV SCH ×2 (10:10→17:46)
[2016-09-15] MEDS ORDERED: POTASSIUM CL 40 MEQ/30 ML LIQ UDC PO SCH (12:30)
[2016-09-15 12:31] LABS: BLOOD GAS BASE EXCESS 15.6 mmol/L (-2-2); BLOOD GAS CARBOXYHEMOGLOBIN 1.5 % (0-4); BLOOD GAS HCO3 40 mmol/L (22-26); BLOOD GAS METHEMOGLOBIN 1.2 % (0-2); BLOOD GAS O2 HGB SATURATION 92 % (90-100); BLOOD GAS OXYGEN CONTENT 19.5 Vol % (12.0-20.0); BLOOD GAS PCO2 54 mmHg (38-42); BLOOD GAS PO2 74 mmHg (61-120); CRITICAL VALUE YES; DRAW SITE RT RADIAL; FIO2 55 %; NUMBER OF ARTERIAL PUNCTURES 1; OXYGEN DEVICE VENTILATOR; STAT YES; TEMP CORR TO 98.6; VENT SETTINGS SEE COMMENTS
--- NOTE | 2016-09-15 13:43 | RADRPT ---
EXAM DATE/TIME: 09/15/2016 12:39 [facility] COMPARISON: CT PULMONARY ANGIOGRAM, September 13, 2016, 12:25. CHEST SINGLE AP, September 14, 2016, 9:39. INDICATIONS : Short of breath. MEDICAL HISTORY : None. SURGICAL HISTORY : None. ENCOUNTER: Initial ACUITY: 3 days PAIN SCORE: Non-responsive. LOCATION: Bilateral chest FINDINGS: The nasogastric tube is in good position. There is an endotracheal tube in good position. There are s mall bilateral effusions. There is interstitial prominence. Exam would suggest congestive failure. Th e bony structures are grossly intact. CONCLUSION: 1. Cardiomegaly with bilateral effusions and consolidative changes at the lung bases. Exam would sugg est congestive failure. 2. Support equipment in good position. Fab Cabrera MD on September 15, 2016 at 13:30 Board Certified Radiologist. This report was verified electronically.
--- NOTE | 2016-09-15 13:51 | HHI.CCPN ---
Subjective Remarks/Hospital Course This is a morbidly obese 61-year-old male with a history of obesity hypoventilation syndrome, COPD, CHF, severe venous stasis, and recent lower extremity cellulitis who presented with worsening shortness of breath. He was recently admitted to the [facility] emergency department and then ICU with similar symptoms for which she was placed on BiPAP for a few days. In this emergency department he was noted to have a PCO2 of 102. He was placed on BiPAP initially, although his mentation continued to worsen and despite BiPAP his PCO2 increased to 112. The patient is a very poor historian on top of the fact that he is very somnolent and unable to provide additional information. Critical-care medicine is consulted to evaluate and manage his acute hypercarbic and hypoxic respiratory failure. Dr. Martinez intubated and placed on mechanical ventilation 09/12 Patient is sedated with Diprivan and intubated. Afebrile. On PRVC/AC RR 14 , TV 450, PEEP:8, IT:0.9, FIO2 60%. 09/13 Patient remains sedated and intubated, On PRVC/AC RR 14, TV 450, IT:0.9, PEEP:10, FIO2 70%, Afebrile. 09/14: Patient is wide awake on propofol. FiO2 at 80%, PEEP at 10. I have changed to PSV mode for patient comfort. Start Bumex infusion for CHF/fluid overload. Increase Solu-Medrol to 40 every 8 09/15: Remains hypoxemic, I have weaned FiO2 to 55%, PEEP remains at 14. Patient remains heavily sedated. Chest x-ray continues to show bibasilar infiltrates and effusion. Urine output excellent on Bumex drip more than 10 L in 24 hours Objective Vital Signs Date Time Temp Pulse Resp B/P Pulse Ox O2 Delivery O2 Flow Rate FiO2 09/15/16 13:39 55 09/15/16 12:00 97.4 62 19 120/69 94 09/12/16 07:29 Ventilator 09/11/16 17:00 6.00 Intake and Output 09/14/16 09/14/16 09/15/16 08:00 16:00 00:00 Intake Total 1313 ml 1412 ml 1414 ml Output Total 525 ml 4450 ml 2950 ml Balance 788 ml -3038 ml -1536 ml Result Diagram: 09/15/16 0550 09/15/16 0550 Other Results Microbiology Date/Time Procedure Status Source Growth 09/13/16 09:05 Gram Stain - Final Complete Sputum Endotracheal 09/13/16 09:05 Sputum Culture - Final Complete Sputum Endotracheal NO GROWTH IN 48 HOURS. 09/13/16 10:20 Legionella Antigen - Final Complete Urine Catheterized Urine PRESUMPTIVE NEGATIVE FOR LEGIONELLA P... 09/13/16 10:20 Streptococcus pneumoniae Antigen (M - Final Complete Urine Catheterized Urine PRESUMPTIVE NEGATIVE FOR STREPTOCOCCU... Laboratory Tests Test 09/15/16 12:21 Blood Gas Puncture Site RT RADIAL Blood Gas Patient Temperature 98.6 Blood Gas HCO3 40 mmol/L (22-26) Blood Gas Base Excess 15.6 mmol/L (-2-2) Blood Gas Oxygen Saturation 92 % (90-100) Arterial Blood pH 7.49 (7.380-7.420) Arterial Blood Partial 54 mmHg (38-42) Pressure CO2 Arterial Blood Partial 74 mmHg Pressure O2 (61-120) Arterial Blood Oxygen Content 19.5 Vol % (12.0-20.0) Arterial Blood 1.5 % (0-4) Carboxyhemoglobin Arterial Blood Methemoglobin 1.2 % (0-2) Blood Gas Hemoglobin 15.0 G/DL (12.0-16.0) Oxygen Delivery Device VENTILATOR Blood Gas Ventilator Setting SEE COMMENTS Blood Gas Inspired Oxygen 55 % Imaging Last Impressions Chest X-Ray 09/12/16 0600 Signed Impressions: Service Date/Time: Monday, September 12, 2016 03:55 - CONCLUSION: 1. Cardiomegaly and findings of congestive heart failure. The findings have worsened when compared with the prior examination. Chace Akins MD Lower Extremity Ultrasound 09/11/16 0000 Signed Impressions: Service Date/Time: Sunday, September 11, 2016 17:04 - CONCLUSION: No evidence of deep venous thrombosis. Konstantin Bridges MD Objective Remarks GENERAL: 65yo critically ill sedated and intubated. SKIN: Warm and dry. HEAD: Normocephalic. EYES: No scleral icterus. No injection or drainage. ENT: Orotracheally intubated NECK: Supple, trachea midline. No JVD or lymphadenopathy. CARDIOVASCULAR: Regular rate and rhythm without murmurs, gallops, or rubs. RESPIRATORY: Breath sounds equal bilaterally. PRVC mode. At entry diminished at the bases GASTROINTESTINAL: Abdomen soft obese, non-tender, nondistended. MUSCULOSKELETAL: Bilateral lower extremity with significant venous stasis changes. 1+ lower extremity pitting edema. Right lower extremity with evidence of prior graft. NEURO: Sedated and intubated. No focal deficits Urinary Catheter: Yes Assessment to: Continue A/P Assessment and Plan ASSESSMENT Acute hypercapnic and hypoxic respiratory failure CHF exacerbation/fluid overload COPD exacerbation Bibasilar pneumonia Metabolic encephalopathy Lower extremity cellulitis Sepsis Hyperglycemia of critical illness HTN Obesity hypoventilation syndrome Morbid obesity Neuro: On Diprivan versed infusion for sedation. Daily sedation vacation when appropriate, Pulm: On PRVC/AC RR 14, TV 450< IT:0.9, PEEP:14, FIO2 55% Start spontaneous breathing trials once FiO2 less than 50% , PEEP <8 Continue with vent support keep sat >90% Bronchodilators, ICU vent bundle. Solumederol 40mg q8 CV: On Cardizem 60mg QID, monitor HR and BP keep MAP>65mmHg Echo from 08/25 showed EF 55%, no RWMA Bumex 2 mg IVP x 1 and 0.5 mg per hour-Change to Bumex 1 mg IV BID 09/15 Diamox 500 mg IV daily for 3 days 09/15 : Monitor renal function, I/O's, electrolytes replacement per protocol. Bumex/Diamox as above GI:On TF-Glucerna 1.5@ 45 ml/hr, Protonix 40mg daily for GI prophylaxis. No BM add Mag citrate x1 and scheduled lactulose ID: Continue with abx ( Vanco, Zosyn) monitor for signs of infections ( Fever, WBC). DC Vanc today 09/15 09/11 BC: NGTD. s/u Sputum cx, strep pneumonia and Legionella urinary Ag Heme: Monitor CBC Endo SSI (High scale ) Levemir 20U Q12 for glycemic control Prophylaxis: GI Prophylaxis Protonix 40 mg IV daily DVT Prophylaxis -- SCDs Lovenox 40 mg subcutaneous daily - Doppler US LE negative for DVT CCT 40 mins Sharon La MD Sep 15, 2016 13:51
[2016-09-15] MEDS: LACTULOSE SYRUP 20 GM/30 ML CUP PO SCH (14:00)
[2016-09-15] MEDS ORDERED: MAGNESIUM CITRATE SOLN 300 ML BTL PO ONE (14:00)
[2016-09-15 16:12] LABS: MAGNESIUM 2.2 MG/DL (1.5-2.5); POTASSIUM 3.2 MEQ/L (3.5-5.1)
[2016-09-15] MEDS: BUMETANIDE INJ 1 MG/4 ML VIAL IV PUSH SCH (17:54)
[2016-09-15] MEDS: INSULIN DETEMIR 100 UNITS/ML VIAL SQ SCH (20:46)
[2016-09-15] MEDS: ENOXAPARIN SODIUM 40 MG/0.4 ML SYRINGE SQ SCH (20:46)
[2016-09-15] MEDS: MIDAZOLAM 100 MG/NS 100 ML DRIP Premix IV SCH (21:00)
[2016-09-16] VITALS (19 sets, daily range): BP systolic 97–120; BP diastolic 57–71; PULSE 51–71; RESP 20–24; TEMP 97.5–99.4; O2SAT 92–96
[2016-09-16] MEDS: LACTULOSE SYRUP 20 GM/30 ML CUP PO SCH ×3 (02:58→22:09)
[2016-09-16] MEDS: CHLORHEXIDINE GLUCONATE 2 % 1 PACK (2 CLOTHS) TOP SCH (02:59)
[2016-09-16] MEDS: PROPOFOL 1000 MG/100 ML INJ 100 ML IV SCH ×7 (02:59→20:51)
[2016-09-16] MEDS: methylPREDNISolone SOD SUCC 40 MG/1 ML VIAL IV PUSH SCH ×3 (02:59→17:48)
[2016-09-16] MEDS: RESP: ALBUTEROL 2.5 MG/IPRATROPIUM 0.5 MG NEB (SCH) INH ×5 (03:19→19:37)
--- NOTE | 2016-09-16 04:17 | RADRPT ---
EXAM DATE/TIME: 09/16/2016 03:00 [facility] COMPARISON: CHEST SINGLE AP, September 15, 2016, 12:39. INDICATIONS : Shortness of breath, possible pulmonary disease. MEDICAL HISTORY : None. SURGICAL HISTORY : None. ENCOUNTER: Subsequent ACUITY: 4 - 6 days PAIN SCORE: Non-responsive. LOCATION: Bilateral chest FINDINGS: The cardiac silhouette is enlarged in transverse diameter. Moderate size bilateral pleural effusions are identified. There is bilateral lower lobe atelectasis versus pneumonia. Support lines and tubes a re in satisfactory position. CONCLUSION: 1. Bilateral lower lobe atelectasis versus pneumonia. Bilateral effusions There has been no significa nt change when compared to the prior exam. Chace Akins MD on September 16, 2016 at 4:15 Board Certified Radiologist. This report was verified electronically.
[2016-09-16] MEDS: PIPERACIL-TAZO 4.5 GM PREMIX 100 ML IV SCH ×4 (04:27→20:52)
[2016-09-16] MEDS: VANCOMYCIN INJ 2,000 MG in SODIUM CHLORID 0.9% 500 ML INJ 500 ML IV SCH ×2 (05:17→17:48)
[2016-09-16] MEDS: INSULIN REGULAR 100 UNITS/100 ML NS ALGORITHM 2 IV SCH ×4 (05:17→20:12)
[2016-09-16 07:36] LABS: AUTOMATED NEUTROPHIL # 7.9 TH/MM3 (1.8-7.7); BASOPHIL % 0.3 % (0.0-2.0); HEMATOCRIT 41.7 % (39.0-51.0); HEMO FLAGS DIFF FINAL; LYMPHOCYTE # 0.3 TH/MM3 (1.0-4.8); MEAN CELL VOLUME 88.2 FL (80.0-100.0); MEAN CORPUSCULAR HGB CONC 32.9 % (32.0-36.0); MONO % 4.5 % (0.0-8.0); NEUT % 92.2 % (16.0-70.0); PLATELET COUNT 170 TH/MM3 (150-450); RED BLOOD COUNT 4.73 MIL/MM3 (4.50-5.90); RED CELL DISTRIBUTION WIDTH 15.2 % (11.6-17.2); WHITE BLOOD COUNT 8.6 TH/MM3 (4.0-11.0)
[2016-09-16] MEDS: CHLORHEXIDINE 0.12% (ORAL KIT) 15 ML CUP MT SCH ×2 (08:08→20:51)
[2016-09-16] MEDS: PANTOPRAZOLE SODIUM 40 MG VIAL IV SCH (08:09)
[2016-09-16] MEDS: BUMETANIDE INJ 1 MG/4 ML VIAL IV PUSH SCH ×2 (08:10→17:48)
[2016-09-16] MEDS: POTASSIUM CL 40 MEQ/30 ML LIQ UDC PO SCH (08:11)
[2016-09-16] MEDS: DOCUSATE SODIUM 50 MG/SENNA 8.6 MG TAB PO SCH ×2 (08:11→20:42)
[2016-09-16] MEDS: INSULIN DETEMIR 100 UNITS/ML VIAL SQ SCH ×2 (08:11→20:43)
[2016-09-16] MEDS: DILTIAZEM HCL 60 MG TAB PO SCH ×4 (08:11→20:43)
[2016-09-16 08:16] LABS: ALKALINE PHOSPHATASE 70 U/L (45-117); ALT (GPT) 13 U/L (12-78); ANION GAP 10 MEQ/L (5-15); AST (GOT) 10 U/L (15-37); BICARBONATE 30.8 MEQ/L (21.0-32.0); BLOOD UREA NITROGEN 27 MG/DL (7-18); CHLORIDE 96 MEQ/L (98-107); GLOMERULAR FILTRATION RATE 93 ML/MIN (>89); POTASSIUM 3.3 MEQ/L (3.5-5.1); SODIUM (NA) 137 MEQ/L (136-145); TOTAL BILIRUBIN ADULT 0.5 MG/DL (0.2-1.0)
[2016-09-16] MEDS: SODIUM CHLORIDE 0.9% FLUSH 5 ML FLUSH IV FLUSH SCH ×2 (09:00→20:52)
[2016-09-16] MEDS: POTASSIUM CL 40 MEQ/30 ML LIQ UDC PO/TUBE PRN (10:22)
--- NOTE | 2016-09-16 15:20 | HHI.CCPN ---
Subjective Remarks/Hospital Course This is a morbidly obese 61-year-old male with a history of obesity hypoventilation syndrome, COPD, CHF, severe venous stasis, and recent lower extremity cellulitis who presented with worsening shortness of breath. He was recently admitted to the [facility] emergency department and then ICU with similar symptoms for which she was placed on BiPAP for a few days. In this emergency department he was noted to have a PCO2 of 102. He was placed on BiPAP initially, although his mentation continued to worsen and despite BiPAP his PCO2 increased to 112. The patient is a very poor historian on top of the fact that he is very somnolent and unable to provide additional information. Critical-care medicine is consulted to evaluate and manage his acute hypercarbic and hypoxic respiratory failure. Dr. Martinez intubated and placed on mechanical ventilation 09/12 Patient is sedated with Diprivan and intubated. Afebrile. On PRVC/AC RR 14 , TV 450, PEEP:8, IT:0.9, FIO2 60%. 09/13 Patient remains sedated and intubated, On PRVC/AC RR 14, TV 450, IT:0.9, PEEP:10, FIO2 70%, Afebrile. 09/14: Patient is wide awake on propofol. FiO2 at 80%, PEEP at 10. I have changed to PSV mode for patient comfort. Start Bumex infusion for CHF/fluid overload. Increase Solu-Medrol to 40 every 8 09/15: Remains hypoxemic, I have weaned FiO2 to 55%, PEEP remains at 14. Patient remains heavily sedated. Chest x-ray continues to show bibasilar infiltrates and effusion. Urine output excellent on Bumex drip more than 10 L in 24 hours 09/16: Afebrile. Intubated and sedated, FiO2 remains at 55%. Earlier today tube feed residuals 200 cc noted, with resolution this afternoon. Objective Vital Signs Date Time Temp Pulse Resp B/P Pulse Ox O2 Delivery O2 Flow Rate FiO2 09/16/16 14:00 60 09/16/16 12:14 93 55 09/16/16 12:00 97.7 20 111/65 09/12/16 07:29 Ventilator Intake and Output 09/15/16 09/15/16 09/16/16 08:00 16:00 00:00 Intake Total 1009 ml 2001 ml 1243 ml Output Total 3150 ml 2750 ml 2500 ml Balance -2141 ml -749 ml -1257 ml Result Diagram: 09/16/16 0548 09/16/16 0548 Imaging Last Impressions Chest X-Ray 09/16/16 0600 Signed Impressions: Service Date/Time: Friday, September 16, 2016 03:00 - CONCLUSION: 1. Bilateral lower lobe atelectasis versus pneumonia. Bilateral effusions There has been no significant change when compared to the prior exam. Chace Akins MD CT Angiography 09/13/16 0000 Signed Impressions: Service Date/Time: Tuesday, September 13, 2016 12:25 - CONCLUSION: 1. No evidence of pulmonary embolism. 2. Bilateral pleural effusions and consolidation in both lung bases. 3. Moderate cardiomegaly. Konstantin Bridges MD Lower Extremity Ultrasound 09/11/16 0000 Signed Impressions: Service Date/Time: Sunday, September 11, 2016 17:04 - CONCLUSION: No evidence of deep venous thrombosis. Konstantin Bridges MD Last Impressions Chest X-Ray 09/12/16 06 Signed Impressions: Service Date/Time: Monday, September 12, 2016 03:55 - CONCLUSION: 1. Cardiomegaly and findings of congestive heart failure. The findings have worsened when compared with the prior examination. Chace Akins MD Lower Extremity Ultrasound 09/11/16 0000 Signed Impressions: Service Date/Time: Sunday, September 11, 2016 17:04 - CONCLUSION: No evidence of deep venous thrombosis. Konstantin Bridges MD Objective Remarks GENERAL: 65yo critically ill sedated and intubated. SKIN: Warm and dry. HEAD: Normocephalic. EYES: No scleral icterus. No injection or drainage. ENT: Orotracheally intubated NECK: Supple, trachea midline. No JVD or lymphadenopathy. CARDIOVASCULAR: Regular rate and rhythm without murmurs, gallops, or rubs. RESPIRATORY: Breath sounds equal bilaterally. PRVC mode. No wheezing, diminished in the bases. GASTROINTESTINAL: Abdomen soft obese, non-tender, nondistended. MUSCULOSKELETAL: Bilateral lower extremity with significant venous stasis changes. 1+ lower extremity pitting edema. Right lower extremity with evidence of prior graft. NEURO: Sedated and intubated. No focal deficits Urinary Catheter: Yes Payne insert reason: ICU Pt Getting Diuretics A/P Assessment and Plan ASSESSMENT Acute hypercapnic and hypoxic respiratory failure CHF exacerbation/fluid overload COPD exacerbation Bibasilar pneumonia Metabolic encephalopathy Lower extremity cellulitis Sepsis Hyperglycemia of critical illness HTN Obesity hypoventilation syndrome Morbid obesity Neuro: On Diprivan versed infusion for sedation. Daily sedation vacation when appropriate, Pulm: On PRVC/AC RR 14, TV 450< IT:0.9, PEEP:14, FIO2 55% Start spontaneous breathing trials once FiO2 less than 50% , PEEP <8 Continue with vent support keep sat >90% Bronchodilators, ICU vent bundle. Continue Solumederol 40mg q8 CV: On Cardizem 60mg QID, monitor HR and BP keep MAP>65mmHg Echo from 08/25 showed EF 55%, no RWMA Bumex 2 mg IVP x 1 and 0.5 mg per hour-Change to Bumex 1 mg IV BID 09/15 Diamox 500 mg IV daily for 3 days 09/15 : Monitor renal function, I/O's, electrolytes replacement per protocol. Bumex/Diamox as above GI:On TF-Glucerna 1.5@ 45 ml/hr, Protonix 40mg daily for GI prophylaxis. No BM will add Mag citrate x1 and scheduled lactulose ID: Continue with abx ( Vanco, Zosyn) monitor for signs of infections ( Fever, WBC). DC Vanc today 09/15 09/11 BC: NGTD. s/u Sputum cx, strep pneumonia and Legionella urinary Ag Heme: Monitor CBC Endo SSI (High scale ) Levemir 20U Q12 for glycemic control Prophylaxis: GI Prophylaxis Protonix 40 mg IV daily DVT Prophylaxis -- SCDs Lovenox 40 mg subcutaneous daily - Doppler US LE negative for DVT This patient remains critically ill with one or more organ systems which are or may become a threat to life. I have spent in excess of 31 minutes discontinuously in the care and management of this patient. This time is exclusive of procedures, and includes, but is not limited to, evaluation of the patient, review of the medical record, discussions with family, consultants, nursing staff, or respiratory therapy, and documentation in the medical record. Physician eJsi Burger MD Sep 16, 2016 15:20
[2016-09-16] MEDS: MIDAZOLAM 100 MG/NS 100 ML DRIP Premix IV SCH (15:36)
[2016-09-16 16:06] LABS: BLOOD GAS BASE EXCESS 1.1 mmol/L (-2-2); BLOOD GAS CARBOXYHEMOGLOBIN 1.3 % (0-4); BLOOD GAS HCO3 26 mmol/L (22-26); BLOOD GAS METHEMOGLOBIN 1.2 % (0-2); BLOOD GAS O2 HGB SATURATION 93 % (90-100); BLOOD GAS PCO2 48 mmHg (38-42); BLOOD GAS PO2 91 mmHg (61-120); BLOOD GAS TOTAL HGB 14.4 G/DL (12.0-16.0); TEMP CORR TO 98.6
[2016-09-16 16:07] LABS: CRITICAL VALUE NO; OXYGEN DEVICE VENTILATOR
[2016-09-16 16:08] LABS: DRAW SITE RT RADIAL; FIO2 558 %; NUMBER OF ARTERIAL PUNCTURES 1; STAT NO; ULNAR PULSE PRESENT
[2016-09-16] MEDS: ENOXAPARIN SODIUM 40 MG/0.4 ML SYRINGE SQ SCH (20:52)
[2016-09-17] VITALS (19 sets, daily range): BP systolic 108–114; BP diastolic 58–62; PULSE 56–94; RESP 15–25; TEMP 97.6–98.9; O2SAT 91–94
[2016-09-17] MEDS: methylPREDNISolone SOD SUCC 40 MG/1 ML VIAL IV PUSH SCH ×3 (00:20→17:51)
[2016-09-17] MEDS: PROPOFOL 1000 MG/100 ML INJ 100 ML IV SCH ×9 (00:20→23:01)
[2016-09-17] MEDS: MIDAZOLAM 100 MG/NS 100 ML DRIP Premix IV SCH ×3 (00:26→23:01)
[2016-09-17] MEDS: CHLORHEXIDINE GLUCONATE 2 % 1 PACK (2 CLOTHS) TOP SCH (03:10)
[2016-09-17] MEDS: VANCOMYCIN INJ 2,000 MG in SODIUM CHLORID 0.9% 500 ML INJ 500 ML IV SCH ×2 (03:11→19:24)
[2016-09-17] MEDS: RESP: ALBUTEROL 2.5 MG/IPRATROPIUM 0.5 MG NEB (SCH) INH ×7 (03:34→23:23)
[2016-09-17] MEDS: PIPERACIL-TAZO 4.5 GM PREMIX 100 ML IV SCH ×4 (04:35→23:02)
[2016-09-17 05:37] LABS: BLOOD GAS BASE EXCESS 2.4 mmol/L (-2-2); BLOOD GAS CARBOXYHEMOGLOBIN 1.4 % (0-4); BLOOD GAS HCO3 27 mmol/L (22-26); BLOOD GAS METHEMOGLOBIN 1.1 % (0-2); BLOOD GAS O2 HGB SATURATION 90 % (90-100); BLOOD GAS OXYGEN CONTENT 18.4 Vol % (12.0-20.0); BLOOD GAS PCO2 49 mmHg (38-42); BLOOD GAS PO2 72 mmHg (61-120); BLOOD GAS TOTAL HGB 14.5 G/DL (12.0-16.0); CRITICAL VALUE NO; OXYGEN DEVICE VENTILATOR; TEMP CORR TO 98.6
[2016-09-17 05:38] LABS: DRAW SITE RT RADIAL; FIO2 55 %; NUMBER OF ARTERIAL PUNCTURES 1; STAT NO; ULNAR PULSE PRESENT; VENT SETTINGS PRVC/AC
[2016-09-17 07:38] LABS: HEMATOCRIT 41.5 % (39.0-51.0); MEAN CELL VOLUME 87.7 FL (80.0-100.0); MEAN CORPUSCULAR HEMOGLOBIN 29.7 PG (27.0-34.0); MEAN CORPUSCULAR HGB CONC 33.9 % (32.0-36.0); PLATELET COUNT 134 TH/MM3 (150-450); RED BLOOD COUNT 4.74 MIL/MM3 (4.50-5.90); RED CELL DISTRIBUTION WIDTH 15.1 % (11.6-17.2); REVIEW FLAG FINAL
[2016-09-17 08:21] LABS: BICARBONATE 27.9 MEQ/L (21.0-32.0); MAGNESIUM 2.5 MG/DL (1.5-2.5); POTASSIUM 3.8 MEQ/L (3.5-5.1)
[2016-09-17] MEDS: PANTOPRAZOLE SODIUM 40 MG VIAL IV SCH (08:24)
[2016-09-17] MEDS: CHLORHEXIDINE 0.12% (ORAL KIT) 15 ML CUP MT SCH ×2 (08:24→20:34)
[2016-09-17] MEDS: BUMETANIDE INJ 1 MG/4 ML VIAL IV PUSH SCH ×2 (08:25→17:52)
[2016-09-17] MEDS: DILTIAZEM HCL 60 MG TAB PO SCH ×5 (08:25→20:37)
[2016-09-17] MEDS: POTASSIUM CL 40 MEQ/30 ML LIQ UDC PO SCH (08:26)
[2016-09-17] MEDS: INSULIN DETEMIR 100 UNITS/ML VIAL SQ SCH ×2 (08:26→20:43)
[2016-09-17] MEDS: DOCUSATE SODIUM 50 MG/SENNA 8.6 MG TAB PO SCH ×2 (08:26→20:33)
[2016-09-17] MEDS: SODIUM CHLORIDE 0.9% FLUSH 5 ML FLUSH IV FLUSH SCH ×2 (09:00→20:33)
[2016-09-17] MEDS: INSULIN REGULAR 100 UNITS/100 ML NS ALGORITHM 2 IV SCH ×2 (11:20)
[2016-09-17] MEDS: LACTULOSE SYRUP 20 GM/30 ML CUP PO SCH (14:29)
--- NOTE | 2016-09-17 17:21 | HHI.CCPN ---
Subjective Remarks/Hospital Course This is a morbidly obese 61-year-old male with a history of obesity hypoventilation syndrome, COPD, CHF, severe venous stasis, and recent lower extremity cellulitis who presented with worsening shortness of breath. He was recently admitted to the [facility] emergency department and then ICU with similar symptoms for which she was placed on BiPAP for a few days. In this emergency department he was noted to have a PCO2 of 102. He was placed on BiPAP initially, although his mentation continued to worsen and despite BiPAP his PCO2 increased to 112. The patient is a very poor historian on top of the fact that he is very somnolent and unable to provide additional information. Critical-care medicine is consulted to evaluate and manage his acute hypercarbic and hypoxic respiratory failure. Dr. Martinez intubated and placed on mechanical ventilation 09/12 Patient is sedated with Diprivan and intubated. Afebrile. On PRVC/AC RR 14 , TV 450, PEEP:8, IT:0.9, FIO2 60%. 09/13 Patient remains sedated and intubated, On PRVC/AC RR 14, TV 450, IT:0.9, PEEP:10, FIO2 70%, Afebrile. 09/14: Patient is wide awake on propofol. FiO2 at 80%, PEEP at 10. I have changed to PSV mode for patient comfort. Start Bumex infusion for CHF/fluid overload. Increase Solu-Medrol to 40 every 8 09/15: Remains hypoxemic, I have weaned FiO2 to 55%, PEEP remains at 14. Patient remains heavily sedated. Chest x-ray continues to show bibasilar infiltrates and effusion. Urine output excellent on Bumex drip more than 10 L in 24 hours 09/16: Afebrile. Intubated and sedated, FiO2 remains at 55%. Earlier today tube feed residuals 200 cc noted, with resolution this afternoon. 09/17: The patient required an increase in FiO2 this morning to 60%, attempting to wean. Vancomycin was discontinued, he continues on Zosyn. Patient continues to have blood glucoses in the mid to high 200s despite being on insulin drip and Levemir at 20 units twice a day. Levemir increased. Objective Vital Signs Date Time Temp Pulse Resp B/P Pulse Ox O2 Delivery O2 Flow Rate FiO2 09/17/16 14:25 93 60 09/17/16 14:00 58 09/17/16 12:00 98.1 15 111/59 Intake and Output 09/16/16 09/16/16 09/17/16 08:00 16:00 00:00 Intake Total 1431 ml 1560 ml 1312 ml Output Total 150 ml 1200 ml 975 ml Balance 1281 ml 360 ml 337 ml Result Diagram: 09/17/16 0540 09/17/16 0540 Other Results Laboratory Tests Test 09/17/16 05:26 Blood Gas Puncture Site RT RADIAL Blood Gas Patient Temperature 98.6 Blood Gas HCO3 27 mmol/L (22-26) Blood Gas Base Excess 2.4 mmol/L (-2-2) Blood Gas Oxygen Saturation 90 % (90-100) Arterial Blood pH 7.37 (7.380-7.420) Arterial Blood Partial 49 mmHg (38-42) Pressure CO2 Arterial Blood Partial 72 mmHg Pressure O2 (61-120) Arterial Blood Oxygen Content 18.4 Vol % (12.0-20.0) Arterial Blood 1.4 % (0-4) Carboxyhemoglobin Arterial Blood Methemoglobin 1.1 % (0-2) Blood Gas Hemoglobin 14.5 G/DL (12.0-16.0) Oxygen Delivery Device VENTILATOR Blood Gas Ventilator Setting PRVC/AC Blood Gas Inspired Oxygen 55 % Imaging Last Impressions Chest X-Ray 09/16/16 0600 Signed Impressions: Service Date/Time: Friday, September 16, 2016 03:00 - CONCLUSION: 1. Bilateral lower lobe atelectasis versus pneumonia. Bilateral effusions There has been no significant change when compared to the prior exam. Chace Akins MD CT Angiography 09/13/16 0000 Signed Impressions: Service Date/Time: Tuesday, September 13, 2016 12:25 - CONCLUSION: 1. No evidence of pulmonary embolism. 2. Bilateral pleural effusions and consolidation in both lung bases. 3. Moderate cardiomegaly. Konstantin Bridges MD Lower Extremity Ultrasound 09/11/16 0000 Signed Impressions: Service Date/Time: Sunday, September 11, 2016 17:04 - CONCLUSION: No evidence of deep venous thrombosis. Konstantin Bridges MD Last Impressions Chest X-Ray 09/12/16 0600 Signed Impressions: Service Date/Time: Monday, September 12, 2016 03:55 - CONCLUSION: 1. Cardiomegaly and findings of congestive heart failure. The findings have worsened when compared with the prior examination. Chace Akins MD Lower Extremity Ultrasound 09/11/16 0000 Signed Impressions: Service Date/Time: Sunday, September 11, 2016 17:04 - CONCLUSION: No evidence of deep venous thrombosis. Konstantin Bridges MD Objective Remarks GENERAL: 65yo critically ill sedated and intubated. SKIN: Warm and dry. HEAD: Normocephalic. EYES: No scleral icterus. No injection or drainage. ENT: Orotracheally intubated NECK: Supple, trachea midline. No JVD or lymphadenopathy. CARDIOVASCULAR: Regular rate and rhythm without murmurs, gallops, or rubs. RESPIRATORY: Breath sounds equal bilaterally. PRVC mode. No wheezing, diminished in the bases. GASTROINTESTINAL: Abdomen soft obese, non-tender, nondistended. MUSCULOSKELETAL: Bilateral lower extremity with significant venous stasis changes. 1+ lower extremity pitting edema. Right lower extremity with evidence of prior graft. NEURO: Sedated and intubated. No focal deficits Urinary Catheter: Yes Payne insert reason: Measure Accurate Output A/P Assessment and Plan ASSESSMENT Acute hypercapnic and hypoxic respiratory failure CHF exacerbation/fluid overload COPD exacerbation Bibasilar pneumonia Metabolic encephalopathy Lower extremity cellulitis Sepsis Hyperglycemia of critical illness HTN Obesity hypoventilation syndrome Morbid obesity Neuro: On Diprivan versed infusion for sedation. Daily sedation vacation when appropriate GCS 11 T, patient following commands today Pulm: On PRVC/AC RR 14, TV 450< IT:0.9, PEEP:14, FIO2 55% Start spontaneous breathing trials once FiO2 less than 50% , PEEP <8 Continue with vent support keep sat >90% Bronchodilators, ICU vent bundle. Continue Solumederol 40mg q8 CV: On Cardizem 60mg QID, monitor HR and BP keep MAP>65mmHg Echo from 08/25 showed EF 55%, no RWMA Bumex 2 mg IVP x 1 and 0.5 mg per hour-Changed to Bumex 1 mg IV BID 09/15 Diamox 500 mg IV daily for 3 days 09/15 : Monitor renal function, I/O's, electrolytes replacement per protocol. Bumex/Diamox as above GI:On TF-Glucerna 1.5@ 45 ml/hr, Protonix 40mg daily for GI prophylaxis. No BM will add Mag citrate x1 and scheduled lactulose. Last BM 09/16 ID: Continue with abx ( Vanco, Zosyn) monitor for signs of infections ( Fever, WBC). Vancomycin discontinued 09/11 BC: NGTD. s/u Sputum cx, strep pneumonia and Legionella urinary Ag Heme: Monitor CBC Endo SSI (High scale ) Levemir 22 U Q12 for glycemic control Prophylaxis: GI Prophylaxis Protonix 40 mg IV daily DVT Prophylaxis -- SCDs Lovenox 40 mg subcutaneous daily - Doppler US LE negative for DVT -Noted area medial saphenous left lower extremity, raised darkened area, normal capillary refill, no induration noted Dispo: Discussed with SOLAR PANEL INSTALLER at bedside This patient remains critically ill with one or more organ systems which are or may become a threat to life. I have spent in excess of 30 minutes discontinuously in the care and management of this patient. This time is exclusive of procedures, and includes, but is not limited to, evaluation of the patient, review of the medical record, discussions with family, consultants, nursing staff, or respiratory therapy, and documentation in the medical record. Physician Jesi Burger MD Sep 17, 2016 17:20
[2016-09-17] MEDS: ENOXAPARIN SODIUM 40 MG/0.4 ML SYRINGE SQ SCH (20:32)
[2016-09-18] VITALS (19 sets, daily range): BP systolic 110–143; BP diastolic 63–82; PULSE 54–66; RESP 15–24; TEMP 97.7–98.2; O2SAT 90–95
[2016-09-18] MEDS: RESP: ALBUTEROL 2.5 MG/IPRATROPIUM 0.5 MG NEB (PRN) INH (00:41)
[2016-09-18] MEDS: methylPREDNISolone SOD SUCC 40 MG/1 ML VIAL IV PUSH SCH ×4 (01:03→23:15)
[2016-09-18] MEDS: LACTULOSE SYRUP 20 GM/30 ML CUP PO SCH ×3 (01:21→17:44)
[2016-09-18] MEDS: INSULIN REGULAR 100 UNITS/100 ML NS ALGORITHM 2 IV SCH ×4 (01:22→14:33)
[2016-09-18] MEDS: PROPOFOL 1000 MG/100 ML INJ 100 ML IV SCH ×7 (02:02→23:14)
[2016-09-18] MEDS: RESP: ALBUTEROL 2.5 MG/IPRATROPIUM 0.5 MG NEB (SCH) INH ×6 (03:22→23:58)
[2016-09-18] MEDS: CHLORHEXIDINE GLUCONATE 2 % 1 PACK (2 CLOTHS) TOP SCH (04:00)
[2016-09-18] MEDS: PIPERACIL-TAZO 4.5 GM PREMIX 100 ML IV SCH ×4 (04:24→23:15)
[2016-09-18] MEDS: VANCOMYCIN INJ 2,000 MG in SODIUM CHLORID 0.9% 500 ML INJ 500 ML IV SCH ×2 (04:25→16:24)
--- NOTE | 2016-09-18 05:06 | RADRPT ---
EXAM DATE/TIME: 09/18/2016 03:41 [place] COMPARISON: CHEST SINGLE AP, September 16, 2016, 3:00. INDICATIONS : Shortness of breath, possible pulmonary disease. MEDICAL HISTORY : None. SURGICAL HISTORY : None. ENCOUNTER: Subsequent ACUITY: 1 week PAIN SCORE: Non-responsive. LOCATION: Bilateral chest FINDINGS: ET tube and NG tube are well placed. The heart size is normal. There is increased density at the base s bilaterally. CONCLUSION: Bibasilar areas of consolidation or atelectasis. Some degree of effusion cannot be excluded. Abhinav Chambers MD on September 18, 2016 at 5:04 Board Certified Radiologist. This report was verified electronically.
[2016-09-18 05:52] LABS: HEMATOCRIT 41.1 % (39.0-51.0); MEAN CELL VOLUME 87.5 FL (80.0-100.0); MEAN CORPUSCULAR HEMOGLOBIN 29.7 PG (27.0-34.0); MEAN CORPUSCULAR HGB CONC 33.9 % (32.0-36.0); PLATELET COUNT 135 TH/MM3 (150-450); RED BLOOD COUNT 4.69 MIL/MM3 (4.50-5.90); REVIEW FLAG FINAL; WHITE BLOOD COUNT 7.7 TH/MM3 (4.0-11.0)
[2016-09-18 06:07] LABS: BLOOD GAS BASE EXCESS 3.4 mmol/L (-2-2); BLOOD GAS CARBOXYHEMOGLOBIN 1.3 % (0-4); BLOOD GAS HCO3 28 mmol/L (22-26); BLOOD GAS METHEMOGLOBIN 1.2 % (0-2); BLOOD GAS O2 HGB SATURATION 94 % (90-100); BLOOD GAS OXYGEN CONTENT 19.1 Vol % (12.0-20.0); BLOOD GAS PCO2 51 mmHg (38-42); BLOOD GAS PO2 97 mmHg (61-120); BLOOD GAS TOTAL HGB 14.3 G/DL (12.0-16.0); TEMP CORR TO 98.6
[2016-09-18 06:08] LABS: CRITICAL VALUE YES; DRAW SITE RT RADIAL; FIO2 100 %; NUMBER OF ARTERIAL PUNCTURES 1; OXYGEN DEVICE VENTILATOR; STAT NO; ULNAR PULSE PRESENT; VENT SETTINGS PRVC/AC
[2016-09-18 06:13] LABS: BICARBONATE 29.6 MEQ/L (21.0-32.0); MAGNESIUM 2.6 MG/DL (1.5-2.5); POTASSIUM 3.4 MEQ/L (3.5-5.1)
[2016-09-18] MEDS: POTASSIUM CHLOR 20 MEQ PREMIX 100 ML IV PRN ×2 (06:31→09:59)
[2016-09-18] MEDS: CHLORHEXIDINE 0.12% (ORAL KIT) 15 ML CUP MT SCH ×2 (08:20→21:36)
[2016-09-18] MEDS: PANTOPRAZOLE SODIUM 40 MG VIAL IV SCH (08:20)
[2016-09-18] MEDS: DOCUSATE SODIUM 50 MG/SENNA 8.6 MG TAB PO SCH ×2 (08:21→21:00)
[2016-09-18] MEDS: POTASSIUM CL 40 MEQ/30 ML LIQ UDC PO SCH (08:21)
[2016-09-18] MEDS: SODIUM CHLORIDE 0.9% FLUSH 5 ML FLUSH IV FLUSH SCH ×2 (08:21→21:00)
[2016-09-18] MEDS: DILTIAZEM HCL 60 MG TAB PO SCH ×4 (08:21→21:36)
[2016-09-18] MEDS: BUMETANIDE INJ 1 MG/4 ML VIAL IV PUSH SCH (08:22)
[2016-09-18] MEDS: MIDAZOLAM 100 MG/NS 100 ML DRIP Premix IV SCH ×2 (08:22→18:22)
[2016-09-18] MEDS: INSULIN DETEMIR 100 UNITS/ML VIAL SQ SCH ×2 (08:22→21:37)
[2016-09-18] MEDS ORDERED: MINERAL OIL LIQUID 30 ML CUP PO ONE (11:15)
[2016-09-18] MEDS ORDERED: POLYETHYLENE GLYCOL 17 GM PKG PO ONE (11:15)
--- NOTE | 2016-09-18 11:26 | HHI.CCPN ---
Subjective Remarks/Hospital Course This is a morbidly obese 65-year-old male with a history of obesity hypoventilation syndrome, COPD, CHF, severe venous stasis, and recent lower extremity cellulitis who presented with worsening shortness of breath. He was recently admitted to the [facility] emergency department and then ICU with similar symptoms for which she was placed on BiPAP for a few days. In this emergency department he was noted to have a PCO2 of 102. He was placed on BiPAP initially, although his mentation continued to worsen and despite BiPAP his PCO2 increased to 112. The patient is a very poor historian on top of the fact that he is very somnolent and unable to provide additional information. Critical-care medicine is consulted to evaluate and manage his acute hypercarbic and hypoxic respiratory failure. Dr. Martinez intubated and placed on mechanical ventilation 09/12 Patient is sedated with Diprivan and intubated. Afebrile. On PRVC/AC RR 14 , TV 450, PEEP:8, IT:0.9, FIO2 60%. 09/13 Patient remains sedated and intubated, On PRVC/AC RR 14, TV 450, IT:0.9, PEEP:10, FIO2 70%, Afebrile. 09/14: Patient is wide awake on propofol. FiO2 at 80%, PEEP at 10. I have changed to PSV mode for patient comfort. Start Bumex infusion for CHF/fluid overload. Increase Solu-Medrol to 40 every 8 09/15: Remains hypoxemic, I have weaned FiO2 to 55%, PEEP remains at 14. Patient remains heavily sedated. Chest x-ray continues to show bibasilar infiltrates and effusion. Urine output excellent on Bumex drip more than 10 L in 24 hours 09/16: Afebrile. Intubated and sedated, FiO2 remains at 55%. Earlier today tube feed residuals 200 cc noted, with resolution this afternoon. 09/17: The patient required an increase in FiO2 this morning to 60%, attempting to wean. Vancomycin was discontinued, he continues on Zosyn. Patient continues to have blood glucoses in the mid to high 200s despite being on insulin drip and Levemir at 20 units twice a day. Levemir increased. Subjective 09/18: Increasing saturations noted. PEEP increased to 15. FiO2 down to 75%. Chest x-ray reveals small bilateral pleural effusions. Negative CTA chest last admission. Sedated with Versed and propofol drips. One small bowel movement yesterday. Objective Vital Signs Date Time Temp Pulse Resp B/P Pulse Ox O2 Delivery O2 Flow Rate FiO2 09/18/16 10:00 60 09/18/16 08:00 98.1 24 110/67 95 09/18/16 08:00 90 Intake and Output 09/17/16 09/17/16 09/18/16 08:00 16:00 00:00 Intake Total 1176 ml 1409 ml 1240 ml Output Total 550 ml 1725 ml 1200.0 ml Balance 626 ml -316 ml 40.0 ml Result Diagram: 09/18/16 0514 09/18/16 0514 Imaging Last Impressions Chest X-Ray 09/18/16 0600 Signed Impressions: Service Date/Time: Sunday, September 18, 2016 03:41 - CONCLUSION: Bibasilar areas of consolidation or atelectasis. Some degree of effusion cannot be excluded. Abhinav Chambers MD CT Angiography 09/13/16 0000 Signed Impressions: Service Date/Time: Tuesday, September 13, 2016 12:25 - CONCLUSION: 1. No evidence of pulmonary embolism. 2. Bilateral pleural effusions and consolidation in both lung bases. 3. Moderate cardiomegaly. Konstantin Bridges MD Lower Extremity Ultrasound 09/11/16 0000 Signed Impressions: Service Date/Time: Sunday, September 11, 2016 17:04 - CONCLUSION: No evidence of deep venous thrombosis. Konstantin Bridges MD Objective Remarks GENERAL: 65yo male, critically ill sedated and intubated. SKIN: Warm and dry. No rash HEAD: Normocephalic. EYES: No scleral icterus. No injection or drainage. ENT: Orotracheally intubated NECK: Supple, trachea midline. No JVD or lymphadenopathy. CARDIOVASCULAR: Regular rate and rhythm S1, S2. No S4. Without murmurs, gallops, or clicks or rubs. RESPIRATORY: Breath sounds equal bilaterally. PRVC mode. No wheezing, diminished in the bases. GASTROINTESTINAL: Abdomen soft obese, non-tender, distended and protuberant MUSCULOSKELETAL: Bilateral lower extremity with significant venous stasis changes. Early no peripheral pitting edema. Right lower extremity with evidence of prior graft. NEURO: Sedated and intubated. No focal deficits A/P Assessment and Plan Neuro/Psych: Acute encephalopathy - possible CO2 narcosis Metabolic encephalopathy Chronic benzodiazepine use On Diprivan at 45 mcg/kg/m and versed infusion at 8 mg an hour for sedation while intubated. Goal of RASS -2 Daily sedation vacation when appropriate On Xanax 0.25 mg every 8 hours as needed at home for anxiety. This is currently on hold Pulm: Acute hypoxemic respiratory failure COPD exacerbation Bibasilar pneumonia Obesity hypoventilation syndrome On PRVC/AC RR 15, TV 550< IT:1.5, PEEP:15, FIO2 75% Start spontaneous breathing trials once FiO2 less than 50% , PEEP <8 Continue with vent support keep sat >92% Bronchodilators every 4 hours, ICU vent bundle. Continue methylprednisone 40mg q8 Chest x-ray today reveals small bilateral pleural effusions. CV: Hypertension Dyslipidemia On Cardizem 60mg QID, monitor HR and BP keep MAP>65mmHg Echo from 08/25 showed EF 55%, no RWMA On diltiazem 120 mg daily Lasix 20 mg daily at home. /renal: BPH History of left renal cyst Monitor renal function, I/O's, electrolytes replacement per protocol. Bumex/Diamox as been discontinued On Flomax 0.4 mg by mouth daily for BPH GI Constipation Morbid obesity On TF-Glucerna 1.5@ 45 ml/hr-> switched to vital high protein goal 60 cc an hour Protonix 40mg daily for GI prophylaxis. [place]-Colace twice a day/MiraLAX daily lactulose 4 times a day for bowel regimen. Mineral oil 1 today ID: Continue with abx ( Vanco, Zosyn) monitor for signs of infections ( Fever, WBC) . Added Zithromax 09/11 BC: NGTD. s/u Sputum cx, strep pneumonia and Legionella urinary Ag Check sputum/influenza today Heme: Thrombocytopenia Monitor CBC. Monitor trends Endo Diabetes mellitus Hyperglycemia of critical illness Insulin drip algorithm 3 at 6 units an hour, Levemir 30 U Q12 for glycemic control On metformin unknown dosage insulin scale insulin unknown dosage at home for diabetes. Prophylaxis: GI Prophylaxis Protonix 40 mg IV daily DVT Prophylaxis -- SCDs Lovenox 40 mg subcutaneous daily - Doppler US LE negative for DVT Critical Care: The total critical care time was 55 minutes. Time to perform other separately billable procedures was not included in the critical care time. Marcel Marte MD Sep 18, 2016 11:26
[2016-09-18] MEDS: AZITHROMYCIN INJ 500 MG in SODIUM CHLOR 0.9% 250 ML INJ 250 ML IV SCH (12:08)
[2016-09-18 13:09] LABS: BLOOD GAS CARBOXYHEMOGLOBIN 1.3 % (0-4); BLOOD GAS HCO3 28 mmol/L (22-26); BLOOD GAS METHEMOGLOBIN 1.3 % (0-2); BLOOD GAS O2 HGB SATURATION 94 % (90-100); BLOOD GAS OXYGEN CONTENT 20.3 Vol % (12.0-20.0); BLOOD GAS PCO2 49 mmHg (38-42); BLOOD GAS PO2 92 mmHg (61-120); BLOOD GAS TOTAL HGB 15.3 G/DL (12.0-16.0); CRITICAL VALUE NO; OXYGEN DEVICE VENTILATOR; TEMP CORR TO 98.6; VENT SETTINGS PRVC/AC
[2016-09-18 13:10] LABS: DRAW SITE LT RADIAL; FIO2 70 %; NUMBER OF ARTERIAL PUNCTURES 1; STAT NO; ULNAR PULSE Y
--- NOTE | 2016-09-18 14:35 | PD.CONS ---
Consult Service Palliative Care Consult Requested By Dr. Charlton Primary Care Physician Non-Staff Reason for Consultation a. To assist with evaluation and management of symptoms including: dyspnea b. To assist medical decision maker(s) with: better understanding of current medical conditions; weighing benefits/burdens of medical treatment options; making medical treatment decisions. HPI History of Present Illness Patient is a 65-year-old male with a past medical history significant for but not limited to COPD, CHF, venous stasis that presented to the ER with the complaints of shortness of breath and leg swelling on 09/11/2016. Per ER note patient has had several weeks of progressive dyspnea and lower extremity edema. Redness began to extend up into the thigh. In the ER: * Temperature is 97.7, pulse is 89, respirations 20, blood pressure is 130/71, pulse ox is 82% * Sodium was 136, potassium is 4.3, chloride is 91, bicarbonate is 40.9, BUN is 8, creatinine 0.62, glucose is 359 * WBCs 10.2, hemoglobin is 14.1, hematocrit is 42.4, platelet is 183 * PT is 11.0, INR is 1.0, PTT is 25.5 * UA shows high glucose, increasing ketones, negative for leukocyte esterase and nitrite. Culture not indicated * Behydroxybutyrate(ketones) 0.90 * Lower extremity ultrasound shows no evidence of DVT * Chest x-ray shows patchy opacity remains in the left lung base Director Of Music Therapy was consulted due to acute respiratory failure. Patient was placed on the BiPAP but clinical condition continued to decline. Patient was intubated and transferred to the ICU for respiratory failure/COPD exacerbation. 09/12/2016 patient remains sedated and intubated on the ventilator. Patient continued to be given bronchodilators and steroids. Patient placed on Cardizem. Kidney function was monitored. Patient maintained on vancomycin and Zosyn for lower extremity infection. Given his Levemir for glycemic control. -. FI O2 requriments continue to increase. Bumex started for CHF/ fluid overloda, Contine on cronchodilators, sterods. Sputum culture collected , no growth in 48 hours. Cxray from 09/14 show bilateral effusions, pneumonia, and cardiomegaly. CTA shows no PE. 09/15 to 09/17- Director Of Music Therapy continue to try to wean vent down, to 55%. Pt remains sedated and on ventilatory. FIO2 needs gradually increased. Cont to have bilateraly pleural effusions. 09/18 Pt remains intubated and sedated. There is small bilateraly pleural effusions on CXR today 09/18. FI O2 75% and PEEP at 15. Pt has not leukocytosis. Hgb remains stable. Dr. Charlton consult palliative care to establish healthcare decision maker. Function/Cognitive Trajectory has had recent hospitalization for dyspnea recently, and quickly came back to the hospital. Hx of dyspnea for the past 15 years. Review of Systems ROS Limitations: Clinical Condition Past Family Social History Coded Allergies: No Known Allergies (Unverified , 09/11/16) Past Medical History Anxiety: Yes (panic attacks) Depression: Yes Cardiovascular Problems: Yes COPD: Yes Diabetes: Yes Gastrointestinal Disorders: Yes (umbilical hernia) Sleep Apnea: Yes Past Surgical History L ankle surgery 10 years ago. Reported Medications Potassium Chloride ER (Potassium Chloride) 10 Meq Cap 10 Meq PO DAILY Metformin (Metformin HCl) Unknown Strength Tab Unknown Dose PO BIDPC With meals Current Medications Medications (Trade) Dose Ordered Sig/Omega Route Start Time Stop Time Status Last Admin Magnesium Oxide 800 mg 800 mg UNSCH PRN PO 09/11/16 20:00 Magnesium Sulfate 4 gm/Sodium Chloride 100 ml @ 50 mls/hr UNSCH PRN IV 09/11/16 20:00 Magnesium Sulfate 2 gm/Sodium Chloride 100 ml @ 50 mls/hr UNSCH PRN IV 09/11/16 20:00 Potassium Chloride 100 ml @ 50 mls/hr Q2H PRN IV 09/11/16 20:00 09/15/16 20:46 Potassium Chloride 100 ml @ 50 mls/hr Q2H PRN IV 09/11/16 20:00 09/18/16 09:59 Potassium Chloride 100 ml @ 50 mls/hr Q2H PRN IV 09/11/16 20:00 (KCl 40 Meq Premix Inj) 100 ml @ 25 mls/hr UNSCH PRN IV 09/11/16 20:00 (KCl 40 Meq/30 ml Liq) 40 meq UNSCH PRN PO/TUBE 09/11/16 20:00 09/16/16 10:22 (KCl 40 Meq/30 ml Liq) 40 meq UNSCH PRN PO/TUBE 09/11/16 20:00 (K-Phos) 2,000 mg Q4H PRN PO 09/11/16 20:00 Potassium Phosphate 2000 mg 2,000 mg UNSCH PRN PO/TUBE 09/11/16 20:00 Potassium Phosphate 30 mmol/ Sodium Chloride 260 ml @ 42 mls/hr UNSCH PRN IV 09/11/16 20:00 Sodium Phosphate 30 mmol/Sodium Chloride 250 ml @ 42 mls/hr UNSCH PRN IV 09/11/16 20:00 (Zosyn 4.5 Gm Premix) 100 ml @ 200 mls/hr Q6H IV 09/11/16 23:00 09/18/16 11:14 (NS Flush) 2 ml UNSCH PRN IV FLUSH 09/11/16 20:00 (NS Flush) 2 ml BID IV FLUSH 09/11/16 21:00 09/18/16 08:21 (Tylenol) 650 mg Q6H PRN PO 09/11/16 20:00 (Protonix Inj) 40 mg DAILY IV 09/12/16 09:00 09/18/16 08:20 (Zofran Inj) 4 mg Q6H PRN IV 09/11/16 20:00 (Parisa-Colace) 2 tab BID PO 09/11/16 21:00 09/18/16 08:21 (Lovenox Inj) 40 mg Q24H SQ 09/11/16 21:00 09/16/16 20:52 Miscellaneous Information 1 Q361D XX 09/11/16 20:00 (Chlorhexidine 2% Cloth) Taper DAILY@04 TOP 09/12/16 04:00 09/08/17 03:59 09/18/16 04:00 Chlorhexidine Gluconate 3 pack 3 pack UNSCH PRN TOP 09/11/16 20:00 (Diprivan 1000 Mg/100ml Inj) 100 ml @ 0 mls/hr TITRATE IV 09/12/16 00:30 09/18/16 11:45 (Peridex 0.12% Liq) 15 ml BID@08,20 MT 09/12/16 08:00 09/18/16 08:20 Diltiazem HCl 60 mg 60 mg QID PO 09/12/16 09:00 09/18/16 12:08 Vancomycin HCl 2000 mg/Sodium Chloride 520 ml @ 260 mls/hr Q12H IV 09/13/16 17:00 09/18/16 04:25 (Versed Inj) 100 ml @ 0 mls/hr TITRATE IV 09/14/16 09:00 09/18/16 08:22 (SoluMEDROL INJ) 40 mg Q8H IV PUSH 09/14/16 17:00 09/18/16 08:22 Potassium Chloride 40 meq 40 meq DAILY PO 09/14/16 09:30 09/18/16 08:21 (NovoLIN R (IV INFUSION)/NS Inj) 100 ml @ 0 mls/hr TITRATE IV 09/14/16 11:45 09/18/16 01:22 (D50w (Vial) Inj) 25 ml UNSCH PRN IV PUSH 09/14/16 11:45 (Bumex Inj) 1 mg BID@09,18 IV PUSH 09/15/16 18:00 Hold 09/18/16 08:22 (Flomax) 0.4 mg DAILY PO 09/19/16 09:00 (Levemir Inj) 30 units Q12HR SQ 09/18/16 21:00 (Lactulose Liq) 30 ml Q6HR PO 09/18/16 12:00 09/18/16 11:45 Polyethylene Glycol 17 gm 17 gm DAILY PO 09/19/16 09:00 (Zithromax Inj/ NS 250 ml Inj) 250 ml @ 250 mls/hr Q24H IV 09/18/16 12:00 09/18/16 12:08 Family History unable to elicit. Substance Use Reportedly Hx of etoh use and abuse, smokes, reported history of marijuana use. Psychosocial History Not . No children. Lived with pt's parents. Have one sister. Spiritual/Cultural Factors could not elicit. Living Will: Never completed Health Care Surrogate: Never completed Durable Power of Head Of Partner Development: Never completed Physical Exam Vital Signs Date Time Temp Pulse Resp B/P Pulse Ox O2 Delivery O2 Flow Rate FiO2 09/18/16 12:25 95 70 09/18/16 12:00 97.8 64 15 133/74 95 09/18/16 12:00 64 09/18/16 12:00 90 09/18/16 10:00 60 09/18/16 08:00 98.1 63 24 110/67 95 09/18/16 08:00 90 09/18/16 08:00 61 09/18/16 07:43 95 90 09/18/16 06:00 57 09/18/16 04:18 95 100 09/18/16 04:00 54 09/18/16 04:00 100 09/18/16 04:00 97.8 54 22 118/63 94 09/18/16 02:00 63 09/18/16 01:10 95 100 09/18/16 00:00 97.9 61 22 118/63 90 09/18/16 00:00 60 09/18/16 00:00 61 09/17/16 22:00 94 60 09/17/16 22:00 60 09/17/16 20:00 60 09/17/16 20:00 98.5 64 23 108/61 92 09/17/16 20:00 64 09/17/16 19:19 92 60 09/17/16 18:00 64 09/17/16 16:00 98.0 69 20 110/59 92 09/17/16 16:00 60 09/17/16 16:00 69 09/17/16 14:25 93 60 09/17/16 14:00 58 09/17/16 09/18/16 19:00 07:00 Intake Total 1409 ml 2191 ml Output Total 1725 ml 1750.0 ml Balance -316 ml 441.0 ml IV Total 800 ml 1492 ml Tube Feeding 489 ml 699 ml Other 120 ml Output Urine Total 1725 ml 1650 ml Stool Total 0 ml Tube Feeding Residual Discard 100.0 ml # Bowel Movements 0 0 Exam CONSTITUTIONAL/GENERAL: This is an adequately nourished patient, intubated sedated TUBES/LINES/DRAINS:PIV, ET tube, baker SKIN: No jaundice, rashes, or lesions. Ecchymoses on upper extremities. No wounds seen anteriorly. Skin temperature appropriate. Not diaphoretic. HEAD: Atraumatic. Normocephalic. EYES:Eyes closed did not force open. ENT: Hearing grossly normal. Nose without bleeding or purulent drainage. Throat without visible erythema, exudates, masses, or lesions. NECK: Trachea midline. Supple, nontender. No palpable thyroid enlargement or nodularity. CARDIOVASCULAR: Regular rate and rhythm without murmurs, gallops, or rubs. No JVD. Peripheral pulses symmetric. RESPIRATORY/CHEST: decrease breath sounds bilaterally. GASTROINTESTINAL: Abdomen soft, non-tender,distended. No hepato-splenomegaly, or palpable masses. No guarding. Bowel sounds present. GENITOURINARY: Without palpable bladder distension. Baker catheter in place. MUSCULOSKELETAL: Extremities without clubbing, cyanosis, or edema. No joint tenderness or effusion noted. No calf tenderness. No mottling or clubbing. LYMPHATICS: No palpable cervical or supraclavicular adenopathy. NEUROLOGICAL: intubated sedated. Diagnostic Tests Laboratory Laboratory Tests Test 09/15/16 09/16/16 09/16/16 09/17/16 15:30 05:48 15:54 05:26 Potassium Level 3.2 MEQ/L 3.3 MEQ/L (3.5-5.1) (3.5-5.1) Magnesium Level 2.2 MG/DL (1.5-2.5) White Blood Count 8.6 TH/MM3 (4.0-11.0) Red Blood Count 4.73 MIL/MM3 (4.50-5.90) Hemoglobin 13.7 GM/DL (13.0-17.0) Hematocrit 41.7 % (39.0-51.0) Mean Corpuscular Volume 88.2 FL (80.0-100.0) Mean Corpuscular Hemoglobin 29.0 PG (27.0-34.0) Mean Corpuscular Hemoglobin 32.9 % Concent (32.0-36.0) Red Cell Distribution Width 15.2 % (11.6-17.2) Platelet Count 170 TH/MM3 (150-450) Mean Platelet Volume 8.8 FL (7.0-11.0) Neutrophils (%) (Auto) 92.2 % (16.0-70.0) Lymphocytes (%) (Auto) 3.0 % (9.0-44.0) Monocytes (%) (Auto) 4.5 % (0.0-8.0) Eosinophils (%) (Auto) 0.0 % (0.0-4.0) Basophils (%) (Auto) 0.3 % (0.0-2.0) Neutrophils # (Auto) 7.9 TH/MM3 (1.8-7.7) Lymphocytes # (Auto) 0.3 TH/MM3 (1.0-4.8) Monocytes # (Auto) 0.4 TH/MM3 (0-0.9) Eosinophils # (Auto) 0.0 TH/MM3 (0-0.4) Basophils # (Auto) 0.0 TH/MM3 (0-0.2) CBC Comment DIFF FINAL Differential Comment Sodium Level 137 MEQ/L (136-145) Chloride Level 96 MEQ/L (98-107) Carbon Dioxide Level 30.8 MEQ/L (21.0-32.0) Anion Gap 10 MEQ/L (5-15) Blood Urea Nitrogen 27 MG/DL (7-18) Creatinine 0.83 MG/DL (0.60-1.30) Estimat Glomerular Filtration 93 ML/MIN (>89) Rate Random Glucose 288 MG/DL (74-106) Calcium Level 8.6 MG/DL (8.5-10.1) Total Bilirubin 0.5 MG/DL (0.2-1.0) Aspartate Amino Transf 10 U/L (15-37) (AST/SGOT) Alanine Aminotransferase 13 U/L (12-78) (ALT/SGPT) Alkaline Phosphatase 70 U/L (45-117) Total Protein 6.6 GM/DL (6.4-8.2) Albumin 2.7 GM/DL (3.4-5.0) Blood Gas Puncture Site RT RADIAL RT RADIAL Blood Gas Patient Temperature 98.6 98.6 Blood Gas HCO3 26 mmol/L 27 mmol/L (22-26) (22-26) Blood Gas Base Excess 1.1 mmol/L 2.4 mmol/L (-2-2) (-2-2) Blood Gas Oxygen Saturation 93 % (90-100) 90 % (90-100) Arterial Blood pH 7.35 7.37 (7.380-7.420) (7.380-7.420) Arterial Blood Partial 48 mmHg (38-42) 49 mmHg (38-42) Pressure CO2 Arterial Blood Partial 91 mmHg 72 mmHg Pressure O2 (61-120) (61-120) Arterial Blood Oxygen Content 19.0 Vol % 18.4 Vol % (12.0-20.0) (12.0-20.0) Arterial Blood 1.3 % (0-4) 1.4 % (0-4) Carboxyhemoglobin Arterial Blood Methemoglobin 1.2 % (0-2) 1.1 % (0-2) Blood Gas Hemoglobin 14.4 G/DL 14.5 G/DL (12.0-16.0) (12.0-16.0) Oxygen Delivery Device VENTILATOR VENTILATOR Blood Gas Ventilator Setting [facility]/ Blood Gas Inspired Oxygen 558 % 55 % Test 09/17/16 09/18/16 09/18/16 09/18/16 05:40 05:14 05:55 13:04 White Blood Count 8.0 TH/MM3 7.7 TH/MM3 (4.0-11.0) (4.0-11.0) Red Blood Count 4.74 MIL/MM3 4.69 MIL/MM3 (4.50-5.90) (4.50-5.90) Hemoglobin 14.1 GM/DL 13.9 GM/DL (13.0-17.0) (13.0-17.0) Hematocrit 41.5 % 41.1 % (39.0-51.0) (39.0-51.0) Mean Corpuscular Volume 87.7 FL 87.5 FL (80.0-100.0) (80.0-100.0) Mean Corpuscular Hemoglobin 29.7 PG 29.7 PG (27.0-34.0) (27.0-34.0) Mean Corpuscular Hemoglobin 33.9 % 33.9 % Concent (32.0-36.0) (32.0-36.0) Red Cell Distribution Width 15.1 % 15.0 % (11.6-17.2) (11.6-17.2) Platelet Count 134 TH/MM3 135 TH/MM3 (150-450) (150-450) Mean Platelet Volume 8.8 FL 9.2 FL (7.0-11.0) (7.0-11.0) Sodium Level 138 MEQ/L 137 MEQ/L (136-145) (136-145) Potassium Level 3.8 MEQ/L 3.4 MEQ/L (3.5-5.1) (3.5-5.1) Chloride Level 101 MEQ/L 99 MEQ/L (98-107) (98-107) Carbon Dioxide Level 27.9 MEQ/L 29.6 MEQ/L (21.0-32.0) (21.0-32.0) Anion Gap 9 MEQ/L (5-15) 8 MEQ/L (5-15) Blood Urea Nitrogen 34 MG/DL (7-18) 39 MG/DL (7-18) Creatinine 0.72 MG/DL 0.82 MG/DL (0.60-1.30) (0.60-1.30) Estimat Glomerular Filtration 110 ML/MIN 95 ML/MIN (>89) Rate (>89) Random Glucose 293 MG/DL 305 MG/DL (74-106) (74-106) Calcium Level 8.5 MG/DL 8.5 MG/DL (8.5-10.1) (8.5-10.1) Phosphorus Level 3.1 MG/DL 3.0 MG/DL (2.5-4.9) (2.5-4.9) Magnesium Level 2.5 MG/DL 2.6 MG/DL (1.5-2.5) (1.5-2.5) Blood Gas Puncture Site RT RADIAL LT RADIAL Blood Gas Patient Temperature 98.6 98.6 Blood Gas HCO3 28 mmol/L 28 mmol/L (22-26) (22-26) Blood Gas Base Excess 3.4 mmol/L 3.0 mmol/L (-2-2) (-2-2) Blood Gas Oxygen Saturation 94 % (90-100) 94 % (90-100) Arterial Blood pH 7.36 7.37 (7.380-7.420) (7.380-7.420) Arterial Blood Partial 51 mmHg (38-42) 49 mmHg (38-42) Pressure CO2 Arterial Blood Partial 97 mmHg 92 mmHg Pressure O2 (61-120) (61-120) Arterial Blood Oxygen Content 19.1 Vol % 20.3 Vol % (12.0-20.0) (12.0-20.0) Arterial Blood 1.3 % (0-4) 1.3 % (0-4) Carboxyhemoglobin Arterial Blood Methemoglobin 1.2 % (0-2) 1.3 % (0-2) Blood Gas Hemoglobin 14.3 G/DL 15.3 G/DL (12.0-16.0) (12.0-16.0) Oxygen Delivery Device VENTILATOR VENTILATOR Blood Gas Ventilator Setting PRVC/AC PRVC/AC Blood Gas Inspired Oxygen 100 % 70 % Result Diagram: 09/18/16 0514 09/18/16 0514 Imaging Last Impressions Chest X-Ray 09/18/16 0600 Signed Impressions: Service Date/Time: Sunday, September 18, 2016 03:41 - CONCLUSION: Bibasilar areas of consolidation or atelectasis. Some degree of effusion cannot be excluded. Abhinav Chambers MD CT Angiography 09/13/16 0000 Signed Impressions: Service Date/Time: Tuesday, September 13, 2016 12:25 - CONCLUSION: 1. No evidence of pulmonary embolism. 2. Bilateral pleural effusions and consolidation in both lung bases. 3. Moderate cardiomegaly. Konstantin Bridges MD Lower Extremity Ultrasound 09/11/16 0000 Signed Impressions: Service Date/Time: Sunday, September 11, 2016 17:04 - CONCLUSION: No evidence of deep venous thrombosis. Konstantin Bridges MD Patient/Family Conference Present at Family Conference: Pt's sister. Issues Discussed: * Palliative care role, purpose, approach * Additional medical, psychosocial, and spiritual history * Patients general health, functional status, and cognitive changes in the months leading up to the current hospitalization * Patient/family understanding of the current medical problems * Patient/family understanding of prognosis * Patients goals of care as best understood from advance directives and/or conversations and/or values * Current medical treatment options and benefits/burdens of those options * Likely scenarios comparing ongoing aggressive care with a transition to comfort measures only * Questions answered to the best of my ability * Palliative care contact information provided Assessment and Plan Disease Oriented Problem List: (1) Anxiety and depression (2) Acute hypercapnic respiratory failure (3) Cellulitis of left lower extremity (4) COPD (chronic obstructive pulmonary disease) (5) Toxic encephalopathy (6) Obesity hypoventilation syndrome (7) Diabetes Symptom Scale: (1) Encephalopathy 0-10 Scale: Unable to quantify (2) Dyspnea 0-10 Scale: Unable to quantify Pertinent Non-Medical Issues Psychosocial: Spiritual: Legal: Ethical issues impacting care: Important Contacts Cezar Shah (father) [phone] Reta Inman (sister) [phone] Prognosis 65 year old with hx of copd, pneumonia, obesity continue to need ventilator support and appears difficult to wean off ventilator. Pt in critical condition. retirement prognosis is poor, which pulmonology confirms. Code Status: Full Code Plan == Code: full == Heatlh Care proxy- pt has no spouse, no children. Have parents (in their 90s ) and sister. Per Fl statutet pt parents would be proxy. However they can choose not to participate in making medical decisions, and then decision will fall to pt's sister. == Pt's parents currently unavailable. I have spoken with patient's sister, and will have family conference at 1PM tomorrow and see if Pt's parents want to participate in medical decision making? Dr. Charlton has reviewed pts condition with pt's sister. We will address goals of care again once medical proxy has been established. == Encephalopathy/ dyspnea- on vent, on sedatives- defer to merchandising internship management. == Case d/w with attending == Palliative Care will follow as pt's condition evolves. Thank you for the opportunity to participate in the care of Mr. Robb. Attestation To help prompt me to consider important information that might be impacting today's encounter and assessment, information from prior notes written by myself or my colleagues may have been "brought forward" into today's note. My signature on this note, however, is an attestation that I personally performed the exam, history, and/or decision-making noted today, and, unless otherwise indicated, the interactions with patient, family, and staff as well as the review of records all occurred today. I also attest that the listed assessment and stated plan reflect my best clinical judgment today based on the combination of historical information, prior notes, and today's exam/ interactions. When time spent is documented, it refers only to time spent today by the signer, or if indicated, combined time spent today by collaborating physician/nurse practitioner. Harjeet Flores MD Sep 18, 2016 14:35
[2016-09-18] MEDS: ENOXAPARIN SODIUM 40 MG/0.4 ML SYRINGE SQ SCH (21:38)
[2016-09-19] VITALS (18 sets, daily range): BP systolic 116–127; BP diastolic 70–74; PULSE 59–83; RESP 15; TEMP 97.3–99.5; O2SAT 93–96
[2016-09-19] MEDS: RESP: ALBUTEROL 2.5 MG/IPRATROPIUM 0.5 MG NEB (SCH) INH ×6 (02:16→23:48)
[2016-09-19] MEDS: PIPERACIL-TAZO 4.5 GM PREMIX 100 ML IV SCH ×4 (03:37→23:09)
[2016-09-19] MEDS: PROPOFOL 1000 MG/100 ML INJ 100 ML IV SCH ×5 (03:37→23:09)
[2016-09-19] MEDS: CHLORHEXIDINE GLUCONATE 2 % 1 PACK (2 CLOTHS) TOP SCH (03:37)
[2016-09-19] MEDS: VANCOMYCIN INJ 2,000 MG in SODIUM CHLORID 0.9% 500 ML INJ 500 ML IV SCH ×2 (03:37→16:43)
[2016-09-19 05:43] LABS: AUTOMATED NEUTROPHIL # 6.9 TH/MM3 (1.8-7.7); BASOPHIL % 0.1 % (0.0-2.0); HEMATOCRIT 43.9 % (39.0-51.0); HEMO FLAGS DIFF FINAL; LYMPH % 9.8 % (9.0-44.0); LYMPHOCYTE # 0.8 TH/MM3 (1.0-4.8); MEAN CELL VOLUME 87.4 FL (80.0-100.0); MEAN CORPUSCULAR HEMOGLOBIN 29.4 PG (27.0-34.0); MEAN CORPUSCULAR HGB CONC 33.7 % (32.0-36.0); MONO % 5.2 % (0.0-8.0); NEUT % 84.9 % (16.0-70.0); PLATELET COUNT 136 TH/MM3 (150-450); RED BLOOD COUNT 5.02 MIL/MM3 (4.50-5.90); RED CELL DISTRIBUTION WIDTH 14.7 % (11.6-17.2); WHITE BLOOD COUNT 8.1 TH/MM3 (4.0-11.0)
[2016-09-19] MEDS: LACTULOSE SYRUP 20 GM/30 ML CUP PO SCH ×2 (06:00)
[2016-09-19 06:16] LABS: ALT (GPT) 14 U/L (12-78); ANION GAP 8 MEQ/L (5-15); AST (GOT) 6 U/L (15-37); BICARBONATE 30.2 MEQ/L (21.0-32.0); BLOOD UREA NITROGEN 41 MG/DL (7-18); CHLORIDE 102 MEQ/L (98-107); GLOMERULAR FILTRATION RATE 106 ML/MIN (>89); MAGNESIUM 2.5 MG/DL (1.5-2.5); POTASSIUM 3.4 MEQ/L (3.5-5.1); SODIUM (NA) 140 MEQ/L (136-145)
[2016-09-19 06:18] LABS: ALKALINE PHOSPHATASE 54 U/L (45-117); TOTAL BILIRUBIN ADULT 0.7 MG/DL (0.2-1.0)
--- NOTE | 2016-09-19 06:24 | RADRPT ---
EXAM DATE/TIME: 09/19/2016 04:49 [facility] COMPARISON: CHEST SINGLE AP, September 18, 2016, 3:41. INDICATIONS : Respiratory distress. MEDICAL HISTORY : None. SURGICAL HISTORY : None. ENCOUNTER: Subsequent ACUITY: 1 week PAIN SCORE: Non-responsive. LOCATION: Bilateral chest FINDINGS: The ET tube and NG tube are well placed. The heart size is normal. There is increased density at the mid and lower lungs with silhouetting of the hemidiaphragms. CONCLUSION: Bibasilar increased density representing a combination of atelectasis, consolidation, and effusions. Abhinav Chambers MD on September 19, 2016 at 6:21 Board Certified Radiologist. This report was verified electronically.
--- NOTE | 2016-09-19 06:42 | MB ---
cc: Stuart RAY M.D. DATE OF CONSULTATION 09/18/2016 HISTORY OF PRESENT ILLNESS Mr. Robb is a 61-year-old white male whom I saw in July who presented with hypercarbic and hypoxic respiratory failure in a stupor. Initially it was not at all clear what his underlying problems were but he did have a history of alcoholism and drug use, although his tox screen was negative on presentation as I recall and it was probably hypercarbia that resulted in the altered mental state on that initial presentation in July. He improved with BiPAP, did not require mechanical ventilatory support and after rather prolonged hospital stay was felt to have chronic obstructive and restrictive lung disease with probable significant sleep disorder breathing and obesity hypoventilation. PCO2 has remained elevated even to the time of discharge. The patient was recommended for C-PAP on discharge until Dr. Bird could see him back in the office for further evaluation but the patient refused to use C-PAP. He did go home on oxygen and bronchodilators. The patient is now back in the hospital for a week. He has been intubated and mechanically ventilated requiring increasing FIO2. He has some basilar infiltrates, probably hospital-acquired pneumonia and is being treated for that. I spoke at length with his sister who had I met on the previous hospitalizations to try to get a little clearer idea of what happened. The patient went home. She was actually there and was only home for the weekend. He just kept getting more and more short of breath despite the oxygen. He was not using any C-PAP; they did not have that at home, and when the nurse saw him on Sunday she recommended that he come back into the hospital but by the time he presented he had a pCO2 of over 100 and a pH of 7.1. He was intubated and has been ventilated since then. His sister also tells me that this has been a problem that is ongoing for years. She said his first serious hospitalization was about 15 years ago in intensive care on a mechanical ventilator for weeks. That happened again about 5 years ago. This patient was a former heavy smoker. He also is alcoholic, although she does not know when he was last drinking because she does not live here. He lives with his parents locally, and there is some prior history of drug abuse, although that seems to be over. For review of the prior history in addition, please refer to my prior notes. ALLERGIES None known. CURRENT MEDICATIONS Reviewed in the EMR. PHYSICAL EXAMINATION VITAL SIGNS: He has been afebrile. Blood pressure is in 120 to 130/70 range, heart rate has been controlled 60-70. He is currently requiring anywhere from 70-90% FIO2. HEENT: Sclerae pale, anicteric. NECK: Neck veins are not distended. CHEST: Very diminished. Minimal congestion. No wheezing. No harsh murmur. ABDOMEN: Obese but soft. EXTREMITIES: He has no peripheral edema at this time. IMAGING STUDIES Chest x-rays have revealed bibasilar consolidation, probably with small effusions. LABORATORY DATA Cultures of sputum and blood have been negative and urine for Legionella and pneumococcus were negative. White count has actually been normal in the 7,000 to 10,000 range. Arterial blood gases - Today on 70% his pO2 is 92 with a pH of 7.37 and a pCO2 of 49. BUN and creatinine 39 and 0.8. He had an echocardiogram on the previous admission which was unremarkable. DISCUSSION Mr. Robb presents back after only a few days out of the hospital with severe respiratory failure. From his history from his sister, this sounds like this has been a longstanding problem and in fact during his prior hospitalization he had a simple spirometry with an FEV-1 and FVC of 25%. I suspect he has had long-term chronic lung disease and may have continued to smoke, we are not certain about the use of alcohol but sounds like he has been chronically ill and has now been tipped over the edge. There does not appear to be any heart failure. There may be pneumonia but he is being treated for that. In light of his short-term return after a very aggressive course in the hospital over the last couple of weeks, it seems his prognosis at this point would be fairly poor. He has never made any specific recommendations to his family that his sister is aware of regarding long-term support on a ventilator, but that may very well be what he is facing at this point. He is on appropriate bronchodilator therapy, steroid therapy antibiotics. I have no further treatment suggestions and I have asked Palliative Care to see him to go into further detail about who is going to be making the medical decisions going forward. Further diagnostic and/or therapeutic intervention will depend on his ongoing clinical course. R. MD PARKER Cotto/SSB /5:21 PM /6:29 AM
[2016-09-19] MEDS: CHLORHEXIDINE 0.12% (ORAL KIT) 15 ML CUP MT SCH ×2 (08:07→21:11)
[2016-09-19] MEDS: PANTOPRAZOLE SODIUM 40 MG VIAL IV SCH (08:08)
[2016-09-19] MEDS: methylPREDNISolone SOD SUCC 40 MG/1 ML VIAL IV PUSH SCH ×2 (08:08→16:43)
[2016-09-19] MEDS: POTASSIUM CL 40 MEQ/30 ML LIQ UDC PO SCH (08:08)
[2016-09-19] MEDS: SODIUM CHLORIDE 0.9% FLUSH 5 ML FLUSH IV FLUSH SCH ×2 (08:08→21:12)
[2016-09-19] MEDS: TAMSULOSIN HCL 0.4 MG CAP PO SCH (08:08)
[2016-09-19] MEDS: DILTIAZEM HCL 60 MG TAB PO SCH ×4 (08:08→21:12)
[2016-09-19] MEDS: INSULIN DETEMIR 100 UNITS/ML VIAL SQ SCH ×2 (08:09→21:12)
[2016-09-19] MEDS: POLYETHYLENE GLYCOL 17 GM PKG PO SCH (08:09)
[2016-09-19] MEDS: DOCUSATE SODIUM 50 MG/SENNA 8.6 MG TAB PO SCH ×2 (08:09→21:12)
--- NOTE | 2016-09-19 10:16 | HHI.CCPN ---
Subjective Remarks/Hospital Course This is a morbidly obese 65-year-old male with a history of obesity hypoventilation syndrome, COPD, CHF, severe venous stasis, and recent lower extremity cellulitis who presented with worsening shortness of breath. He was recently admitted to the [facility] emergency department and then ICU with similar symptoms for which she was placed on BiPAP for a few days. In this emergency department he was noted to have a PCO2 of 102. He was placed on BiPAP initially, although his mentation continued to worsen and despite BiPAP his PCO2 increased to 112. The patient is a very poor historian on top of the fact that he is very somnolent and unable to provide additional information. Critical-care medicine is consulted to evaluate and manage his acute hypercarbic and hypoxic respiratory failure. Dr. Martinez intubated and placed on mechanical ventilation 09/12 Patient is sedated with Diprivan and intubated. Afebrile. On PRVC/AC RR 14 , TV 450, PEEP:8, IT:0.9, FIO2 60%. 09/13 Patient remains sedated and intubated, On PRVC/AC RR 14, TV 450, IT:0.9, PEEP:10, FIO2 70%, Afebrile. 09/14: Patient is wide awake on propofol. FiO2 at 80%, PEEP at 10. I have changed to PSV mode for patient comfort. Start Bumex infusion for CHF/fluid overload. Increase Solu-Medrol to 40 every 8 09/15: Remains hypoxemic, I have weaned FiO2 to 55%, PEEP remains at 14. Patient remains heavily sedated. Chest x-ray continues to show bibasilar infiltrates and effusion. Urine output excellent on Bumex drip more than 10 L in 24 hours 09/16: Afebrile. Intubated and sedated, FiO2 remains at 55%. Earlier today tube feed residuals 200 cc noted, with resolution this afternoon. 09/17: The patient required an increase in FiO2 this morning to 60%, attempting to wean. Vancomycin was discontinued, he continues on Zosyn. Patient continues to have blood glucoses in the mid to high 200s despite being on insulin drip and Levemir at 20 units twice a day. Levemir increased. 09/18: Increasing saturations noted. PEEP increased to 15. FiO2 down to 75%. Chest x-ray reveals small bilateral pleural effusions. Negative CTA chest last admission. Sedated with Versed and propofol drips. One small bowel movement yesterday. Subjective 09/19: FiO2 decreased to 65%. Chest x-ray reveals possible worsening bilateral pleural effusions. Sedated on Versed and propofol just. Positive BM. Tolerating tube feeding. Objective Vital Signs Date Time Temp Pulse Resp B/P Pulse Ox O2 Delivery O2 Flow Rate FiO2 09/19/16 08:00 65 09/19/16 08:00 97.9 59 15 127/74 94 Intake and Output 09/18/16 09/18/16 09/19/16 08:00 16:00 00:00 Intake Total 951 ml 2133 ml 1577 ml Output Total 580.0 ml 1850 ml 700 ml Balance 371.0 ml 283 ml 877 ml Result Diagram: 09/19/16 0507 09/19/16 0507 Imaging Last Impressions Chest X-Ray 09/19/16 0600 Signed Impressions: Service Date/Time: Monday, September 19, 2016 04:49 - CONCLUSION: Bibasilar increased density representing a combination of atelectasis, consolidation, and effusions. Abhinav Chambers MD CT Angiography 09/13/16 0000 Signed Impressions: Service Date/Time: Tuesday, September 13, 2016 12:25 - CONCLUSION: 1. No evidence of pulmonary embolism. 2. Bilateral pleural effusions and consolidation in both lung bases. 3. Moderate cardiomegaly. Konstantin Bridges MD Lower Extremity Ultrasound 09/11/16 0000 Signed Impressions: Service Date/Time: Sunday, September 11, 2016 17:04 - CONCLUSION: No evidence of deep venous thrombosis. Konstantin Bridges MD Objective Remarks GENERAL: 65yo male, critically ill sedated and intubated. SKIN: Warm and dry. No rash HEAD: Normocephalic. EYES: No scleral icterus. No injection or drainage. ENT: Orotracheally intubated NECK: Supple, trachea midline. No JVD or lymphadenopathy. CARDIOVASCULAR: Regular rate and rhythm S1, S2. No S4. Without murmurs, gallops, or clicks or rubs. RESPIRATORY: Breath sounds equal bilaterally. PRVC mode. No wheezing, diminished in the bases. GASTROINTESTINAL: Abdomen soft obese, non-tender, distended and protuberant MUSCULOSKELETAL: Bilateral lower extremity with significant venous stasis changes. Early no peripheral pitting edema. Right lower extremity with evidence of prior graft. NEURO: Sedated and intubated. No focal deficits A/P Assessment and Plan Neuro/Psych: Acute encephalopathy - possible CO2 narcosis Metabolic encephalopathy Chronic benzodiazepine use On Diprivan at 30 mcg/kg/m and versed infusion at 5 mg an hour for sedation while intubated. Goal of RASS -2 Daily sedation vacation when appropriate On Xanax 0.25 mg every 8 hours as needed at home for anxiety. This is currently on hold Pulm: Acute hypoxemic respiratory failure COPD exacerbation Bibasilar pneumonia Obesity hypoventilation syndrome On PRVC/AC RR 15, TV 550< IT:1.5, PEEP:15, FIO2 65% Start spontaneous breathing trials once FiO2 less than 50% , PEEP <8 Continue with vent support keep sat >92% Bronchodilators every 4 hours, ICU vent bundle. Continue methylprednisone 40mg q8 Chest x-ray 09/19 reveals worsening 7 bilateral pleural effusions. CV: Hypertension Dyslipidemia On Cardizem 60mg QID, monitor HR and BP keep MAP>65mmHg Echo from 08/25 showed EF 55%, no RWMA On diltiazem 120 mg daily Lasix 20 mg daily at home. Start Bumex 1 mg IV twice a day /renal: BPH History of left renal cyst Hypopotassemia Hypokalemia Monitor renal function, I/O's, electrolytes replacement per protocol. On Flomax 0.4 mg by mouth daily for BPH Receiving K-Phos today. Recheck in a.m. GI Constipation Morbid obesity On TF-vital high protein goal 60 cc an hour Protonix 40mg daily for GI prophylaxis. Parisa-Colace twice a day/MiraLAX daily ID: Continue with abx (Vanco, Zosyn) monitor for signs of infections ( Fever, WBC) . Added Zithromax a #2 09/11 BC: NGTD. s/u Sputum cx, strep pneumonia and Legionella urinary Ag Check sputum/influenza today Heme: Thrombocytopenia Monitor CBC. Monitor trends Endo Diabetes mellitus Hyperglycemia of critical illness Insulin drip algorithm 3 at 6 units an hour, Levemir 40 U Q12 for glycemic control On metformin unknown dosage insulin scale insulin unknown dosage at home for diabetes. Prophylaxis: GI Prophylaxis Protonix 40 mg IV daily DVT Prophylaxis -- SCDs Lovenox 40 mg subcutaneous daily - Doppler US LE negative for DVT Critical Care: The total critical care time was 35 minutes. Time to perform other separately billable procedures was not included in the critical care time. Marcel Marte MD Sep 19, 2016 10:16
[2016-09-19] MEDS: BUMETANIDE INJ 1 MG/4 ML VIAL IV PUSH SCH ×2 (10:21→16:43)
[2016-09-19] MEDS ORDERED: BUMETANIDE INJ 1 MG/4 ML VIAL IV PUSH ONE (11:00)
[2016-09-19] MEDS: POTASSIUM PHOSPHATE INJ 30 MMOL in SODIUM CHLOR 0.9% 250 ML INJ 250 ML IV PRN (11:40)
[2016-09-19] MEDS: AZITHROMYCIN INJ 500 MG in SODIUM CHLOR 0.9% 250 ML INJ 250 ML IV SCH (11:41)
[2016-09-19] MEDS ORDERED: CHLOROTHIAZIDE SOD 500 MG VIAL IV ONE (12:00)
[2016-09-19] MEDS ORDERED: POTASSIUM PHOSPHATE INJ 30 MMOL in SODIUM CHLOR 0.9% 250 ML INJ 250 ML IV ONE (12:00)
--- NOTE | 2016-09-19 13:55 | HHI.HCPN ---
Reason for visit a. To assist with evaluation and management of symptoms including: dyspnea b. To assist medical decision maker(s) with: better understanding of current medical conditions; weighing benefits/burdens of medical treatment options; making medical treatment decisions. Subjective/Interval History Continue to be ventilator, sedated. Pt CXR show some worsening. Family/friend interactions Spoke with both and Mrs Robb, pt's father and mother , age in the 90s. Nurse Hernandez was present during the conversation on the phone. They decided not to participate in medical decisions. They are aware, that pt' s sister Reta Inman with be the health care proxy. Advance Directives Living Will: Never completed Health Care Surrogate: Never completed Durable Power of Key Sander: Never completed Objective Vital Signs Date Time Temp Pulse Resp B/P Pulse Ox O2 Delivery O2 Flow Rate FiO2 09/19/16 13:38 95 60 09/19/16 12:00 65 09/19/16 12:00 97.3 59 15 122/74 94 09/19/16 12:00 70 09/19/16 11:06 94 60 09/19/16 10:00 59 09/19/16 08:00 65 09/19/16 08:00 97.9 59 15 127/74 94 09/19/16 08:00 63 09/19/16 07:19 94 65 09/19/16 06:00 64 09/19/16 04:02 94 65 09/19/16 04:00 64 09/19/16 04:00 65 09/19/16 04:00 98.3 64 15 118/70 94 09/19/16 02:00 63 09/19/16 00:00 65 09/19/16 00:00 66 09/19/16 00:00 98.1 66 15 116/70 93 09/18/16 23:55 93 65 09/18/16 22:00 65 09/18/16 20:00 65 09/18/16 20:00 98.2 66 15 143/82 94 09/18/16 20:00 66 09/18/16 19:22 94 65 09/18/16 18:16 95 65 09/18/16 18:00 63 09/18/16 16:00 65 09/18/16 16:00 70 09/18/16 16:00 97.7 65 15 127/72 95 09/18/16 14:00 62 Intake & Output 09/19/16 09/19/16 07:00 19:00 Intake Total 2126 ml Output Total 1080 ml Balance 1046 ml IV Total 1545 ml Tube Feeding 521 ml Tube Irrigant 60 ml Output Urine Total 1080 ml # Bowel Movements 1 Physical Exam CONSTITUTIONAL/GENERAL: This is an adequately nourished patient, intubated sedated TUBES/LINES/DRAINS:PIV, ET tube, baekr SKIN: No jaundice, rashes, or lesions. Ecchymoses on upper extremities. No wounds seen anteriorly. Skin temperature appropriate. Not diaphoretic. HEAD: Atraumatic. Normocephalic. EYES:Eyes closed did not force open. ENT: Hearing grossly normal. Nose without bleeding or purulent drainage. Throat without visible erythema, exudates, masses, or lesions. NECK: Trachea midline. Supple, nontender. No palpable thyroid enlargement or nodularity. CARDIOVASCULAR: Regular rate and rhythm without murmurs, gallops, or rubs. No JVD. Peripheral pulses symmetric. RESPIRATORY/CHEST: decrease breath sounds bilaterally. GASTROINTESTINAL: Abdomen soft, non-tender,distended. No hepato-splenomegaly, or palpable masses. No guarding. Bowel sounds present. GENITOURINARY: Without palpable bladder distension. Baker catheter in place. MUSCULOSKELETAL: Extremities without clubbing, cyanosis, or edema. No joint tenderness or effusion noted. No calf tenderness. No mottling or clubbing. LYMPHATICS: No palpable cervical or supraclavicular adenopathy. NEUROLOGICAL: intubated sedated. Diagnostic Tests Laboratory Laboratory Tests Test 09/16/16 09/17/16 09/17/16 09/18/16 15:54 05:26 05:40 05:14 Blood Gas Puncture Site RT RADIAL RT RADIAL Blood Gas Patient Temperature 98.6 98.6 Blood Gas HCO3 26 mmol/L 27 mmol/L (22-26) (22-26) Blood Gas Base Excess 1.1 mmol/L 2.4 mmol/L (-2-2) (-2-2) Blood Gas Oxygen Saturation 93 % (90-100) 90 % (90-100) Arterial Blood pH 7.35 7.37 (7.380-7.420) (7.380-7.420) Arterial Blood Partial 48 mmHg (38-42) 49 mmHg (38-42) Pressure CO2 Arterial Blood Partial 91 mmHg 72 mmHg Pressure O2 (61-120) (61-120) Arterial Blood Oxygen Content 19.0 Vol % 18.4 Vol % (12.0-20.0) (12.0-20.0) Arterial Blood 1.3 % (0-4) 1.4 % (0-4) Carboxyhemoglobin Arterial Blood Methemoglobin 1.2 % (0-2) 1.1 % (0-2) Blood Gas Hemoglobin 14.4 G/DL 14.5 G/DL (12.0-16.0) (12.0-16.0) Oxygen Delivery Device VENTILATOR VENTILATOR Blood Gas Ventilator Setting PRVC/AC Blood Gas Inspired Oxygen 558 % 55 % White Blood Count 8.0 TH/MM3 7.7 TH/MM3 (4.0-11.0) (4.0-11.0) Red Blood Count 4.74 MIL/MM3 4.69 MIL/MM3 (4.50-5.90) (4.50-5.90) Hemoglobin 14.1 GM/DL 13.9 GM/DL (13.0-17.0) (13.0-17.0) Hematocrit 41.5 % 41.1 % (39.0-51.0) (39.0-51.0) Mean Corpuscular Volume 87.7 FL 87.5 FL (80.0-100.0) (80.0-100.0) Mean Corpuscular Hemoglobin 29.7 PG 29.7 PG (27.0-34.0) (27.0-34.0) Mean Corpuscular Hemoglobin 33.9 % 33.9 % Concent (32.0-36.0) (32.0-36.0) Red Cell Distribution Width 15.1 % 15.0 % (11.6-17.2) (11.6-17.2) Platelet Count 134 TH/MM3 135 TH/MM3 (150-450) (150-450) Mean Platelet Volume 8.8 FL 9.2 FL (7.0-11.0) (7.0-11.0) Sodium Level 138 MEQ/L 137 MEQ/L (136-145) (136-145) Potassium Level 3.8 MEQ/L 3.4 MEQ/L (3.5-5.1) (3.5-5.1) Chloride Level 101 MEQ/L 99 MEQ/L (98-107) (98-107) Carbon Dioxide Level 27.9 MEQ/L 29.6 MEQ/L (21.0-32.0) (21.0-32.0) Anion Gap 9 MEQ/L (5-15) 8 MEQ/L (5-15) Blood Urea Nitrogen 34 MG/DL (7-18) 39 MG/DL (7-18) Creatinine 0.72 MG/DL 0.82 MG/DL (0.60-1.30) (0.60-1.30) Estimat Glomerular Filtration 110 ML/MIN 95 ML/MIN (>89) Rate (>89) Random Glucose 293 MG/DL 305 MG/DL (74-106) (74-106) Calcium Level 8.5 MG/DL 8.5 MG/DL (8.5-10.1) (8.5-10.1) Phosphorus Level 3.1 MG/DL 3.0 MG/DL (2.5-4.9) (2.5-4.9) Magnesium Level 2.5 MG/DL 2.6 MG/DL (1.5-2.5) (1.5-2.5) Test 09/18/16 09/18/16 09/19/16 05:55 13:04 05:07 Blood Gas Puncture Site RT RADIAL LT RADIAL Blood Gas Patient Temperature 98.6 98.6 Blood Gas HCO3 28 mmol/L 28 mmol/L (22-26) (22-26) Blood Gas Base Excess 3.4 mmol/L 3.0 mmol/L (-2-2) (-2-2) Blood Gas Oxygen Saturation 94 % (90-100) 94 % (90-100) Arterial Blood pH 7.36 7.37 (7.380-7.420) (7.380-7.420) Arterial Blood Partial 51 mmHg (38-42) 49 mmHg (38-42) Pressure CO2 Arterial Blood Partial 97 mmHg 92 mmHg Pressure O2 (61-120) (61-120) Arterial Blood Oxygen Content 19.1 Vol % 20.3 Vol % (12.0-20.0) (12.0-20.0) Arterial Blood 1.3 % (0-4) 1.3 % (0-4) Carboxyhemoglobin Arterial Blood Methemoglobin 1.2 % (0-2) 1.3 % (0-2) Blood Gas Hemoglobin 14.3 G/DL 15.3 G/DL (12.0-16.0) (12.0-16.0) Oxygen Delivery Device VENTILATOR VENTILATOR Blood Gas Ventilator Setting PRVC/AC PRVC/AC Blood Gas Inspired Oxygen 100 % 70 % White Blood Count 8.1 TH/MM3 (4.0-11.0) Red Blood Count 5.02 MIL/MM3 (4.50-5.90) Hemoglobin 14.8 GM/DL (13.0-17.0) Hematocrit 43.9 % (39.0-51.0) Mean Corpuscular Volume 87.4 FL (80.0-100.0) Mean Corpuscular Hemoglobin 29.4 PG (27.0-34.0) Mean Corpuscular Hemoglobin 33.7 % Concent (32.0-36.0) Red Cell Distribution Width 14.7 % (11.6-17.2) Platelet Count 136 TH/MM3 (150-450) Mean Platelet Volume 9.5 FL (7.0-11.0) Neutrophils (%) (Auto) 84.9 % (16.0-70.0) Lymphocytes (%) (Auto) 9.8 % (9.0-44.0) Monocytes (%) (Auto) 5.2 % (0.0-8.0) Eosinophils (%) (Auto) 0.0 % (0.0-4.0) Basophils (%) (Auto) 0.1 % (0.0-2.0) Neutrophils # (Auto) 6.9 TH/MM3 (1.8-7.7) Lymphocytes # (Auto) 0.8 TH/MM3 (1.0-4.8) Monocytes # (Auto) 0.4 TH/MM3 (0-0.9) Eosinophils # (Auto) 0.0 TH/MM3 (0-0.4) Basophils # (Auto) 0.0 TH/MM3 (0-0.2) CBC Comment DIFF FINAL Differential Comment Sodium Level 140 MEQ/L (136-145) Potassium Level 3.4 MEQ/L (3.5-5.1) Chloride Level 102 MEQ/L (98-107) Carbon Dioxide Level 30.2 MEQ/L (21.0-32.0) Anion Gap 8 MEQ/L (5-15) Blood Urea Nitrogen 41 MG/DL (7-18) Creatinine 0.74 MG/DL (0.60-1.30) Estimat Glomerular Filtration 106 ML/MIN Rate (>89) Random Glucose 293 MG/DL (74-106) Calcium Level 8.7 MG/DL (8.5-10.1) Phosphorus Level 2.2 MG/DL (2.5-4.9) Magnesium Level 2.5 MG/DL (1.5-2.5) Total Bilirubin 0.7 MG/DL (0.2-1.0) Aspartate Amino Transf 6 U/L (15-37) (AST/SGOT) Alanine Aminotransferase 14 U/L (12-78) (ALT/SGPT) Alkaline Phosphatase 54 U/L (45-117) Total Protein 6.4 GM/DL (6.4-8.2) Albumin 2.7 GM/DL (3.4-5.0) Result Diagram: 09/19/16 0507 09/19/16 0507 Imaging Last Impressions Chest X-Ray 09/19/16 0600 Signed Impressions: Service Date/Time: Monday, September 19, 2016 04:49 - CONCLUSION: Bibasilar increased density representing a combination of atelectasis, consolidation, and effusions. Abhinav Chambers MD CT Angiography 09/13/16 0000 Signed Impressions: Service Date/Time: Tuesday, September 13, 2016 12:25 - CONCLUSION: 1. No evidence of pulmonary embolism. 2. Bilateral pleural effusions and consolidation in both lung bases. 3. Moderate cardiomegaly. Konstantin Bridges MD Lower Extremity Ultrasound 09/11/16 0000 Signed Impressions: Service Date/Time: Sunday, September 11, 2016 17:04 - CONCLUSION: No evidence of deep venous thrombosis. Konstantin Bridges MD Assessment and Plan Disease Oriented Problem List: (1) Anxiety and depression (2) Acute hypercapnic respiratory failure (3) Cellulitis of left lower extremity (4) COPD (chronic obstructive pulmonary disease) (5) Toxic encephalopathy (6) Obesity hypoventilation syndrome (7) Diabetes Symptom Scale: (1) Encephalopathy 0-10 Scale: Unable to quantify (2) Dyspnea 0-10 Scale: Unable to quantify Pertinent Non-Medical Issues Psychosocial: Spiritual: Legal: Ethical issues impacting care: Important Contacts Cezar Shah (father) [phone] Reta Inman (sister) [phone] Prognosis 65 year old with hx of copd, pneumonia, obesity continue to need ventilator support and appears difficult to wean off ventilator. Pt in critical condition. assisted prognosis is poor, which pulmonology confirms. Code Status: Full Code Plan == Code: Alt: Intubation only: No shock/cpr/ acls == Heatlh Care proxy- pt has no spouse, no children. Have parents (in their 90s ) and sister. I have spoken to pt's parents (witnessed by nurse) and they have decided not to participate in making medical decisions for patient. They understand, Reta Inman (pt's sister) will be heatlh care proxy/ decision maker. Therefore Health Care Proxy is Reta Inman (Pt's sister). == Encephalopathy/ dyspnea- on vent, on sedatives- defer to signal tower director management. == Goals: Evolving. Sister is unsure about peg or trach. Reviewed the risk and benefits of peg and trach. Sister was tearful after our conversation. == Case d/w with attending. == Palliative Care will follow as pt's condition evolves. Time Spent Total Floor Time (mins): 45 Face to Face Time (mins): 30 Attestation To help prompt me to consider important information that might be impacting today's encounter and assessment, information from prior notes written by myself or my colleagues may have been "brought forward" into today's note. My signature on this note, however, is an attestation that I personally performed the exam, history, and/or decision-making noted today, and, unless otherwise indicated, the interactions with patient, family, and staff as well as the review of records all occurred today. I also attest that the listed assessment and stated plan reflect my best clinical judgment today based on the combination of historical information, prior notes, and today's exam/ interactions. When time spent is documented, it refers only to time spent today by the signer, or if indicated, combined time spent today by collaborating physician/nurse practitioner. Harjeet Flores MD Sep 19, 2016 13:55
[2016-09-19] MEDS: INSULIN REGULAR 100 UNITS/100 ML NS ALGORITHM 2 IV SCH ×2 (15:19)
[2016-09-19] MEDS: MIDAZOLAM 100 MG/NS 100 ML DRIP Premix IV SCH (16:55)
[2016-09-19] MEDS: ENOXAPARIN SODIUM 40 MG/0.4 ML SYRINGE SQ SCH (21:12)
[2016-09-19] MEDS: RESP: BUDESONIDE 0.5 MG/2 ML NEB NEB SCH (21:32)
[2016-09-20] VITALS (18 sets, daily range): BP systolic 121–136; BP diastolic 64–78; PULSE 73–87; RESP 15–18; TEMP 98.7–99.8; O2SAT 93–100
[2016-09-20] MEDS: methylPREDNISolone SOD SUCC 40 MG/1 ML VIAL IV PUSH SCH ×3 (00:15→18:08)
[2016-09-20] MEDS: SODIUM CHLORIDE 0.9% FLUSH 5 ML FLUSH IV FLUSH PRN ×2 (00:15→10:04)
[2016-09-20] MEDS: RESP: ALBUTEROL 2.5 MG/IPRATROPIUM 0.5 MG NEB (SCH) INH ×6 (03:55→23:33)
[2016-09-20] MEDS: CHLORHEXIDINE GLUCONATE 2 % 1 PACK (2 CLOTHS) TOP SCH (04:00)
[2016-09-20 04:17] LABS: AUTOMATED NEUTROPHIL # 6.8 TH/MM3 (1.8-7.7); BASOPHIL % 0.1 % (0.0-2.0); HEMATOCRIT 42.3 % (39.0-51.0); LYMPH % 1.5 % (9.0-44.0); LYMPHOCYTE # 0.1 TH/MM3 (1.0-4.8); MEAN CELL VOLUME 86.8 FL (80.0-100.0); MEAN CORPUSCULAR HEMOGLOBIN 29.4 PG (27.0-34.0); MEAN CORPUSCULAR HGB CONC 33.8 % (32.0-36.0); MONO % 8.5 % (0.0-8.0); NEUT % 89.9 % (16.0-70.0); PLATELET COUNT 149 TH/MM3 (150-450); RED BLOOD COUNT 4.87 MIL/MM3 (4.50-5.90); RED CELL DISTRIBUTION WIDTH 15.1 % (11.6-17.2); WHITE BLOOD COUNT 7.6 TH/MM3 (4.0-11.0)
[2016-09-20 04:36] LABS: ALT (GPT) 15 U/L (12-78); ANION GAP 6 MEQ/L (5-15); AST (GOT) 8 U/L (15-37); BICARBONATE 35.3 MEQ/L (21.0-32.0); BLOOD UREA NITROGEN 39 MG/DL (7-18); CHLORIDE 100 MEQ/L (98-107); GLOMERULAR FILTRATION RATE 115 ML/MIN (>89); MAGNESIUM 2.3 MG/DL (1.5-2.5); POTASSIUM 3.5 MEQ/L (3.5-5.1); SODIUM (NA) 141 MEQ/L (136-145)
[2016-09-20 04:39] LABS: HEMO FLAGS AUTO DIFF
[2016-09-20 04:40] LABS: ALKALINE PHOSPHATASE 52 U/L (45-117); TOTAL BILIRUBIN ADULT 0.6 MG/DL (0.2-1.0)
[2016-09-20 04:53] LABS: CREATINE KINASE 39 U/L (39-308)
[2016-09-20] MEDS: PIPERACIL-TAZO 4.5 GM PREMIX 100 ML IV SCH ×4 (05:18→23:16)
[2016-09-20] MEDS: VANCOMYCIN INJ 2,000 MG in SODIUM CHLORID 0.9% 500 ML INJ 500 ML IV SCH ×2 (05:19→18:07)
[2016-09-20] MEDS: PROPOFOL 1000 MG/100 ML INJ 100 ML IV SCH ×4 (05:21→20:26)
[2016-09-20] MEDS: INSULIN REGULAR 100 UNITS/100 ML NS ALGORITHM 2 IV SCH ×2 (06:22)
[2016-09-20 07:51] LABS: BANDS 1 % (0-6); MYELOCYTES 1 % (0-0); POLYS (SEG NEUTROPHILS) 90 % (16-70); WBC DIFF SAMPLE 100
[2016-09-20 07:52] LABS: PLATELET ESTIMATE SMEAR NORMAL (NORMAL); PLATELET MORPHOLOGY NORMAL (NORMAL); SCAN/DIFF FINAL DIFF MANUAL
[2016-09-20] MEDS: DOCUSATE SODIUM 50 MG/SENNA 8.6 MG TAB PO SCH ×2 (10:02→20:28)
[2016-09-20] MEDS: TAMSULOSIN HCL 0.4 MG CAP PO SCH (10:02)
[2016-09-20] MEDS: POLYETHYLENE GLYCOL 17 GM PKG PO SCH (10:02)
[2016-09-20] MEDS: DILTIAZEM HCL 60 MG TAB PO SCH ×4 (10:03→20:27)
[2016-09-20] MEDS: INSULIN DETEMIR 100 UNITS/ML VIAL SQ SCH ×2 (10:03→20:28)
[2016-09-20] MEDS: BUMETANIDE INJ 1 MG/4 ML VIAL IV PUSH SCH ×2 (10:03→18:08)
[2016-09-20] MEDS: SODIUM CHLORIDE 0.9% FLUSH 5 ML FLUSH IV FLUSH SCH ×2 (10:04→20:27)
[2016-09-20] MEDS: PANTOPRAZOLE SODIUM 40 MG VIAL IV SCH (10:04)
[2016-09-20] MEDS: CHLORHEXIDINE 0.12% (ORAL KIT) 15 ML CUP MT SCH ×2 (10:05→20:28)
[2016-09-20] MEDS: POTASSIUM CL 40 MEQ/30 ML LIQ UDC PO SCH (10:26)
--- NOTE | 2016-09-20 10:33 | HHI.HCPN ---
Reason for visit a. To assist with evaluation and management of symptoms including: dyspnea b. To assist medical decision maker(s) with: better understanding of current medical conditions; weighing benefits/burdens of medical treatment options; making medical treatment decisions. . Subjective/Interval History Patient seen and examined in ICU. No family at bedside. Nurse, Lupis and student at bedside. Patient seen just post sedation vacation, he opens eyes to voice. He nods weakly "no" when asked if he has pain. He is able to squeeze my hand on command, very weak. Nurse indicates he was able to nod yes/no and follow simple commands when sedation was off. Tmax 99.6. Vital signs stable. Remains on [facility] vent FiO2 60% and PEEP 15. Rectal tube in place. Labs stable. Albumin remains low 2.7. Tube feedings. chest xray reveals bibasilar increased density representing a combination of atelectasis, consolidation and effusions. . Family/friend interactions Spoke with sisterReta (HCP) in follow up from conversation regarding trach and PEG yesterday. She is asking appropriate questions. She remains hopeful patient will be able to participate in decision making, though understands he may not be able to. She understands trach and PEG decision may be needed by end of week if no signs of clinical improvement. She appreciates call and medical update. Explained no decision is needed today. Palliative care number provided. . Advance Directives Living Will: Never completed Health Care Surrogate: Never completed Durable Power of Medical Billing Instructor: Never completed Advance Directive Specifics Significant change in goals: Alternate Code: Intubation Only. Goals remain appropriately aggressive short of Intubation Only status at this time. . Objective Vital Signs Date Time Temp Pulse Resp B/P Pulse Ox O2 Delivery O2 Flow Rate FiO2 09/20/16 08:25 100 60 09/20/16 06:00 80 09/20/16 04:18 95 60 09/20/16 04:00 99.6 73 16 124/67 95 09/20/16 04:00 73 09/20/16 04:00 65 09/20/16 02:00 78 09/20/16 01:08 95 60 09/20/16 00:00 99.6 76 15 121/64 95 09/20/16 00:00 76 09/20/16 00:00 65 09/19/16 22:00 83 09/19/16 20:00 99.5 70 15 126/71 95 09/19/16 20:00 65 09/19/16 20:00 70 09/19/16 19:30 95 60 09/19/16 18:00 71 09/19/16 18:00 60 09/19/16 18:00 97.5 65 15 125/73 95 09/19/16 16:00 65 09/19/16 15:05 96 60 09/19/16 14:00 62 09/19/16 13:38 95 60 09/19/16 12:00 65 09/19/16 12:00 97.3 59 15 122/74 94 09/19/16 12:00 70 09/19/16 11:06 94 60 Intake & Output 09/20/16 09/20/16 07:00 19:00 Intake Total 1661 ml Output Total 3750 ml Balance -2089 ml IV Total 942 ml Tube Feeding 719 ml Output Urine Total 3350 ml Stool Total 400 ml Physical Exam CONSTITUTIONAL/GENERAL: This is an overweight, critically ill patient, remains sedated on [facility] vent. TUBES/LINES/DRAINS: ETT, OG, PIVs bilateral, bilateral soft wrist restraints, baker, rectal tube, multipodus boots, SCDs. SKIN: Extremities with venous stasis changes.Dry skin bilateral LE. Ecchymoses on upper extremities. No wounds seen anteriorly. Skin temperature appropriate. Not diaphoretic. EYES: Opens eyes. ENT: Hearing appears grossly normal. Nose without bleeding or purulent drainage. Tongue with white patches. CARDIOVASCULAR: Regular rate and rhythm without murmurs, gallops, or rubs. RESPIRATORY/CHEST: Decrease breath sounds bilaterally. GASTROINTESTINAL: Abdomen protuberant, soft, no obvious tenderness. No guarding. Bowel sounds present. GENITOURINARY: Without palpable bladder distension. Baker catheter in place. MUSCULOSKELETAL: Extremities with venous stasis changes. Trace edema LE. No mottling or clubbing. NEUROLOGICAL: Opens eyes to voice. Nods no to pain. Squeezes hand weakly on command. Falls off to sleep during my visit. . Diagnostic Tests Laboratory Laboratory Tests Test 09/18/16 09/18/16 09/18/16 09/19/16 05:14 05:55 13:04 05:07 White Blood Count 7.7 TH/MM3 8.1 TH/MM3 (4.0-11.0) (4.0-11.0) Red Blood Count 4.69 MIL/MM3 5.02 MIL/MM3 (4.50-5.90) (4.50-5.90) Hemoglobin 13.9 GM/DL 14.8 GM/DL (13.0-17.0) (13.0-17.0) Hematocrit 41.1 % 43.9 % (39.0-51.0) (39.0-51.0) Mean Corpuscular Volume 87.5 FL 87.4 FL (80.0-100.0) (80.0-100.0) Mean Corpuscular Hemoglobin 29.7 PG 29.4 PG (27.0-34.0) (27.0-34.0) Mean Corpuscular Hemoglobin 33.9 % 33.7 % Concent (32.0-36.0) (32.0-36.0) Red Cell Distribution Width 15.0 % 14.7 % (11.6-17.2) (11.6-17.2) Platelet Count 135 TH/MM3 136 TH/MM3 (150-450) (150-450) Mean Platelet Volume 9.2 FL 9.5 FL (7.0-11.0) (7.0-11.0) Sodium Level 137 MEQ/L 140 MEQ/L (136-145) (136-145) Potassium Level 3.4 MEQ/L 3.4 MEQ/L (3.5-5.1) (3.5-5.1) Chloride Level 99 MEQ/L 102 MEQ/L (98-107) (98-107) Carbon Dioxide Level 29.6 MEQ/L 30.2 MEQ/L (21.0-32.0) (21.0-32.0) Anion Gap 8 MEQ/L (5-15) 8 MEQ/L (5-15) Blood Urea Nitrogen 39 MG/DL (7-18) 41 MG/DL (7-18) Creatinine 0.82 MG/DL 0.74 MG/DL (0.60-1.30) (0.60-1.30) Estimat Glomerular Filtration 95 ML/MIN (>89) 106 ML/MIN Rate (>89) Random Glucose 305 MG/DL 293 MG/DL (74-106) (74-106) Calcium Level 8.5 MG/DL 8.7 MG/DL (8.5-10.1) (8.5-10.1) Phosphorus Level 3.0 MG/DL 2.2 MG/DL (2.5-4.9) (2.5-4.9) Magnesium Level 2.6 MG/DL 2.5 MG/DL (1.5-2.5) (1.5-2.5) Blood Gas Puncture Site RT RADIAL LT RADIAL Blood Gas Patient Temperature 98.6 98.6 Blood Gas HCO3 28 mmol/L 28 mmol/L (22-26) (22-26) Blood Gas Base Excess 3.4 mmol/L 3.0 mmol/L (-2-2) (-2-2) Blood Gas Oxygen Saturation 94 % (90-100) 94 % (90-100) Arterial Blood pH 7.36 7.37 (7.380-7.420) (7.380-7.420) Arterial Blood Partial 51 mmHg (38-42) 49 mmHg (38-42) Pressure CO2 Arterial Blood Partial 97 mmHg 92 mmHg Pressure O2 (61-120) (61-120) Arterial Blood Oxygen Content 19.1 Vol % 20.3 Vol % (12.0-20.0) (12.0-20.0) Arterial Blood 1.3 % (0-4) 1.3 % (0-4) Carboxyhemoglobin Arterial Blood Methemoglobin 1.2 % (0-2) 1.3 % (0-2) Blood Gas Hemoglobin 14.3 G/DL 15.3 G/DL (12.0-16.0) (12.0-16.0) Oxygen Delivery Device VENTILATOR VENTILATOR Blood Gas Ventilator Setting PRVC/AC PRVC/AC Blood Gas Inspired Oxygen 100 % 70 % Neutrophils (%) (Auto) 84.9 % (16.0-70.0) Lymphocytes (%) (Auto) 9.8 % (9.0-44.0) Monocytes (%) (Auto) 5.2 % (0.0-8.0) Eosinophils (%) (Auto) 0.0 % (0.0-4.0) Basophils (%) (Auto) 0.1 % (0.0-2.0) Neutrophils # (Auto) 6.9 TH/MM3 (1.8-7.7) Lymphocytes # (Auto) 0.8 TH/MM3 (1.0-4.8) Monocytes # (Auto) 0.4 TH/MM3 (0-0.9) Eosinophils # (Auto) 0.0 TH/MM3 (0-0.4) Basophils # (Auto) 0.0 TH/MM3 (0-0.2) CBC Comment DIFF FINAL Differential Comment Total Bilirubin 0.7 MG/DL (0.2-1.0) Aspartate Amino Transf 6 U/L (15-37) (AST/SGOT) Alanine Aminotransferase 14 U/L (12-78) (ALT/SGPT) Alkaline Phosphatase 54 U/L (45-117) Total Protein 6.4 GM/DL (6.4-8.2) Albumin 2.7 GM/DL (3.4-5.0) Test 09/20/16 03:49 White Blood Count 7.6 TH/MM3 (4.0-11.0) Red Blood Count 4.87 MIL/MM3 (4.50-5.90) Hemoglobin 14.3 GM/DL (13.0-17.0) Hematocrit 42.3 % (39.0-51.0) Mean Corpuscular Volume 86.8 FL (80.0-100.0) Mean Corpuscular Hemoglobin 29.4 PG (27.0-34.0) Mean Corpuscular Hemoglobin 33.8 % Concent (32.0-36.0) Red Cell Distribution Width 15.1 % (11.6-17.2) Platelet Count 149 TH/MM3 (150-450) Mean Platelet Volume 9.3 FL (7.0-11.0) Neutrophils (%) (Auto) 89.9 % (16.0-70.0) Lymphocytes (%) (Auto) 1.5 % (9.0-44.0) Monocytes (%) (Auto) 8.5 % (0.0-8.0) Eosinophils (%) (Auto) 0.0 % (0.0-4.0) Basophils (%) (Auto) 0.1 % (0.0-2.0) Neutrophils # (Auto) 6.8 TH/MM3 (1.8-7.7) Lymphocytes # (Auto) 0.1 TH/MM3 (1.0-4.8) Monocytes # (Auto) 0.6 TH/MM3 (0-0.9) Eosinophils # (Auto) 0.0 TH/MM3 (0-0.4) Basophils # (Auto) 0.0 TH/MM3 (0-0.2) CBC Comment AUTO DIFF Differential Total Cells 100 Counted Neutrophils % (Manual) 90 % (16-70) Band Neutrophils % 1 % (0-6) Lymphocytes % 3 % (9-44) Monocytes % 5 % (0-8) Neutrophils # (Manual) 7.0 TH/MM3 (1.8-7.7) Metamyelocytes % (0-1) Myelocytes 1 % (0-0) Differential Comment FINAL DIFF MANUAL Platelet Estimate NORMAL (NORMAL) Platelet Morphology Comment NORMAL (NORMAL) Red Cell Morphology Comment NORMAL (NORMAL) Sodium Level 141 MEQ/L (136-145) Potassium Level 3.5 MEQ/L (3.5-5.1) Chloride Level 100 MEQ/L (98-107) Carbon Dioxide Level 35.3 MEQ/L (21.0-32.0) Anion Gap 6 MEQ/L (5-15) Blood Urea Nitrogen 39 MG/DL (7-18) Creatinine 0.69 MG/DL (0.60-1.30) Estimat Glomerular Filtration 115 ML/MIN Rate (>89) Random Glucose 240 MG/DL (74-106) Lactic Acid Level 2.3 mmol/L (0.4-2.0) Calcium Level 8.8 MG/DL (8.5-10.1) Phosphorus Level 2.0 MG/DL (2.5-4.9) Magnesium Level 2.3 MG/DL (1.5-2.5) Total Bilirubin 0.6 MG/DL (0.2-1.0) Aspartate Amino Transf 8 U/L (15-37) (AST/SGOT) Alanine Aminotransferase 15 U/L (12-78) (ALT/SGPT) Alkaline Phosphatase 52 U/L (45-117) Total Creatine Kinase 39 U/L (39-308) Total Protein 6.3 GM/DL (6.4-8.2) Albumin 2.7 GM/DL (3.4-5.0) Result Diagram: 09/20/16 6899 09/20/16 1081 Imaging Last Impressions Chest X-Ray 09/19/16 0600 Signed Impressions: Service Date/Time: Monday, September 19, 2016 04:49 - CONCLUSION: Bibasilar increased density representing a combination of atelectasis, consolidation, and effusions. Abhinav Chambers MD CT Angiography 09/13/16 0000 Signed Impressions: Service Date/Time: Tuesday, September 13, 2016 12:25 - CONCLUSION: 1. No evidence of pulmonary embolism. 2. Bilateral pleural effusions and consolidation in both lung bases. 3. Moderate cardiomegaly. Konstantin Bridges MD Lower Extremity Ultrasound 09/11/16 0000 Signed Impressions: Service Date/Time: Sunday, September 11, 2016 17:04 - CONCLUSION: No evidence of deep venous thrombosis. Konstantin Bridges MD . Procedures * 09/11/16 - Intubation . Assessment and Plan Disease Oriented Problem List: (1) Acute hypercapnic respiratory failure (2) COPD (chronic obstructive pulmonary disease) (3) Pneumonia (4) Obesity hypoventilation syndrome (5) Toxic encephalopathy (6) Cellulitis of left lower extremity (7) Diabetes (8) Anxiety and depression Symptom Scale: (1) Dyspnea 0-10 Scale: Unable to quantify Comment: on [facility] vent FiO2 60% and PEEP 15. Pertinent Non-Medical Issues Psychosocial: Single, No children. Lived with his parents, who have opted out of decision making. Has 1 sister. Spiritual: Unknown. Legal: No written advanced directives. Single. No children. Parents have opted out of decision making. Therefore according to [place] Statutes, health care proxy decision making falls to his sister, Reta Inman. Ethical issues impacting care: No known concerns at this time. . Important Contacts Cezar Shah (father) [phone] Reta Inman (sister) [phone] Prognosis 65 year old with hx of copd, pneumonia, obesity continue to need ventilator support and appears difficult to wean off ventilator. Pt in critical condition. [facility]iary prognosis is poor, which pulmonology confirms. . Code Status: Alternative Code (Intubation Only. ) Plan * No written advanced directives. Single. No children. Parents have opted out of decision making. Therefore according to [place] Statutes, health care proxy decision making falls to his sister, Reta Inman. * Alternate Code: Intubation Only. * 09/20/16 - Palliative care will speak with sisterRetas (HCP) in follow up from conversation regarding trach and PEG yesterday. She is asking appropriate questions. She remains hopeful patient will be able to participate in decision making, though understands he may not be able to. She found blank Living Will in his room. She understands trach and PEG decision may be needed by end of week if no signs of clinical improvement. She appreciates call and medical update. Explained no decision is needed today. Palliative care number provided. Will continue to follow. * SYMPTOMS: Dyspnea: remains on mech vent. FiO2 60% and PEEP 15. * Palliative Care will continue to follow to assist with symptom management and further clarify treatment goals as needed. . Attestation To help prompt me to consider important information that might be impacting today's encounter and assessment, information from prior notes written by myself or my colleagues may have been "brought forward" into today's note. My signature on this note, however, is an attestation that I personally performed the exam, history, and/or decision-making noted today, and, unless otherwise indicated, the interactions with patient, family, and staff as well as the review of records all occurred today. I also attest that the listed assessment and stated plan reflect my best clinical judgment today based on the combination of historical information, prior notes, and today's exam/ interactions. When time spent is documented, it refers only to time spent today by the signer, or if indicated, combined time spent today by collaborating physician/nurse practitioner. NOREEN SIM Sep 20, 2016 10:33
[2016-09-20] MEDS: POTASSIUM PHOSPHATE INJ 30 MMOL in SODIUM CHLOR 0.9% 250 ML INJ 250 ML IV PRN (10:34)
[2016-09-20] MEDS: MIDAZOLAM 100 MG/NS 100 ML DRIP Premix IV SCH ×2 (11:05→20:27)
[2016-09-20] MEDS: AZITHROMYCIN INJ 500 MG in SODIUM CHLOR 0.9% 250 ML INJ 250 ML IV SCH (12:18)
--- NOTE | 2016-09-20 15:47 | HHI.CCPN ---
Subjective Remarks/Hospital Course This is a morbidly obese 65-year-old male with a history of obesity hypoventilation syndrome, COPD, CHF, severe venous stasis, and recent lower extremity cellulitis who presented with worsening shortness of breath. He was recently admitted to the [facility] emergency department and then ICU with similar symptoms for which she was placed on BiPAP for a few days. In this emergency department he was noted to have a PCO2 of 102. He was placed on BiPAP initially, although his mentation continued to worsen and despite BiPAP his PCO2 increased to 112. The patient is a very poor historian on top of the fact that he is very somnolent and unable to provide additional information. Critical-care medicine is consulted to evaluate and manage his acute hypercarbic and hypoxic respiratory failure. Dr. Martinez intubated and placed on mechanical ventilation 09/12 Patient is sedated with Diprivan and intubated. Afebrile. On PRVC/AC RR 14 , TV 450, PEEP:8, IT:0.9, FIO2 60%. 09/13 Patient remains sedated and intubated, On PRVC/AC RR 14, TV 450, IT:0.9, PEEP:10, FIO2 70%, Afebrile. 09/14: Patient is wide awake on propofol. FiO2 at 80%, PEEP at 10. I have changed to PSV mode for patient comfort. Start Bumex infusion for CHF/fluid overload. Increase Solu-Medrol to 40 every 8 09/15: Remains hypoxemic, I have weaned FiO2 to 55%, PEEP remains at 14. Patient remains heavily sedated. Chest x-ray continues to show bibasilar infiltrates and effusion. Urine output excellent on Bumex drip more than 10 L in 24 hours 09/16: Afebrile. Intubated and sedated, FiO2 remains at 55%. Earlier today tube feed residuals 200 cc noted, with resolution this afternoon. 09/17: The patient required an increase in FiO2 this morning to 60%, attempting to wean. Vancomycin was discontinued, he continues on Zosyn. Patient continues to have blood glucoses in the mid to high 200s despite being on insulin drip and Levemir at 20 units twice a day. Levemir increased. 09/18: Increasing saturations noted. PEEP increased to 15. FiO2 down to 75%. Chest x-ray reveals small bilateral pleural effusions. Negative CTA chest last admission. Sedated with Versed and propofol drips. One small bowel movement yesterday. 09/19: FiO2 decreased to 65%. Chest x-ray reveals possible worsening bilateral pleural effusions. Sedated on Versed and propofol just. Positive BM. Tolerating tube feeding. Subjective 09/20: Afebrile. FiO2 down to 60. PEEP down to 14. Awake and does all commands. Positive BM. Tube feeding is currently off to be resumed. Objective Vital Signs Date Time Temp Pulse Resp B/P Pulse Ox O2 Delivery O2 Flow Rate FiO2 09/20/16 14:00 77 09/20/16 12:20 94 50 09/20/16 12:00 99.8 16 136/78 Intake and Output 09/19/16 09/19/16 09/20/16 08:00 16:00 00:00 Intake Total 549 ml 1651 ml 754 ml Output Total 380 ml 2500 ml 2800 ml Balance 169 ml -849 ml -2046 ml Result Diagram: 09/20/16 0349 09/20/16 0349 Imaging Last Impressions Chest X-Ray 09/19/16 0600 Signed Impressions: Service Date/Time: Monday, September 19, 2016 04:49 - CONCLUSION: Bibasilar increased density representing a combination of atelectasis, consolidation, and effusions. Abhinav Chambers MD CT Angiography 09/13/16 0000 Signed Impressions: Service Date/Time: Tuesday, September 13, 2016 12:25 - CONCLUSION: 1. No evidence of pulmonary embolism. 2. Bilateral pleural effusions and consolidation in both lung bases. 3. Moderate cardiomegaly. Konstantin Bridges MD Lower Extremity Ultrasound 09/11/16 0000 Signed Impressions: Service Date/Time: Sunday, September 11, 2016 17:04 - CONCLUSION: No evidence of deep venous thrombosis. Konstantin Bridges MD Objective Remarks GENERAL: 65yo male, critically ill sedated and intubated. SKIN: Warm and dry. No rash HEAD: Normocephalic. EYES: No scleral icterus. No injection or drainage. ENT: Orotracheally intubated NECK: Supple, trachea midline. No JVD or lymphadenopathy. CARDIOVASCULAR: Regular rate and rhythm S1, S2. No S4. Without murmurs, gallops, or clicks or rubs. RESPIRATORY: Breath sounds equal bilaterally. PRVC mode. No wheezing, diminished in the bases. GASTROINTESTINAL: Abdomen soft obese, non-tender, distended and protuberant MUSCULOSKELETAL: Bilateral lower extremity with significant venous stasis changes. 1+ peripheral pitting edema. Right lower extremity with evidence of prior graft. NEURO: Cranial nerves II through grossly intact. Moves upper extremity spontaneously. Wiggles toes. A/P Assessment and Plan Neuro/Psych: Acute encephalopathy - possible CO2 narcosis Metabolic encephalopathy Chronic benzodiazepine use On Diprivan at 22 mcg/kg/m and versed infusion at 5 mg an hour for sedation while intubated. Goal of RASS -2 Daily sedation vacation when appropriate On Xanax 0.25 mg every 8 hours as needed at home for anxiety. This is currently on hold Pulm: Acute hypoxemic respiratory failure COPD exacerbation Bibasilar pneumonia Obesity hypoventilation syndrome On PRVC/AC RR 15, TV 550< IT:1.5, PEEP:15, FIO2 65% Start spontaneous breathing trials once FiO2 less than 50% , PEEP <8 Continue with vent support keep sat >92% Bronchodilators every 4 hours, ICU vent bundle. Continue methylprednisone 40mg q8 Chest x-ray 09/19 reveals worsening 7 bilateral pleural effusions. CV: Hypertension Dyslipidemia On Cardizem 60mg QID, monitor HR and BP keep MAP>65mmHg Echo from 08/25 showed EF 55%, no RWMA On diltiazem 120 mg daily Lasix 20 mg daily at home. Start Bumex 1 mg IV twice a day 09/19 /renal: BPH History of left renal cyst Hypopotassemia Hypokalemia Monitor renal function, I/O's, electrolytes replacement per protocol. On Flomax 0.4 mg by mouth daily for BPH Receiving K-Phos today. Recheck in a.m. GI Constipation Morbid obesity On TF-vital high protein goal 60 cc an hour Protonix 40mg daily for GI prophylaxis. Parisa-Colace twice a day/MiraLAX daily ID: Continue with abx (Vanco, Zosyn) monitor for signs of infections (Fever, WBC). Added Zithromax a #3 09/11 BC: NGTD. s/u Sputum cx, strep pneumonia and Legionella urinary Ag. Sputum/informed ordered Heme: Thrombocytopenia Monitor CBC. Monitor trends Endo Diabetes mellitus Hyperglycemia of critical illness Insulin drip algorithm 3 at 2 units an hour, Levemir 40 U Q12 for glycemic control On metformin unknown dosage insulin scale insulin unknown dosage at home for diabetes. Prophylaxis: GI Prophylaxis Protonix 40 mg IV daily DVT Prophylaxis -- SCDs Lovenox 40 mg subcutaneous daily - Doppler US LE negative for DVT Critical Care: The total care time was 35 minutes. Time to perform other separately billable procedures was not included in the critical care time. Marcel Marte MD Sep 20, 2016 15:47
[2016-09-20] MEDS: RESP: BUDESONIDE 0.5 MG/2 ML NEB NEB SCH (19:27)
[2016-09-20] MEDS: ENOXAPARIN SODIUM 40 MG/0.4 ML SYRINGE SQ SCH (20:28)
[2016-09-21] VITALS (20 sets, daily range): BP systolic 115–128; BP diastolic 63–68; PULSE 69–79; RESP 15–18; TEMP 98–100.8; O2SAT 94–98
[2016-09-21] MEDS: methylPREDNISolone SOD SUCC 40 MG/1 ML VIAL IV PUSH SCH ×3 (02:13→17:00)
[2016-09-21] MEDS: PROPOFOL 1000 MG/100 ML INJ 100 ML IV SCH ×3 (02:13→21:51)
[2016-09-21] MEDS: CHLORHEXIDINE GLUCONATE 2 % 1 PACK (2 CLOTHS) TOP SCH (02:14)
[2016-09-21] MEDS ORDERED: INSULIN REGULAR 100 UNITS/100 ML NS ALGORITHM 3 IV SCH ×2 (02:45)
[2016-09-21] MEDS: PIPERACIL-TAZO 4.5 GM PREMIX 100 ML IV SCH ×3 (04:17→17:00)
[2016-09-21] MEDS: VANCOMYCIN INJ 2,000 MG in SODIUM CHLORID 0.9% 500 ML INJ 500 ML IV SCH ×2 (04:18→17:00)
[2016-09-21] MEDS: RESP: ALBUTEROL 2.5 MG/IPRATROPIUM 0.5 MG NEB (SCH) INH ×6 (04:46→23:52)
--- NOTE | 2016-09-21 05:38 | RADRPT ---
EXAM DATE/TIME: 09/21/2016 03:38 [place] COMPARISON: CHEST SINGLE AP, September 19, 2016, 4:49. INDICATIONS : Shortness of breath, possible pulmonary disease. MEDICAL HISTORY : None. SURGICAL HISTORY : None. ENCOUNTER: Subsequent ACUITY: 1 week PAIN SCORE: Non-responsive. LOCATION: Bilateral chest FINDINGS: ET tube and NG tube are well placed. The heart size is normal. There is increased density bases bilat erally. The upper lungs are clear. CONCLUSION: Bibasilar areas of consolidation, atelectasis, and/or effusion. Abhinav Chambers MD on September 21, 2016 at 5:36 Board Certified Radiologist. This report was verified electronically.
[2016-09-21] MEDS: RESP: BUDESONIDE 0.5 MG/2 ML NEB NEB SCH ×2 (07:25→20:27)
[2016-09-21 08:00] LABS: AUTOMATED NEUTROPHIL # 6.7 TH/MM3 (1.8-7.7); BASOPHIL % 0.1 % (0.0-2.0); HEMATOCRIT 42.6 % (39.0-51.0); HEMO FLAGS AUTO DIFF; LYMPH % 2.9 % (9.0-44.0); LYMPHOCYTE # 0.2 TH/MM3 (1.0-4.8); MEAN CELL VOLUME 87.7 FL (80.0-100.0); MEAN CORPUSCULAR HEMOGLOBIN 28.9 PG (27.0-34.0); PLATELET COUNT 151 TH/MM3 (150-450); RED BLOOD COUNT 4.86 MIL/MM3 (4.50-5.90); WHITE BLOOD COUNT 7.6 TH/MM3 (4.0-11.0)
[2016-09-21 08:43] LABS: ALKALINE PHOSPHATASE 48 U/L (45-117); ALT (GPT) 20 U/L (12-78); ANION GAP 9 MEQ/L (5-15); AST (GOT) 8 U/L (15-37); BICARBONATE 32.7 MEQ/L (21.0-32.0); BLOOD UREA NITROGEN 38 MG/DL (7-18); CHLORIDE 100 MEQ/L (98-107); GLOMERULAR FILTRATION RATE 138 ML/MIN (>89); MAGNESIUM 2.4 MG/DL (1.5-2.5); POTASSIUM 3.4 MEQ/L (3.5-5.1); SODIUM (NA) 142 MEQ/L (136-145); TOTAL BILIRUBIN ADULT 0.9 MG/DL (0.2-1.0)
[2016-09-21] MEDS: POTASSIUM CL 40 MEQ/30 ML LIQ UDC PO SCH (08:47)
[2016-09-21] MEDS: BUMETANIDE INJ 1 MG/4 ML VIAL IV PUSH SCH ×2 (08:47→17:39)
[2016-09-21] MEDS: PANTOPRAZOLE SODIUM 40 MG VIAL IV SCH (08:47)
[2016-09-21] MEDS: DOCUSATE SODIUM 50 MG/SENNA 8.6 MG TAB PO SCH ×2 (08:48→20:19)
[2016-09-21] MEDS: TAMSULOSIN HCL 0.4 MG CAP PO SCH (08:48)
[2016-09-21] MEDS: POLYETHYLENE GLYCOL 17 GM PKG PO SCH (08:48)
[2016-09-21] MEDS: INSULIN DETEMIR 100 UNITS/ML VIAL SQ SCH ×2 (08:49→20:20)
[2016-09-21 08:57] LABS: BANDS 2 % (0-6); MYELOCYTES 1 % (0-0); NEUTROPHIL # MANUAL DIFF 6.8 TH/MM3 (1.8-7.7); POLYS (SEG NEUTROPHILS) 87 % (16-70); WBC DIFF SAMPLE 100
[2016-09-21 08:58] LABS: PLATELET ESTIMATE SMEAR NORMAL (NORMAL); PLATELET MORPHOLOGY NORMAL (NORMAL); SCAN/DIFF FINAL DIFF MANUAL
[2016-09-21] MEDS: SODIUM CHLORIDE 0.9% FLUSH 5 ML FLUSH IV FLUSH SCH ×2 (09:00→20:20)
[2016-09-21] MEDS: CHLORHEXIDINE 0.12% (ORAL KIT) 15 ML CUP MT SCH ×2 (09:39→20:21)
[2016-09-21] MEDS: DILTIAZEM HCL 60 MG TAB PO SCH ×4 (09:39→20:19)
[2016-09-21] MEDS: AZITHROMYCIN INJ 500 MG in SODIUM CHLOR 0.9% 250 ML INJ 250 ML IV SCH (11:55)
--- NOTE | 2016-09-21 15:48 | HHI.CCPN ---
Subjective Remarks/Hospital Course This is a morbidly obese 65-year-old male with a history of obesity hypoventilation syndrome, COPD, CHF, severe venous stasis, and recent lower extremity cellulitis who presented with worsening shortness of breath. He was recently admitted to the [facility] emergency department and then ICU with similar symptoms for which she was placed on BiPAP for a few days. In this emergency department he was noted to have a PCO2 of 102. He was placed on BiPAP initially, although his mentation continued to worsen and despite BiPAP his PCO2 increased to 112. The patient is a very poor historian on top of the fact that he is very somnolent and unable to provide additional information. Critical-care medicine is consulted to evaluate and manage his acute hypercarbic and hypoxic respiratory failure. Dr. Martinez intubated and placed on mechanical ventilation 09/12 Patient is sedated with Diprivan and intubated. Afebrile. On PRVC/AC RR 14 , TV 450, PEEP:8, IT:0.9, FIO2 60%. 09/13 Patient remains sedated and intubated, On PRVC/AC RR 14, TV 450, IT:0.9, PEEP:10, FIO2 70%, Afebrile. 09/14: Patient is wide awake on propofol. FiO2 at 80%, PEEP at 10. I have changed to PSV mode for patient comfort. Start Bumex infusion for CHF/fluid overload. Increase Solu-Medrol to 40 every 8 09/15: Remains hypoxemic, I have weaned FiO2 to 55%, PEEP remains at 14. Patient remains heavily sedated. Chest x-ray continues to show bibasilar infiltrates and effusion. Urine output excellent on Bumex drip more than 10 L in 24 hours 09/16: Afebrile. Intubated and sedated, FiO2 remains at 55%. Earlier today tube feed residuals 200 cc noted, with resolution this afternoon. 09/17: The patient required an increase in FiO2 this morning to 60%, attempting to wean. Vancomycin was discontinued, he continues on Zosyn. Patient continues to have blood glucoses in the mid to high 200s despite being on insulin drip and Levemir at 20 units twice a day. Levemir increased. 09/18: Increasing saturations noted. PEEP increased to 15. FiO2 down to 75%. Chest x-ray reveals small bilateral pleural effusions. Negative CTA chest last admission. Sedated with Versed and propofol drips. One small bowel movement yesterday. 09/19: FiO2 decreased to 65%. Chest x-ray reveals possible worsening bilateral pleural effusions. Sedated on Versed and propofol just. Positive BM. Tolerating tube feeding. 09/20: Afebrile. FiO2 down to 60. PEEP down to 14. Awake and does all commands. Positive BM. Tube feeding is currently off to be resumed. Subjective 09/21: PEEP down to 12. FiO2 down to 50%. Increased insulin gtt 10 u/hr. Afebrile. Objective Vital Signs Date Time Temp Pulse Resp B/P Pulse Ox O2 Delivery O2 Flow Rate FiO2 09/21/16 15:06 96 50 09/21/16 14:20 74 09/21/16 12:19 100.8 15 122/65 Intake and Output 09/20/16 09/20/16 09/21/16 08:00 16:00 00:00 Intake Total 907 ml 1227 ml 1549 ml Output Total 950 ml 2000 ml 1350 ml Balance -43 ml -773 ml 199 ml Result Diagram: 09/21/16 0700 09/21/16 0700 Other Results Microbiology Date/Time Procedure Status Source Growth 09/20/16 22:00 Influenza Types A,B Antigen (MAK) - Final Complete Nasal Aspirate NEGATIVE FOR FLU A AND B ANTIGEN.... 09/20/16 21:00 Gram Stain - Final Resulted Sputum Endotracheal 09/20/16 21:00 Sputum Culture - Preliminary Resulted Sputum Endotracheal NO GROWTH IN 24 HOURS. Imaging Last 72 hours Impressions Chest X-Ray 09/21/16599 Signed Impressions: Service Date/Time: August 03:38 - CONCLUSION: Bibasilar areas of consolidation, atelectasis, and/or effusion. Abhinav Chambers MD Chest X-Ray 09/19/16599 Signed Impressions: Service Date/Time: Monday, September 19, 2016 04:49 - CONCLUSION: Bibasilar increased density representing a combination of atelectasis, consolidation, and effusions. Abhinav Chambers MD Objective Remarks GENERAL: 65yo male, critically ill sedated and intubated. SKIN: Warm and dry. No rash HEAD: Normocephalic. EYES: No scleral icterus. No injection or drainage. ENT: Orotracheally intubated NECK: Supple, trachea midline. No JVD or lymphadenopathy. CARDIOVASCULAR: Regular rate and rhythm S1, S2. No S4. Without murmurs, gallops, or clicks or rubs. RESPIRATORY: Breath sounds equal bilaterally. PRVC mode. No wheezing, diminished in the bases. GASTROINTESTINAL: Abdomen soft obese, non-tender, distended and protuberant MUSCULOSKELETAL: Bilateral lower extremity with significant venous stasis changes. 1+ peripheral pitting edema. Right lower extremity with evidence of prior graft. NEURO: Cranial nerves II through grossly intact. Moves upper extremity spontaneously. Wiggles toes. A/P Assessment and Plan Neuro/Psych: Acute encephalopathy - possible CO2 narcosis Metabolic encephalopathy Chronic benzodiazepine use On Diprivan at 20 mcg/kg/m and versed infusion at 5 mg an hour for sedation while intubated. Goal of RASS -2 Daily sedation vacation when appropriate On Xanax 0.25 mg every 8 hours as needed at home for anxiety. This is currently on hold Pulm: Acute hypoxemic respiratory failure COPD exacerbation Bibasilar pneumonia Obesity hypoventilation syndrome On PRVC/AC RR 15, TV 550< IT:1.5, PEEP:12, FIO2 50% Start spontaneous breathing trials once FiO2 less than 50% , PEEP <8 Continue with vent support keep sat >92% Bronchodilators every 4 hours, ICU vent bundle. Continue methylprednisone 40mg q8 Chest x-ray 09/21 reveals stable bilateral pleural effusions/infiltates. CV: Hypertension Dyslipidemia On Cardizem 60mg QID, monitor HR and BP keep MAP>65mmHg Echo from 08/25 showed EF 55%, no RWMA On diltiazem 120 mg daily Lasix 20 mg daily at home. Continue Bumex 1 mg IV twice a day 09/19 /renal: BPH History of left renal cyst Hypopotassemia Hypokalemia Monitor renal function, I/O's, electrolytes replacement per protocol. On Flomax 0.4 mg by mouth daily for BPH Receiving K-CL 40 mEq x1 today GI Constipation Morbid obesity On TF-vital high protein goal 60 cc an hour Protonix 40mg daily for GI prophylaxis. Parisa-Colace twice a day/MiraLAX daily ID: Continue with abx (Que Zosyn) monitor for signs of infections (Fever, WBC). Added Zithromax a #4 09/11 BC: NGTD. s/u Sputum cx, strep pneumonia and Legionella urinary Ag. Sputum/informed 09/21 neg Heme: Thrombocytopenia Monitor CBC. Monitor trends Endo Diabetes mellitus Hyperglycemia of critical illness Insulin drip algorithm 3 at 10 units an hour, Levemir 80 U Q12 for glycemic control On metformin unknown dosage insulin scale insulin unknown dosage at home for diabetes. Prophylaxis: GI Prophylaxis Protonix 40 mg IV daily DVT Prophylaxis -- SCDs Lovenox 40 mg subcutaneous daily - Doppler US LE negative for DVT Critical Care: The total care time was 35 minutes. Time to perform other separately billable procedures was not included in the critical care time. Marcel Marte MD Sep 21, 2016 15:48 Marcel Marte MD Sep 21, 2016 15:48
[2016-09-21] MEDS ORDERED: POTASSIUM CL 40 MEQ/30 ML LIQ UDC PO ONE (16:15)
--- NOTE | 2016-09-21 20:03 | HHI.HCPN ---
Reason for visit a. To assist with evaluation and management of symptoms including: dyspnea b. To assist medical decision maker(s) with: better understanding of current medical conditions; weighing benefits/burdens of medical treatment options; making medical treatment decisions. . Subjective/Interval History Patient seen and examined in ICU. Sister/ HCS, Reta at bedside. Nurse, Camelia at bedside. [facility], FiO2 50% and PEEP 12. He does not arouse to voice or exam. He appears comfortable. Tmax 100.8. Vital signs stable. Insulin increased today due to hyperglycemia despite insulin drip. Rectal tube in place. Labs stable. Albumin remains low 2.6. Tolerating tube feedings. 09/21/16 chest xray reveals bibasilar areas of consolidation, atelectasis and /or effusion. . Family/friend interactions Spoke with Reta at bedside. Medical update provided. She has a good understanding of current medical condition and possible best/ worst case scenarios her brother could face. She remains undecided regarding trach and PEG , she seems to be leaning toward not proceeding with trach and PEG given his poor/ declining health prior to hospitalizations, his lifetime of non- compliance and that he would not want to live a life of dependance. I told her I will speak with helicopter repairer team to determine when they want trach/ PEG decision. She understands this could come tomorrow or first of next week as he has been on vent for 9 days now. . Advance Directives Living Will: Never completed Health Care Surrogate: Never completed Durable Power of Mission Analyst: Never completed Advance Directive Specifics Significant change in goals: Intubation Only. Considering trach/PEG decision. . Objective Vital Signs Date Time Temp Pulse Resp B/P Pulse Ox O2 Delivery O2 Flow Rate FiO2 09/21/16 19:37 95 50 09/21/16 18:00 72 09/21/16 16:00 99.3 73 15 122/66 94 09/21/16 16:00 73 09/21/16 16:00 50 09/21/16 15:06 96 50 09/21/16 14:20 74 09/21/16 12:19 100.8 73 15 122/65 94 09/21/16 12:18 77 09/21/16 12:17 50 09/21/16 11:34 95 50 09/21/16 10:03 75 09/21/16 08:00 50 09/21/16 08:00 71 09/21/16 08:00 98.9 71 15 125/68 94 09/21/16 07:25 96 50 09/21/16 06:00 74 09/21/16 04:46 94 50 09/21/16 04:00 98.0 76 15 123/66 94 09/21/16 04:00 50 09/21/16 04:00 76 09/21/16 02:00 79 09/21/16 01:02 98 50 09/21/16 00:00 50 09/21/16 00:00 75 09/21/16 00:00 98.9 75 16 115/63 94 09/20/16 22:00 77 09/20/16 20:00 98.7 87 18 128/67 93 09/20/16 20:00 50 09/20/16 20:00 87 Intake & Output 09/21/16 09/21/16 07:00 19:00 Intake Total 2567 ml 1480 ml Output Total 2100 ml 2050 ml Balance 467 ml -570 ml Intake Oral 0 ml IV Total 1781 ml 958 ml Tube Feeding 726 ml 422 ml Tube Irrigant 60 ml 100 ml Output Urine Total 1800 ml 1750 ml Stool Total 300 ml 300 ml Physical Exam CONSTITUTIONAL/GENERAL: This is an overweight, critically ill patient, remains [facility]. TUBES/LINES/DRAINS: ETT, OG, PIVs bilateral, bilateral soft wrist restraints, baker, rectal tube, multipodus boots, SCDs. SKIN: Extremities with venous stasis changes.Dry skin bilateral LE. Ecchymoses on upper extremities. No wounds seen anteriorly. Skin temperature appropriate. Not diaphoretic. EYES: eyes closed. ENT: Unable to assess hearing. Nose without bleeding or purulent drainage. Mouth closed. CARDIOVASCULAR: Regular rate and rhythm without murmurs, gallops, or rubs. RESPIRATORY/CHEST: Decrease breath sounds bilaterally. GASTROINTESTINAL: Abdomen protuberant, soft, no obvious tenderness. No guarding. Bowel sounds present. GENITOURINARY: Without palpable bladder distension. Baker catheter in place. MUSCULOSKELETAL: Extremities with venous stasis changes. Trace edema LE. No mottling or clubbing. NEUROLOGICAL: Sedated on vent. . . Diagnostic Tests Laboratory Laboratory Tests Test 209/20/16 09/21/16 05:07 03:49 07:00 White Blood Count 8.1 TH/MM3 7.6 TH/MM3 7.6 TH/MM3 (4.0-11.0) (4.0-11.0) (4.0-11.0) Red Blood Count 5.02 MIL/MM3 4.87 MIL/MM3 4.86 MIL/MM3 (4.50-5.90) (4.50-5.90) (4.50-5.90) Hemoglobin 14.8 GM/DL 14.3 GM/DL 14.0 GM/DL (13.0-17.0) (13.0-17.0) (13.0-17.0) Hematocrit 43.9 % 42.3 % 42.6 % (39.0-51.0) (39.0-51.0) (39.0-51.0) Mean Corpuscular Volume 87.4 FL 86.8 FL 87.7 FL (80.0-100.0) (80.0-100.0) (80.0-100.0) Mean Corpuscular Hemoglobin 29.4 PG 29.4 PG 28.9 PG (27.0-34.0) (27.0-34.0) (27.0-34.0) Mean Corpuscular Hemoglobin 33.7 % 33.8 % 33.0 % Concent (32.0-36.0) (32.0-36.0) (32.0-36.0) Red Cell Distribution Width 14.7 % 15.1 % 15.0 % (11.6-17.2) (11.6-17.2) (11.6-17.2) Platelet Count 136 TH/MM3 149 TH/MM3 151 TH/MM3 (150-450) (150-450) (150-450) Mean Platelet Volume 9.5 FL 9.3 FL 9.4 FL (7.0-11.0) (7.0-11.0) (7.0-11.0) Neutrophils (%) (Auto) 84.9 % 89.9 % 88.0 % (16.0-70.0) (16.0-70.0) (16.0-70.0) Lymphocytes (%) (Auto) 9.8 % 1.5 % 2.9 % (9.0-44.0) (9.0-44.0) (9.0-44.0) Monocytes (%) (Auto) 5.2 % (0.0-8.0) 8.5 % (0.0-8.0) 9.0 % (0.0-8.0) Eosinophils (%) (Auto) 0.0 % (0.0-4.0) 0.0 % (0.0-4.0) 0.0 % (0.0-4.0) Basophils (%) (Auto) 0.1 % (0.0-2.0) 0.1 % (0.0-2.0) 0.1 % (0.0-2.0) Neutrophils # (Auto) 6.9 TH/MM3 6.8 TH/MM3 6.7 TH/MM3 (1.8-7.7) (1.8-7.7) (1.8-7.7) Lymphocytes # (Auto) 0.8 TH/MM3 0.1 TH/MM3 0.2 TH/MM3 (1.0-4.8) (1.0-4.8) (1.0-4.8) Monocytes # (Auto) 0.4 TH/MM3 0.6 TH/MM3 0.7 TH/MM3 (0-0.9) (0-0.9) (0-0.9) Eosinophils # (Auto) 0.0 TH/MM3 0.0 TH/MM3 0.0 TH/MM3 (0-0.4) (0-0.4) (0-0.4) Basophils # (Auto) 0.0 TH/MM3 0.0 TH/MM3 0.0 TH/MM3 (0-0.2) (0-0.2) (0-0.2) CBC Comment DIFF FINAL AUTO DIFF AUTO DIFF Differential Comment FINAL DIFF FINAL DIFF MANUAL MANUAL Sodium Level 140 MEQ/L 141 MEQ/L 142 MEQ/L (136-145) (136-145) (136-145) Potassium Level 3.4 MEQ/L 3.5 MEQ/L 3.4 MEQ/L (3.5-5.1) (3.5-5.1) (3.5-5.1) Chloride Level 102 MEQ/L 100 MEQ/L 100 MEQ/L (98-107) (98-107) (98-107) Carbon Dioxide Level 30.2 MEQ/L 35.3 MEQ/L 32.7 MEQ/L (21.0-32.0) (21.0-32.0) (21.0-32.0) Anion Gap 8 MEQ/L (5-15) 6 MEQ/L (5-15) 9 MEQ/L (5-15) Blood Urea Nitrogen 41 MG/DL (7-18) 39 MG/DL (7-18) 38 MG/DL (7-18) Creatinine 0.74 MG/DL 0.69 MG/DL 0.59 MG/DL (0.60-1.30) (0.60-1.30) (0.60-1.30) Estimat Glomerular Filtration 106 ML/MIN 115 ML/MIN 138 ML/MIN Rate (>89) (>89) (>89) Random Glucose 293 MG/DL 240 MG/DL 232 MG/DL (74-106) (74-106) (74-106) Calcium Level 8.7 MG/DL 8.8 MG/DL 8.8 MG/DL (8.5-10.1) (8.5-10.1) (8.5-10.1) Phosphorus Level 2.2 MG/DL 2.0 MG/DL 2.8 MG/DL (2.5-4.9) (2.5-4.9) (2.5-4.9) Magnesium Level 2.5 MG/DL 2.3 MG/DL 2.4 MG/DL (1.5-2.5) (1.5-2.5) (1.5-2.5) Total Bilirubin 0.7 MG/DL 0.6 MG/DL 0.9 MG/DL (0.2-1.0) (0.2-1.0) (0.2-1.0) Aspartate Amino Transf 6 U/L (15-37) 8 U/L (15-37) 8 U/L (15-37) (AST/SGOT) Alanine Aminotransferase 14 U/L (12-78) 15 U/L (12-78) 20 U/L (12-78) (ALT/SGPT) Alkaline Phosphatase 54 U/L (45-117) 52 U/L (45-117) 48 U/L (45-117) Total Protein 6.4 GM/DL 6.3 GM/DL 6.2 GM/DL (6.4-8.2) (6.4-8.2) (6.4-8.2) Albumin 2.7 GM/DL 2.7 GM/DL 2.6 GM/DL (3.4-5.0) (3.4-5.0) (3.4-5.0) Differential Total Cells 100 100 Counted Neutrophils % (Manual) 90 % (16-70) 87 % (16-70) Band Neutrophils % 1 % (0-6) 2 % (0-6) Lymphocytes % 3 % (9-44) 2 % (9-44) Monocytes % 5 % (0-8) 8 % (0-8) Neutrophils # (Manual) 7.0 TH/MM3 6.8 TH/MM3 (1.8-7.7) (1.8-7.7) Metamyelocytes % (0-1) Myelocytes 1 % (0-0) 1 % (0-0) Platelet Estimate NORMAL NORMAL (NORMAL) (NORMAL) Platelet Morphology Comment NORMAL NORMAL (NORMAL) (NORMAL) Red Cell Morphology Comment NORMAL NORMAL (NORMAL) (NORMAL) Lactic Acid Level 2.3 mmol/L (0.4-2.0) Total Creatine Kinase 39 U/L (39-308) Result Diagram: 09/21/16 0700 09/21/16 0700 Microbiology Microbiology Date/Time Procedure Status Source Growth 09/20/16 21:00 Gram Stain - Final Resulted Sputum Endotracheal 09/20/16 21:00 Sputum Culture - Preliminary Resulted Sputum Endotracheal NO GROWTH IN 24 HOURS. 09/20/16 22:00 Influenza Types A,B Antigen (MAK) - Final Complete Nasal Aspirate NEGATIVE FOR FLU A AND B ANTIGEN.... Imaging Last Impressions Chest X-Ray 09/21/16 0600 Signed Impressions: Service Date/Time: August 03:38 - CONCLUSION: Bibasilar areas of consolidation, atelectasis, and/or effusion. Abhinav Chambers MD CT Angiography 09/13/16 0000 Signed Impressions: Service Date/Time: Tuesday, September 13, 2016 12:25 - CONCLUSION: 1. No evidence of pulmonary embolism. 2. Bilateral pleural effusions and consolidation in both lung bases. 3. Moderate cardiomegaly. Konstantin Bridges MD Lower Extremity Ultrasound 09/11/16 0000 Signed Impressions: Service Date/Time: Sunday, September 11, 2016 17:04 - CONCLUSION: No evidence of deep venous thrombosis. Konstantin Bridges MD Procedures * 09/11/16 - Intubation . Assessment and Plan Disease Oriented Problem List: (1) Acute hypercapnic respiratory failure (2) COPD (chronic obstructive pulmonary disease) (3) Pneumonia (4) Obesity hypoventilation syndrome (5) Toxic encephalopathy (6) Cellulitis of left lower extremity (7) Diabetes (8) Anxiety and depression Symptom Scale: (1) Dyspnea 0-10 Scale: Unable to quantify Comment: on [facility] vent FiO2 60% and PEEP 15. Pertinent Non-Medical Issues Psychosocial: Single, No children. Lived with his parents, who have opted out of decision making. Has 1 sister. Spiritual: Unknown. Legal: No written advanced directives. Single. No children. Parents have opted out of decision making. Therefore according to [place] Statutes, health care proxy decision making falls to his sister, Reta Inman. Ethical issues impacting care: No known concerns at this time. . Important Contacts Cezar Shah (father) [phone] Reta Inman (sister) [phone] Prognosis 65 year old with hx of copd, pneumonia, obesity continue to need ventilator support and appears difficult to wean off ventilator. Pt in critical condition. jail prognosis is poor, which pulmonology confirms. . Code Status: Alternative Code (Intubation Only. ) Plan * No written advanced directives. Single. No children. Parents have opted out of decision making. Therefore according to [place] Statutes, health care proxy decision making falls to his sister, Reta Inman. * Alternate Code: Intubation Only. * 09/21/16 - Spoke with Reta at bedside. Medical update provided. She has a good understanding of current medical condition and possible best/ worst case scenarios her brother could face. She remains undecided regarding trach and PEG , she seems to be leaning toward not proceeding with trach and PEG given his poor/ declining health prior to hospitalizations, his lifetime of non- compliance and that he would not want to live a life of dependance. Sister understands decision could be 09/22 or early next week. * Will speak with helicopter repairer team to determine when they want trach/PEG decision. * SYMPTOMS: Dyspnea: remains on mech vent. FiO2 60% and PEEP 15. * Palliative Care will continue to follow to assist with symptom management and further clarify treatment goals as needed. . Time Spent Total Floor Time (mins): 45 Face to Face Time (mins): 30 >50% Counseling/Coord of Care: Yes Attestation To help prompt me to consider important information that might be impacting today's encounter and assessment, information from prior notes written by myself or my colleagues may have been "brought forward" into today's note. My signature on this note, however, is an attestation that I personally performed the exam, history, and/or decision-making noted today, and, unless otherwise indicated, the interactions with patient, family, and staff as well as the review of records all occurred today. I also attest that the listed assessment and stated plan reflect my best clinical judgment today based on the combination of historical information, prior notes, and today's exam/ interactions. When time spent is documented, it refers only to time spent today by the signer, or if indicated, combined time spent today by collaborating physician/nurse practitioner. NOREEN SIM Sep 21, 2016 20:03
[2016-09-21] MEDS: ENOXAPARIN SODIUM 40 MG/0.4 ML SYRINGE SQ SCH (20:19)
[2016-09-21] MEDS: MIDAZOLAM 100 MG/NS 100 ML DRIP Premix IV SCH (21:51)
[2016-09-22] VITALS (16 sets, daily range): BP systolic 112–122; BP diastolic 60–70; PULSE 58–75; RESP 15–23; TEMP 98.5–99.6; O2SAT 94–96
[2016-09-22] MEDS: PIPERACIL-TAZO 4.5 GM PREMIX 100 ML IV SCH ×5 (00:12→20:58)
[2016-09-22] MEDS: methylPREDNISolone SOD SUCC 40 MG/1 ML VIAL IV PUSH SCH ×3 (00:14→20:57)
[2016-09-22] MEDS: CHLORHEXIDINE GLUCONATE 2 % 1 PACK (2 CLOTHS) TOP SCH (00:49)
[2016-09-22] MEDS: PROPOFOL 1000 MG/100 ML INJ 100 ML IV SCH ×5 (00:49→20:59)
[2016-09-22] MEDS: RESP: ALBUTEROL 2.5 MG/IPRATROPIUM 0.5 MG NEB (SCH) INH ×6 (03:48→23:20)
[2016-09-22] MEDS: VANCOMYCIN INJ 2,000 MG in SODIUM CHLORID 0.9% 500 ML INJ 500 ML IV SCH ×2 (05:31→17:53)
--- NOTE | 2016-09-22 06:01 | RADRPT ---
EXAM DATE/TIME: 09/22/2016 04:45 [facility] COMPARISON: CHEST SINGLE AP, September 21, 2016, 3:38. INDICATIONS : Shortness of breath. MEDICAL HISTORY : None. SURGICAL HISTORY : None. ENCOUNTER: Subsequent ACUITY: 2 weeks PAIN SCORE: Non-responsive. LOCATION: chest FINDINGS: There is basilar consolidation and effusion suspected unchanged. Cardiomegaly, endotracheal tube and enteric tube again noted. CONCLUSION: No significant change has occurred. Dayday Galo MD on September 22, 2016 at 5:59 Board Certified Radiologist. This report was verified electronically.
[2016-09-22] MEDS: RESP: BUDESONIDE 0.5 MG/2 ML NEB NEB SCH ×2 (07:36→19:11)
[2016-09-22] MEDS: CHLORHEXIDINE 0.12% (ORAL KIT) 15 ML CUP MT SCH ×2 (07:40→20:57)
[2016-09-22] MEDS: POLYETHYLENE GLYCOL 17 GM PKG PO SCH (09:06)
[2016-09-22] MEDS: BUMETANIDE INJ 1 MG/4 ML VIAL IV PUSH SCH ×2 (09:06→17:53)
[2016-09-22] MEDS: PANTOPRAZOLE SODIUM 40 MG VIAL IV SCH (09:06)
[2016-09-22] MEDS: TAMSULOSIN HCL 0.4 MG CAP PO SCH (09:06)
[2016-09-22] MEDS: DOCUSATE SODIUM 50 MG/SENNA 8.6 MG TAB PO SCH ×2 (09:06→20:57)
[2016-09-22] MEDS: POTASSIUM CL 40 MEQ/30 ML LIQ UDC PO SCH (09:06)
[2016-09-22] MEDS: DILTIAZEM HCL 60 MG TAB PO SCH ×4 (09:06→20:57)
[2016-09-22] MEDS: INSULIN DETEMIR 100 UNITS/ML VIAL SQ SCH ×2 (09:07→20:58)
[2016-09-22] MEDS: SODIUM CHLORIDE 0.9% FLUSH 5 ML FLUSH IV FLUSH SCH ×2 (09:07→20:57)
[2016-09-22 09:08] LABS: AUTOMATED NEUTROPHIL # 8.5 TH/MM3 (1.8-7.7); BASOPHIL % 0.2 % (0.0-2.0); EOSINOPHIL % 0.1 % (0.0-4.0); HEMATOCRIT 43.9 % (39.0-51.0); HEMO FLAGS DIFF FINAL; LYMPH % 4.9 % (9.0-44.0); LYMPHOCYTE # 0.5 TH/MM3 (1.0-4.8); MEAN CELL VOLUME 88.2 FL (80.0-100.0); MEAN CORPUSCULAR HEMOGLOBIN 28.8 PG (27.0-34.0); MEAN CORPUSCULAR HGB CONC 32.7 % (32.0-36.0); MONO % 8.7 % (0.0-8.0); NEUT % 86.1 % (16.0-70.0); PLATELET COUNT 165 TH/MM3 (150-450); RED BLOOD COUNT 4.98 MIL/MM3 (4.50-5.90); RED CELL DISTRIBUTION WIDTH 14.8 % (11.6-17.2); WHITE BLOOD COUNT 9.8 TH/MM3 (4.0-11.0)
[2016-09-22 09:27] LABS: BICARBONATE 32.6 MEQ/L (21.0-32.0); POTASSIUM 3.5 MEQ/L (3.5-5.1)
--- NOTE | 2016-09-22 10:20 | HHI.CCPN ---
Subjective Remarks/Hospital Course This is a morbidly obese 65-year-old male with a history of obesity hypoventilation syndrome, COPD, CHF, severe venous stasis, and recent lower extremity cellulitis who presented with worsening shortness of breath. He was recently admitted to the [facility] emergency department and then ICU with similar symptoms for which she was placed on BiPAP for a few days. In this emergency department he was noted to have a PCO2 of 102. He was placed on BiPAP initially, although his mentation continued to worsen and despite BiPAP his PCO2 increased to 112. The patient is a very poor historian on top of the fact that he is very somnolent and unable to provide additional information. Critical-care medicine is consulted to evaluate and manage his acute hypercarbic and hypoxic respiratory failure. Dr. Martinez intubated and placed on mechanical ventilation 09/12 Patient is sedated with Diprivan and intubated. Afebrile. On PRVC/AC RR 14 , TV 450, PEEP:8, IT:0.9, FIO2 60%. 09/13 Patient remains sedated and intubated, On PRVC/AC RR 14, TV 450, IT:0.9, PEEP:10, FIO2 70%, Afebrile. 09/14: Patient is wide awake on propofol. FiO2 at 80%, PEEP at 10. I have changed to PSV mode for patient comfort. Start Bumex infusion for CHF/fluid overload. Increase Solu-Medrol to 40 every 8 09/15: Remains hypoxemic, I have weaned FiO2 to 55%, PEEP remains at 14. Patient remains heavily sedated. Chest x-ray continues to show bibasilar infiltrates and effusion. Urine output excellent on Bumex drip more than 10 L in 24 hours 09/16: Afebrile. Intubated and sedated, FiO2 remains at 55%. Earlier today tube feed residuals 200 cc noted, with resolution this afternoon. 09/17: The patient required an increase in FiO2 this morning to 60%, attempting to wean. Vancomycin was discontinued, he continues on Zosyn. Patient continues to have blood glucoses in the mid to high 200s despite being on insulin drip and Levemir at 20 units twice a day. Levemir increased. 09/18: Increasing saturations noted. PEEP increased to 15. FiO2 down to 75%. Chest x-ray reveals small bilateral pleural effusions. Negative CTA chest last admission. Sedated with Versed and propofol drips. One small bowel movement yesterday. 09/19: FiO2 decreased to 65%. Chest x-ray reveals possible worsening bilateral pleural effusions. Sedated on Versed and propofol just. Positive BM. Tolerating tube feeding. 09/20: Afebrile. FiO2 down to 60. PEEP down to 14. Awake and does all commands. Positive BM. Tube feeding is currently off to be resumed. 09/21: PEEP down to 12. FiO2 down to 50%. Increased insulin gtt 10 u/hr. Afebrile. Subjective 09/22: Tmax 100.8. Currently afebrile. FiO2 to 45%. PEEP to 8. Insulin Drip currently at 2 units an hour. Awake and alert and follows commands. Objective Vital Signs Date Time Temp Pulse Resp B/P Pulse Ox O2 Delivery O2 Flow Rate FiO2 09/22/16 10:00 66 09/22/16 08:00 98.5 15 121/70 95 09/22/16 08:00 50 Intake and Output 09/21/16 09/21/16 09/22/16 08:00 16:00 00:00 Intake Total 1018 ml 1480 ml 2044 ml Output Total 750 ml 2050 ml 1700 ml Balance 268 ml -570 ml 344 ml Result Diagram: 09/22/16 0811 09/22/16 0811 Other Results Microbiology Date/Time Procedure Status Source Growth 09/20/16 22:00 Influenza Types A,B Antigen (MAK) - Final Complete Nasal Aspirate NEGATIVE FOR FLU A AND B ANTIGEN.... 09/20/16 21:00 Gram Stain - Final Complete Sputum Endotracheal 09/20/16 21:00 Sputum Culture - Final Complete Sputum Endotracheal NO GROWTH IN 48 HOURS. Imaging Last Impressions Chest X-Ray 09/22/16 0600 Signed Impressions: Service Date/Time: Thursday, September 22, 2016 04:45 - CONCLUSION: No significant change has occurred. Dayday Galo MD CT Angiography 09/13/16 0000 Signed Impressions: Service Date/Time: Tuesday, September 13, 2016 12:25 - CONCLUSION: 1. No evidence of pulmonary embolism. 2. Bilateral pleural effusions and consolidation in both lung bases. 3. Moderate cardiomegaly. Konstantin Bridges MD Lower Extremity Ultrasound 09/11/16 0000 Signed Impressions: Service Date/Time: Sunday, September 11, 2016 17:04 - CONCLUSION: No evidence of deep venous thrombosis. Konstantin Bridges MD Objective Remarks GENERAL: 65yo male, critically ill sedated and intubated. SKIN: Warm and dry. No rash HEAD: Normocephalic. EYES: No scleral icterus. No injection or drainage. ENT: Orotracheally intubated NECK: Supple, trachea midline. No JVD or lymphadenopathy. CARDIOVASCULAR: Regular rate and rhythm S1, S2. No S4. Without murmurs, gallops, or clicks or rubs. RESPIRATORY: Breath sounds equal bilaterally. PRVC mode. No wheezing, diminished in the bases. GASTROINTESTINAL: Abdomen soft obese, non-tender, distended and protuberant MUSCULOSKELETAL: Bilateral lower extremity with significant venous stasis changes. 1+ peripheral pitting edema. Right lower extremity with evidence of prior graft. NEURO: Cranial nerves II through grossly intact. Moves upper extremity spontaneously. Wiggles toes. A/P Assessment and Plan Neuro/Psych: Acute encephalopathy - possible CO2 narcosis Metabolic encephalopathy Chronic benzodiazepine use On Diprivan at 20 mcg/kg/m and versed infusion at 5 mg an hour for sedation while intubated. Goal of RASS -2 Daily sedation vacation when appropriate On Xanax 0.25 mg every 8 hours as needed at home for anxiety. This is currently on hold Pulm: Acute hypoxemic respiratory failure COPD exacerbation Bibasilar pneumonia Obesity hypoventilation syndrome On PRVC/AC RR 15, TV 550< IT:1.5, PEEP:8, FIO2 45% Start spontaneous breathing trials once FiO2 less than 50% , PEEP <8 Continue with vent support keep sat >92% Bronchodilators every 4 hours, ICU vent bundle. Continue methylprednisone 40mg q12 Chest x-ray 09/22 reveals stable bilateral pleural effusions/ infiltrates. CV: Hypertension Dyslipidemia On Cardizem 60mg QID, monitor HR and BP keep MAP>65mmHg Echo from 08/25 showed EF 55%, no RWMA On diltiazem 120 mg daily Lasix 20 mg daily at home. Continue Bumex 1 mg IV twice a day 09/19 the present /renal: BPH History of left renal cyst Hypopotassemia Monitor renal function, I/O's, electrolytes replacement per protocol. On Flomax 0.4 mg by mouth daily for BPH Receiving K-CL 40 mEq x1 today GI Constipation Morbid obesity On TF-vital high protein goal 60 cc an hour Protonix 40mg daily for GI prophylaxis. Parisa-Colace twice a day/MiraLAX daily ID: Continue with abx (Vanco, Zosyn) monitor for signs of infections (Fever, WBC). Added Zithromax #5 of 7 09/11 BC: NGTD. s/u Sputum cx, strep pneumonia and Legionella urinary Ag. Sputum/urine 09/21 neg Heme: Thrombocytopenia Monitor CBC. Monitor trends Endo Diabetes mellitus Hyperglycemia of critical illness Insulin drip algorithm 3 at 2 units an hour, Levemir 80 U Q12 for glycemic control On metformin unknown dosage insulin scale insulin unknown dosage at home for diabetes. Prophylaxis: GI Prophylaxis Protonix 40 mg IV daily DVT Prophylaxis -- SCDs Lovenox 40 mg subcutaneous daily - Doppler US LE negative for DVT Critical Care: The total care time was 35 minutes. Time to perform other separately billable procedures was not included in the critical care time. Marcel Marte MD Sep 22, 2016 10:20
[2016-09-22] MEDS ORDERED: POTASSIUM CL 40 MEQ/30 ML LIQ UDC PO ONE (10:30)
[2016-09-22] MEDS: AZITHROMYCIN INJ 500 MG in SODIUM CHLOR 0.9% 250 ML INJ 250 ML IV SCH (11:13)
--- NOTE | 2016-09-22 15:06 | HHI.HCPN ---
Reason for visit a. To assist with evaluation and management of symptoms including: dyspnea b. To assist medical decision maker(s) with: better understanding of current medical conditions; weighing benefits/burdens of medical treatment options; making medical treatment decisions. . Subjective/Interval History Patient seen and examined in ICU. No family at bedside. Discussed with Dr. Marte. Patient remains sedated on mech vent, FiO2 45% and PEEP 8. He is intermittently awake. Follows commands. Tmax 99.6. Vital signs stable. Rectal tube in place. Labs stable. Tolerating tube feedings. 09/21/16 chest xray reveal no change in basilar areas of consolidation, atelectasis and /or effusion. . Family/friend interactions Spoke with sisterReta via telephone to provide medical update. Explained Dr. Marte hopes to be able to wean from mechanical vent in the coming days. If able to wean she knows we will need a decision prior regarding reintubation or not. Alternatively if unable to wean/ medically extubate will need trach/PEG decision on Sunday09/25/16. She wants to speak with her parents and will let me know decision. She appreciates update and will call if she has any questions. . Advance Directives Living Will: Never completed Health Care Surrogate: Never completed Durable Power of Oriental Medicine Practitioner: Never completed Advance Directive Specifics Significant change in goals: Intubation Only. Considering reintubation if able to be weaned from vent, and alternatively considering trach/PEG if unable to be weaned. . Objective Vital Signs Date Time Temp Pulse Resp B/P Pulse Ox O2 Delivery O2 Flow Rate FiO2 09/22/16 14:00 66 09/22/16 12:00 50 09/22/16 12:00 98.6 72 15 118/67 96 09/22/16 12:00 73 09/22/16 10:00 66 09/22/16 08:00 98.5 73 15 121/70 95 09/22/16 08:00 50 09/22/16 08:00 71 09/22/16 07:27 95 50 09/22/16 06:00 64 09/22/16 04:00 50 09/22/16 04:00 99.5 64 16 120/67 95 09/22/16 04:00 64 09/22/16 03:43 96 50 09/22/16 02:00 75 09/22/16 00:00 99.6 69 18 122/66 94 09/22/16 00:00 69 09/22/16 00:00 50 09/21/16 23:48 95 50 09/21/16 22:00 69 09/21/16 20:00 99.1 70 18 128/66 94 09/21/16 20:00 70 09/21/16 20:00 50 09/21/16 19:37 95 50 09/21/16 18:00 72 09/21/16 16:00 99.3 73 15 122/66 94 09/21/16 16:00 73 09/21/16 16:00 50 09/21/16 15:06 96 50 Intake & Output 09/22/16 09/22/16 07:00 19:00 Intake Total 3040 ml 1687 ml Output Total 2425 ml 2500 ml Balance 615 ml -813 ml Intake Oral 0 ml IV Total 2068 ml 1111 ml Tube Feeding 912 ml 576 ml Tube Irrigant 60 ml Output Urine Total 2175 ml 2400 ml Stool Total 250 ml 100 ml Physical Exam CONSTITUTIONAL/GENERAL: This is an overweight, critically ill patient, remains sedated on [facility] vent. TUBES/LINES/DRAINS: ETT, OG, PIVs bilateral, bilateral soft wrist restraints, baker, rectal tube, multipodus boots, SCDs. SKIN: Extremities with venous stasis changes.Dry skin bilateral LE. Ecchymoses on upper extremities. No wounds seen anteriorly. Skin temperature appropriate. Not diaphoretic. ENT: Unable to assess hearing. Nose without bleeding or purulent drainage. Mouth closed. CARDIOVASCULAR: Regular rate and rhythm without murmurs, gallops, or rubs. RESPIRATORY/CHEST: Decrease breath sounds bilaterally. GASTROINTESTINAL: Abdomen protuberant, soft, no obvious tenderness. No guarding. Bowel sounds present. GENITOURINARY: Without palpable bladder distension. Baker catheter in place. MUSCULOSKELETAL: Extremities with venous stasis changes. Trace edema LE. No mottling or clubbing. NEUROLOGICAL: Opens eyes, follows commands. . . Diagnostic Tests Laboratory Laboratory Tests Test 09/20/16 09/21/16 09/22/16 03:49 07:00 08:11 White Blood Count 7.6 TH/MM3 7.6 TH/MM3 9.8 TH/MM3 (4.0-11.0) (4.0-11.0) (4.0-11.0) Red Blood Count 4.87 MIL/MM3 4.86 MIL/MM3 4.98 MIL/MM3 (4.50-5.90) (4.50-5.90) (4.50-5.90) Hemoglobin 14.3 GM/DL 14.0 GM/DL 14.4 GM/DL (13.0-17.0) (13.0-17.0) (13.0-17.0) Hematocrit 42.3 % 42.6 % 43.9 % (39.0-51.0) (39.0-51.0) (39.0-51.0) Mean Corpuscular Volume 86.8 FL 87.7 FL 88.2 FL (80.0-100.0) (80.0-100.0) (80.0-100.0) Mean Corpuscular Hemoglobin 29.4 PG 28.9 PG 28.8 PG (27.0-34.0) (27.0-34.0) (27.0-34.0) Mean Corpuscular Hemoglobin 33.8 % 33.0 % 32.7 % Concent (32.0-36.0) (32.0-36.0) (32.0-36.0) Red Cell Distribution Width 15.1 % 15.0 % 14.8 % (11.6-17.2) (11.6-17.2) (11.6-17.2) Platelet Count 149 TH/MM3 151 TH/MM3 165 TH/MM3 (150-450) (150-450) (150-450) Mean Platelet Volume 9.3 FL 9.4 FL 9.2 FL (7.0-11.0) (7.0-11.0) (7.0-11.0) Neutrophils (%) (Auto) 89.9 % 88.0 % 86.1 % (16.0-70.0) (16.0-70.0) (16.0-70.0) Lymphocytes (%) (Auto) 1.5 % 2.9 % 4.9 % (9.0-44.0) (9.0-44.0) (9.0-44.0) Monocytes (%) (Auto) 8.5 % (0.0-8.0) 9.0 % (0.0-8.0) 8.7 % (0.0-8.0) Eosinophils (%) (Auto) 0.0 % (0.0-4.0) 0.0 % (0.0-4.0) 0.1 % (0.0-4.0) Basophils (%) (Auto) 0.1 % (0.0-2.0) 0.1 % (0.0-2.0) 0.2 % (0.0-2.0) Neutrophils # (Auto) 6.8 TH/MM3 6.7 TH/MM3 8.5 TH/MM3 (1.8-7.7) (1.8-7.7) (1.8-7.7) Lymphocytes # (Auto) 0.1 TH/MM3 0.2 TH/MM3 0.5 TH/MM3 (1.0-4.8) (1.0-4.8) (1.0-4.8) Monocytes # (Auto) 0.6 TH/MM3 0.7 TH/MM3 0.9 TH/MM3 (0-0.9) (0-0.9) (0-0.9) Eosinophils # (Auto) 0.0 TH/MM3 0.0 TH/MM3 0.0 TH/MM3 (0-0.4) (0-0.4) (0-0.4) Basophils # (Auto) 0.0 TH/MM3 0.0 TH/MM3 0.0 TH/MM3 (0-0.2) (0-0.2) (0-0.2) CBC Comment AUTO DIFF AUTO DIFF DIFF FINAL Differential Total Cells 100 100 Counted Neutrophils % (Manual) 90 % (16-70) 87 % (16-70) Band Neutrophils % 1 % (0-6) 2 % (0-6) Lymphocytes % 3 % (9-44) 2 % (9-44) Monocytes % 5 % (0-8) 8 % (0-8) Neutrophils # (Manual) 7.0 TH/MM3 6.8 TH/MM3 (1.8-7.7) (1.8-7.7) Metamyelocytes % (0-1) Myelocytes 1 % (0-0) 1 % (0-0) Differential Comment FINAL DIFF FINAL DIFF MANUAL MANUAL Platelet Estimate NORMAL NORMAL (NORMAL) (NORMAL) Platelet Morphology Comment NORMAL NORMAL (NORMAL) (NORMAL) Red Cell Morphology Comment NORMAL NORMAL (NORMAL) (NORMAL) Sodium Level 141 MEQ/L 142 MEQ/L 144 MEQ/L (136-145) (136-145) (136-145) Potassium Level 3.5 MEQ/L 3.4 MEQ/L 3.5 MEQ/L (3.5-5.1) (3.5-5.1) (3.5-5.1) Chloride Level 100 MEQ/L 100 MEQ/L 103 MEQ/L (98-107) (98-107) (98-107) Carbon Dioxide Level 35.3 MEQ/L 32.7 MEQ/L 32.6 MEQ/L (21.0-32.0) (21.0-32.0) (21.0-32.0) Anion Gap 6 MEQ/L (5-15) 9 MEQ/L (5-15) 8 MEQ/L (5-15) Blood Urea Nitrogen 39 MG/DL (7-18) 38 MG/DL (7-18) 40 MG/DL (7-18) Creatinine 0.69 MG/DL 0.59 MG/DL 0.57 MG/DL (0.60-1.30) (0.60-1.30) (0.60-1.30) Estimat Glomerular Filtration 115 ML/MIN 138 ML/MIN 144 ML/MIN Rate (>89) (>89) (>89) Random Glucose 240 MG/DL 232 MG/DL 193 MG/DL (74-106) (74-106) (74-106) Lactic Acid Level 2.3 mmol/L (0.4-2.0) Calcium Level 8.8 MG/DL 8.8 MG/DL 9.0 MG/DL (8.5-10.1) (8.5-10.1) (8.5-10.1) Phosphorus Level 2.0 MG/DL 2.8 MG/DL (2.5-4.9) (2.5-4.9) Magnesium Level 2.3 MG/DL 2.4 MG/DL (1.5-2.5) (1.5-2.5) Total Bilirubin 0.6 MG/DL 0.9 MG/DL (0.2-1.0) (0.2-1.0) Aspartate Amino Transf 8 U/L (15-37) 8 U/L (15-37) (AST/SGOT) Alanine Aminotransferase 15 U/L (12-78) 20 U/L (12-78) (ALT/SGPT) Alkaline Phosphatase 52 U/L (45-117) 48 U/L (45-117) Total Creatine Kinase 39 U/L (39-308) Total Protein 6.3 GM/DL 6.2 GM/DL (6.4-8.2) (6.4-8.2) Albumin 2.7 GM/DL 2.6 GM/DL (3.4-5.0) (3.4-5.0) Result Diagram: 09/22/16 0811 09/22/16 0811 Microbiology Microbiology Date/Time Procedure Status Source Growth 09/20/16 21:00 Gram Stain - Final Complete Sputum Endotracheal 09/20/16 21:00 Sputum Culture - Final Complete Sputum Endotracheal NO GROWTH IN 48 HOURS. 09/20/16 22:00 Influenza Types A,B Antigen (MAK) - Final Complete Nasal Aspirate NEGATIVE FOR FLU A AND B ANTIGEN.... Imaging Last Impressions Chest X-Ray 09/22/16 0600 Signed Impressions: Service Date/Time: Thursday, September 22, 2016 04:45 - CONCLUSION: No significant change has occurred. Dayday Galo MD CT Angiography 09/13/16 0000 Signed Impressions: Service Date/Time: Tuesday, September 13, 2016 12:25 - CONCLUSION: 1. No evidence of pulmonary embolism. 2. Bilateral pleural effusions and consolidation in both lung bases. 3. Moderate cardiomegaly. Konstantin Bridges MD Lower Extremity Ultrasound 09/11/16 0000 Signed Impressions: Service Date/Time: Sunday, September 11, 2016 17:04 - CONCLUSION: No evidence of deep venous thrombosis. Konstantin Bridges MD . Procedures * 09/11/16 - Intubation . Assessment and Plan Disease Oriented Problem List: (1) Acute hypercapnic respiratory failure (2) COPD (chronic obstructive pulmonary disease) (3) Pneumonia (4) Obesity hypoventilation syndrome (5) Toxic encephalopathy (6) Cellulitis of left lower extremity (7) Diabetes (8) Anxiety and depression Symptom Scale: (1) Dyspnea 0-10 Scale: Unable to quantify Comment: on mech vent FiO2 45% and PEEP 8. Pertinent Non-Medical Issues Psychosocial: Single, No children. Lived with his parents, who have opted out of decision making. Has 1 sister. Spiritual: Unknown. Legal: No written advanced directives. Single. No children. Parents have opted out of decision making. Therefore according to [place] Statutes, health care proxy decision making falls to his sister, Reta Inman. Ethical issues impacting care: No known concerns at this time. . Important Contacts Cezar Shah (father) [phone] Reta Inman (sister) [phone] Prognosis 65 year old with hx of copd, pneumonia, obesity continue to need ventilator support and appears difficult to wean off ventilator. Pt in critical condition. half-way prognosis is poor, which pulmonology confirms. . Code Status: Alternative Code (Intubation Only. ) Plan * No written advanced directives. Single. No children. Parents have opted out of decision making. Therefore according to [place] Statutes, health care proxy decision making falls to his sister, Reta Inman. * Alternate Code: Intubation Only. * 09/22/16 - Spoke with Reta sanchez via telephone to provide medical update. Explained Dr. Marte hopes to be able to wean from mechanical vent in the coming days. If able to wean she knows we will need a decision prior regarding reintubation or not. Alternatively if unable to wean/ medically extubate will need trach/PEG decision on Sunday09/25/16. She wants to speak with her parents and will let me know decision. She appreciates update and will call if she has any questions. * SYMPTOMS: Dyspnea: remains on mech vent. FiO2 45% and PEEP 8. * Palliative Care will continue to follow to assist with symptom management and further clarify treatment goals as needed. . Attestation To help prompt me to consider important information that might be impacting today's encounter and assessment, information from prior notes written by myself or my colleagues may have been "brought forward" into today's note. My signature on this note, however, is an attestation that I personally performed the exam, history, and/or decision-making noted today, and, unless otherwise indicated, the interactions with patient, family, and staff as well as the review of records all occurred today. I also attest that the listed assessment and stated plan reflect my best clinical judgment today based on the combination of historical information, prior notes, and today's exam/ interactions. When time spent is documented, it refers only to time spent today by the signer, or if indicated, combined time spent today by collaborating physician/nurse practitioner. . NOREEN SIM Sep 22, 2016 15:06
[2016-09-22] MEDS: MIDAZOLAM 100 MG/NS 100 ML DRIP Premix IV SCH (18:28)
[2016-09-22] MEDS: ENOXAPARIN SODIUM 40 MG/0.4 ML SYRINGE SQ SCH (20:58)
[2016-09-22] MEDS ORDERED: INSULIN DETEMIR 100 UNITS/ML VIAL SQ SCH (21:00)
[2016-09-23] VITALS (18 sets, daily range): BP systolic 114–144; BP diastolic 63–70; PULSE 59–79; RESP 16–20; TEMP 98.8–99.4; O2SAT 91–96
[2016-09-23] MEDS ORDERED: GLUCAGON 1 MG/ML VIAL OTHER PRN (02:30)
[2016-09-23] MEDS ORDERED: DEXTROSE 50% IN WATER 50 ML VIAL(D50) IV PUSH PRN (02:30)
[2016-09-23] MEDS: RESP: ALBUTEROL 2.5 MG/IPRATROPIUM 0.5 MG NEB (SCH) INH ×6 (02:58→23:35)
[2016-09-23] MEDS: CHLORHEXIDINE GLUCONATE 2 % 1 PACK (2 CLOTHS) TOP SCH (04:00)
[2016-09-23] MEDS: VANCOMYCIN INJ 2,000 MG in SODIUM CHLORID 0.9% 500 ML INJ 500 ML IV SCH ×2 (04:12→16:12)
[2016-09-23] MEDS: PIPERACIL-TAZO 4.5 GM PREMIX 100 ML IV SCH ×4 (04:12→22:54)
[2016-09-23] MEDS: MEDIUM DOSE INSULIN NOVOLIN REGULAR SUPPLEMENTAL SCALE SQ SCH ×5 (04:13→20:24)
[2016-09-23] MEDS ORDERED: MEDIUM DOSE INSULIN NOVOLIN REGULAR SUPPLEMENTAL SCALE SQ SCH (07:00)
[2016-09-23] MEDS: RESP: BUDESONIDE 0.5 MG/2 ML NEB NEB SCH ×2 (07:33→19:31)
[2016-09-23] MEDS: PANTOPRAZOLE SODIUM 40 MG VIAL IV SCH (09:00)
[2016-09-23] MEDS: INSULIN DETEMIR 100 UNITS/ML VIAL SQ SCH ×2 (10:36→20:25)
[2016-09-23] MEDS: POTASSIUM CL 40 MEQ/30 ML LIQ UDC PO SCH (10:38)
[2016-09-23] MEDS: DOCUSATE SODIUM 50 MG/SENNA 8.6 MG TAB PO SCH ×2 (10:38→20:24)
[2016-09-23] MEDS: TAMSULOSIN HCL 0.4 MG CAP PO SCH (10:38)
[2016-09-23] MEDS: DILTIAZEM HCL 60 MG TAB PO SCH ×4 (10:38→20:24)
[2016-09-23] MEDS: methylPREDNISolone SOD SUCC 40 MG/1 ML VIAL IV PUSH SCH ×2 (10:39→20:25)
[2016-09-23] MEDS: BUMETANIDE INJ 1 MG/4 ML VIAL IV PUSH SCH (10:39)
[2016-09-23] MEDS: POLYETHYLENE GLYCOL 17 GM PKG PO SCH (10:39)
[2016-09-23] MEDS: CHLORHEXIDINE 0.12% (ORAL KIT) 15 ML CUP MT SCH ×2 (10:40→20:26)
[2016-09-23] MEDS: SODIUM CHLORIDE 0.9% FLUSH 5 ML FLUSH IV FLUSH SCH ×2 (10:40→20:25)
[2016-09-23] MEDS: PROPOFOL 1000 MG/100 ML INJ 100 ML IV SCH ×5 (11:15→23:01)
--- NOTE | 2016-09-23 12:41 | HHI.CCPN ---
Subjective Remarks/Hospital Course This is a morbidly obese 65-year-old male with a history of obesity hypoventilation syndrome, COPD, CHF, severe venous stasis, and recent lower extremity cellulitis who presented with worsening shortness of breath. He was recently admitted to the [facility] emergency department and then ICU with similar symptoms for which she was placed on BiPAP for a few days. In this emergency department he was noted to have a PCO2 of 102. He was placed on BiPAP initially, although his mentation continued to worsen and despite BiPAP his PCO2 increased to 112. The patient is a very poor historian on top of the fact that he is very somnolent and unable to provide additional information. Critical-care medicine is consulted to evaluate and manage his acute hypercarbic and hypoxic respiratory failure. Dr. Martinez intubated and placed on mechanical ventilation 09/12 Patient is sedated with Diprivan and intubated. Afebrile. On PRVC/AC RR 14 , TV 450, PEEP:8, IT:0.9, FIO2 60%. 09/13 Patient remains sedated and intubated, On PRVC/AC RR 14, TV 450, IT:0.9, PEEP:10, FIO2 70%, Afebrile. 09/14: Patient is wide awake on propofol. FiO2 at 80%, PEEP at 10. I have changed to PSV mode for patient comfort. Start Bumex infusion for CHF/fluid overload. Increase Solu-Medrol to 40 every 8 09/15: Remains hypoxemic, I have weaned FiO2 to 55%, PEEP remains at 14. Patient remains heavily sedated. Chest x-ray continues to show bibasilar infiltrates and effusion. Urine output excellent on Bumex drip more than 10 L in 24 hours 09/16: Afebrile. Intubated and sedated, FiO2 remains at 55%. Earlier today tube feed residuals 200 cc noted, with resolution this afternoon. 09/17: The patient required an increase in FiO2 this morning to 60%, attempting to wean. Vancomycin was discontinued, he continues on Zosyn. Patient continues to have blood glucoses in the mid to high 200s despite being on insulin drip and Levemir at 20 units twice a day. Levemir increased. 09/18: Increasing saturations noted. PEEP increased to 15. FiO2 down to 75%. Chest x-ray reveals small bilateral pleural effusions. Negative CTA chest last admission. Sedated with Versed and propofol drips. One small bowel movement yesterday. 09/19: FiO2 decreased to 65%. Chest x-ray reveals possible worsening bilateral pleural effusions. Sedated on Versed and propofol just. Positive BM. Tolerating tube feeding. 09/20: Afebrile. FiO2 down to 60. PEEP down to 14. Awake and does all commands. Positive BM. Tube feeding is currently off to be resumed. 09/21: PEEP down to 12. FiO2 down to 50%. Increased insulin gtt 10 u/hr. Afebrile. 09/22: Tmax 100.8. Currently afebrile. FiO2 to 45%. PEEP to 8. Insulin Drip currently at 2 units an hour. Awake and alert and follows commands. Subjective 09/23: Currently afebrile. FiO2 increased to 60% overnight. Pupils to 10. Insulin drip has been discontinued. Awake and alert and does follow commands. Objective Vital Signs Date Time Temp Pulse Resp B/P Pulse Ox O2 Delivery O2 Flow Rate FiO2 09/23/16 12:00 72 09/23/16 12:00 60 09/23/16 12:00 99.4 18 120/69 93 Intake and Output 09/22/16 09/22/16 09/23/16 08:00 16:00 00:00 Intake Total 996 ml 1687 ml 1475 ml Output Total 725 ml 2500 ml 2325 ml Balance 271 ml -813 ml -850 ml Result Diagram: 09/22/16 0811 09/22/16 0811 Other Results Microbiology Date/Time Procedure Status Source Growth 09/20/16 22:00 Influenza Types A,B Antigen (MAK) - Final Complete Nasal Aspirate NEGATIVE FOR FLU A AND B ANTIGEN.... 09/20/16 21:00 Gram Stain - Final Complete Sputum Endotracheal 09/20/16 21:00 Sputum Culture - Final Complete Sputum Endotracheal NO GROWTH IN 48 HOURS. Imaging Last Impressions Chest X-Ray 09/22/16 0600 Signed Impressions: Service Date/Time: Thursday, September 22, 2016 04:45 - CONCLUSION: No significant change has occurred. Dayday Galo MD CT Angiography 09/13/16 0000 Signed Impressions: Service Date/Time: Tuesday, September 13, 2016 12:25 - CONCLUSION: 1. No evidence of pulmonary embolism. 2. Bilateral pleural effusions and consolidation in both lung bases. 3. Moderate cardiomegaly. Konstantin Bridges MD Lower Extremity Ultrasound 09/11/16 0000 Signed Impressions: Service Date/Time: Sunday, September 11, 2016 17:04 - CONCLUSION: No evidence of deep venous thrombosis. Konstantin Bridges MD Objective Remarks GENERAL: 65yo male, critically ill currently resting in bed in no acute distress SKIN: Warm and dry. No rash HEAD: Normocephalic. EYES: No scleral icterus. No injection or drainage. ENT: Orotracheally intubated NECK: Supple, trachea midline. No JVD or lymphadenopathy. CARDIOVASCULAR: Regular rate and rhythm S1, S2. No S4. Without murmurs, gallops, or clicks or rubs. RESPIRATORY: Breath sounds equal bilaterally. Diminished breath sounds in the bases. No end expiratory wheeze.. GASTROINTESTINAL: Abdomen soft obese, non-tender, distended and protuberant. Hypoactive bowel sounds. Fecal containment device in place. MUSCULOSKELETAL: Bilateral lower extremity with significant venous stasis changes. Currently no peripheral edema. Right lower extremity with evidence of prior skin graft. NEURO: Cranial nerves II through grossly intact. Moves upper extremity spontaneously. Wiggles toes. Urinary Catheter: Yes Assessment to: Continue Payne insert reason: Prolonged Immobilization Vascular Central Line Catheter: No Assessment to: Continue A/P Assessment and Plan Neuro/Psych: Acute encephalopathy - possible CO2 narcosis Metabolic encephalopathy Chronic benzodiazepine use On Diprivan at 30 mcg/kg/m and versed infusion at 7 mg an hour for sedation while intubated. Goal of RASS -2 Daily sedation vacation when appropriate On Xanax 0.25 mg every 8 hours as needed at home for anxiety. This is currently on hold Pulm: Acute hypoxemic respiratory failure COPD exacerbation Bibasilar pneumonia Obesity hypoventilation syndrome On PRVC/AC RR 15, TV 550< IT:1.5, PEEP:10, FIO2 60% Start spontaneous breathing trials once FiO2 less than 50% , PEEP <8 Continue with vent support keep sat >92% Bronchodilators every 4 hours, ICU vent bundle. Continue methylprednisone 40mg q12 Chest x-ray 09/22 reveals stable bilateral pleural effusions/ infiltrates. CV: Hypertension Dyslipidemia On Cardizem 60mg QID, monitor HR and BP keep MAP>65mmHg Echo from 08/25 showed EF 55%, no RWMA On diltiazem 120 mg daily Lasix 20 mg daily at home. Continue Bumex 1 mg IV but decreased to daily /renal: BPH History of left renal cyst Hypopotassemia Monitor renal function, I/O's, electrolytes replacement per protocol. On Flomax 0.4 mg by mouth daily for BPH GI Constipation Morbid obesity On TF-vital high protein goal 60 cc an hour Protonix 40mg daily for GI prophylaxis. Parisa-Colace twice a day/MiraLAX daily ID: Continue with abx (Vanco, Zosyn) monitor for signs of infections (Fever, WBC). Added Zithromax #6 of 7 09/11 BC: NGTD. s/u Sputum cx, strep pneumonia and Legionella urinary Ag. Sputum/urine 09/21 neg Heme: Monitor CBC. Monitor trends Endo Diabetes mellitus Hyperglycemia of critical illness Currently on sliding scale insulin with Accu-Cheks every 4 hours. 8 units sliding scale past 24 hours. Levemir 80 U Q12 for glycemic control On metformin unknown dosage insulin scale insulin unknown dosage at home for diabetes. Prophylaxis: GI Prophylaxis Protonix 40 mg IV daily DVT Prophylaxis -- SCDs Lovenox 40 mg subcutaneous daily - Doppler US LE negative for DVT Critical Care: The total care time was 35 minutes. Time to perform other separately billable procedures was not included in the critical care time. Marcel Marte MD Sep 23, 2016 12:41
[2016-09-23] MEDS: POTASSIUM CHLOR 10 MEQ PREMIX 100 ML IV SCH ×3 (13:00→16:05)
[2016-09-23] MEDS: AZITHROMYCIN INJ 500 MG in SODIUM CHLOR 0.9% 250 ML INJ 250 ML IV SCH (13:38)
[2016-09-23] MEDS: MIDAZOLAM 100 MG/NS 100 ML DRIP Premix IV SCH (14:02)
[2016-09-23] MEDS: ENOXAPARIN SODIUM 40 MG/0.4 ML SYRINGE SQ SCH (20:24)
[2016-09-24] VITALS (17 sets, daily range): BP systolic 119–153; BP diastolic 66–86; PULSE 59–82; RESP 15–16; TEMP 98.2–98.7; O2SAT 91–100
[2016-09-24] MEDS: MEDIUM DOSE INSULIN NOVOLIN REGULAR SUPPLEMENTAL SCALE SQ SCH ×3 (00:22→08:15)
[2016-09-24] MEDS: PROPOFOL 1000 MG/100 ML INJ 100 ML IV SCH ×7 (02:44→22:53)
[2016-09-24] MEDS: CHLORHEXIDINE GLUCONATE 2 % 1 PACK (2 CLOTHS) TOP SCH (04:00)
[2016-09-24] MEDS: RESP: ALBUTEROL 2.5 MG/IPRATROPIUM 0.5 MG NEB (SCH) INH ×6 (04:27→23:54)
[2016-09-24] MEDS: PIPERACIL-TAZO 4.5 GM PREMIX 100 ML IV SCH ×4 (04:47→22:53)
[2016-09-24] MEDS: MIDAZOLAM 100 MG/NS 100 ML DRIP Premix IV SCH (04:47)
--- NOTE | 2016-09-24 04:57 | RADRPT ---
EXAM DATE/TIME: 09/24/2016 03:16 [facility] COMPARISON: CHEST SINGLE AP, September 22, 2016, 4:45. INDICATIONS : Shortness of breath, possible pulmonary disease. MEDICAL HISTORY : None. SURGICAL HISTORY : None. ENCOUNTER: Subsequent ACUITY: 2 weeks PAIN SCORE: Non-responsive. LOCATION: Bilateral chest FINDINGS: Bilateral pleural effusions and lower lobe consolidation again seen. Cardiomegaly. Side-port of the N G tube overlies expected location of the distal esophagus. Endotracheal tube tip at the inferior radu in of the clavicles. CONCLUSION: No significant change has occurred. Dayday Galo MD on September 24, 2016 at 4:55 Board Certified Radiologist. This report was verified electronically.
[2016-09-24] MEDS: VANCOMYCIN INJ 2,000 MG in SODIUM CHLORID 0.9% 500 ML INJ 500 ML IV SCH ×2 (05:37→16:16)
[2016-09-24] MEDS: RESP: BUDESONIDE 0.5 MG/2 ML NEB NEB SCH ×2 (07:30→19:39)
[2016-09-24 07:57] LABS: AUTOMATED NEUTROPHIL # 11.5 TH/MM3 (1.8-7.7); BASOPHIL % 0.1 % (0.0-2.0); HEMATOCRIT 44.4 % (39.0-51.0); HEMO FLAGS DIFF FINAL; LYMPHOCYTE # 0.3 TH/MM3 (1.0-4.8); MEAN CELL VOLUME 87.9 FL (80.0-100.0); MEAN CORPUSCULAR HEMOGLOBIN 28.5 PG (27.0-34.0); MEAN CORPUSCULAR HGB CONC 32.4 % (32.0-36.0); MONO % 6.9 % (0.0-8.0); PLATELET COUNT 161 TH/MM3 (150-450); RED BLOOD COUNT 5.05 MIL/MM3 (4.50-5.90); RED CELL DISTRIBUTION WIDTH 14.6 % (11.6-17.2); WHITE BLOOD COUNT 12.6 TH/MM3 (4.0-11.0)
[2016-09-24 07:58] LABS: BICARBONATE 29.9 MEQ/L (21.0-32.0)
[2016-09-24] MEDS: CHLORHEXIDINE 0.12% (ORAL KIT) 15 ML CUP MT SCH ×2 (08:00→20:02)
[2016-09-24] MEDS: TAMSULOSIN HCL 0.4 MG CAP PO SCH (08:14)
[2016-09-24] MEDS: POLYETHYLENE GLYCOL 17 GM PKG PO SCH (08:14)
[2016-09-24] MEDS: INSULIN DETEMIR 100 UNITS/ML VIAL SQ SCH ×2 (08:14→20:01)
[2016-09-24] MEDS: DILTIAZEM HCL 60 MG TAB PO SCH ×4 (08:15→20:00)
[2016-09-24] MEDS: BUMETANIDE INJ 1 MG/4 ML VIAL IV PUSH SCH (08:15)
[2016-09-24] MEDS: methylPREDNISolone SOD SUCC 40 MG/1 ML VIAL IV PUSH SCH ×2 (08:15→20:01)
[2016-09-24] MEDS: DOCUSATE SODIUM 50 MG/SENNA 8.6 MG TAB PO SCH ×2 (08:15→20:01)
[2016-09-24] MEDS: POTASSIUM CL 40 MEQ/30 ML LIQ UDC PO SCH (08:15)
[2016-09-24] MEDS: PANTOPRAZOLE SODIUM 40 MG VIAL IV SCH (08:15)
[2016-09-24] MEDS: SODIUM CHLORIDE 0.9% FLUSH 5 ML FLUSH IV FLUSH SCH ×2 (08:18→20:02)
[2016-09-24] MEDS ORDERED: DEXTROSE 50% IN WATER 50 ML VIAL(D50) IV PUSH PRN (11:15)
[2016-09-24] MEDS ORDERED: GLUCAGON 1 MG/ML VIAL OTHER PRN (11:15)
--- NOTE | 2016-09-24 12:02 | HHI.CCPN ---
Subjective Remarks/Hospital Course This is a morbidly obese 65-year-old male with a history of obesity hypoventilation syndrome, COPD, CHF, severe venous stasis, and recent lower extremity cellulitis who presented with worsening shortness of breath. He was recently admitted to the [facility] emergency department and then ICU with similar symptoms for which she was placed on BiPAP for a few days. In this emergency department he was noted to have a PCO2 of 102. He was placed on BiPAP initially, although his mentation continued to worsen and despite BiPAP his PCO2 increased to 112. The patient is a very poor historian on top of the fact that he is very somnolent and unable to provide additional information. Critical-care medicine is consulted to evaluate and manage his acute hypercarbic and hypoxic respiratory failure. Dr. Martinez intubated and placed on mechanical ventilation 09/12 Patient is sedated with Diprivan and intubated. Afebrile. On PRVC/AC RR 14 , TV 450, PEEP:8, IT:0.9, FIO2 60%. 09/13 Patient remains sedated and intubated, On PRVC/AC RR 14, TV 450, IT:0.9, PEEP:10, FIO2 70%, Afebrile. 09/14: Patient is wide awake on propofol. FiO2 at 80%, PEEP at 10. I have changed to PSV mode for patient comfort. Start Bumex infusion for CHF/fluid overload. Increase Solu-Medrol to 40 every 8 09/15: Remains hypoxemic, I have weaned FiO2 to 55%, PEEP remains at 14. Patient remains heavily sedated. Chest x-ray continues to show bibasilar infiltrates and effusion. Urine output excellent on Bumex drip more than 10 L in 24 hours 09/16: Afebrile. Intubated and sedated, FiO2 remains at 55%. Earlier today tube feed residuals 200 cc noted, with resolution this afternoon. 09/17: The patient required an increase in FiO2 this morning to 60%, attempting to wean. Vancomycin was discontinued, he continues on Zosyn. Patient continues to have blood glucoses in the mid to high 200s despite being on insulin drip and Levemir at 20 units twice a day. Levemir increased. 09/18: Increasing saturations noted. PEEP increased to 15. FiO2 down to 75%. Chest x-ray reveals small bilateral pleural effusions. Negative CTA chest last admission. Sedated with Versed and propofol drips. One small bowel movement yesterday. 09/19: FiO2 decreased to 65%. Chest x-ray reveals possible worsening bilateral pleural effusions. Sedated on Versed and propofol just. Positive BM. Tolerating tube feeding. 09/20: Afebrile. FiO2 down to 60. PEEP down to 14. Awake and does all commands. Positive BM. Tube feeding is currently off to be resumed. 09/21: PEEP down to 12. FiO2 down to 50%. Increased insulin gtt 10 u/hr. Afebrile. 09/22: Tmax 100.8. Currently afebrile. FiO2 to 45%. PEEP to 8. Insulin Drip currently at 2 units an hour. Awake and alert and follows commands. 09/23: Currently afebrile. FiO2 increased to 60% overnight. PEEP to 10. Insulin drip has been discontinued. Awake and alert and does follow commands. Subjective 09/24: Failed CPAP after 1 hour and 10 minutes today. Tolerating tube feeding. Positive BM. More interactive today. PEEP is at 8 Objective Vital Signs Date Time Temp Pulse Resp B/P Pulse Ox O2 Delivery O2 Flow Rate FiO2 09/24/16 10:31 45 09/24/16 08:00 80 09/24/16 08:00 98.4 16 120/68 95 Intake and Output 09/23/16 09/23/16 09/24/16 08:00 16:00 00:00 Intake Total 692 ml 850 ml 5204 ml Output Total 800 ml 2400 ml 2650 ml Balance -108 ml -1550 ml 2554 ml Result Diagram: 09/24/1627 09/24/16626 Other Results Microbiology Date/Time Procedure Status Source Growth 09/20/16 22:00 Influenza Types A,B Antigen (MAK) - Final Complete Nasal Aspirate NEGATIVE FOR FLU A AND B ANTIGEN.... 09/20/16 21:00 Gram Stain - Final Complete Sputum Endotracheal 09/20/16 21:00 Sputum Culture - Final Complete Sputum Endotracheal NO GROWTH IN 48 HOURS. Imaging Last Impressions Chest X-Ray 09/24/16 0600 Signed Impressions: Service Date/Time: Saturday, September 24, 2016 03:16 - CONCLUSION: No significant change has occurred. Dayday Galo MD CT Angiography 09/13/16 0000 Signed Impressions: Service Date/Time: Tuesday, September 13, 2016 12:25 - CONCLUSION: 1. No evidence of pulmonary embolism. 2. Bilateral pleural effusions and consolidation in both lung bases. 3. Moderate cardiomegaly. Konstantin Bridges MD Lower Extremity Ultrasound 09/11/16 0000 Signed Impressions: Service Date/Time: Sunday, September 11, 2016 17:04 - CONCLUSION: No evidence of deep venous thrombosis. Konstantin Bridges MD Objective Remarks GENERAL: 65yo male, critically ill currently resting in bed in no acute distress SKIN: Warm and dry. No rash HEAD: Normocephalic. EYES: No scleral icterus. No injection or drainage. ENT: Orotracheally intubated NECK: Supple, trachea midline. No JVD or lymphadenopathy. CARDIOVASCULAR: Regular rate and rhythm S1, S2. No S4. Without murmurs, gallops, or clicks or rubs. RESPIRATORY: Breath sounds equal bilaterally. Diminished breath sounds in the bases. No end expiratory wheeze.. GASTROINTESTINAL: Abdomen soft obese, non-tender, distended and protuberant. Hypoactive bowel sounds. Fecal containment device in place. MUSCULOSKELETAL: Bilateral lower extremity with significant venous stasis changes. Currently no peripheral edema. Right lower extremity with evidence of prior skin graft. NEURO: Cranial nerves II through grossly intact. Moves upper extremity spontaneously. Wiggles toes. A/P Assessment and Plan Neuro/Psych: Acute encephalopathy - possible CO2 narcosis Metabolic encephalopathy Chronic benzodiazepine use On Diprivan at 30 mcg/kg/m and versed infusion at 7 mg an hour for sedation while intubated. Goal of RASS -2 Daily sedation vacation when appropriate On Xanax 0.25 mg every 8 hours as needed at home for anxiety. This is currently on hold Pulm: Acute hypoxemic respiratory failure COPD exacerbation Bibasilar pneumonia Obesity hypoventilation syndrome On PRVC/AC RR 15, TV 550< IT:1.5, PEEP:10, FIO2 60% Start spontaneous breathing trials once FiO2 less than 50% , PEEP <8 Continue with vent support keep sat >92% Bronchodilators every 4 hours, ICU vent bundle. Continue methylprednisone 40mg q12 Chest x-ray 09/22 reveals stable bilateral pleural effusions/ infiltrates. CV: Hypertension Dyslipidemia On Cardizem 60mg QID, monitor HR and BP keep MAP>65mmHg Echo from 08/25 showed EF 55%, no RWMA On diltiazem 120 mg daily Lasix 20 mg daily at home. Continue Bumex 1 mg IV but decreased to daily /renal: BPH History of left renal cyst Hypopotassemia Monitor renal function, I/O's, electrolytes replacement per protocol. On Flomax 0.4 mg by mouth daily for BPH GI Constipation Morbid obesity On TF-vital high protein goal 60 cc an hour Protonix 40mg daily for GI prophylaxis. Parisa-Colace twice a day/MiraLAX daily ID: Continue with abx (Vanco, Zosyn) monitor for signs of infections (Fever, WBC). Zithromax #7 of 7 09/11 BC: NGTD. s/u Sputum cx, strep pneumonia and Legionella urinary Ag. Sputum/urine 09/21 neg Heme: Monitor CBC. Monitor trends Endo Diabetes mellitus Hyperglycemia of critical illness Currently on sliding scale insulin with Accu-Cheks every 4 hours. Just changed to high sliding scale. 15 units given for blood sugar 274 currently. Levemir 80 U Q12 for glycemic control On metformin unknown dosage insulin scale insulin unknown dosage at home for diabetes. Prophylaxis: GI Prophylaxis Protonix 40 mg IV daily DVT Prophylaxis -- SCDs Lovenox 40 mg subcutaneous daily - Doppler US LE negative for DVT Critical Care: The total care time was 35 minutes. Time to perform other separately billable procedures was not included in the critical care time. Marcel Marte MD Sep 24, 2016 12:01
[2016-09-24] MEDS: INSULIN NovoLIN REGULAR SUPPLEMENTAL SCALE SQ SCH ×3 (12:57→20:02)
[2016-09-24] MEDS: AZITHROMYCIN INJ 500 MG in SODIUM CHLOR 0.9% 250 ML INJ 250 ML IV SCH (12:58)
[2016-09-24 16:18] LABS: BLOOD GAS BASE EXCESS 4.6 mmol/L (-2-2); BLOOD GAS CARBOXYHEMOGLOBIN 1.6 % (0-4); BLOOD GAS HCO3 28 mmol/L (22-26); BLOOD GAS METHEMOGLOBIN 1.1 % (0-2); BLOOD GAS O2 HGB SATURATION 94 % (90-100); BLOOD GAS OXYGEN CONTENT 20.4 Vol % (12.0-20.0); BLOOD GAS PCO2 36 mmHg (38-42); BLOOD GAS PO2 86 mmHg (61-120); BLOOD GAS TOTAL HGB 15.4 G/DL (12.0-16.0); CRITICAL VALUE NO; OXYGEN DEVICE VENTILATOR; TEMP CORR TO 98.6; VENT SETTINGS PRVC/AC/R15P8/I1.4
[2016-09-24 16:19] LABS: DRAW SITE LT RADIAL; FIO2 60 %; NUMBER OF ARTERIAL PUNCTURES 1; STAT NO; ULNAR PULSE Y
[2016-09-24] MEDS: ENOXAPARIN SODIUM 40 MG/0.4 ML SYRINGE SQ SCH (20:01)
[2016-09-25] VITALS (22 sets, daily range): BP systolic 128–146; BP diastolic 69–81; PULSE 51–85; RESP 10–21; TEMP 98.4–99.1; O2SAT 93–100
[2016-09-25] MEDS: INSULIN NovoLIN REGULAR SUPPLEMENTAL SCALE SQ SCH ×6 (00:02→20:00)
[2016-09-25] MEDS: PROPOFOL 1000 MG/100 ML INJ 100 ML IV SCH ×5 (01:44→16:49)
[2016-09-25] MEDS: MIDAZOLAM 100 MG/NS 100 ML DRIP Premix IV SCH (01:45)
[2016-09-25] MEDS: RESP: ALBUTEROL 2.5 MG/IPRATROPIUM 0.5 MG NEB (SCH) INH ×6 (03:27→23:27)
[2016-09-25] MEDS: CHLORHEXIDINE GLUCONATE 2 % 1 PACK (2 CLOTHS) TOP SCH (04:00)
[2016-09-25] MEDS: PIPERACIL-TAZO 4.5 GM PREMIX 100 ML IV SCH ×4 (04:23→21:25)
[2016-09-25] MEDS: VANCOMYCIN INJ 2,000 MG in SODIUM CHLORID 0.9% 500 ML INJ 500 ML IV SCH ×2 (04:23→17:52)
--- NOTE | 2016-09-25 06:35 | RADRPT ---
EXAM DATE/TIME: 09/25/2016 04:22 [facility] COMPARISON: CHEST SINGLE AP, September 24, 2016, 3:16. INDICATIONS : Shortness of breath, possible pulmonary disease. MEDICAL HISTORY : None. SURGICAL HISTORY : None. ENCOUNTER: Subsequent ACUITY: 2 weeks PAIN SCORE: Non-responsive. LOCATION: Bilateral chest FINDINGS: Endotracheal tube tip in satisfactory position. NG enters stomach. Bilateral mostly basilar airspace disease similar to September 24. CONCLUSION: 1. Bilateral airspace disease similar to September 24. Endotracheal tube and nasogastric tube unchange d. Chuckie Altamirano MD on September 25, 2016 at 6:31 Board Certified Radiologist. This report was verified electronically.
[2016-09-25 06:55] LABS: AUTOMATED NEUTROPHIL # 12.2 TH/MM3 (1.8-7.7); BASOPHIL % 0.2 % (0.0-2.0); HEMATOCRIT 42.6 % (39.0-51.0); LYMPH % 1.7 % (9.0-44.0); LYMPHOCYTE # 0.2 TH/MM3 (1.0-4.8); MEAN CELL VOLUME 87.3 FL (80.0-100.0); MEAN CORPUSCULAR HEMOGLOBIN 29.2 PG (27.0-34.0); MEAN CORPUSCULAR HGB CONC 33.5 % (32.0-36.0); MONO % 5.1 % (0.0-8.0); PLATELET COUNT 152 TH/MM3 (150-450); RED BLOOD COUNT 4.88 MIL/MM3 (4.50-5.90); RED CELL DISTRIBUTION WIDTH 14.5 % (11.6-17.2); WHITE BLOOD COUNT 13.1 TH/MM3 (4.0-11.0)
[2016-09-25 06:59] LABS: HEMO FLAGS AUTO DIFF
[2016-09-25 07:03] LABS: BICARBONATE 27.5 MEQ/L (21.0-32.0)
[2016-09-25] MEDS: RESP: BUDESONIDE 0.5 MG/2 ML NEB NEB SCH ×2 (07:57→19:39)
[2016-09-25 08:40] LABS: PLATELET ESTIMATE SMEAR NORMAL (NORMAL); PLATELET MORPHOLOGY NORMAL (NORMAL); SCAN/DIFF AUTO DIFF CONFIRMED
[2016-09-25] MEDS: POLYETHYLENE GLYCOL 17 GM PKG PO SCH (08:45)
[2016-09-25] MEDS: methylPREDNISolone SOD SUCC 40 MG/1 ML VIAL IV PUSH SCH ×2 (08:45→21:25)
[2016-09-25] MEDS: POTASSIUM CL 40 MEQ/30 ML LIQ UDC PO SCH (08:45)
[2016-09-25] MEDS: PANTOPRAZOLE SODIUM 40 MG VIAL IV SCH (08:45)
[2016-09-25] MEDS: DOCUSATE SODIUM 50 MG/SENNA 8.6 MG TAB PO SCH ×2 (08:46→21:26)
[2016-09-25] MEDS: DILTIAZEM HCL 60 MG TAB PO SCH ×4 (08:46→21:27)
[2016-09-25] MEDS: BUMETANIDE INJ 1 MG/4 ML VIAL IV PUSH SCH (08:47)
[2016-09-25] MEDS: INSULIN DETEMIR 100 UNITS/ML VIAL SQ SCH ×2 (08:47→21:00)
[2016-09-25] MEDS: CHLORHEXIDINE 0.12% (ORAL KIT) 15 ML CUP MT SCH ×2 (08:50→21:25)
[2016-09-25] MEDS: TAMSULOSIN HCL 0.4 MG CAP PO SCH (08:50)
[2016-09-25] MEDS: SODIUM CHLORIDE 0.9% FLUSH 5 ML FLUSH IV FLUSH SCH ×2 (08:50→21:27)
--- NOTE | 2016-09-25 12:09 | HHI.HCPN ---
Reason for visit a. To assist with evaluation and management of symptoms including: dyspnea b. To assist medical decision maker(s) with: better understanding of current medical conditions; weighing benefits/burdens of medical treatment options; making medical treatment decisions. . Subjective/Interval History Patient seen and examined in ICU. No family at bedside. On CPAP this morning. He opens eyes. Able to squeeze hand very weakly. Does not track or nod yes/no to questions. Afebrile. HR 60s. WBC 13.1 increasing. Chest x-ray bilateral airspace disease. . Family/friend interactions Spoke with sister via phone to provide update. She is on her way to hospital. She reports her parents came to visit yesterday and verbalized he is not likely to survive. Sister seems to be struggling with making definitive medical decisions. I explained I do not think patient will do well if medically extubated. She seems to be considering transition to comfort. . Advance Directives Living Will: Never completed Health Care Surrogate: Never completed Durable Power of Revenue Tax Specialist: Never completed Advance Directive Specifics Significant change in goals: Intubation Only. Sister considering trach/PEG decision. . Objective Vital Signs Date Time Temp Pulse Resp B/P Pulse Ox O2 Delivery O2 Flow Rate FiO2 09/25/16 11:15 94 40 09/25/16 10:48 93 40 09/25/16 10:38 40 09/25/16 10:38 94 40 09/25/16 09:48 94 40 09/25/16 07:57 98 45 09/25/16 06:10 61 09/25/16 04:44 95 45 09/25/16 04:00 69 09/25/16 04:00 45 09/25/16 04:00 98.4 69 18 138/69 95 09/25/16 02:00 79 09/25/16 01:13 100 45 09/25/16 00:00 51 09/25/16 00:00 98.4 51 19 128/70 100 09/25/16 00:00 45 09/24/16 22:00 59 09/24/16 20:00 50 09/24/16 20:00 64 09/24/16 20:00 98.5 64 15 121/67 96 09/24/16 19:39 97 50 09/24/16 18:00 64 09/24/16 16:00 98.4 69 15 119/70 96 2/26/17 16:00 69 09/24/16 16:00 50 09/24/16 14:00 66 09/24/16 12:32 97 45 09/24/16 12:30 60 09/24/16 12:14 45 Intake & Output 09/25/16 09/25/16 06:59 18:59 Intake Total 2991 ml Output Total 1650 ml Balance 1341 ml Intake Oral 0 ml IV Total 1969 ml Tube Feeding 1022 ml Output Urine Total 1250 ml Stool Total 400 ml Physical Exam CONSTITUTIONAL/GENERAL: This is an overweight, critically ill patient, remains sedated on [facility] vent. TUBES/LINES/DRAINS: ETT, OG, PIVs bilateral, bilateral soft wrist restraints, baker, rectal tube, multipodus boots, SCDs. SKIN: Extremities with venous stasis changes.Dry skin bilateral LE. Ecchymoses on upper extremities. No wounds seen anteriorly. Skin temperature appropriate. Not diaphoretic. ENT: Unable to assess hearing. Nose without bleeding or purulent drainage. Mouth closed. CARDIOVASCULAR: Regular rate and rhythm without murmurs, gallops, or rubs. RESPIRATORY/CHEST: Decrease breath sounds bilaterally. GASTROINTESTINAL: Abdomen protuberant, soft, no obvious tenderness. No guarding. Bowel sounds present. GENITOURINARY: Without palpable bladder distension. Baker catheter in place. MUSCULOSKELETAL: Extremities with venous stasis changes. Trace edema LE. No mottling or clubbing. NEUROLOGICAL: Opens eyes, follows commands weakly, does not track or nod yes/no to questions. . . . Diagnostic Tests Laboratory Laboratory Tests Test 09/24/16 09/24/16 09/25/16 06:27 16:00 06:03 White Blood Count 12.6 TH/MM3 13.1 TH/MM3 (4.0-11.0) (4.0-11.0) Red Blood Count 5.05 MIL/MM3 4.88 MIL/MM3 (4.50-5.90) (4.50-5.90) Hemoglobin 14.4 GM/DL 14.3 GM/DL (13.0-17.0) (13.0-17.0) Hematocrit 44.4 % 42.6 % (39.0-51.0) (39.0-51.0) Mean Corpuscular Volume 87.9 FL 87.3 FL (80.0-100.0) (80.0-100.0) Mean Corpuscular Hemoglobin 28.5 PG 29.2 PG (27.0-34.0) (27.0-34.0) Mean Corpuscular Hemoglobin 32.4 % 33.5 % Concent (32.0-36.0) (32.0-36.0) Red Cell Distribution Width 14.6 % 14.5 % (11.6-17.2) (11.6-17.2) Platelet Count 161 TH/MM3 152 TH/MM3 (150-450) (150-450) Mean Platelet Volume 9.2 FL 9.4 FL (7.0-11.0) (7.0-11.0) Neutrophils (%) (Auto) 91.0 % 93.0 % (16.0-70.0) (16.0-70.0) Lymphocytes (%) (Auto) 2.0 % 1.7 % (9.0-44.0) (9.0-44.0) Monocytes (%) (Auto) 6.9 % (0.0-8.0) 5.1 % (0.0-8.0) Eosinophils (%) (Auto) 0.0 % (0.0-4.0) 0.0 % (0.0-4.0) Basophils (%) (Auto) 0.1 % (0.0-2.0) 0.2 % (0.0-2.0) Neutrophils # (Auto) 11.5 TH/MM3 12.2 TH/MM3 (1.8-7.7) (1.8-7.7) Lymphocytes # (Auto) 0.3 TH/MM3 0.2 TH/MM3 (1.0-4.8) (1.0-4.8) Monocytes # (Auto) 0.9 TH/MM3 0.7 TH/MM3 (0-0.9) (0-0.9) Eosinophils # (Auto) 0.0 TH/MM3 0.0 TH/MM3 (0-0.4) (0-0.4) Basophils # (Auto) 0.0 TH/MM3 0.0 TH/MM3 (0-0.2) (0-0.2) CBC Comment DIFF FINAL AUTO DIFF Differential Comment AUTO DIFF CONFIRMED Sodium Level 142 MEQ/L 139 MEQ/L (136-145) (136-145) Potassium Level 4.0 MEQ/L 4.0 MEQ/L (3.5-5.1) (3.5-5.1) Chloride Level 102 MEQ/L 101 MEQ/L (98-107) (98-107) Carbon Dioxide Level 29.9 MEQ/L 27.5 MEQ/L (21.0-32.0) (21.0-32.0) Anion Gap 10 MEQ/L (5-15) 11 MEQ/L (5-15) Blood Urea Nitrogen 36 MG/DL (7-18) 36 MG/DL (7-18) Creatinine 0.61 MG/DL 0.62 MG/DL (0.60-1.30) (0.60-1.30) Estimat Glomerular Filtration 133 ML/MIN 131 ML/MIN Rate (>89) (>89) Random Glucose 281 MG/DL 255 MG/DL (74-106) (74-106) Calcium Level 8.6 MG/DL 8.4 MG/DL (8.5-10.1) (8.5-10.1) Blood Gas Puncture Site LT RADIAL Blood Gas Patient Temperature 98.6 Blood Gas HCO3 28 mmol/L (22-26) Blood Gas Base Excess 4.6 mmol/L (-2-2) Blood Gas Oxygen Saturation 94 % (90-100) Arterial Blood pH 7.50 (7.380-7.420) Arterial Blood Partial 36 mmHg (38-42) Pressure CO2 Arterial Blood Partial 86 mmHg Pressure O2 (61-120) Arterial Blood Oxygen Content 20.4 Vol % (12.0-20.0) Arterial Blood 1.6 % (0-4) Carboxyhemoglobin Arterial Blood Methemoglobin 1.1 % (0-2) Blood Gas Hemoglobin 15.4 G/DL (12.0-16.0) Oxygen Delivery Device VENTILATOR Blood Gas Ventilator Setting [facility]//R15P8/I1.4 Blood Gas Inspired Oxygen 60 % Platelet Estimate NORMAL (NORMAL) Platelet Morphology Comment NORMAL (NORMAL) Result Diagram: 09/25/16 0603 09/25/16 0603 Microbiology Microbiology Date/Time Procedure Status Source Growth 09/20/16 22:00 Influenza Types A,B Antigen (MAK) - Final Complete Nasal Aspirate NEGATIVE FOR FLU A AND B ANTIGEN.... 09/20/16 21:00 Gram Stain - Final Complete Sputum Endotracheal 09/20/16 21:00 Sputum Culture - Final Complete Sputum Endotracheal NO GROWTH IN 48 HOURS. Imaging Last Impressions Chest X-Ray 09/25/16 0600 Signed Impressions: Service Date/Time: Sunday, September 25, 2016 04:22 - CONCLUSION: 1. Bilateral airspace disease similar to September 24. Endotracheal tube and nasogastric tube unchanged. Chuckie Altamirano MD CT Angiography 09/13/16 0000 Signed Impressions: Service Date/Time: Tuesday, September 13, 2016 12:25 - CONCLUSION: 1. No evidence of pulmonary embolism. 2. Bilateral pleural effusions and consolidation in both lung bases. 3. Moderate cardiomegaly. Konstantin Bridges MD Lower Extremity Ultrasound 09/11/16 0000 Signed Impressions: Service Date/Time: Sunday, September 11, 2016 17:04 - CONCLUSION: No evidence of deep venous thrombosis. Konstantin Bridges MD . Procedures * 09/11/16 - Intubation . Assessment and Plan Disease Oriented Problem List: (1) Acute hypercapnic respiratory failure (2) COPD (chronic obstructive pulmonary disease) (3) Pneumonia (4) Obesity hypoventilation syndrome (5) Toxic encephalopathy (6) Cellulitis of left lower extremity (7) Diabetes (8) Anxiety and depression Symptom Scale: (1) Dyspnea 0-10 Scale: Unable to quantify Comment: on CPAP today. Pertinent Non-Medical Issues Psychosocial: Single, No children. Lived with his parents, who have opted out of decision making. Has 1 sister. Spiritual: Unknown. Legal: No written advanced directives. Single. No children. Parents have opted out of decision making. Therefore according to [place] Statutes, health care proxy decision making falls to his sister, Reta Inman. Ethical issues impacting care: No known concerns at this time. . Important Contacts Cezar Shah (father) [phone] Reta Inman (sister) [phone] Prognosis 65 year old with hx of copd, pneumonia, obesity continue to need ventilator support and appears difficult to wean off ventilator. Pt in critical condition. 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 . Code Status: Alternative Code (Intubation Only. ) Plan * No written advanced directives. Single. No children. Parents have opted out of decision making. Therefore according to [place] Statutes, health care proxy decision making falls to his sister, Reta Inman. * Alternate Code: Intubation Only. * 09/25/16 - Spoke with sisterReta via telephone to provide medical update. Explained again need for decision regarding reintubation if medically extubated or trach and PEG if unable to be weaned. Patient appears more lethargic today despite less sedation, does not appear he will do well if extubated. She will be coming to see pt later and will make a decision. * SYMPTOMS: Dyspnea: remains on mech vent. On CPAP. * Palliative Care will continue to follow to assist with symptom management and further clarify treatment goals as needed. . NOREEN SIM Sep 25, 2016 12:09
--- NOTE | 2016-09-25 12:19 | HHI.CCPN ---
Subjective Remarks/Hospital Course This is a morbidly obese 65-year-old male with a history of obesity hypoventilation syndrome, COPD, CHF, severe venous stasis, and recent lower extremity cellulitis who presented with worsening shortness of breath. He was recently admitted to the [facility] emergency department and then ICU with similar symptoms for which she was placed on BiPAP for a few days. In this emergency department he was noted to have a PCO2 of 102. He was placed on BiPAP initially, although his mentation continued to worsen and despite BiPAP his PCO2 increased to 112. The patient is a very poor historian on top of the fact that he is very somnolent and unable to provide additional information. Critical-care medicine is consulted to evaluate and manage his acute hypercarbic and hypoxic respiratory failure. Dr. Martinez intubated and placed on mechanical ventilation 09/12 Patient is sedated with Diprivan and intubated. Afebrile. On PRVC/AC RR 14 , TV 450, PEEP:8, IT:0.9, FIO2 60%. 09/13 Patient remains sedated and intubated, On PRVC/AC RR 14, TV 450, IT:0.9, PEEP:10, FIO2 70%, Afebrile. 09/14: Patient is wide awake on propofol. FiO2 at 80%, PEEP at 10. I have changed to PSV mode for patient comfort. Start Bumex infusion for CHF/fluid overload. Increase Solu-Medrol to 40 every 8 09/15: Remains hypoxemic, I have weaned FiO2 to 55%, PEEP remains at 14. Patient remains heavily sedated. Chest x-ray continues to show bibasilar infiltrates and effusion. Urine output excellent on Bumex drip more than 10 L in 24 hours 09/16: Afebrile. Intubated and sedated, FiO2 remains at 55%. Earlier today tube feed residuals 200 cc noted, with resolution this afternoon. 09/17: The patient required an increase in FiO2 this morning to 60%, attempting to wean. Vancomycin was discontinued, he continues on Zosyn. Patient continues to have blood glucoses in the mid to high 200s despite being on insulin drip and Levemir at 20 units twice a day. Levemir increased. 09/18: Increasing saturations noted. PEEP increased to 15. FiO2 down to 75%. Chest x-ray reveals small bilateral pleural effusions. Negative CTA chest last admission. Sedated with Versed and propofol drips. One small bowel movement yesterday. 09/19: FiO2 decreased to 65%. Chest x-ray reveals possible worsening bilateral pleural effusions. Sedated on Versed and propofol just. Positive BM. Tolerating tube feeding. 09/20: Afebrile. FiO2 down to 60. PEEP down to 14. Awake and does all commands. Positive BM. Tube feeding is currently off to be resumed. 09/21: PEEP down to 12. FiO2 down to 50%. Increased insulin gtt 10 u/hr. Afebrile. 09/22: Tmax 100.8. Currently afebrile. FiO2 to 45%. PEEP to 8. Insulin Drip currently at 2 units an hour. Awake and alert and follows commands. 09/23: Currently afebrile. FiO2 increased to 60% overnight. PEEP to 10. Insulin drip has been discontinued. Awake and alert and does follow commands. Subjective 09/24: Failed CPAP after 1 hour and 10 minutes today. Tolerating tube feeding. Positive BM. More interactive today. PEEP is at 8 09/25: CPAP trials continued today. FiO2 weaned to 40% with O2 sat at 93%. PEEP remains at 8 plan to wean.Will discontinue Midazolam, continue low dose Propofol or change to Precedex and continue trials. Objective Vital Signs Date Time Temp Pulse Resp B/P Pulse Ox O2 Delivery O2 Flow Rate FiO2 09/25/16 11:15 94 40 09/25/16 06:10 61 09/25/16 04:00 98.4 18 138/69 Intake and Output 09/24/16 09/24/16 09/25/16 08:00 16:00 00:00 Intake Total 935 ml 1349 ml 2227 ml Output Total 800 ml 2400 ml 850 ml Balance 135 ml -1051 ml 1377 ml Result Diagram: 09/25/16 0609/25/16 06 Other Results Laboratory Tests Test 09/24/16 16:00 Blood Gas Puncture Site LT RADIAL Blood Gas Patient Temperature 98.6 Blood Gas HCO3 28 mmol/L (22-26) Blood Gas Base Excess 4.6 mmol/L (-2-2) Blood Gas Oxygen Saturation 94 % (90-100) Arterial Blood pH 7.50 (7.380-7.420) Arterial Blood Partial 36 mmHg (38-42) Pressure CO2 Arterial Blood Partial 86 mmHg Pressure O2 (61-120) Arterial Blood Oxygen Content 20.4 Vol % (12.0-20.0) Arterial Blood 1.6 % (0-4) Carboxyhemoglobin Arterial Blood Methemoglobin 1.1 % (0-2) Blood Gas Hemoglobin 15.4 G/DL (12.0-16.0) Oxygen Delivery Device VENTILATOR Blood Gas Ventilator Setting PRVC/AC/R15P8/I1.4 Blood Gas Inspired Oxygen 60 % Imaging Last Impressions Chest X-Ray 09/25/16 0600 Signed Impressions: Service Date/Time: Sunday, September 25, 2016 04:22 - CONCLUSION: 1. Bilateral airspace disease similar to September 24. Endotracheal tube and nasogastric tube unchanged. Chuckie Altamirano MD CT Angiography 09/13/16 Signed Impressions: Service Date/Time: Tuesday, September 13, 2016 12:25 - CONCLUSION: 1. No evidence of pulmonary embolism. 2. Bilateral pleural effusions and consolidation in both lung bases. 3. Moderate cardiomegaly. Konstantin Bridges MD Lower Extremity Ultrasound 09/11/16 Signed Impressions: Service Date/Time: Sunday, September 11, 2016 17:04 - CONCLUSION: No evidence of deep venous thrombosis. Konstantin Bridges MD Last Impressions Chest X-Ray 09/24/16599 Signed Impressions: Service Date/Time: Saturday, September 24, 2016 03:16 - CONCLUSION: No significant change has occurred. Dayday Galo MD CT Angiography 09/13/16 Signed Impressions: Service Date/Time: Tuesday, September 13, 2016 12:25 - CONCLUSION: 1. No evidence of pulmonary embolism. 2. Bilateral pleural effusions and consolidation in both lung bases. 3. Moderate cardiomegaly. Konstantin Bridges MD Lower Extremity Ultrasound 09/11/16 0000 Signed Impressions: Service Date/Time: Sunday, September 11, 2016 17:04 - CONCLUSION: No evidence of deep venous thrombosis. Konstantin Bridges MD Objective Remarks GENERAL: 65yo male, critically ill currently resting in bed currently on Versed and propofol infusion SKIN: Warm and dry. No rash HEAD: Normocephalic. EYES: No scleral icterus. No injection or drainage. ENT: Orotracheally intubated NECK: Supple, trachea midline. No JVD or lymphadenopathy. CARDIOVASCULAR: Regular rate and rhythm S1, S2. No S4. Without murmurs, gallops, or clicks or rubs. RESPIRATORY: Breath sounds equal bilaterally. Diminished breath sounds in the bases. No end expiratory wheeze.. GASTROINTESTINAL: Abdomen soft obese, non-tender, distended and protuberant. Normoactive bowel sounds. Fecal containment device in place. MUSCULOSKELETAL: Bilateral lower extremity with significant venous stasis changes. Currently no peripheral edema. Right lower extremity with evidence of prior skin graft. NEURO: When sedation discontinued- Cranial nerves II through grossly intact. Moves upper extremity spontaneously. Wiggles toes. A/P Assessment and Plan Neuro/Psych: Acute encephalopathy - possible CO2 narcosis Metabolic encephalopathy Chronic benzodiazepine use On Diprivan at 30 mcg/kg/m and versed infusion at 7 mg an hour for sedation while intubated. We'll consider Precedex infusion today Goal of RASS -2 Daily sedation vacation when appropriate On Xanax 0.25 mg every 8 hours as needed at home for anxiety. Will resume . Pulm: Acute hypoxemic respiratory failure COPD exacerbation Bibasilar pneumonia Obesity hypoventilation syndrome On PRVC/AC RR 15, TV 550< IT:1.5, PEEP:7, FIO2 40% Start spontaneous breathing trials once FiO2 less than 50% , PEEP <8 Continue CPAP trial Continue with vent support keep sat >92% Bronchodilators every 4 hours, ICU vent bundle. Continue methylprednisone 40mg q12 CV: Hypertension Dyslipidemia On Cardizem 60mg QID, monitor HR and BP keep MAP>65mmHg Echo from 08/25 showed EF 55%, no RWMA On diltiazem 120 mg daily Lasix 20 mg daily at home. Continue Bumex 1 mg IV daily /renal: BPH History of left renal cyst Hypopotassemia Monitor renal function, I/O's, electrolytes replacement per protocol. On Flomax 0.4 mg by mouth daily for BPH GI Constipation Morbid obesity On TF-vital high protein goal 60 cc an hour Protonix 40mg daily for GI prophylaxis. Parisa-Colace twice a day/MiraLAX daily ID: Continue with abx (Vanco, Zosyn) monitor for signs of infections (Fever, WBC). Zithromax #7 of 7 completed 09/11 BC: NGTD. s/u Sputum cx, strep pneumonia and Legionella urinary Ag. Sputum/urine 09/21 neg Oral Thrush (tongue)- Nystatin QID swish and spit Heme: Monitor CBC. Monitor trends Endo Diabetes mellitus Hyperglycemia of critical illness Currently on sliding scale insulin with Accu-Cheks every 4 hours.Now on high sliding scale. Levemir 80 U Q12 for glycemic control On metformin unknown dosage insulin scale insulin unknown dosage at home for diabetes. Prophylaxis: GI Prophylaxis Protonix 40 mg IV daily DVT Prophylaxis -- SCDs Lovenox 40 mg subcutaneous daily - Doppler US LE negative for DVT Dispo: Medical update provided and discussion with Ms. Reta Inman sister. She is in the decision-making process of consideration for goals of care management(trach and PEG) versus possible transition to LTAC facility and continue plans for possible trach and PEG. Critical Care: The total care time was 33 minutes. Time to perform other separately billable procedures was not included in the critical care time. Physician Jesi Burger MD Sep 25, 2016 12:19
[2016-09-25] MEDS ORDERED: ALPRAZolam 0.25 MG TAB PO PRN (12:30)
[2016-09-25] MEDS: DEXMEDETOMIDINE INJ 50 ML IV SCH ×3 (15:29→21:56)
[2016-09-25] MEDS: NYSTATIN SUSP 500,000 U/5 ML CUP SWISH-SWAL SCH ×2 (17:52→21:26)
[2016-09-25] MEDS: ENOXAPARIN SODIUM 40 MG/0.4 ML SYRINGE SQ SCH (21:26)
[2016-09-26] VITALS (11 sets, daily range): BP systolic 139–155; BP diastolic 61–87; PULSE 63–109; RESP 16–34; TEMP 98.2–98.7; O2SAT 92–100
[2016-09-26] MEDS: DEXMEDETOMIDINE INJ 50 ML IV SCH ×3 (00:37→05:36)
[2016-09-26] MEDS: INSULIN NovoLIN REGULAR SUPPLEMENTAL SCALE SQ SCH ×4 (02:36→12:00)
[2016-09-26] MEDS: CHLORHEXIDINE GLUCONATE 2 % 1 PACK (2 CLOTHS) TOP SCH (04:00)
[2016-09-26] MEDS: RESP: ALBUTEROL 2.5 MG/IPRATROPIUM 0.5 MG NEB (SCH) INH ×2 (04:09→07:17)
[2016-09-26] MEDS: PIPERACIL-TAZO 4.5 GM PREMIX 100 ML IV SCH ×3 (05:29→17:00)
[2016-09-26] MEDS: VANCOMYCIN INJ 2,000 MG in SODIUM CHLORID 0.9% 500 ML INJ 500 ML IV SCH (05:29)
[2016-09-26 06:09] LABS: HEMATOCRIT 46.9 % (39.0-51.0); MEAN CELL VOLUME 86.9 FL (80.0-100.0); MEAN CORPUSCULAR HEMOGLOBIN 28.9 PG (27.0-34.0); MEAN CORPUSCULAR HGB CONC 33.2 % (32.0-36.0); PLATELET COUNT 158 TH/MM3 (150-450); RED CELL DISTRIBUTION WIDTH 14.6 % (11.6-17.2); REVIEW FLAG FINAL; WHITE BLOOD COUNT 16.6 TH/MM3 (4.0-11.0)
[2016-09-26 06:26] LABS: BICARBONATE 26.5 MEQ/L (21.0-32.0); POTASSIUM 3.8 MEQ/L (3.5-5.1)
--- NOTE | 2016-09-26 06:51 | RADRPT ---
EXAM DATE/TIME: 09/26/2016 05:42 [facility] COMPARISON: CHEST SINGLE AP, September 25, 2016, 4:22. INDICATIONS : Respiratory Failure. MEDICAL HISTORY : Chronic obstructive pulmonary disease. Diabetes mellitus type II. SURGICAL HISTORY : None. ENCOUNTER: Subsequent ACUITY: 1 month PAIN SCORE: Non-responsive. LOCATION: Bilateral chest FINDINGS: Endotracheal tube tip is in satisfactory position. The bibasilar airspace disease without significant effusion. No pneumothorax. Cardiomegaly. Previous nasogastric tube has been removed. CONCLUSION: 1. Endotracheal tube tip in satisfactory position. Mild basilar airspace disease. No pneumothorax. Chuckie Altamirano MD on September 26, 2016 at 6:49 Board Certified Radiologist. This report was verified electronically.
[2016-09-26] MEDS: RESP: BUDESONIDE 0.5 MG/2 ML NEB NEB SCH (07:17)
--- NOTE | 2016-09-26 07:24 | HHI.CCPN ---
Subjective Remarks/Hospital Course This is a morbidly obese 65-year-old male with a history of obesity hypoventilation syndrome, COPD, CHF, severe venous stasis, and recent lower extremity cellulitis who presented with worsening shortness of breath. He was recently admitted to the [facility] emergency department and then ICU with similar symptoms for which she was placed on BiPAP for a few days. In this emergency department he was noted to have a PCO2 of 102. He was placed on BiPAP initially, although his mentation continued to worsen and despite BiPAP his PCO2 increased to 112. The patient is a very poor historian on top of the fact that he is very somnolent and unable to provide additional information. Critical-care medicine is consulted to evaluate and manage his acute hypercarbic and hypoxic respiratory failure. Dr. Martinez intubated and placed on mechanical ventilation 09/12 Patient is sedated with Diprivan and intubated. Afebrile. On PRVC/AC RR 14 , TV 450, PEEP:8, IT:0.9, FIO2 60%. 09/13 Patient remains sedated and intubated, On PRVC/AC RR 14, TV 450, IT:0.9, PEEP:10, FIO2 70%, Afebrile. 09/14: Patient is wide awake on propofol. FiO2 at 80%, PEEP at 10. I have changed to PSV mode for patient comfort. Start Bumex infusion for CHF/fluid overload. Increase Solu-Medrol to 40 every 8 09/15: Remains hypoxemic, I have weaned FiO2 to 55%, PEEP remains at 14. Patient remains heavily sedated. Chest x-ray continues to show bibasilar infiltrates and effusion. Urine output excellent on Bumex drip more than 10 L in 24 hours 09/16: Afebrile. Intubated and sedated, FiO2 remains at 55%. Earlier today tube feed residuals 200 cc noted, with resolution this afternoon. 09/17: The patient required an increase in FiO2 this morning to 60%, attempting to wean. Vancomycin was discontinued, he continues on Zosyn. Patient continues to have blood glucoses in the mid to high 200s despite being on insulin drip and Levemir at 20 units twice a day. Levemir increased. 09/18: Increasing saturations noted. PEEP increased to 15. FiO2 down to 75%. Chest x-ray reveals small bilateral pleural effusions. Negative CTA chest last admission. Sedated with Versed and propofol drips. One small bowel movement yesterday. 09/19: FiO2 decreased to 65%. Chest x-ray reveals possible worsening bilateral pleural effusions. Sedated on Versed and propofol just. Positive BM. Tolerating tube feeding. 09/20: Afebrile. FiO2 down to 60. PEEP down to 14. Awake and does all commands. Positive BM. Tube feeding is currently off to be resumed. 09/21: PEEP down to 12. FiO2 down to 50%. Increased insulin gtt 10 u/hr. Afebrile. 09/22: Tmax 100.8. Currently afebrile. FiO2 to 45%. PEEP to 8. Insulin Drip currently at 2 units an hour. Awake and alert and follows commands. 09/23: Currently afebrile. FiO2 increased to 60% overnight. PEEP to 10. Insulin drip has been discontinued. Awake and alert and does follow commands. Subjective 09/24: Failed CPAP after 1 hour and 10 minutes today. Tolerating tube feeding. Positive BM. More interactive today. PEEP is at 8 09/25: CPAP trials continued today. FiO2 weaned to 40% with O2 sat at 93%. PEEP remains at 8 plan to wean.Will discontinue Midazolam, continue low dose Propofol or change to Precedex and continue trials. 09/26: Tmax 99.1. The patient tolerated CPAP trials greater than 14 hours yesterday. He continues on Precedex infusion with diminution of anxiety. Plan for SBT trial this a.m. with possible extubation. Objective Vital Signs Date Time Temp Pulse Resp B/P Pulse Ox O2 Delivery O2 Flow Rate FiO2 09/26/16 06:00 75 09/26/16 05:30 45 09/26/16 05:15 95 09/26/16 04:00 98.5 34 153/87 Intake and Output 09/25/16 09/25/16 09/26/16 08:00 16:00 00:00 Intake Total 764 ml 1461 ml 580 ml Output Total 800 ml 2775 ml 2000 ml Balance -36 ml -1314 ml -1420 ml Result Diagram: 09/26/16 0544 09/26/16 05 Imaging Last Impressions Chest X-Ray 09/26/16 06 Signed Impressions: Service Date/Time: Monday, September 26, 2016 05:42 - CONCLUSION: 1. Endotracheal tube tip in satisfactory position. Mild basilar airspace disease. No pneumothorax. Chuckie Altamirano MD CT Angiography 09/13/16 Signed Impressions: Service Date/Time: Tuesday, September 13, 2016 12:25 - CONCLUSION: 1. No evidence of pulmonary embolism. 2. Bilateral pleural effusions and consolidation in both lung bases. 3. Moderate cardiomegaly. Konstantin Bridges MD Lower Extremity Ultrasound 09/11/16 Signed Impressions: Service Date/Time: Sunday, September 11, 2016 17:04 - CONCLUSION: No evidence of deep venous thrombosis. Konstantin Bridges MD Last Impressions Chest X-Ray 09/25/16 0600 Signed Impressions: Service Date/Time: Sunday, September 25, 2016 04:22 - CONCLUSION: 1. Bilateral airspace disease similar to September 24. Endotracheal tube and nasogastric tube unchanged. Chuckie Altamirano MD CT Angiography 09/13/16 Signed Impressions: Service Date/Time: Tuesday, September 13, 2016 12:25 - CONCLUSION: 1. No evidence of pulmonary embolism. 2. Bilateral pleural effusions and consolidation in both lung bases. 3. Moderate cardiomegaly. Konstantin Bridges MD Lower Extremity Ultrasound 09/11/16 Signed Impressions: Service Date/Time: Sunday, September 11, 2016 17:04 - CONCLUSION: No evidence of deep venous thrombosis. Konstantin Bridges MD Last Impressions Chest X-Ray 09/24/16 0600 Signed Impressions: Service Date/Time: Saturday, September 24, 2016 03:16 - CONCLUSION: No significant change has occurred. Dayday Galo MD CT Angiography 09/13/16 Signed Impressions: Service Date/Time: Tuesday, September 13, 2016 12:25 - CONCLUSION: 1. No evidence of pulmonary embolism. 2. Bilateral pleural effusions and consolidation in both lung bases. 3. Moderate cardiomegaly. Konstantin Bridges MD Lower Extremity Ultrasound 09/11/16 Signed Impressions: Service Date/Time: Sunday, September 11, 2016 17:04 - CONCLUSION: No evidence of deep venous thrombosis. Konstantin Bridges MD Objective Remarks GENERAL: 65yo male, lying semirecumbent, awake on low-dose Precedex infusion following commands SKIN: Warm and dry. No rash HEAD: Normocephalic. EYES: No scleral icterus. No injection or drainage. ENT: Orotracheally intubated NECK: Supple, trachea midline. No JVD or lymphadenopathy. CARDIOVASCULAR: Regular rate and rhythm S1, S2. No S4. Without murmurs, gallops, or clicks or rubs. RESPIRATORY: Breath sounds equal bilaterally. Diminished breath sounds in the bases. No expiratory wheeze.. GASTROINTESTINAL: Abdomen soft obese, non-tender, distended and protuberant. Normoactive bowel sounds. Fecal containment device in place. MUSCULOSKELETAL: Bilateral lower extremity with significant venous stasis changes. Currently no peripheral edema. Right lower extremity with evidence of prior skin graft. NEURO: GCS 14 T Cranial nerves II through grossly intact. Moves extremities 4 A/P Assessment and Plan Neuro/Psych: Acute encephalopathy - possible CO2 narcosis Metabolic encephalopathy Chronic benzodiazepine use Precedex infusion, GCS 14 T. Patient awake following commands Goal of RASS -2 On Xanax 0.25 mg every 8 hours as needed at home for anxiety. Pulm: Acute hypoxemic respiratory failure COPD exacerbation Bibasilar pneumonia Obesity hypoventilation syndrome On PRVC/AC RR 15, TV 550< IT:1.5, PEEP:7, FIO2 40% Begin Spontaneous breathing trials with parameters Continue with vent support keep sat >92% Bronchodilators every 4 hours, ICU vent bundle. Continue methylprednisone 40mg q12 SBT trial- NIF -22, FVC 780-800, TV 300, + cuff leak, RSBI 50- Plan to extubate CV: Hypertension Dyslipidemia On Cardizem 60mg QID, monitor HR and BP keep MAP>65mmHg Echo from 08/25 showed EF 55%, no RWMA On diltiazem 120 mg daily Lasix 20 mg daily at home. Continue Bumex 1 mg IV daily /renal: BPH History of left renal cyst Hypopotassemia Monitor renal function, I/O's, electrolytes replacement per protocol. On Flomax 0.4 mg by mouth daily for BPH GI Constipation Morbid obesity On TF-vital high protein goal 60 cc an hour, off since 10 AM yesterday with plans for extubation Protonix 40mg daily for GI prophylaxis. Parisa-Colace twice a day/MiraLAX daily ID: Leukocytosis Continue with abx (Vanco, Zosyn) monitor for signs of infections (Fever, WBC). Zithromax #7 of 7 completed 09/24 09/11 BC: NGTD. s/u Sputum cx, strep pneumonia and Legionella urinary Ag. Sputum/urine 09/21 neg 09/25 Oral Thrush (tongue)- Nystatin QID swish and spit WBC 13-> 16.6 today, no signs of infection, no fever will continue to monitor closely Heme: Monitor CBC. Monitor trends Endo Diabetes mellitus Hyperglycemia of critical illness Currently on sliding scale insulin with Accu-Cheks every 4 hours.Now on high sliding scale. Levemir 80 U Q12 for glycemic control On metformin unknown dosage insulin scale insulin unknown dosage at home for diabetes. Prophylaxis: GI Prophylaxis Protonix 40 mg IV daily DVT Prophylaxis -- SCDs Lovenox 40 mg subcutaneous daily - Doppler US LE negative for DVT Dispo: Medical update provided and discussion with Ms. Reta Inman sister. Plan for trial of extubation this a.m., we'll reintubate if unsuccessful Critical Care: Level 3 Physician Jesi Burger MD Sep 26, 2016 07:24
[2016-09-26] MEDS: CHLORHEXIDINE 0.12% (ORAL KIT) 15 ML CUP MT SCH (08:00)
[2016-09-26] MEDS: TAMSULOSIN HCL 0.4 MG CAP PO SCH (08:39)
[2016-09-26] MEDS: DILTIAZEM HCL 60 MG TAB PO SCH ×2 (08:51→11:32)
[2016-09-26] MEDS: methylPREDNISolone SOD SUCC 40 MG/1 ML VIAL IV PUSH SCH (08:52)
[2016-09-26] MEDS: DOCUSATE SODIUM 50 MG/SENNA 8.6 MG TAB PO SCH (08:52)
[2016-09-26] MEDS: NYSTATIN SUSP 500,000 U/5 ML CUP SWISH-SWAL SCH ×2 (08:52→13:00)
[2016-09-26] MEDS: POTASSIUM CL 40 MEQ/30 ML LIQ UDC PO SCH (08:52)
[2016-09-26] MEDS: BUMETANIDE INJ 1 MG/4 ML VIAL IV PUSH SCH (08:52)
[2016-09-26] MEDS: PANTOPRAZOLE SODIUM 40 MG VIAL IV SCH (08:52)
[2016-09-26] MEDS: POLYETHYLENE GLYCOL 17 GM PKG PO SCH (08:53)
[2016-09-26] MEDS: SODIUM CHLORIDE 0.9% FLUSH 5 ML FLUSH IV FLUSH SCH (08:53)
[2016-09-26] MEDS: INSULIN DETEMIR 100 UNITS/ML VIAL SQ SCH (09:00)
--- NOTE | 2016-09-26 10:45 | HHI.HCPN ---
Reason for visit a. To assist with evaluation and management of symptoms including: dyspnea b. To assist medical decision maker(s) with: better understanding of current medical conditions; weighing benefits/burdens of medical treatment options; making medical treatment decisions. . Subjective/Interval History Patient seen and examined in ICU. No family at bedside. Patient was medically extubated this morning, he is on oxygen via NC. He is restless, wants to get out of bed to chair. He answers some questions, does not appear to have insight or judgement regarding condition. He answers most questions with "can you get me in the chair?" He follows simple commands. Afebrile. HR 100. WBC 16.6, increasing. Chest x-ray mild basilar airspace disease. . Family/friend interactions Spoke with sister, Reta via telephone. Medical update provided. I explained I attempted to speak with patient he does not appear to have insight to current health condition. She and her parents have decided that patient would not want to live on life support. She DOES NOT want patient reintubated if fails. She would want him comfortable if he fails. Notified Dr. Williamson and nurse, Wen. . Advance Directives Living Will: Never completed Health Care Surrogate: Never completed Durable Power of Delivery Room Supervisor: Never completed Advance Directive Specifics Significant change in goals: NO CODE. DO NOT REINTUBATE, comfort measures if fails. . Objective Vital Signs Date Time Temp Pulse Resp B/P Pulse Ox O2 Delivery O2 Flow Rate FiO2 09/26/16 08:50 92 Nasal Cannula 4.00 09/26/16 08:50 92 Nasal Cannula 4 09/26/16 08:00 40 09/26/16 07:17 40 09/26/16 06:00 75 09/26/16 05:30 45 09/26/16 05:15 95 40 09/26/16 04:10 95 40 09/26/16 04:00 45 09/26/16 04:00 98.5 80 34 153/87 94 09/26/16 04:00 80 09/26/16 02:00 68 09/26/16 00:50 95 40 09/26/16 00:00 45 09/26/16 00:00 98.5 63 16 155/86 100 09/26/16 00:00 63 09/25/16 22:00 70 09/25/16 21:40 45 09/25/16 21:15 94 40 09/25/16 20:00 60 09/25/16 20:00 40 09/25/16 20:00 98.7 64 21 135/73 100 09/25/16 19:39 99 40 09/25/16 18:00 60 09/25/16 16:00 77 09/25/16 16:00 99.1 77 18 139/78 100 09/25/16 14:44 95 40 09/25/16 14:00 85 09/25/16 12:00 74 09/25/16 12:00 98.7 74 21 130/73 93 09/25/16 12:00 40 09/25/16 11:15 94 40 09/25/16 10:48 93 40 09/25/16 10:38 40 09/25/16 10:38 94 40 Intake & Output 09/26/16 09/26/16 07:00 19:00 Intake Total 855 ml Output Total 2700 ml Balance -1845 ml IV Total 855 ml Output Urine Total 2550 ml Stool Total 150 ml Physical Exam CONSTITUTIONAL/GENERAL: This is an overweight, critically ill patient, remains sedated on [facility] vent. TUBES/LINES/DRAINS: PIVs bilateral, baker, rectal tube, multipodus boots, SCDs. SKIN: Extremities with venous stasis changes.Dry skin bilateral LE. Ecchymoses on upper extremities. No wounds seen anteriorly. Skin temperature appropriate. Not diaphoretic. ENT: Hearing appears adequate. Nose without bleeding or purulent drainage. Mouth closed. CARDIOVASCULAR: Mild tachycardia without murmurs, gallops, or rubs. RESPIRATORY/CHEST: Decrease breath sounds bilaterally. GASTROINTESTINAL: Abdomen protuberant, soft, no obvious tenderness. No guarding. Bowel sounds present. GENITOURINARY: Without palpable bladder distension. Baker catheter in place. MUSCULOSKELETAL: Extremities with venous stasis changes. Trace edema LE. No mottling or clubbing. NEUROLOGICAL: Awake and alert. Follows commands. Does not have insight to health condition. . Diagnostic Tests Laboratory Laboratory Tests Test 09/24/16 09/24/16 09/25/16 09/26/16 06:27 16:00 06:03 05:44 White Blood Count 12.6 TH/MM3 13.1 TH/MM3 16.6 TH/MM3 (4.0-11.0) (4.0-11.0) (4.0-11.0) Red Blood Count 5.05 MIL/MM3 4.88 MIL/MM3 5.40 MIL/MM3 (4.50-5.90) (4.50-5.90) (4.50-5.90) Hemoglobin 14.4 GM/DL 14.3 GM/DL 15.6 GM/DL (13.0-17.0) (13.0-17.0) (13.0-17.0) Hematocrit 44.4 % 42.6 % 46.9 % (39.0-51.0) (39.0-51.0) (39.0-51.0) Mean Corpuscular Volume 87.9 FL 87.3 FL 86.9 FL (80.0-100.0) (80.0-100.0) (80.0-100.0) Mean Corpuscular Hemoglobin 28.5 PG 29.2 PG 28.9 PG (27.0-34.0) (27.0-34.0) (27.0-34.0) Mean Corpuscular Hemoglobin 32.4 % 33.5 % 33.2 % Concent (32.0-36.0) (32.0-36.0) (32.0-36.0) Red Cell Distribution Width 14.6 % 14.5 % 14.6 % (11.6-17.2) (11.6-17.2) (11.6-17.2) Platelet Count 161 TH/MM3 152 TH/MM3 158 TH/MM3 (150-450) (150-450) (150-450) Mean Platelet Volume 9.2 FL 9.4 FL 8.8 FL (7.0-11.0) (7.0-11.0) (7.0-11.0) Neutrophils (%) (Auto) 91.0 % 93.0 % (16.0-70.0) (16.0-70.0) Lymphocytes (%) (Auto) 2.0 % 1.7 % (9.0-44.0) (9.0-44.0) Monocytes (%) (Auto) 6.9 % (0.0-8.0) 5.1 % (0.0-8.0) Eosinophils (%) (Auto) 0.0 % (0.0-4.0) 0.0 % (0.0-4.0) Basophils (%) (Auto) 0.1 % (0.0-2.0) 0.2 % (0.0-2.0) Neutrophils # (Auto) 11.5 TH/MM3 12.2 TH/MM3 (1.8-7.7) (1.8-7.7) Lymphocytes # (Auto) 0.3 TH/MM3 0.2 TH/MM3 (1.0-4.8) (1.0-4.8) Monocytes # (Auto) 0.9 TH/MM3 0.7 TH/MM3 (0-0.9) (0-0.9) Eosinophils # (Auto) 0.0 TH/MM3 0.0 TH/MM3 (0-0.4) (0-0.4) Basophils # (Auto) 0.0 TH/MM3 0.0 TH/MM3 (0-0.2) (0-0.2) CBC Comment DIFF FINAL AUTO DIFF Differential Comment AUTO DIFF CONFIRMED Sodium Level 142 MEQ/L 139 MEQ/L 140 MEQ/L (136-145) (136-145) (136-145) Potassium Level 4.0 MEQ/L 4.0 MEQ/L 3.8 MEQ/L (3.5-5.1) (3.5-5.1) (3.5-5.1) Chloride Level 102 MEQ/L 101 MEQ/L 101 MEQ/L (98-107) (98-107) (98-107) Carbon Dioxide Level 29.9 MEQ/L 27.5 MEQ/L 26.5 MEQ/L (21.0-32.0) (21.0-32.0) (21.0-32.0) Anion Gap 10 MEQ/L (5-15) 11 MEQ/L (5-15) 13 MEQ/L (5-15) Blood Urea Nitrogen 36 MG/DL (7-18) 36 MG/DL (7-18) 37 MG/DL (7-18) Creatinine 0.61 MG/DL 0.62 MG/DL 0.53 MG/DL (0.60-1.30) (0.60-1.30) (0.60-1.30) Estimat Glomerular Filtration 133 ML/MIN 131 ML/MIN 157 ML/MIN Rate (>89) (>89) (>89) Random Glucose 281 MG/DL 255 MG/DL 108 MG/DL (74-106) (74-106) (74-106) Calcium Level 8.6 MG/DL 8.4 MG/DL 9.1 MG/DL (8.5-10.1) (8.5-10.1) (8.5-10.1) Blood Gas Puncture Site LT RADIAL Blood Gas Patient Temperature 98.6 Blood Gas HCO3 28 mmol/L (22-26) Blood Gas Base Excess 4.6 mmol/L (-2-2) Blood Gas Oxygen Saturation 94 % (90-100) Arterial Blood pH 7.50 (7.380-7.420) Arterial Blood Partial 36 mmHg (38-42) Pressure CO2 Arterial Blood Partial 86 mmHg Pressure O2 (61-120) Arterial Blood Oxygen Content 20.4 Vol % (12.0-20.0) Arterial Blood 1.6 % (0-4) Carboxyhemoglobin Arterial Blood Methemoglobin 1.1 % (0-2) Blood Gas Hemoglobin 15.4 G/DL (12.0-16.0) Oxygen Delivery Device VENTILATOR Blood Gas Ventilator Setting PRVC/AC/R15P8/I1.4 Blood Gas Inspired Oxygen 60 % Platelet Estimate NORMAL (NORMAL) Platelet Morphology Comment NORMAL (NORMAL) Phosphorus Level 3.0 MG/DL (2.5-4.9) Magnesium Level 2.0 MG/DL (1.5-2.5) Result Diagram: 09/26/16 0544 09/26/16 0544 Imaging Last Impressions Chest X-Ray 09/26/16 0600 Signed Impressions: Service Date/Time: Monday, September 26, 2016 05:42 - CONCLUSION: 1. Endotracheal tube tip in satisfactory position. Mild basilar airspace disease. No pneumothorax. Chuckie Altamirano MD CT Angiography 09/13/16 0000 Signed Impressions: Service Date/Time: Tuesday, September 13, 2016 12:25 - CONCLUSION: 1. No evidence of pulmonary embolism. 2. Bilateral pleural effusions and consolidation in both lung bases. 3. Moderate cardiomegaly. Konstantin Bridges MD Lower Extremity Ultrasound 09/11/16 0000 Signed Impressions: Service Date/Time: Sunday, September 11, 2016 17:04 - CONCLUSION: No evidence of deep venous thrombosis. Konstantin Bridges MD . Procedures * 09/11/16 - Intubation . Assessment and Plan Disease Oriented Problem List: (1) Acute hypercapnic respiratory failure (2) COPD (chronic obstructive pulmonary disease) (3) Pneumonia (4) Obesity hypoventilation syndrome (5) Toxic encephalopathy (6) Cellulitis of left lower extremity (7) Diabetes (8) Anxiety and depression Symptom Scale: (1) Dyspnea 0-10 Scale: Unable to quantify Comment: extubated today. On oxygen via NC. (2) Anxiety 0-10 Scale: Unable to quantify Comment: anxious to get out of bed to chair. Pertinent Non-Medical Issues Psychosocial: Single, No children. Lived with his parents, who have opted out of decision making. Has 1 sister. Spiritual: Unknown. Legal: No written advanced directives. Single. No children. Parents have opted out of decision making. Therefore according to [place] Statutes, health care proxy decision making falls to his sister, Reta Inman. Ethical issues impacting care: No known concerns at this time. . Important Contacts Cezar Shah (father) [phone] Reta Inman (sister) [phone] Prognosis 65 year old with hx of copd, pneumonia, obesity continue to need ventilator support and appears difficult to wean off ventilator. Pt in critical condition. retirement prognosis is poor, which pulmonology confirms. . Code Status: No Code Plan * No written advanced directives. Single. No children. Parents have opted out of decision making. Therefore according to [place] [employer], health care proxy decision making falls to his sister, Reta Inman. * NO CODE (DNR/DNI) * 09/26/16 - Spoke with Reta sanchez via telephone to provide medical update. Explained patient was extubated this morning. She and her parents decided they DO NOT want patient to be reintubated. If fails will transition to comfort measures, for now continue aggressive care short of NO CODE (DNR/DNI)She will be here later today. * SYMPTOMS: Dyspnea: remains on mech vent. On NC, extubated 09/26/16. Anxiety: due to dyspnea. * Palliative Care will continue to follow to assist with symptom management and further clarify treatment goals as needed. . Attestation To help prompt me to consider important information that might be impacting today's encounter and assessment, information from prior notes written by myself or my colleagues may have been "brought forward" into today's note. My signature on this note, however, is an attestation that I personally performed the exam, history, and/or decision-making noted today, and, unless otherwise indicated, the interactions with patient, family, and staff as well as the review of records all occurred today. I also attest that the listed assessment and stated plan reflect my best clinical judgment today based on the combination of historical information, prior notes, and today's exam/ interactions. When time spent is documented, it refers only to time spent today by the signer, or if indicated, combined time spent today by collaborating physician/nurse practitioner. NOREEN SIM Sep 26, 2016 10:44
[2016-09-26] MEDS: RESP: ALBUTEROL 2.5 MG/IPRATROPIUM 0.5 MG NEB (PRN) INH (11:02)
[2016-09-26] MEDS ORDERED: MIDAZOLAM HCL 5 MG/ML VIAL (1 ML) ONE (13:18)
--- NOTE | 2016-09-26 13:57 | HHI.DS ---
Discharge Summary Admission Date Sep 11, 2016 at 19:00 Admitting Diagnosis co2 narcosis, acute hypercanpenic resp failure Brief History This is a morbidly obese 61-year-old male with a history of obesity hypoventilation syndrome, COPD, CHF, severe venous stasis, and recent lower extremity cellulitis who presented with worsening shortness of breath. He was recently admitted to the [facility] emergency department and then ICU with similar symptoms for which she was placed on BiPAP for a few days. In this emergency department he was noted to have a PCO2 of 102. He was placed on BiPAP initially, although his mentation continued to worsen and despite BiPAP his PCO2 increased to 112. The patient is a very poor historian on top of the fact that he is very somnolent and unable to provide additional information. Critical-care medicine is consulted to evaluate and manage his acute hypercarbic and hypoxic respiratory failure. On my evaluation, the patient cannot participate in a history at all. He is unarousable. CBC/BMP: 09/26/16 0544 09/26/16 0544 Significant Findings Laboratory Tests Test 09/24/16 09/24/16 09/25/16 09/26/16 06:27 16:00 06:03 05:44 White Blood Count 12.6 TH/MM3 13.1 TH/MM3 16.6 TH/MM3 (4.0-11.0) (4.0-11.0) (4.0-11.0) Neutrophils (%) (Auto) 91.0 % 93.0 % (16.0-70.0) (16.0-70.0) Lymphocytes (%) (Auto) 2.0 % 1.7 % (9.0-44.0) (9.0-44.0) Neutrophils # (Auto) 11.5 TH/MM3 12.2 TH/MM3 (1.8-7.7) (1.8-7.7) Lymphocytes # (Auto) 0.3 TH/MM3 0.2 TH/MM3 (1.0-4.8) (1.0-4.8) Blood Urea Nitrogen 36 MG/DL (7-18) 36 MG/DL (7-18) 37 MG/DL (7-18) Random Glucose 281 MG/DL 255 MG/DL 108 MG/DL (74-106) (74-106) (74-106) Blood Gas HCO3 28 mmol/L (22-26) Blood Gas Base Excess 4.6 mmol/L (-2-2) Arterial Blood pH 7.50 (7.380-7.420) Arterial Blood Partial 36 mmHg (38-42) Pressure CO2 Arterial Blood Oxygen Content 20.4 Vol % (12.0-20.0) Calcium Level 8.4 MG/DL (8.5-10.1) Creatinine 0.53 MG/DL (0.60-1.30) Hospital Course This is a morbidly obese 65-year-old male with a history of obesity hypoventilation syndrome, COPD, CHF, severe venous stasis, and recent lower extremity cellulitis who presented with worsening shortness of breath. He was recently admitted to the [facility] emergency department and then ICU with similar symptoms for which she was placed on BiPAP for a few days. In this emergency department he was noted to have a PCO2 of 102. He was placed on BiPAP initially, although his mentation continued to worsen and despite BiPAP his PCO2 increased to 112. The patient is a very poor historian on top of the fact that he is very somnolent and unable to provide additional information. Critical-care medicine is consulted to evaluate and manage his acute hypercarbic and hypoxic respiratory failure. Dr. Martinez intubated and placed on mechanical ventilation 09/12 Patient is sedated with Diprivan and intubated. Afebrile. On PRVC/AC RR 14 , TV 450, PEEP:8, IT:0.9, FIO2 60%. 09/13 Patient remains sedated and intubated, On PRVC/AC RR 14, TV 450, IT:0.9, PEEP:10, FIO2 70%, Afebrile. 09/14: Patient is wide awake on propofol. FiO2 at 80%, PEEP at 10. I have changed to PSV mode for patient comfort. Start Bumex infusion for CHF/fluid overload. Increase Solu-Medrol to 40 every 8 09/15: Remains hypoxemic, I have weaned FiO2 to 55%, PEEP remains at 14. Patient remains heavily sedated. Chest x-ray continues to show bibasilar infiltrates and effusion. Urine output excellent on Bumex drip more than 10 L in 24 hours 09/16: Afebrile. Intubated and sedated, FiO2 remains at 55%. Earlier today tube feed residuals 200 cc noted, with resolution this afternoon. 09/17: The patient required an increase in FiO2 this morning to 60%, attempting to wean. Vancomycin was discontinued, he continues on Zosyn. Patient continues to have blood glucoses in the mid to high 200s despite being on insulin drip and Levemir at 20 units twice a day. Levemir increased. 09/18: Increasing saturations noted. PEEP increased to 15. FiO2 down to 75%. Chest x-ray reveals small bilateral pleural effusions. Negative CTA chest last admission. Sedated with Versed and propofol drips. One small bowel movement yesterday. 09/19: FiO2 decreased to 65%. Chest x-ray reveals possible worsening bilateral pleural effusions. Sedated on Versed and propofol just. Positive BM. Tolerating tube feeding. 09/20: Afebrile. FiO2 down to 60. PEEP down to 14. Awake and does all commands. Positive BM. Tube feeding is currently off to be resumed. 09/21: PEEP down to 12. FiO2 down to 50%. Increased insulin gtt 10 u/hr. Afebrile. 09/22: Tmax 100.8. Currently afebrile. FiO2 to 45%. PEEP to 8. Insulin Drip currently at 2 units an hour. Awake and alert and follows commands. 09/23: Currently afebrile. FiO2 increased to 60% overnight. PEEP to 10. Insulin drip has been discontinued. Awake and alert and does follow commands. Subjective 09/24: Failed CPAP after 1 hour and 10 minutes today. Tolerating tube feeding. Positive BM. More interactive today. PEEP is at 8 09/25: CPAP trials continued today. FiO2 weaned to 40% with O2 sat at 93%. PEEP remains at 8 plan to wean.Will discontinue Midazolam, continue low dose Propofol or change to Precedex and continue trials. 09/26: Tmax 99.1. The patient tolerated CPAP trials greater than 14 hours yesterday. He continues on Precedex infusion with diminution of anxiety. Plan for SBT trial this a.m. with possible extubation. This morning the chin was extubated, advanced to sitting up in chair tolerating a soft diet. Family was informed, [facility] Family member Mrs. Greens with the facility, and requested patient be transferred. Pt Condition on Discharge: Guarded Discharge Disposition: Discharge to SNF Discharge Instructions DIET: Follow Instructions for: Soft Diet Speech Therapy-Diet Recommends: [place] Thickened Liquids Activities you can perform: Continue Bedrest Other Activity Instructions: OOB to recliner chair Jesi Williamson MD Sep 26, 2016 13:57
[2016-09-26] MEDS ORDERED: TERAZOSIN HCL 1 MG CAP PO SCH (21:00)
[2016-10-23] MEDS ORDERED: HUMALOG SQ (19:36)
[2016-10-23] MEDS ORDERED: DILT60TA PO (20:12)
[2016-10-23] MEDS ORDERED: BUDE0.5S NEB (20:12)
[2016-10-23] MEDS ORDERED: ACET250T3 PO (20:12)
[2016-10-23] MEDS ORDERED: DOCU100C PO (20:12)
[2016-10-23] MEDS ORDERED: FLUO20CA4 PO (20:25)
[2016-10-23] MEDS ORDERED: FAMO20TA2 PO (20:25)
[2016-10-23] MEDS ORDERED: IPRASOL INH (20:25)
[2016-10-23] MEDS ORDERED: LEXA10TA PO (20:25)
[2016-10-23] MEDS ORDERED: POTA-245 PO (20:28)
[2016-10-23] MEDS ORDERED: LANTUS2P SQ (20:55)
[2016-10-23] MEDS ORDERED: MIRA33504 PO (21:01)
[2016-10-23] MEDS ORDERED: LIDO5DIS35 TOPICAL (21:01)
[2016-10-23] MEDS ORDERED: PRED10PA PO (21:04)
[2016-10-23] MEDS ORDERED: MUCI600T PO (21:04)
[2016-10-23] MEDS ORDERED: SENN1TAB17 PO (21:07)
[2016-10-23] MEDS ORDERED: TAMS0.4C4 PO (21:11)
[2016-10-23] MEDS ORDERED: THERM PO (21:14)
[2016-10-23] MEDS ORDERED: THIA100T PO (21:14)
[2016-10-23] MEDS ORDERED: TRAZ50TA12 PO (21:16)
[2016-11-06] MEDS ORDERED: TRAZ50TA12 PO (09:52)
[2016-11-06] MEDS ORDERED: IPRASOL INH (09:52)
[2016-11-06] MEDS ORDERED: DILT60TA PO (09:52)
[2016-11-06] MEDS ORDERED: THERM PO (09:52)
[2016-11-06] MEDS ORDERED: DOCU100C PO (09:52)
[2016-11-06] MEDS ORDERED: BENZ1LOZ5 BUCCAL (09:52)
[2016-11-06] MEDS ORDERED: MIRA33504 PO (09:52)
[2016-11-06] MEDS ORDERED: FAMO20TA2 PO (09:52)
[2016-11-06] MEDS ORDERED: ACET250T3 PO (09:52)
[2016-11-06] MEDS ORDERED: BUDE0.5S NEB (09:52)
[2016-11-06] MEDS ORDERED: POTA-245 PO (09:52)
[2016-11-06] MEDS ORDERED: PRED5TAB PO (09:52)
[2016-11-06] MEDS ORDERED: TERA1CAP3 PO (09:52)
[2016-11-06] MEDS ORDERED: LEVEMIR SQ ×2 (09:52)
[2016-11-06] MEDS ORDERED: THIA100T PO (09:52)
[2016-11-06] MEDS ORDERED: TAMS5CAP PO (09:52)
[2016-11-06] MEDS ORDERED: AMBI10TA PO (09:52)
[2016-11-06] MEDS ORDERED: LEXA10TA PO (09:52)
[2016-11-06] MEDS ORDERED: FLUO20CA4 PO (09:52)
[2016-11-06] MEDS ORDERED: Artificial Tears Opth Soln EACH EYE (09:52)
== END 2016-09-26 18:00 | DRG 207 ==
LOC: NEPE 16:14 → NEDA 19:00 → NEDH 09-12 00:25 → HIME 09-12 01:20
PROVIDERS: ADMIT Internal Medicine Critical Care Medicine; ATTEND Internal Medicine Critical Care Medicine
PROC: 5A1955Z Respiratory Ventilation, Greater than 96 Consecutive Hours (ICD-10-PCS; principal; 2016-09-11)
PROC: 0BH17EZ Insertion of Endotracheal Airway into Trachea, Via Natural or Artificial Opening (ICD-10-PCS; 2016-09-11)
PROC: 5A09357 Assistance with Respiratory Ventilation, Less than 24 Consecutive Hours, Continuous Positive Airway Pressure (ICD-10-PCS; 2016-09-11)
PROC: 0T9B70Z Drainage of Bladder with Drainage Device, Via Natural or Artificial Opening (ICD-10-PCS; 2016-09-11)
DX: J96.02 Acute respiratory failure with hypercapnia (principal); G93.49 Other encephalopathy; A41.9 Sepsis, unspecified organism; J15.4 Pneumonia due to other streptococci; E87.2 Acidosis; B37.0 Candidal stomatitis; E11.65 Type 2 diabetes mellitus with hyperglycemia; D69.6 Thrombocytopenia, unspecified; E66.2 Morbid (severe) obesity with alveolar hypoventilation; L03.116 Cellulitis of left lower limb; J44.1 Chronic obstructive pulmonary disease with (acute) exacerbation; J98.11 Atelectasis; I50.9 Heart failure, unspecified; I45.10 Unspecified right bundle-branch block; I87.8 Other specified disorders of veins; K42.9 Umbilical hernia without obstruction or gangrene; J96.01 Acute respiratory failure with hypoxia; F10.20 Alcohol dependence, uncomplicated; N40.0 Benign prostatic hyperplasia without lower urinary tract symptoms; E78.5 Hyperlipidemia, unspecified; I10 Essential (primary) hypertension; E87.6 Hypokalemia; Z66 Do not resuscitate; Z51.5 Encounter for palliative care; Z91.19 Patient's noncompliance with other medical treatment and regimen; Z79.4 Long term (current) use of insulin; Z87.891 Personal history of nicotine dependence; K59.00 Constipation, unspecified
CPT/HCPCS: 31500; 36600; 71010; 71275; 76937; 80048; 80053; 80202; 81001; 82010; 82550; 82805; 82948; 83605; 83735; 83880; 84100; 84132; 84484; 85007; 85025; 85027; 85610; 85730; 87040; 87070; 87205; 87449; 87641; 87804; 93005; 93971; 94002; 94003; 94150; 94640; 94664; 94667; 96365; 96368; 96374; C9113; C9399; J0330; J0456; J1120; J1205; J1650; J1817; J2250; J2543; J2920; J2930; J3370; J3480; J7030; J7040; J7050; J7626; Q9967

== ENCOUNTER 2017-08-15 07:41 | Inpatient (IN) | payer MEDICARE ==
[~2017-08-15] VITALS: Ht 165.1 cm; Wt 102.7 kg
[2017-08-15] VITALS (19 sets, daily range): BP systolic 92–127; BP diastolic 55–68; PULSE 62–90; RESP 8–24; TEMP 97.3–98.1; O2SAT 88–97
[~2017-08-15 07:41] MED LIST changes: +ACET250T3 PO; -ALCO1PAD; -ALPR.25 PO; +AMBI10TA PO; +Artificial Tears Opth Soln EACH EYE; +BENZ1LOZ5 BUCCAL; -BLOOD GLUCOSE M1 KIT; -BLOOD GLUCOSE T1 TES; +BUDE0.5S NEB; -CARD120C4 PO; +DILT60TA PO; +DOCU100C15 PO; +FAMO20TA2 PO; +FLUO20CA4 PO; -FURO20TA PO; -INSU1MIS; +IPRASOL INH; +KLOR20TA3 PO; -LANCETS1 MI1; +LEVEMIR SQ; +LEXA10TA PO; -METF500T PO; +MIRA33504 PO; -NOVORP2 SQ; -OXYGENTANK NAS.CANULA; -POTA10CA PO; +PRED5TAB PO; +TERA1CAP3 PO; +THERM PO; +THIA100T PO; +TRAZ50TA12 PO
--- NOTE | 2017-08-15 07:58 | PD ---
HPI Chief Complaint: shortness of breath Time Seen by Provider: 07:48 Travel History International Travel<30 days: No Contact w/Intl Traveler<30days: No History of Present Illness HPI This is a 66-year-old male who has a history of obesity hypoventilation syndrome , COPD and congestive heart failure who presents to the emergency department with increasing shortness of breath that started this morning, constant, severe , having difficulty getting his breath and getting out of bed. He says he feels like he has to cough but he cannot get anything up 66-year-old male who has a history of obesity hypoventilation syndrome, COPD and congestive heart failure who presents to the emergency department with increasing shortness of breath that started this morning, constant, severe, having difficulty getting his breath and getting out of bed. He says he feels like he has to cough but he cannot get anything up. He denies any fevers or chills. He says he takes Lasix sometimes whenever his legs get swollen but not every day. He has been trying to use his inhaler but it has not been working. He says he has been under a lot of stress because both his father and his mother very ill. He denies any chest pain. PFSH Past Medical History Arthritis: No Asthma: No Autoimmune Disease: No Anxiety: Yes (panic attacks) Depression: Yes Heart Rhythm Problems: No Cancer: No Cardiovascular Problems: Yes High Cholesterol: No Chemotherapy: No Chest Pain: No Congestive Heart Failure: Yes COPD: Yes Cerebrovascular Accident: No Diabetes: Yes Diminished Hearing: No Endocrine: Yes Gastrointestinal Disorders: Yes (umbilical hernia) GERD: Yes Genitourinary: Yes (was going to have his prostate checked) Hiatal Hernia: No Immune Disorder: No Kidney Stones: No Musculoskeletal: Yes Neurologic: No Psychiatric: Yes Reproductive: No Respiratory: Yes Migraines: No Radiation Therapy: No Renal Failure: No Seizures: No Sickle Cell Disease: No Sleep Apnea: Yes Thyroid Disease: No Ulcer: No Past Surgical History Abdominal Surgery: No AICD: No Arteriovenous Shunt: No Cardiac Surgery: No Ear Surgery: No Endocrine Surgery: No Eye Surgery: No Genitourinary Surgery: No Gynecologic Surgery: No Insulin Pump: No Joint Replacement: Yes (L. ankle) Oral Surgery: No Pacemaker: No Thoracic Surgery: No Other Surgery: Yes Social History Alcohol Use: No (PT STATES QUIET LAST YEAR) Tobacco Use: No Substance Use: Yes (marajuana) Allergies-Medications (Allergen,Severity, Reaction): Coded Allergies: No Known Allergies (Unverified Allergy, Unknown, 08/15/17) Reported Meds & Prescriptions Reported Meds & Active Scripts Active Ambien (Zolpidem Tartrate) 10 Mg Tab 10 Mg PO HS PRN Terazosin (Terazosin HCl) 1 Mg Cap 1 Mg PO HS [Artificial Tears Opth Soln] 300 DROP/15 ML Soln 1 Drop EACH EYE Q4H PRN 30 Days Levemir Inj (Insulin Detemir) 1,000 unit/ 10 ML Vial 15 Units SQ HS 30 Days Levemir Inj (Insulin Detemir) 1,000 unit/ 10 ML Vial 35 Units SQ DAILY 30 Days Prednisone 5 Mg Tab 5 Mg PO DAILY Trazodone (Trazodone HCl) 50 Mg Tab 50 Mg PO HS Thera M Plus (Multivitamins/Minerals Therapeutic) 1 Tab 1 Tab PO DAILY Klor-Con M20 (Potassium Chloride Microencaps) 20 Meq Tab 20 Meq PO BID Duoneb (Ipratropium-Albuterol Neb) 0.5-2.5 Mg/3 Ml Neb 1 Nebule INH Q4HR NEB PRN Famotidine 20 Mg Tab 20 Mg PO BID Lexapro (Escitalopram Oxalate) 10 Mg Tab 10 Mg PO DAILY Docusate Sodium 100 Mg Cap 100 Mg PO BID Diltiazem (Diltiazem HCl) 60 Mg Tab 60 Mg PO QID Budesonide Neb 0.5 Mg/2 Ml Neb 0.5 Mg NEB Q12HR NEB Acetazolamide 250 Mg Tab 250 Mg PO BID Flomax (Tamsulosin HCl) 0.4 Mg Cap 0.4 Mg PO DAILY Review of Systems Except as stated in HPI: all other systems reviewed are Neg Physical Exam Narrative GENERAL: obese, no acute distress SKIN: Warm and dry. HEAD: Atraumatic. Normocephalic. EYES: Pupils equal and round. No scleral icterus. No injection or drainage. ENT: No nasal bleeding or discharge. Mucous membranes pink and moist. NECK: Trachea midline. CARDIOVASCULAR: Regular rate and rhythm. No murmur appreciated. RESPIRATORY: Diminished lung sounds, tachypnea, increased work of breathing GASTROINTESTINAL: Abdomen soft, non-tender, nondistended. Hepatic and splenic margins not palpable. MUSCULOSKELETAL: No obvious deformities. Moving all extremities. Edema of the left lower extremity greater than the right with chronic skin thickening NEUROLOGICAL: Awake and alert. No obvious cranial nerve deficits. Motor grossly within normal limits. Normal speech. PSYCHIATRIC: Appropriate mood and affect; insight and judgment normal. Data Data Last Documented VS Vital Signs Date Time Temp Pulse Resp B/P (MAP) Pulse Ox O2 Delivery O2 Flow Rate FiO2 08/15/17 10:31 96 BiPAP 1.00 35 08/15/17 10:29 12 08/15/17 10:29 78 126/61 (82) 08/15/17 08:00 97.5 Orders Orders Complete Blood Count With Diff (08/15/17 07:49) Comprehensive Metabolic Panel (08/15/17 07:49) B-Type Natriuretic Peptide (08/15/17 07:49) Act Partial Throm Time (Ptt) (08/15/17 07:49) Prothrombin Time / Inr (Pt) (08/15/17 07:49) Troponin I (08/15/17 07:49) Iv Access Insert/Monitor (08/15/17 07:49) Electrocardiogram (08/15/17 07:49) Ecg Monitoring (08/15/17 07:49) Oximetry (08/15/17 07:49) Oxygen Administration (08/15/17 07:49) Chest, Single Ap (08/15/17 07:49) Us Leg Venous Doppler (08/15/17 07:49) Sodium Chloride 0.9% Flush (Ns Flush) (08/15/17 08:00) Furosemide Inj (Lasix Inj) (08/15/17 08:00) Methylprednisolone So Succ Inj (Solumedr (08/15/17 08:00) Albuterol-Ipratropium Neb (Duoneb Neb) (08/15/17 08:00) D-Dimer (08/15/17 07:49) Acetaminophen (Tylenol) (08/15/17 09:00) Arterial Blood Gas (Abg) (08/15/17 ) Ct Pulmonary Angiogram (08/15/17 ) Admit To Inpatient (08/15/17 10:30) Vital Signs (Adult) Q4H (08/15/17 10:30) Activity Oob Ad Josselyn (08/15/17 ) Diet Heart Healthy (08/15/17 Lunch) Sodium Chloride 0.9% Flush (Ns Flush) (08/15/17 21:00) Sodium Chloride 0.9% Flush (Ns Flush) (08/15/17 10:30) Albuterol-Ipratropium Neb (Duoneb Neb) (08/15/17 14:00) Albuterol Neb (Albuterol Neb) (08/15/17 10:30) Methylprednisolone So Succ Inj (Solumedr (08/15/17 14:00) Levofloxacin (Levaquin) (08/15/17 11:00) Basic Metabolic Panel (Bmp) (08/16/17 06:00) Complete Blood Count With Diff (08/16/17 06:00) Sputum Culture And Gram Stain (08/15/17 10:30) Resp Pulse Oximetry (08/15/17 10:30) Resp Oxygen Cornell C Titrat 1-4 L (08/15/17 10:30) Resp Incentive Spirometry (08/15/17 10:30) Enoxaparin Inj (Lovenox Inj) (08/15/17 11:00) Admit Order (Ed Use Only) (08/15/17 10:32) Labs Laboratory Tests Test 08/15/17 08:07 08/15/17 09:06 08/15/17 09:20 White Blood Count 8.5 TH/MM3 Red Blood Count 4.68 MIL/MM3 Hemoglobin 14.3 GM/DL Hematocrit 42.9 % Mean Corpuscular Volume 91.6 FL Mean Corpuscular Hemoglobin 30.4 PG Mean Corpuscular Hemoglobin Concent 33.2 % Red Cell Distribution Width 17.4 % Platelet Count 238 TH/MM3 Mean Platelet Volume 7.5 FL Neutrophils (%) (Auto) 78.4 % Lymphocytes (%) (Auto) 11.9 % Monocytes (%) (Auto) 7.5 % Eosinophils (%) (Auto) 1.2 % Basophils (%) (Auto) 1.0 % Neutrophils # (Auto) 6.7 TH/MM3 Lymphocytes # (Auto) 1.0 TH/MM3 Monocytes # (Auto) 0.6 TH/MM3 Eosinophils # (Auto) 0.1 TH/MM3 Basophils # (Auto) 0.1 TH/MM3 CBC Comment DIFF FINAL Differential Comment Blood Gas Puncture Site RT RADIAL Blood Gas Patient Temperature 98.6 Blood Gas HCO3 36 mmol/L Blood Gas Base Excess 9.7 mmol/L Blood Gas Oxygen Saturation 88 % Arterial Blood pH 7.30 Arterial Blood Partial Pressure CO2 76 mmHG Arterial Blood Partial Pressure O2 71 mmHG Arterial Blood Oxygen Content 18.0 Vol % Arterial Blood Carboxyhemoglobin 2.2 % Arterial Blood Methemoglobin 1.1 % Blood Gas Hemoglobin 14.5 G/DL Oxygen Delivery Device Venti Mask Blood Gas Liter Flow 6 L/M Blood Gas Inspired Oxygen 40 % Prothrombin Time 10.9 SEC Prothromb Time International Ratio 1.1 RATIO Activated Partial Thromboplast Time 27.1 SEC D-Dimer Quantitative (PE/DVT) 0.77 MG/L FEU Blood Urea Nitrogen 8 MG/DL Creatinine 0.59 MG/DL Random Glucose 173 MG/DL Total Protein 7.3 GM/DL Albumin 3.3 GM/DL Calcium Level 9.0 MG/DL Alkaline Phosphatase 107 U/L Aspartate Amino Transf (AST/SGOT) 16 U/L Alanine Aminotransferase (ALT/SGPT) 23 U/L Total Bilirubin 0.7 MG/DL Sodium Level 139 MEQ/L Potassium Level 3.7 MEQ/L Chloride Level 97 MEQ/L Carbon Dioxide Level 38.5 MEQ/L Anion Gap 4 MEQ/L Estimat Glomerular Filtration Rate 138 ML/MIN Troponin I LESS THAN 0.02 NG/ML B-Type Natriuretic Peptide 151 PG/ML MDM Medical Decision Making Medical Screen Exam Complete: Yes Emergency Medical Condition: Yes Medical Record Reviewed: Yes (Patient has been hospitalized in the past in the setting of obesity hypoventilation syndrome and has been intubated in the past due to CO2 narcosis) Interpretation(s) Afebrile, no tachycardia, normotensive No leukocytosis Bicarb is high likely secondary to chronic compensated respiratory acidosis and metabolic alkalosis BNP is 151 Troponin is normal D-dimer is 0.77 ABG demonstrates chronic respiratory acidosis with metabolic compensation Chest x-ray demonstrates no acute process Ultrasound demonstrates no DVT Differential Diagnosis Pneumonia, pulmonary embolism, congestive heart failure, obesity hypoventilation syndrome Narrative Course This is a 66-year-old male who presents to the emergency department with increasing shortness of breath. On arrival he was hypoxic on room air and required 4 L of oxygen to achieve oxygen saturation of 92-93%. He was placed on a monitor and IV was established. Labs an ABG demonstrate chronic respiratory acidosis. He was placed on BiPAP and his oxygen saturation was more consistent and he seemed more alert. He was given serial bronchodilator treatments and methylprednisolone. Patient will be admitted for continued pulmonary management to the intensive care unit. Critical Care Narrative Aggregate critical care time was 40 minutes. Time to perform other separately billable procedures was not included in the critical care time. My time did not include minutes spent treating any other patients simultaneously or on activities that did not directly contribute to the patient's treatment. The services I provided to this patient were to treat and/or prevent clinically significant deterioration that could result in: disability, I provided critical care services requiring my management, as noted below: Chart data review, documentation time, medication orders and management, vital sign assessments/reviewing monitor data, ordering and reviewing lab tests, ordering and interpreting/reviewing x-rays and diagnostic studies, care of the patient and discussion of the patient with the admitting physicians. Physician Communication Physician Communication Discussed with Dr. li Diagnosis Primary Impression: COPD exacerbation Additional Impression: Obesity hypoventilation syndrome Admitting Information Admitting Physician Requests: Admit Lola Harris MD Aug 15, 2017 07:58
[2017-08-15] MEDS ORDERED: SODIUM CHLORIDE 0.9% FLUSH 10 ML FLUSH IVF PRN (08:00)
[2017-08-15] MEDS ORDERED: methylPREDNISolone SOD SUCC 125 MG/2 ML VIAL IV PUSH ONE (08:00)
[2017-08-15] MEDS ORDERED: FUROSEMIDE 40 MG/4 ML VIAL IVP ONE (08:00)
[2017-08-15] MEDS: RESP: ALBUTEROL 2.5 MG/IPRATROPIUM 0.5 MG NEB (SCH) INH ×4 (08:02→21:05)
[2017-08-15 08:16] LABS: AUTOMATED NEUTROPHIL # 6.7 TH/MM3 (1.8-7.7); BASOPHIL # 0.1 TH/MM3 (0-0.2); EOSINOPHIL # 0.1 TH/MM3 (0-0.4); EOSINOPHIL % 1.2 % (0.0-4.0); HEMATOCRIT 42.9 % (39.0-51.0); HEMOGLOBIN 14.3 GM/DL (13.0-17.0); LYMPH % 11.9 % (9.0-44.0); MEAN CELL VOLUME 91.6 FL (80.0-100.0); MEAN CORPUSCULAR HEMOGLOBIN 30.4 PG (27.0-34.0); MEAN CORPUSCULAR HGB CONC 33.2 % (32.0-36.0); MEAN PLATELET VOLUME 7.5 FL (7.0-11.0); MONO % 7.5 % (0.0-8.0); MONOCYTE # 0.6 TH/MM3 (0-0.9); NEUT % 78.4 % (16.0-70.0); PLATELET COUNT 238 TH/MM3 (150-450); RED BLOOD COUNT 4.68 MIL/MM3 (4.50-5.90); RED CELL DISTRIBUTION WIDTH 17.4 % (11.6-17.2); WHITE BLOOD COUNT 8.5 TH/MM3 (4.0-11.0)
--- NOTE | 2017-08-15 08:35 | RADRPT ---
EXAM DATE/TIME: 08/15/2017 08:24 [facility] COMPARISON: CHEST SINGLE AP, September 26, 2016, 5:42. INDICATIONS : Short of breath. MEDICAL HISTORY : Chronic obstructive pulmonary disease. Diabetes mellitus type II. Congestive heart failure. SURGICAL HISTORY : None. ENCOUNTER: Initial ACUITY: 2 days PAIN SCORE: 0/10 LOCATION: Bilateral chest FINDINGS: Portable AP view of the chest demonstrates the cardiac silhouette size of the upper limits for normal . Lungs are underinflated and there is mild bibasilar opacity. No definite effusion or pneumothorax i s identified. The bones and soft tissues demonstrate no acute finding. CONCLUSION: Underinflation with likely atelectasis at the lung bases. Otherwise, no acute finding is identified g iven the technique. Abhinav Morrison MD on August 15, 2017 at 8:32 Board Certified Radiologist. This report was verified electronically.
[2017-08-15] MEDS ORDERED: ACETAMINOPHEN 500 MG CPLT PO ONE (09:00)
--- NOTE | 2017-08-15 09:33 | EKG ---
Date Performed: 08/15/2017 Time Performed: 07:54:57 PTAGE: 66 years EKG: Sinus rhythm MARKED LEFT AXIS DEVIATION RIGHT BUNDLE BRANCH BLOCK ABNORMAL ECG PREVIOUS TRACING : 09/11/2016 17.29 DOCTOR: Yrn Shaw Interpretating Date/Time 08/15/2017 09:31:58
--- NOTE | 2017-08-15 09:40 | RADRPT ---
EXAM DATE/TIME: 08/15/2017 08:50 [facility] COMPARISON: No previous studies available for comparison. EXTERNAL COMPARISON : [facility], US LEG, BILATERAL VENOUS DOPPLER, May 24, 2012 INDICATIONS : Left leg swelling. Shortness of breath. MEDICAL HISTORY : Congestive heart failure. Chronic obstructive pulmonary disease. Dyspnea. Umbilical hernia. GERD. Prostate problems. [place]. Diabetes. SURGICAL HISTORY : Left ankle surgery. ENCOUNTER: Initial ACUITY: 2 day PAIN SCORE: 0/10 LOCATION: Left leg. TECHNIQUE: Venous ultrasound of the leg was performed from the inguinal ligament to the proximal calf. Real-leny e, color Doppler and spectral tracing, compression and augmentation techniques were used. FINDINGS: There is normal compressibility of the deep venous system from the inguinal region to the proximal ca lf. No echogenic clot is seen in the lumen of the common femoral, femoral, popliteal, and posterior tibial veins. There is a normal response of the venous system to proximal and distal augmentation an d respiration. CONCLUSION: Normal examination. Echogenic 6.2 x 1.8 x 5-1 cm mass above the left ankle likely lipoma Yrn Vora MD on August 15, 2017 at 9:36 Board Certified Radiologist. This report was verified electronically.
[2017-08-15 09:48] LABS: D-DIMER 0.77 MG/L FEU (0.00-0.50); INTERNATIONAL NORMALIZED RATIO 1.1 RATIO; PROTHROMBIN TIME - PATIENT 10.9 SEC (9.8-11.6)
[2017-08-15 09:55] LABS: ALBUMIN 3.3 GM/DL (3.4-5.0); GLUCOSE,RANDOM 173 MG/DL (74-106)
[2017-08-15 09:57] LABS: BICARBONATE 38.5 MEQ/L (21.0-32.0)
[2017-08-15 09:58] LABS: AST (GOT) 16 U/L (15-37); CREATININE 0.59 MG/DL (0.60-1.30); GLOMERULAR FILTRATION RATE 138 ML/MIN (>89)
[2017-08-15 09:59] LABS: CHLORIDE 97 MEQ/L (98-107); SODIUM (NA) 139 MEQ/L (136-145); TOTAL BILIRUBIN ADULT 0.7 MG/DL (0.2-1.0); TOTAL PROTEIN 7.3 GM/DL (6.4-8.2)
[2017-08-15 10:01] LABS: ALKALINE PHOSPHATASE 107 U/L (45-117)
[2017-08-15 10:02] LABS: TROPONIN I LESS THAN 0.02 NG/ML (0.02-0.05)
[2017-08-15 10:04] LABS: ALT (GPT) 23 U/L (12-78); BLOOD UREA NITROGEN 8 MG/DL (7-18)
[2017-08-15] MEDS ORDERED: SODIUM CHLORIDE 0.9% FLUSH 10 ML FLUSH IV FLUSH PRN (10:30)
[2017-08-15] MEDS ORDERED: RESP: ALBUTEROL 2.5 MG/3 ML NEB (PRN) INH (10:30)
[2017-08-15] MEDS: LEVOFLOXACIN 750 MG TAB PO SCH (12:27)
[2017-08-15] MEDS: ENOXAPARIN SODIUM 40 MG/0.4 ML SYRINGE SQ SCH (12:28)
--- NOTE | 2017-08-15 13:47 | HHI.HP ---
cc: Puma Kennedy MD [facility] Service [facility] Primary Care Physician Puma Kennedy MD Admission Diagnosis copd exacerbation Diagnoses: Chief Complaint: Shortness of breath Travel History International Travel<30 Days: No Contact w/Intl Traveler <30 Da: No Traveled to Known Affected Are: No History of Present Illness Patient with severe mixed respiratory disorders at baseline including severe COPD and restrictive lung disease. Patient has likely obesity hypoventilation syndrome. Patient's come to the emergency room considerably hypercapnic and hypoxemic. He has required bronchodilators and BiPAP for treatment. His pCO2 is 76 blood gas and he has been admitted to the ICU for further treatment. Patient reports about a week of increased dyspnea on exertion and shortness of breath. He has been using an inhaler but denies any nebulizers at home and says he "will not take them "because they don't work. He was in the hospital in September 2016 for respiratory failure. Patient this time is seen in ICU on BiPAP. He is awake and conversant.. Review of Systems Constitutional: DENIES: Diaphoretic episodes, Fatigue, Fever, Weight gain, Weight loss, Chills, Dizziness, Change in appetite, Night Sweats Endocrine: DENIES: Heat/cold intolerance, Polydipsia, Polyuria, Polyphagia Eyes: DENIES: Blurred vision, Diplopia, Eye inflammation, Eye pain, Vision loss , Photosensitivity, Double Vision Ears, nose, mouth, throat: DENIES: Tinnitus, Hearing loss, Vertigo, Nasal discharge, Oral lesions, Throat pain, Hoarseness, Ear Pain, Running Nose, Epistaxis, Sinus Pain, Toothache, Odynophagia Respiratory: COMPLAINS OF: Cough, Snoring, Wheezing, Hemoptysis, Sputum production, Shortness of breath, DENIES: Apneas Gastrointestinal: DENIES: Abdominal pain, Black stools, Bloody stools, Constipation, Diarrhea, Nausea, Vomiting, Difficulty Swallowing, Anorexia Genitourinary: DENIES: Sexual dysfunction, Urinary frequency, Urinary incontinence, Urgency, Hematuria, Dysuria, Nocturia, Penile Discharge, Testicular Pain, Testicular Swelling Musculoskeletal: DENIES: Joint pain, Muscle aches, Stiffness, Joint Swelling, Back pain, Neck pain Integumentary: DENIES: Abnormal pigmentation, Nail changes, Pruritus, Rash Hematologic/lymphatic: DENIES: Bruising, Lymphadenopathy Immunologic/allergic: DENIES: Eczema, Urticaria Neurologic: DENIES: Abnormal gait, Headache, Localized weakness, Paresthesias, Seizures, Speech Problems, Tremor, Poor Balance Psychiatric: DENIES: Anxiety, Confusion, Mood changes, Depression, Hallucinations, Agitation, Suicidal Ideation, Homicidal Ideation, Delusions Except as stated in HPI: all other systems reviewed are Neg Past Family Social History Past Medical History Hypertension Diabetes Depression/anxiety COPD CHF History of alcohol dependency Past Surgical History Ankle surgery Reported Medications Reviewed in the EMR Allergies: Coded Allergies: No Known Allergies (Unverified Allergy, Unknown, 08/15/17) Active Ordered Medications Reviewed in the EMR Family History Hypertension Social History Never smoked, marijuana occasionally, lives with his girlfriend 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 Physical Exam Vital Signs Vital Signs Date Time Temp Pulse Resp B/P (MAP) Pulse Ox O2 Delivery O2 Flow Rate FiO2 08/15/17 12:00 97.3 62 13 92/55 (67) 94 08/15/17 11:31 08/15/17 11:30 90 35 08/15/17 11:30 Ventilator 08/15/17 11:25 90 100 08/15/17 10:31 96 BiPAP 1.00 35 08/15/17 10:29 12 95 BiPAP 1.00 35 08/15/17 10:29 78 12 126/61 (82) 95 BiPAP 1.00 35 08/15/17 09:27 95 35 08/15/17 08:40 94 Nasal Cannula 4.00 08/15/17 08:40 96 Nasal Cannula 4.00 08/15/17 08:35 93 Nasal Cannula 2.00 08/15/17 08:07 88 Nasal Cannula 2.00 08/15/17 08:00 94 Nasal Cannula 4.00 08/15/17 08:00 97.5 80 16 126/65 (85) 88 Physical Exam GENERAL: This is a well-nourished, well-developed patient, in no apparent distress. SKIN: No rashes, ecchymoses or lesions. Cool and dry. HEAD: Atraumatic. Normocephalic. No temporal or scalp tenderness. EYES: Pupils equal round and reactive. Extraocular motions intact. No scleral icterus. No injection or drainage. ENT: Nose without bleeding, purulent drainage or septal hematoma. Throat without erythema, tonsillar hypertrophy or exudate. Uvula midline. Airway patent. NECK: Trachea midline. No JVD or lymphadenopathy. Supple, nontender, no meningeal signs. CARDIOVASCULAR: Regular rate and rhythm without murmurs, gallops, or rubs. RESPIRATORY: Clear to auscultation. Breath sounds equal bilaterally. No wheezes , rales, or rhonchi. GASTROINTESTINAL: Abdomen soft, non-tender, nondistended. No hepato-splenomegaly , or palpable masses. No guarding. MUSCULOSKELETAL: Extremities without clubbing, cyanosis, or edema. No joint tenderness, effusion, or edema noted. No calf tenderness. Negative Homans sign bilaterally. NEUROLOGICAL: Awake and alert. Cranial nerves II through XII intact. Motor and sensory grossly within normal limits. Five out of 5 muscle strength in all muscle groups. Normal speech. Laboratory Laboratory Tests Test 08/15/17 08:07 08/15/17 09:06 08/15/17 09:20 White Blood Count 8.5 Red Blood Count 4.68 Hemoglobin 14.3 Hematocrit 42.9 Mean Corpuscular Volume 91.6 Mean Corpuscular Hemoglobin 30.4 Mean Corpuscular Hemoglobin Concent 33.2 Red Cell Distribution Width 17.4 Platelet Count 238 Mean Platelet Volume 7.5 Neutrophils (%) (Auto) 78.4 Lymphocytes (%) (Auto) 11.9 Monocytes (%) (Auto) 7.5 Eosinophils (%) (Auto) 1.2 Basophils (%) (Auto) 1.0 Neutrophils # (Auto) 6.7 Lymphocytes # (Auto) 1.0 Monocytes # (Auto) 0.6 Eosinophils # (Auto) 0.1 Basophils # (Auto) 0.1 CBC Comment DIFF FINAL Differential Comment Blood Gas Puncture Site RT RADIAL Blood Gas Patient Temperature 98.6 Blood Gas HCO3 36 Blood Gas Base Excess 9.7 Blood Gas Oxygen Saturation 88 Arterial Blood pH 7.30 Arterial Blood Partial Pressure CO2 76 Arterial Blood Partial Pressure O2 71 Arterial Blood Oxygen Content 18.0 Arterial Blood Carboxyhemoglobin 2.2 Arterial Blood Methemoglobin 1.1 Blood Gas Hemoglobin 14.5 Oxygen Delivery Device Venti Mask Blood Gas Liter Flow 6 Blood Gas Inspired Oxygen 40 Prothrombin Time 10.9 Prothromb Time International Ratio 1.1 Activated Partial Thromboplast Time 27.1 D-Dimer Quantitative (PE/DVT) 0.77 Blood Urea Nitrogen 8 Creatinine 0.59 Random Glucose 173 Total Protein 7.3 Albumin 3.3 Calcium Level 9.0 Alkaline Phosphatase 107 Aspartate Amino Transf (AST/SGOT) 16 Alanine Aminotransferase (ALT/SGPT) 23 Total Bilirubin 0.7 Sodium Level 139 Potassium Level 3.7 Chloride Level 97 Carbon Dioxide Level 38.5 Anion Gap 4 Estimat Glomerular Filtration Rate 138 Troponin I LESS THAN 0.02 B-Type Natriuretic Peptide 151 Result Diagram: 08/15/17 0807 08/15/17 0920 Imaging Last Impressions Lower Extremity Ultrasound 08/15/17 0749 Signed Impressions: Service Date/Time: Tuesday, August 15, 2017 08:50 - CONCLUSION: Normal examination. Echogenic 6.2 x 1.8 x 5-1 cm mass above the left ankle likely lipoma Yrn Vora MD Chest X-Ray 08/15/17748 Signed Impressions: Service Date/Time: Tuesday, August 15, 2017 08:24 - CONCLUSION: Underinflation with likely atelectasis at the lung bases. Otherwise, no acute finding is identified given the technique. MD Mendel Taylor VTE Risk Assessment Caprini VTE Risk Assessment: Mod/High Risk (score >= 2) Caprini Risk Assessment Model Point Value = 1 Point Value = 2 Point Value = 3 Point Value = 5 Age 41-60 Minor surgery BMI > 25 kg/m2 Swollen legs Varicose veins or History of unexplained or recurrent spontaneous Oral contraceptives or hormone replacement Sepsis (< 1 month) Serious lung disease, including pneumonia (< 1 month) Abnormal pulmonary function Acute myocardial infarction Congestive heart failure (< 1 month) History of inflammatory bowel disease Medical patient at bed rest Age 61-74 Arthroscopic surgery Major open surgery (> 45 min) Laparoscopic surgery (> 45 min) Malignancy Confined to bed (> 72 hours) Immobilizing plaster cast Central venous access Age >= 75 History of VTE Family history of VTE Factor V Leiden Prothrombin 07100H Lupus anticoagulant Anticardiolipin antibodies Elevated serum homocysteine Heparin-induced thrombocytopenia Other congenital or acquired thrombophilia Stroke (< 1 month) Elective arthroplasty Hip, pelvis, or leg fracture Acute spinal cord injury (< 1 month) Prophylaxis Regimen Total Risk Factor Score Risk Level Prophylaxis Regimen 0-1 Low Early ambulation 2 Moderate Order ONE of the following: *Sequential Compression Device (SCD) *Heparin 5000 units SQ BID 3-4 Higher Order ONE of the following medications: *Heparin 5000 units SQ TID *Enoxaparin/Lovenox 40 mg SQ daily (WT < 150 kg, CrCl > 30 mL/min) *Enoxaparin/Lovenox 30 mg SQ daily (WT < 150 kg, CrCl > 10-29 mL/min) *Enoxaparin/Lovenox 30 mg SQ BID (WT < 150 kg, CrCl > 30 mL/min) AND/OR *Sequential Compression Device (SCD) 5 or more Highest Order ONE of the following medications: *Heparin 5000 units SQ TID (Preferred with Epidurals) *Enoxaparin/Lovenox 40 mg SQ daily (WT < 150 kg, CrCl > 30 mL/min) *Enoxaparin/Lovenox 30 mg SQ daily (WT < 150 kg, CrCl > 10-29 mL/min) *Enoxaparin/Lovenox 30 mg SQ BID (WT < 150 kg, CrCl > 30 mL/min) AND *Sequential Compression Device (SCD) Assessment and Plan Problem List: (1) Acute hypercapnic respiratory failure ICD Code: J96.02 - Acute respiratory failure with hypercapnia Status: Acute Plan: Continue with respiratory support and BiPAP for ventilation in this patient with respiratory failure Continue with IV steroids, nebulized bronchodilators and antibiotics Pulmonary consult v CCM consult pending Chest x-ray on my review is under ventilated no evidence of pneumonia or edema (2) Diabetes ICD Code: E11.9 - Type 2 diabetes mellitus without complications Status: Acute Plan: Continue insulin as per sliding scale, ADA diet, patient is able to eat and will resume his home insulin (3) Hypotension ICD Code: I95.9 - Hypotension, unspecified Plan: After diuresis patient's blood pressure seems to have dropped. 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 In the case of services not specified as inpatient-only, they are appropriately provided as inpatient services in accordance with the 2-midnight benchmark. Estimated LOS (days): 5 5 days is the estimated time the patient will need to remain in the hospital, assuming treatment plan goals are met and no additional complications. Post-Hospital Plan: Home Shelley Merlos MD Aug 15, 2017 13:47
[2017-08-15] MEDS: methylPREDNISolone SOD SUCC 125 MG/2 ML VIAL IV PUSH SCH ×2 (14:20→19:59)
[2017-08-15] MEDS ORDERED: GLUCAGON 1 MG/ML VIAL OTHER PRN (17:15)
[2017-08-15] MEDS ORDERED: DEXTROSE 50% IN WATER 50 ML VIAL(D50) IV PUSH PRN (17:15)
[2017-08-15] MEDS ORDERED: CHLORHEXIDINE GLUCONATE 2 % 1 PACK (2 CLOTHS)(extra cloths) TOPICAL PRN (18:45)
[2017-08-15] MEDS ORDERED: ARTIFICIAL TEARS OPTH SOLN 15 ML BTL EACH EYE PRN (18:45)
[2017-08-15] MEDS: TAMSULOSIN HCL 0.4 MG CAP PO SCH (19:14)
[2017-08-15] MEDS: SODIUM CHLORIDE 0.9% FLUSH 10 ML FLUSH IV FLUSH SCH (19:59)
[2017-08-15] MEDS ORDERED: IOHEXOL 350 MG/ML 10 ML VIAL (for RAD DIAG) IVCONTRAST ONE (20:13)
--- NOTE | 2017-08-15 20:28 | RADRPT ---
EXAM DATE/TIME: 08/15/2017 20:07 [place] COMPARISON: CT PULMONARY ANGIOGRAM, September 13, 2016, 12:25. INDICATIONS : Short of breath. IV CONTRAST: 75 cc Omnipaque 350 (iohexol) IV RADIATION DOSE: 20.51 CTDIvol (mGy) MEDICAL HISTORY : Chronic obstructive pulmonary disease. Congestive heart failure. Gastroesophageal reflux disease.Diab etes. SURGICAL HISTORY : None. ENCOUNTER: Initial ACUITY: 2 days PAIN SCALE: 0/10 LOCATION: chest TECHNIQUE: Volumetric scanning of the chest was performed using a pulmonary embolism protocol MIP images were re constructed. Using automated exposure control and adjustment of the mA and/or kV according to patien t size, radiation dose was kept as low as reasonably achievable to obtain optimal diagnostic quality images. DICOM format image data is available electronically for review and comparison. Follow-up recommendations for detected pulmonary nodules are based at a minimum on nodule size and pa tient risk factors according to Fleischner Society Guidelines. FINDINGS: PULMONARY ARTERIES: No filling defects are seen in the pulmonary arteries through the segmental level. LUNGS: Bibasilar consolidation affecting the right greater degree than the left. Interstitial prominence thr oughout the lungs bilaterally. PLEURAE: Bilateral pleural effusions which are small. MEDIASTINUM: The heart is enlarged. Coronary artery atherosclerotic calcifications. Aorta and pulmonary arteries a re normal in caliber. No adenopathy. MUSCULOSKELETAL: Within normal limits for patient age. MISCELLANEOUS: There is a stenosis involving the right axillary vein. There is resultant collateralization about the right shoulder. CONCLUSION: 1. No pulmonary emboli. 2. Bibasilar infiltrates with small effusions and cardiomegaly. Findings suggest ulnar edema. 3. 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 Ryan Marvin Jr., MD on August 15, 2017 at 20:22 Board Certified Radiologist. This report was verified electronically.
[2017-08-15] MEDS: INSULIN ASPART SUPPLEMENTAL SCALE SQ SCH (21:13)
[2017-08-15] MEDS: ZOLPIDEM TARTRATE 10 MG TAB PO PRN (22:50)
[2017-08-16] VITALS (31 sets, daily range): BP systolic 102–136; BP diastolic 48–87; PULSE 80–106; RESP 11–35; TEMP 97.4–98.4; O2SAT 91–95
[2017-08-16] MEDS: CHLORHEXIDINE GLUCONATE 2 % 1 PACK (2 CLOTHS)(taper/protocol) TOPICAL SCH (04:00)
[2017-08-16] MEDS: methylPREDNISolone SOD SUCC 125 MG/2 ML VIAL IV PUSH SCH ×2 (04:08→08:38)
[2017-08-16 04:45] LABS: AUTOMATED NEUTROPHIL # 7.8 TH/MM3 (1.8-7.7); BASOPHIL % 0.2 % (0.0-2.0); LYMPH % 5.6 % (9.0-44.0); LYMPHOCYTE # 0.5 TH/MM3 (1.0-4.8); MEAN CELL VOLUME 92.3 FL (80.0-100.0); MEAN CORPUSCULAR HGB CONC 32.5 % (32.0-36.0); MEAN PLATELET VOLUME 7.6 FL (7.0-11.0); MONO % 1.4 % (0.0-8.0); MONOCYTE # 0.1 TH/MM3 (0-0.9); NEUT % 92.8 % (16.0-70.0); PLATELET COUNT 211 TH/MM3 (150-450); RED BLOOD COUNT 4.34 MIL/MM3 (4.50-5.90); WHITE BLOOD COUNT 8.4 TH/MM3 (4.0-11.0)
[2017-08-16 04:51] LABS: BICARBONATE 35.7 MEQ/L (21.0-32.0); CALCIUM 8.7 MG/DL (8.5-10.1)
[2017-08-16 04:55] LABS: CREATININE 0.58 MG/DL (0.60-1.30)
[2017-08-16] MEDS: RESP: ALBUTEROL 2.5 MG/IPRATROPIUM 0.5 MG NEB (SCH) INH ×3 (07:18→19:16)
[2017-08-16] MEDS: MULTIVITAMINS/MINERALS THERAPEUTIC TAB PO SCH (08:38)
[2017-08-16] MEDS: TAMSULOSIN HCL 0.4 MG CAP PO SCH (08:39)
[2017-08-16] MEDS: SODIUM CHLORIDE 0.9% FLUSH 10 ML FLUSH IV FLUSH SCH ×2 (08:39→22:04)
[2017-08-16] MEDS: ESCITALOPRAM OXALATE 10 MG TAB PO SCH (08:39)
[2017-08-16] MEDS: INSULIN ASPART SUPPLEMENTAL SCALE SQ SCH ×4 (09:44→21:00)
[2017-08-16] MEDS: LEVOFLOXACIN 750 MG TAB PO SCH (12:42)
[2017-08-16] MEDS: ENOXAPARIN SODIUM 40 MG/0.4 ML SYRINGE SQ SCH (12:42)
--- NOTE | 2017-08-16 13:39 | MB ---
cc: APARNA GALEAS MD, R. STEVEN M.D. DATE OF CONSULTATION: 08/16/2017 HISTORY OF PRESENT ILLNESS Mr. 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 The patient was hospitalized here in August of last year in severe respiratory failure and diabetic ketoacidosis. He is also diabetic, insulin dependent. That was a prolonged hospitalization. He was in rehab and it took him several months to recover but he did recover back to his "baseline status", no longer needing a walker or a cane. He continued to have chronic dyspnea on exertion, though. 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 He presented this time really at the insistence of his girlfriend who lives with him, because he was having more difficulty breathing. On presentation arterial blood gas revealed a pCO2 of 76 with a pH of 7.3 and pO2 of 71 on 6 liters nasal oxygen. He was placed on BiPAP and this morning his pCO2 was down to 58, pH 7.4 with a pCO2 of 78 on 35%. He is currently on a nasal cannula at 4 liters with sats of 90-93%. He feels much better. The patient has never smoked. He had pulmonary functions done in July of last year that we were able to find in the EMR and he had a severe restrictive defect in the range of 25%. It was a simple spirometry, no diffusion capacity, no response to bronchodilators and only small airways obstruction. CT scans last year and now reveal basilar atelectatic changes as well as possibly some scarring but no interstitial lung disease of significance and no thromboembolism then or now. He also has chronic swelling of the left leg due to a compound fracture. He has had no recent edema in the right, although he had significant edema last year. His echocardiogram at that time, however, was normal with no evidence of cor pulmonale or pulmonary hypertension. It was recommended that the patient wear C-PAP at night. He was seen by a detonator maker and a sleep study was scheduled but he never followed through and he said he could not tolerate C-PAP. He has had oxygen at home but he does not use it regularly and he monitors his oxygen saturation at home and insists they have been normal. CT scan on this admission reveals some small effusions and basilar infiltrates really unchanged from previous. PAST MEDICAL HISTORY 1. Hypertension. 2. Diabetes. 3. Listed as having COPD but we find no evidence for that. 4. Compound fracture of the left ankle years ago. ALLERGIES None known. MEDICATIONS Reviewed in the EMR. PHYSICAL EXAMINATION VITAL SIGNS: The patient is obese, afebrile, blood pressure 107/60, pulse 80, respirations 18-22, currently stable on 4 liters nasal cannula. HEENT: Sclerae anicteric. NECK: Neck veins are flat. CHEST: Reveals no basilar rales. No congestion or wheezing. HEART: Regular rhythm. No harsh murmur. ABDOMEN: Abdomen is obese. EXTREMITIES: He has what he says is chronic edema in that left leg. No calf tenderness. There is no edema in the right leg or calf tenderness. LABORATORY DATA White count is normal at 8400, hemoglobin 13, BUN and creatinine are normal. BNP was only 150 and bicarb is elevated as would be expected with the elevated pCO2. DISCUSSION Mr. Robb presents with probably primarily obesity hypoventilation syndrome. He does have some basilar scarring, this could be due to chronic atelectasis and his obesity or may be related to his prior exposures to welding fumes and asbestos but there is no evidence of interstitial lung disease of significance. I have spoken to Dr. Merlos and to the patient today. I think the most important thing would be an outpatient followup in this gentleman with a sleep study. I think he probably would benefit from at least nocturnal C-PAP, possibly BiPAP to maintain better control of the CO2 problem. At some point followup pulmonary functions when he is very stable would be helpful too, just to further confirm that there is really no obstructive disease here but it is predominantly restrictive. I have explained all of this to Mr. Robb today. He is quite insistent that he needs to leave the hospital, although I suggested that not be done yet. I significantly curtailed his bronchodilators and steroids today. Will eliminate those tomorrow if he is stable and will do a room air arterial blood gas tomorrow to establish a baseline to see whether or not he needs oxygen therapy as well. R. MD PARKER Cotto/TLL /12:41 PM /1:15 PM
--- NOTE | 2017-08-16 14:10 | HHI.PR ---
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 However still requiring increased O2 demand. Patient very eager to go home and plans on going home tomorrow. He states he does have oxygen at home already. Concentrate her as well as tanks. I discussed with him the need to wean down his oxygen level prior to discharge. He does understand. Objective Vital Signs Date Time Temp Pulse Resp B/P (MAP) Pulse Ox O2 Delivery O2 Flow Rate FiO2 08/16/17 11:00 86 20 107/54 (71) 91 08/16/17 10:00 88 08/16/17 10:00 88 19 115/58 (77) 93 08/16/17 09:00 88 28 116/72 (87) 92 08/16/17 08:10 92 Nasal Cannula 4.00 08/16/17 08:00 80 08/16/17 08:00 94 Nasal Cannula 4.00 08/16/17 08:00 97.6 86 29 107/61 (76) 94 08/16/17 07:19 94 35 08/16/17 06:00 85 08/16/17 05:59 93 35 08/16/17 05:50 89 Bi-Pap 35 08/16/17 04:11 87 08/16/17 04:02 98.0 88 27 129/67 (87) 92 08/16/17 04:00 92 Nasal Cannula 4.00 08/16/17 03:02 84 11 116/60 (78) 94 08/16/17 03:00 93 Bi-Pap 35 08/16/17 02:02 92 20 129/63 (85) 92 08/16/17 02:00 90 08/16/17 02:00 93 Nasal Cannula 4.00 08/16/17 01:03 94 35 08/16/17 01:02 90 20 114/61 (78) 95 08/16/17 00:06 89 08/16/17 00:02 97.7 88 14 116/61 (79) 94 08/15/17 23:04 94 Bi-Pap 35 08/15/17 22:55 95 35 08/15/17 22:44 90 08/15/17 21:38 90 08/15/17 21:05 94 Nasal Cannula 4.00 08/15/17 20:29 82 08/15/17 20:19 97.6 86 20 127/64 (85) 94 08/15/17 20:00 93 Nasal Cannula 4.00 08/15/17 19:01 86 24 107/68 (81) 93 08/15/17 18:00 84 08/15/17 16:00 70 08/15/17 16:00 98.1 72 8 94/56 (69) 97 08/15/17 14:00 66 I/O 08/15/17 08/15/17 08/15/17 08/16/17 08/16/17 08/16/17 07:00 15:00 23:00 07:00 15:00 23:00 Intake Total 960 ml 400 ml Output Total 700 ml 2500 ml 600 ml Balance -700 ml -1540 ml -200 ml Intake Oral 960 ml 400 ml Output Urine Total 700 ml 2500 ml 600 ml # Voids 5 # Bowel Movements 1 0 Result Diagram: 08/16/17 0415 08/16/17 0415 Imaging Last Impressions Lower Extremity Ultrasound 08/15/17 0749 Signed Impressions: Service Date/Time: Tuesday, August 15, 2017 08:50 - CONCLUSION: Normal examination. Echogenic 6.2 x 1.8 x 5-1 cm mass above the left ankle likely lipoma Yrn Vora MD Chest X-Ray 08/15/17 0749 Signed Impressions: Service Date/Time: Tuesday, August 15, 2017 08:24 - CONCLUSION: Underinflation with likely atelectasis at the lung bases. Otherwise, no acute finding is identified given the technique. Abhinav Morrison MD CT Angiography 08/15/17 0000 Signed Impressions: Service Date/Time: Tuesday, August 15, 2017 20:07 - CONCLUSION: 1. No pulmonary emboli. 2. Bibasilar infiltrates with small effusions and cardiomegaly. Findings suggest ulnar edema. 3. 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 Ryan Marvin Jr., MD Objective Remarks GENERAL: Well-developed, well-nourished, in no acute distress. alert and orientated HEENT: Head is normocephalic without any lesions or masses noted. Facial features are symmetric. Eyes: Extraocular muscles are intact. Conjunctivae were clear. Oropharyngeal: Pharynx without any erythema edema. Tongue is midline without deviation. Buccal mucosa is moist without any masses or lesions NECK: Supple without any masses. Trachea midline no deviation. No JVD, CARDIAC: Regular rhythm, regular rate. S1/S2 are heard. No murmurs gallops or rubs. LUNGS: Diminished breath sounds noted throughout, minimal air movement. Minimal expiratory wheeze noted.. No rhonchi or rales. No use of accessory muscles on inspiration or expiration. ABDOMEN: Soft, nontender. Nondistended. Bowel sounds heard in all 4 quadrants. No organomegaly or masses. Negative rebound, negative guarding EXTREMITIES: No edema, pulses are equal bilaterally. No cyanosis or clubbing NEUROLOGY: Mood and affect appear appropriate. Cranial nerves II through XII grossly intact. 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 Solu-Medrol being decreased down to 30 mg IV daily Duo nebs 3 times daily and every 2 hours as needed Levaquin 750 mg daily Continue incentive spirometry Start Acapella Patient with severe CO2 retention. May need to resume Diamox with blood pressure improves Hypotension, improved Diamox, terazosin has been held Flomax continued for prostate Monitor blood pressure Diabetes Accu-Cheks with sliding scale insulin DVT prevention Subcutaneous Lovenox Discharge Planning 24-48 hours depending on patient's response to treatment Edwin Prabhakar Aug 16, 2017 14:10
[2017-08-16] MEDS ORDERED: INSULIN HUMAN REGULAR 1,000 UNITS/10 ML VIAL IV PUSH ONE (21:45)
[2017-08-16] MEDS: ZOLPIDEM TARTRATE 10 MG TAB PO PRN (22:03)
[2017-08-17] VITALS (30 sets, daily range): BP systolic 109–168; BP diastolic 61–90; PULSE 60–108; RESP 11–39; TEMP 97.4–97.8; O2SAT 90–98
[2017-08-17] MEDS: CHLORHEXIDINE GLUCONATE 2 % 1 PACK (2 CLOTHS)(taper/protocol) TOPICAL SCH (04:00)
[2017-08-17] MEDS: RESP: ALBUTEROL 2.5 MG/IPRATROPIUM 0.5 MG NEB (SCH) INH ×2 (07:21→14:14)
[2017-08-17] MEDS: INSULIN ASPART SUPPLEMENTAL SCALE SQ SCH ×2 (08:22→11:54)
[2017-08-17] MEDS: SODIUM CHLORIDE 0.9% FLUSH 10 ML FLUSH IV FLUSH SCH (08:22)
[2017-08-17] MEDS: TAMSULOSIN HCL 0.4 MG CAP PO SCH (08:24)
[2017-08-17] MEDS: ESCITALOPRAM OXALATE 10 MG TAB PO SCH (08:24)
[2017-08-17] MEDS: MULTIVITAMINS/MINERALS THERAPEUTIC TAB PO SCH (08:24)
[2017-08-17] MEDS ORDERED: methylPREDNISolone SOD SUCC 40 MG/1 ML VIAL IV PUSH SCH (09:00)
[2017-08-17] MEDS: LEVOFLOXACIN 750 MG TAB PO SCH (11:54)
[2017-08-17] MEDS: ENOXAPARIN SODIUM 40 MG/0.4 ML SYRINGE SQ SCH (11:54)
--- NOTE | 2017-08-17 14:18 | HHI.DCPOC ---
Discharge Care Plan Diagnosis: (1) Acute hypercapnic respiratory failure (2) Obesity hypoventilation syndrome Goals to Promote Your Health * To prevent worsening of your condition and complications * To maintain your health at the optimal level Directions to Meet Your Goals Take your medications as prescribed Follow your dietary instruction Follow activity as directed Keep your appointments as scheduled Take your immunizations and boosters as scheduled If your symptoms worsen call your PCP, if no PCP go to Urgent Care Center or Emergency Room Smoking is Dangerous to Your Health. Avoid second hand smoke Call the 24-hour hour crisis hotline for domestic abuse at Edwin Prabhakar Aug 17, 2017 14:18
[2017-08-17] MEDS ORDERED: MEDR4PAK PO (14:21)
[2017-08-17] MEDS ORDERED: LEVA750T9 PO (14:21)
--- NOTE | 2017-08-17 14:53 | HHI.DS ---
Discharge Summary Admission Date Aug 15, 2017 at 10:32 Discharge Date: Aug 17, 2017 Admitting Diagnosis copd exacerbation (1) Acute hypercapnic respiratory failure ICD Code: J96.02 - Acute respiratory failure with hypercapnia Status: Acute (2) Diabetes ICD Code: E11.9 - Type 2 diabetes mellitus without complications Status: Acute (3) Hypotension ICD Code: I95.9 - Hypotension, unspecified Procedures None Brief History - From Admission Patient with severe mixed respiratory disorders at baseline including severe COPD and restrictive lung disease. Patient has likely obesity hypoventilation syndrome. Patient's come to the emergency room considerably hypercapnic and hypoxemic. He has required bronchodilators and BiPAP for treatment. His pCO2 is 76 blood gas and he has been admitted to the ICU for further treatment. Patient reports about a week of increased dyspnea on exertion and shortness of breath. He has been using an inhaler but denies any nebulizers at home and says he "will not take them "because they don't work. He was in the hospital in September 2016 for respiratory failure. Patient this time is seen in ICU on BiPAP. He is awake and conversant.. CBC/BMP: 08/16/17 0415 08/16/17 0415 Significant Findings Laboratory Tests Test 08/15/17 08:07 08/15/17 09:06 08/15/17 09:20 08/15/17 14:16 Red Cell Distribution Width 17.4 % (11.6-17.2) Neutrophils (%) (Auto) 78.4 % (16.0-70.0) Blood Gas HCO3 36 mmol/L (22-26) 35 mmol/L (22-26) Blood Gas Base Excess 9.7 mmol/L (-2-2) 9.4 mmol/L (-2-2) Blood Gas Oxygen Saturation 88 % (90-100) Arterial Blood pH 7.30 (7.380-7.420) 7.33 (7.380-7.420) Arterial Blood Partial Pressure CO2 76 mmHG (38-42) 68 mmHg (38-42) D-Dimer Quantitative (PE/DVT) 0.77 MG/L FEU (0.00-0.50) Creatinine 0.59 MG/DL (0.60-1.30) Random Glucose 173 MG/DL (74-106) Albumin 3.3 GM/DL (3.4-5.0) Chloride Level 97 MEQ/L (98-107) Carbon Dioxide Level 38.5 MEQ/L (21.0-32.0) Anion Gap 4 MEQ/L (5-15) Troponin I LESS THAN 0.02 NG/ML B-Type Natriuretic Peptide 151 PG/ML (0-100) Arterial Blood Oxygen Content 22.6 Vol % (12.0-20.0) Blood Gas Hemoglobin 17.1 G/DL (12.0-16.0) Test 08/15/17 19:30 08/16/17 04:15 08/16/17 06:25 08/16/17 14:03 Red Blood Count 4.34 MIL/MM3 (4.50-5.90) Neutrophils (%) (Auto) 92.8 % (16.0-70.0) Lymphocytes (%) (Auto) 5.6 % (9.0-44.0) Neutrophils # (Auto) 7.8 TH/MM3 (1.8-7.7) Lymphocytes # (Auto) 0.5 TH/MM3 (1.0-4.8) Creatinine 0.58 MG/DL (0.60-1.30) Random Glucose 252 MG/DL (74-106) Chloride Level 95 MEQ/L (98-107) Carbon Dioxide Level 35.7 MEQ/L (21.0-32.0) Blood Gas HCO3 36 mmol/L (22-26) 35 mmol/L (22-26) Blood Gas Base Excess 11.4 mmol/L (-2-2) 10.8 mmol/L (-2-2) Arterial Blood Partial Pressure CO2 58 mmHg (38-42) 51 mmHg (38-42) Blood Gas Oxygen Saturation 88 % (90-100) Arterial Blood pH 7.46 (7.380-7.420) Arterial Blood Partial Pressure O2 56 mmHg (61-120) Imaging Last Impressions Lower Extremity Ultrasound 08/15/17 0749 Signed Impressions: Service Date/Time: Tuesday, August 15, 2017 08:50 - CONCLUSION: Normal examination. Echogenic 6.2 x 1.8 x 5-1 cm mass above the left ankle likely lipoma Yrn Vora MD Chest X-Ray 08/15/17 0749 Signed Impressions: Service Date/Time: Tuesday, August 15, 2017 08:24 - CONCLUSION: Underinflation with likely atelectasis at the lung bases. Otherwise, no acute finding is identified given the technique. Abhinav Morrison MD CT Angiography 08/15/17 0000 Signed Impressions: Service Date/Time: Tuesday, August 15, 2017 20:07 - CONCLUSION: 1. No pulmonary emboli. 2. Bibasilar infiltrates with small effusions and cardiomegaly. Findings suggest ulnar edema. 3. 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 Patient was admitted with O2 supplementation requiring BiPAP administration, Solu-Medrol, DuoNeb, Levaquin, incentive spirometry and Acapella. Patient did tolerate treatment rather well. Has been able to wean him down on oxygen during his stay in the hospital. Patient indicates that he does not have outpatient chamber worker. Dr. ro was consulted who followed the patient during his stay in the hospital. Patient had blood gas performed today on room air which did show pH 7.46, PCO2 51, PO2 56, bicarbonate 35, O2 saturation 88%. Patient is doing rather well. According to Dr. ro patient can tolerate O2 supplementation at 1 L in outpatient setting to maintain his oxygenation. Patient does have home oxygen that he uses sporadically. Patient has been notified that he could benefit from CPAP at night. It was indicated that he could not tolerate the mask in the past and therefore it has been noncompliant. Has instructed the patient that he needs close follow-up on his interstitial lung disease for proper management care. Patient needs to follow- up with chamber worker when he discharges from the hospital to obtain sleep study and get CPAP. After discussion with Dr. ro today, patient is clinically stable for discharge with home oxygen. However Dr. ro is concerned about the patient's compliancy in the outpatient setting. This was discussed with the patient extensively. Patient will be discharged today with his home oxygen. Patient was noted that he needs to follow-up with pulmonology for further testing. Pt Condition on Discharge: Stable Discharge Disposition: Discharge Home Discharge Time: > 30 minutes Discharge Instructions DIET: Follow Instructions for: Diabetic Diet Activities you can perform: Regular-No Restrictions Activities to Avoid: Driving for 24 hrs Follow up Referrals: PCP Follow-up - 1 Week Pulmonology - 2 Weeks New Medications: Methylprednisolone Dosepak (Medrol Dosepak) 4 Mg Dspk 4 MG PO DIRECTED, #1 DSPK 0 Refills Per Pharmacist direction Levofloxacin (Levaquin) 750 Mg Tablet 750 MG PO Q24H for resp failure for 5 Days, #5 TAB Continued Medications: Budesonide Neb (Budesonide Neb) 0.5 Mg/2 Ml Neb 0.5 MG NEB Q12HR NEB for Breathing Treatment, #60 NEBULE 0 Refills Escitalopram (Lexapro) 10 Mg Tab 10 MG PO DAILY, #30 TAB 0 Refills Famotidine (Famotidine) 20 Mg Tab 20 MG PO BID, #60 TAB 0 Refills Insulin Detemir Inj (Levemir Inj) 1,000 unit/ 10 ML Vial 35 UNITS SQ DAILY for 30 Days, INJECTION Insulin Detemir Inj (Levemir Inj) 1,000 unit/ 10 ML Vial 15 UNITS SQ HS for 30 Days, INJECTION Ipratropium-Albuterol Neb (Duoneb) 0.5-2.5 Mg/3 Ml Neb 1 NEBULE INH Q4HR NEB PRN for SHORTNESS OF BREATH, #120 NEBULE 0 Refills Multiple Vitamins W/ Minerals (Thera M Plus) 1 Tab 1 TAB PO DAILY for Nutritional Supplement, #30 TAB 0 Refills Tamsulosin (Flomax) 0.4 Mg Cap 0.4 MG PO DAILY for urinary retention, #30 CAP 1 Refill Terazosin (Terazosin) 1 Mg Cap 1 MG PO HS, #30 CAP Trazodone (Trazodone) 50 Mg Tab 50 MG PO HS for Control Depression, #30 TAB 0 Refills Zolpidem (Ambien) 10 Mg Tab 10 MG PO HS PRN for INSOMNIA, #30 TAB [Artificial Tears Opth Soln] () 300 DROP/15 ML SOLN 1 DROP EACH EYE Q4H PRN for Dry eyes for 30 Days, BOTTLE Discontinued Medications: Acetazolamide (Acetazolamide) 250 Mg Tab 250 MG PO BID, #60 TAB 0 Refills Diltiazem (Diltiazem) 60 Mg Tab 60 MG PO QID for Angina, #120 TAB 0 Refills Docusate Sodium (Docusate Sodium) 100 Mg Cap 100 MG PO BID for Prevent Constipation, #60 CAP 0 Refills Potassium Chloride Microencaps (Klor-Con M20) 20 Meq Tab 20 MEQ PO BID for Electrolyte Replacement, #60 TAB 0 Refills Prednisone (Prednisone) 5 Mg Tab 5 MG PO DAILY, #30 TAB 0 Refills Edwin Prabhakar Aug 17, 2017 14:53
== END 2017-08-17 18:00 | disposition home or self-care (01) | DRG 189 ==
LOC: PHED 07:41 → PHEDA 10:32 → PHICU 11:37
PROVIDERS: ADMIT Hospitalist; ATTEND Hospitalist
PROC: 3E0F7GC Introduction of Other Therapeutic Substance into Respiratory Tract, Via Natural or Artificial Opening (ICD-10-PCS; principal; 2017-08-15)
DX: J96.22 Acute and chronic respiratory failure with hypercapnia (principal); E87.2 Acidosis; J44.1 Chronic obstructive pulmonary disease with (acute) exacerbation; J84.9 Interstitial pulmonary disease, unspecified; I11.0 Hypertensive heart disease with heart failure; E66.2 Morbid (severe) obesity with alveolar hypoventilation; I50.9 Heart failure, unspecified; J96.21 Acute and chronic respiratory failure with hypoxia; Z99.81 Dependence on supplemental oxygen; I95.9 Hypotension, unspecified; F32.9 Major depressive disorder, single episode, unspecified; F41.9 Anxiety disorder, unspecified; E11.9 Type 2 diabetes mellitus without complications; Z79.4 Long term (current) use of insulin; Z77.090 Contact with and (suspected) exposure to asbestos; Z91.19 Patient's noncompliance with other medical treatment and regimen; K21.9 Gastro-esophageal reflux disease without esophagitis
CPT/HCPCS: 36600; 71045; 71275; 80048; 80053; 80307; 82805; 82948; 83880; 84484; 85025; 85379; 85610; 85730; 87070; 87077; 87186; 87205; 87641; 93005; 93971; 94002; 94003; 94150; 94640; 94664; 94667; 94668; 96374; 96375; J1650; J1815; J1940; J2920; J2930; Q9967